=== PATIENT | female | born 1930 | race Caucasian/White ===

== ENCOUNTER 2017-08-07 13:33 | Inpatient (IN) | payer OTHER ==
[2017-08-07 14:47] VITALS: BMI 39.6
[2017-08-07] MEDS ORDERED: D50W 25 GM/50 ML SYRINGE IV PRN (15:56)
[2017-08-07] MEDS ORDERED: GLUCAGON 1 MG/VIAL IM PRN (15:56)
[2017-08-07] MEDS ORDERED: VANCOMYCIN/NS 1 gm 1 GM/250 ML BAG IVPB SCH (16:00)
[2017-08-07 16:22] LABS: Absolute Lymphocytes (CBC) 1.5 K/uL (0.7-4.9); Absolute Monocytes 0.8 K/uL (0.1-1.3); Absolute Neutrophil 4.4 K/uL (1.8-8.0); Basophils % 0.8 % (0-1.3); Eosinophils % 6.4 % (0-4.4); Hematocrit 32.8 % (36.0-45.0); Lymphocytes % 21.2 % (15.3-44.8); MCH 29.2 pg (27.0-35.0); MCV 90.5 fL (80-100); MPV 8.4 fL (7.6-11.3); Monocytes % 10.7 % (3.3-12.3); RBC Red Blood Cell Count 3.62 M/uL (3.86-4.86)
[2017-08-07 16:28] LABS: Protime INR 1.05
[2017-08-07] MEDS: INSULIN -REGULAR HUMAN 50 UNIT/0.5 ML ML SQ SCH ×2 (16:30→21:00)
[2017-08-07 16:41] LABS: Albumin 3.5 g/dL (3.4-5.0); Bilirubin Total 0.6 mg/dL (0.2-1.0); Magnesium 2.8 mg/dL (1.8-2.4); Potassium 4.6 mmol/L (3.5-5.1)
[2017-08-07] MEDS ORDERED: VANCOMYCIN 1.75 GM in NA CHLORIDE 0.9% 500 ML IVPB SCH (17:00)
[2017-08-07] MEDS: Levofloxacin 250mg IV 250 MG/50 ML BAG IV SCH (18:29)
[2017-08-07] MEDS: NA CHLORIDE 0.9% 1,000 ML IV SCH (18:30)
[2017-08-07] MEDS ORDERED: FAMOTIDINE 20 MG PO PRN (20:32)
[2017-08-07] MEDS ORDERED: ACETAMINOPHEN PO PRN (20:32)
[2017-08-07] MEDS ORDERED: HYDROCODONE BIT PO PRN (20:32)
[2017-08-07] MEDS ORDERED: RANITIDINE 150 MG PO PRN (20:32)
[2017-08-07] MEDS ORDERED: CLONIDINE 0.1 MG TOP SCH (20:45)
[2017-08-07] MEDS ORDERED: METHOCARBAMOL PO SCH (21:00)
--- NOTE | 2017-08-08 06:01 | HP ---
Date of Admission: 08/07/2017 Chief Complaint: Pain and swelling. History Of Present Illness: Ms. Marte is a very pleasant 86-year-old white female patient, living at [facility], came into office today with almost 2 weeks history of worsening problem with redness and swelling of the left upper chest just near the clavicular region. Denies a ny fall or injury. No fever or chills. This area is sore to touch, but not painful. No insect bite . It has gotten worse in last few days. After she was evaluated at the office, decision was made to admit her to the hospital directly with abscess of the upper chest wall area. Allergies: LISINOPRIL CAUSING DRY COUGH. Medications: List reviewed. Review of Systems: Dermatology: As mentioned above. All other systems reviewed and negative. Social History: Negative for smoking or alcohol use. Family History: Not pertinent. Past Medical History: Significant for osteoporosis, constipation, anemia and chronic kidney disease, chronic kidney disease stage IV, mixed hyperlipidemia, type 2 diabetes mellitus, osteoarthritis at m ultiple sites, osteoporosis, hypertension. Past Surgical History: Significant for surgery for right hip fracture in 2016, hysterectomy, cholecy stectomy in the past. Physical Examination: Vital Signs: Upon admission, temperature 97.6, pulse 63, respiratory rate 175/79, saturation 99%. H eight 5 feet 1 inch. Weight 210 pounds. HEENT: Head atraumatic, normocephalic. Conjunctivae nonerythematous. Sclerae white. Mouth, no thr ush or edema noted. Ears/Nose, no mass, lesion, discharge noted. Neck: Supple. No JVD, lymph nodes, bruit, thyromegaly noted. Lungs: Bilateral good equal air entry. Clear to auscultation. No rhonchi. No rales. Heart: Normal heart sounds, no murmur or gallop. Abdomen: Soft, bowel sounds normal. No guarding, rigidity, tenderness, mass, hepatosplenomegaly, dis tention, or bruit noted. Extremities: No leg edema. No calf tenderness. Skin: No rash, ulcer, cellulitis. Lymphatics: No lymph node enlargement in neck, supraclavicular, infraclavicular region. Neuro: No focal neurological deficit. Chest Wall Examination: The patient has large, about 4-5 cm area of pink, warm skin with fluctuation and upon gentle pressure, she has some pain, tenderness, and also there was some purulent discharge noted to come out of this fluctuance, swelling and this is located in the left sternoclavicular junct ion area. External Genitalia: Deferred. Rectal: Deferred. Laboratory Data: White count 7.3, hemoglobin 10.6, platelets 255. Sodium 140, potassium 4.6, chlori de 108, bicarb 27, BUN 27, creatinine 1.70, glucose 66. Liver function tests unremarkable. PT/PTT n ormal. Impression: 1.Abscess, chest wall. 2.Chronic kidney disease, stage 4, improving. 3.Type 2 diabetes mellitus with chronic kidney disease. 4.Hypertension. 5.Mixed hyperlipidemia. 6.Osteoporosis. 7.Osteoarthritis, multiple sites. Plan: Admit the patient to hospital for further evaluation and management of this problem. The sobeida ent is appropriate for inpatient and is expected to spend 2 midnights in hospital. We will go ahead and consult general surgeon, keep her n.p.o. after midnight. Home medications will be continued per order. IV antibiotic including Levaquin and vancomycin will be given and I will see her tomorrow for followup. For diabetes, we will go ahead and manage her with sliding scale insulin to start with. I will see her tomorrow morning for followup. PITA/MODL Voice ID: [id number]
[2017-08-08] MEDS: INSULIN -REGULAR HUMAN 50 UNIT/0.5 ML ML SQ SCH ×4 (07:30→19:57)
[2017-08-08] MEDS ORDERED: NA CHLORIDE 0.9% 1,000 ML ONE (10:37)
[2017-08-08] MEDS ORDERED: BUPIVACAINE 0.5% PF 10 ML VIAL ONE (11:14)
[2017-08-08] MEDS ORDERED: LIDOCAINE 2% MPF 5 ML VIAL ONE (11:20)
[2017-08-08] MEDS ORDERED: PROPOFOL 200 MG/20 ML VIAL IV ONE (11:20)
[2017-08-08] MEDS ORDERED: KETOROLAC 30 MG/ML INJ ONE (11:21)
[2017-08-08] MEDS ORDERED: CEFAZOLIN/SWI 1gm 1 GM/10 ML SYR ONE (11:37)
--- NOTE | 2017-08-08 11:49 | P.OP ---
Preoperative diagnosis: Abscess and cellulitis Left chest Postoperative diagnosis: same, inflamed sebecous cyst Primary procedure: Wide excision Left chest Inflamed Sebecous cyst Anesthesia: Gen Estimated blood loss: min Specimen: c & s, cyst Findings: as above Complications: None Transferred to: Recovery Room Condition: Good
[2017-08-08] MEDS: NA CHLORIDE 0.9% 1,000 ML IV SCH (12:00)
--- NOTE | 2017-08-08 13:01 | PN ---
Date of Progress Note: 08/08/2017 Subjective: The patient was seen this morning for followup. Lying in bed, not in distress. Objective: Vital Signs: Reviewed. HEENT: Examination unremarkable. Lungs: Clear to auscultation. Heart: Sounds normal. Abdomen: Soft, bowel sounds normal. No guarding, rigidity, tenderness, or distention. Extremities: No leg edema. CHEST WALL: Shows area of abscess remains unchanged, but surrounding redness. Intensity is better t anthony than yesterday. Impression: 1.Abscess, chest wall. 2.Hypertension. 3.Type 2 diabetes mellitus. 4.Chronic kidney disease, stage 4. Plan: We will continue current medication, antibiotic. The patient is n.p.o. for surgical procedure by Dr. Morales and for incision and drainage, and we will continue current antibiotics. PITA/MODL Voice ID: [id number] Report ID: [id number]
--- NOTE | 2017-08-08 13:34 | PREOPCON ---
Date of Consultation: 08/07/2017 Reason: Abscess, cellulitis, left anterior chest. History Of Present Illness: The patient is an 86-year-old female, who presented to Dr. Addison's office with a 2-week history of redness, swelling in the left upper chest, increasing in size. She was adm itted for IV antibiotics. I was consulted for incision and drainage. No history of trauma. She did state that she had possibly a cyst there before. No history of insect bite, and again it is getting worse. No fever or chills. Review of Systems: Otherwise unremarkable. Past Medical History: Significant for chronic kidney disease, hyperlipidemia, diabetes type 2, hyper tension. Past Surgical History: Right hip surgery, hysterectomy, cholecystectomy. Allergies: INCLUDE LISINOPRIL. Social History: She does not smoke or drink. Family History: Noncontributory. Physical Examination: Vital Signs: Stable. She is afebrile. General: She is awake, alert, orient x3. Head and Neck: Cranial nerves 2 through 12 grossly within normal limits. No neck masses. No JVD. Throat: Clear. Neck: Supple. Chest: Clear. Heart: S1, S2. Abdomen: Soft. Extremity: Neurovascularly intact. Neuro: Nonfocal. Left anterior chest, there is approximately a 5 x 3 cm area of erythema, warmth, and edema with centr al fluctuance and tenderness. Laboratory Data: Reviewed. White count is 7.3, INR is 1.05. Chemistry reviewed. Assessment: Left anterior chest abscess and cellulitis. Recommendation: Continue antibiotics as ordered. We will take the patient to the OR for incision, d rainage, and debridement. The patient understands the risks, benefits, and alternatives and agrees t o procedure. EMMETT/MODL Voice ID: [id number] Report ID: [id number]
[2017-08-08] MEDS: AMLODIPINE 5 MG PO SCH (15:47)
[2017-08-08] MEDS: Levofloxacin 250mg IV 250 MG/50 ML BAG IV SCH (16:51)
[2017-08-08] MEDS ORDERED: METHYLDOPA 250 MG PO SCH (17:00)
--- NOTE | 2017-08-08 20:54 | OP ---
Date of Procedure: 08/08/2017 Surgeon: Vlad Morales MD Preoperative Diagnosis: Abscess and cellulitis, left neck. Postoperative Diagnoses: Abscess and cellulitis, left neck with inflamed sebaceous cyst. Procedure Performed: Wide excision, inflamed sebaceous cyst to the left chest 6 x 3 cm. Estimated Blood Loss: Minimal. Specimen: Inflamed sebaceous cyst, and culture and sensitivity. Findings: As above. Anesthesia: General. Complications: None. Disposition: The patient tolerated the procedure in stable condition and taken to Recovery in good g eneral condition. Procedure In Detail: The patient was brought to the OR and placed in the supine position. General a nesthesia was begun. The patient was prepped and draped in usual sterile fashion. Marcaine 0.5% was infiltrated locally and then a 15-blade was used to make a 6 x 3 cm incision. There was pus oozing from the cyst. The cultures were done, and then the entire cyst wall and contents were excised, sent to Pathology. Wound irrigated. Bleeding controlled with cautery. Flap was created and 2-0 chromic used to approximate the subcutaneous tissue. The skin left open for drainage purposes as the cyst w as inflamed. Sterile dressing was applied. The patient was awakened and taken to Recovery in good gene ral condition. /MODL Voice ID: [id number] Report ID: [id number]
[2017-08-09] MEDS: INSULIN -REGULAR HUMAN 50 UNIT/0.5 ML ML SQ SCH (07:30)
--- NOTE | 2017-08-09 08:02 | PN ---
Date of Progress Note: 08/09/2017 Subjective: The patient is awake, alert. No complaint. Objective: Vital Signs: Stable, afebrile. Cultures are pending. Dressing is clean, dry, intact. Assessment: Excision of infected sebaceous cyst to the left anterior chest. Recommendation: The patient cleared for discharge by the Surgery Service. Antibiotics per Dr. Addison. Follow up in my office in 1 week. Dry gauze to wound. May shower. /MODL Voice ID: [id number] Report ID: [id number]
[2017-08-09] MEDS: NA CHLORIDE 0.9% 1,000 ML IV SCH (08:37)
[2017-08-09] MEDS: AMLODIPINE 5 MG PO SCH (08:37)
[2017-08-09 08:40] VITALS: BP 152/84; TEMP 99.1
[2017-08-09 09:31] VITALS: O2SAT 94
[2017-08-09] MEDS ORDERED: VANCOMYCIN 1.75 GM in NA CHLORIDE 0.9% 500 ML IVPB SCH (17:00)
--- NOTE | 2017-08-10 11:51 | DS ---
Date of Discharge: 08/09/2017 Disposition: Discharged to go home. Physical Examination: HEENT: Unremarkable. Lungs: Clear to auscultation. Heart: Sounds normal. Abdomen: Soft. Bowel sounds normal. No guarding, rigidity, tenderness, or distention. Extremities: No leg edema. Hospital Course: Ms. Marte is an 86-year-old female patient, who was admitted to the hospital after she was evaluated at the office with concern about abscess involving left upper chest wall. Please s ee dictated H and P for more information. The patient lives at [facility] d she came into office with these complaints. After she was evaluated, decision was made to admit he r to hospital. After she was admitted, she was started on empiric IV antibiotic, which was Levaquin and vancomycin. Dr. Morales from General Surgery was consulted and the patient was kept n.p.o. after m idnight and day after admission, she was taken to operating room and had incision and drainage done o f this area. Dr. Morales called and informed me that this was infected sebaceous cyst and he did excis e it. He has instructed her to put clean gauze for dressing changes on a daily purpose and the patie nt may start to take shower as of tomorrow. Dr. Morales would like to see her at his office in 1 week, and the patient will call and schedule her appointment. Her other medical problems remained stable. Discharge Medications And Instructions: 1.Continue all prior home medications. 2.Take Levaquin 250 mg p.o. daily for 1 week and doxycycline 100 mg 2 times a day for 1 week. 3.Follow up with Dr. Morales next week and follow up at my office a week after. Discharge Diagnoses: 1.Abscess, chest wall. 2.Infected sebaceous cyst. 3.Chronic kidney disease stage 4, improving. 4.Type 2 diabetes mellitus with chronic kidney disease. 5.Hypertension. 6.Mixed hyperlipidemia. 7.Osteoporosis. 8.Osteoarthritis, multiple sites. Labs Done During This Hospitalization: White count 7.3, hemoglobin 10.6, platelets 255. Sodium 140, potassium 4.6, chloride 108, bicarb 27, BUN 27, creatinine 1.70, glucose 66. Liver function tests u nremarkable. PT, PTT normal. PITA/MODL Voice ID: [id number] Report ID: [id number]
== END 2017-08-09 11:21 | DRG 603 ==
LOC: 4TH 14:08
PROVIDERS: ADMIT Internal Medicine; ATTEND Internal Medicine
PROC: 0HB5XZZ Excision of Chest Skin, External Approach (ICD-10-PCS; principal; 2017-08-08 11:15)
DX: L02.213 Cutaneous abscess of chest wall (principal); N18.4 Chronic kidney disease, stage 4 (severe); L72.3 Sebaceous cyst; I12.9 Hypertensive chronic kidney disease with stage 1 through stage 4 chronic kidney disease, or unspecified chronic kidney disease; E11.22 Type 2 diabetes mellitus with diabetic chronic kidney disease; E78.2 Mixed hyperlipidemia; M19.90 Unspecified osteoarthritis, unspecified site; M81.0 Age-related osteoporosis without current pathological fracture
CPT/HCPCS: 36415; 80053; 82962; 83735; 85025; 85610; 85730; 87070; 87075; 87205; 88304; J0690; J7030

== ENCOUNTER 2017-08-14 19:38 | Inpatient (IN) | payer OTHER ==
--- OUTSIDE RECORDS SUMMARY | 2017-08-14 19:41 | XMS REPORT | Continuity of Care Document ---
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 Arthritis Resolved Problem 12/07/2015 [facility] Diabetes Resolved Problem 12/07/2015 [facility] mellitus [facility] Fall - Resolved Problem 12/07/2015 [facility] accidental [facility] GERD (<span Resolved Problem 12/07/2015 [facility] ID="[id number]" Medical >Confirmed</spa Center n>) Hypertension Resolved Problem 12/07/2015 [facility] Osteoporosis Resolved Problem 12/07/2015 [facility] FX UNSP PART OF Active [facility] MANDIBLE, Center UNSPEC Medications Medication Details Route Status Patient Ordering Order Source Instructions Provider Date remove patch 1 patch, Route: No Longer [facility], Drug form: Active [address] [place] [address] ERFILM, Q7D, Center Start date: 12/06/15 16:00:00 CDT, Duration: 30 day, Stop date: 01/03/16 16:00:00 CSTNotes: Remove old patch before application of new patch. heparin 5,000 unit=1 Active 12/03[facility] mL, SUB-Q, Q8H, 2015 Medical 0 Refill(s) Center Folic Acid 1 MG 1 mg=1 tab, PO, Active 12/03[facility] Oral Tablet Daily, 0 2015 Medical Refill(s) Center ferrous sulfate 325 mg=1 tab, Active 12/03[facility] 325 mg oral PO, TID-Meals, 2015 Medical enteric coated 0 Refill(s) Center tablet atorvastatin 20 20 mg=1 tab, Active 12/03[facility] [place] mg oral tablet PO, Bedtime, 0 2015 Medical Refill(s) Center amLODIPine 10 10 mg=1 tab, Active 10/28[facility] mg oral tablet PO, Daily, 0 2015 Medical Refill(s) Center Acetaminophen 1 tab, PO, Q6H, Active [place] 325 MG / PRN Pain Score 2016 Medical Hydrocodone 6-10, 0 [place] Bitartrate 5 MG Refill(s) Oral Tablet [[place] 5/325] senna 8.6 mg 17.2 mg=2 tab, Active [place] oral tablet PO, Bedtime, 0 2015 Medical Refill(s) [place] Compazine 5 mg, 1 mL, Inactive [place] Route: IM, Drug 2015 Medical form: INJ, Q3H, Center Dosing Weight 88.182, kg, PRN Nausea & Vomiting, Start date: 12/04/15 10:56:00 CDT, Stop date: 01/03/16 10:55:00 CSTNotes: (Same as: Compazine) Simethicone 80 mg, 1 tab, Inactive [place] Route: CHEW, 2015 Medical Drug form: [place] CHEWTAB, QID, Dosing Weight 88.182, kg, PRN Gas, Start date: 12/04/15 10:56:00 CDT, Duration: 30 day, Stop date: 01/03/16 10:55:00 CSTNotes: (Same as: Mylicon) Amlodipine 10 mg, 1 tab, Inactive [place] Route: PO, Drug 2015 Medical form: TAB, Center Daily, Dosing Weight 88.182, kg, Start date: 12/04/15 9:00:00 CDT, Duration: 30 day, Stop date: 01/02/16 9:00:00 CSTNotes: (Same as: Norvasc) Tums 500 mg, 1 tab, Inactive [place] Route: CHEW, 2015 Medical Drug form: Center CHEWTAB, TID, Dosing Weight 88.182, kg, Start date: 12/04/15 9:00:00 CDT, Duration: 30 day, Stop date: 01/02/16 17:00:00 CSTNotes: (Same As: Tums) Calcium Carbonate 500 le=910 mg elemental calcium Dose= mg calcium carbonate ( mg elemental calcium) Hydralazine 50 mg, 2 tab, Inactive [place] Hydrochloride Route: PO, Drug 2016 Medical 50 MG Oral form: TAB, Q6H, Center Tablet Dosing Weight 88.182, kg, Start date: 12/04/15 4:53:00 CDT, Duration: 30 day, Stop date: 01/03/16 0:00:00 CSTNotes: (Same as: Apresoline) May interfere w/enteral feedings Take With Food. Tums 500 mg, 1 tab, Inactive [place] Route: CHEW, 2015 Medical Drug form: Center CHEWTAB, TID, Dosing Weight 88.182, kg, PRN Indigestion, Start date: 12/04/15 4:50:00 CDT, Duration: 30 day, Stop date: 01/03/16 4:49:00 CSTNotes: (Same As: Tums) Calcium Carbonate 500 tx=359 mg elemental calcium Dose= mg calcium carbonate ( mg elemental calcium) Metoprolol 5 mg, 5 mL, Inactive [place] Route: IVP, 2015 Medical Drug form: INJ, Center Q8H, Dosing Weight 88.182, kg, PRN Other -See Comment, SBP > 160 mmHg, Start date: 12/04/15 0:13:00 CDT, Duration: 30 day, Stop date: 01/03/16 0:12:00 DRILLER MACHINE, BPNotes: (Same as: Lopressor) Push over 2 minutes olmesartan 40 mg, 2 tab, No Longer [place] Route: PO, Drug Active 2015 Medical form: TAB, Center Daily, Dosing Weight 88.182, kg, Start date: 12/03/15 9:00:00 CDT, Duration: 30 day, Stop date: 01/01/16 9:00:00 DRILLER MACHINE ferrous sulfate 325 mg, 1 tab, No Longer [place] Route: PO, Drug Active 2015 Medical form: ECTAB, Center TID-Meals, Dosing Weight 88.182, kg, Start date: 12/03/15 8:00:00 CDT, Duration: 30 day, Stop date: 01/01/16 17:00:00 CSTNotes: Give with food. "Do Not Crush" Acetaminophen 1 tab, Route: No Longer [place] 325 MG / PO, Drug Form: Active 2016 Medical Hydrocodone TAB, Dosing Center Bitartrate 5 MG Weight 88.182, Oral Tablet kg, Q6H, PRN [[place] 5/325] Pain Score 6-10, Start date: 12/02/15 13:00:00 CDT, Duration: 30 day, Stop date: 01/01/16 12:59:00 CSTNotes: (Same as: [place] 325/5) Do not exceed 4gm/day of acetaminophen. Acetaminophen 1 tab, Route: Inactive [place] 325 MG / PO, Drug Form: 2015 Medical Hydrocodone TAB, Dosing Center Bitartrate 10 Weight 88.182, MG Oral Tablet kg, Q6H, PRN [[place] 10/325] Pain Score 6-10, Start date: 12/02/15 8:39:00 CDT, Duration: 30 day, Stop date: 01/01/16 8:38:00 CSTNotes: Do not exceed 4gm/day of acetaminophen. (Same as: [place] 325/10) Tramadol 50 mg, 1 tab, No Longer [place] Route: PO, Drug Active 2015 Medical form: TAB, Q6H, Center Dosing Weight 88.182, kg, PRN Pain Score 1-5, Start date: 12/02/15 8:39:00 CDT, Stop date: 01/01/16 8:38:00 CSTNotes: Not to exceed 400mg/day. (Same As: Ultram) Folic Acid 1 mg, 1 tab, No Longer [facility] Route: PO, Drug Active 2015 Medical form: TAB, Center Daily, Dosing Weight 88.182, kg, Start date: 12/01/15 9:00:00 CDT, Duration: 30 day, Stop date: 12/30/15 9:00:00 CSTNotes: (Same as: Folvite) multivitamin 1 tab, Route: No Longer [facility] PO, Drug Form: Active 2015 Medical TAB, Dosing Center Weight 88.182, kg, Daily, Start date: 12/01/15 9:00:00 CDT, Duration: 30 day, Stop date: 12/30/15 9:00:00 CSTNotes: (Same as:Thera) WASTE: F/P - Black; E - Municipal Trash Bin Take with food. ferrous sulfate 325 mg, 1 tab, No Longer [place] Route: PO, Drug Active 2015 Medical form: ECTAB, Center Daily, Dosing Weight 88.182, kg, Start date: 12/01/15 9:00:00 CDT, Duration: 30 day, Stop date: 12/30/15 9:00:00 CSTNotes: Give with food. "Do Not Crush" Insulin 35 unit, 0.35 No Longer [place] Glargine mL, Route: Active 2015 Medical SUB-Q, Drug Center form: SOLN, Daily, Dosing Weight 88.182, kg, Start date: 12/01/15 9:00:00 CDT, Duration: 30 day, Stop date: 12/30/15 9:00:00 CSTNotes: Same as: Lantus) Do not hold insulin without contacting prescriber WASTE: F/P - Black; E - Municipal Trash Bin Glimeperide 1 Glimeperide 1 No Longer [place] mg tablet mg tablet, 0.5 Active 2015 Medical mg=0.5 tab, Center Drug form: MISC, Route: PO, BID, 11/30/15 17:00:00 CDT, Duration: 30 day, Stop date: 12/30/15 9:00:00 DRILLER MACHINE glimepiride 0.5 mg, Route: Inactive [place] PO, Drug form: 2015 Medical TAB, BID, Center Dosing Weight 88.182, kg, Start date: 11/30/15 17:00:00 CDT, Duration: 30 day, Stop date: 12/30/15 9:00:00 DRILLER MACHINE Calmoseptine 1 appl, Route: No Longer [place] TOP, PRN, Drug Active 2015 Medical form: OINT, PRN Center Diaper Rash, Start date: 11/30/15 10:40:00 CDT, Duration: 30 day, Stop date: 12/30/15 9:39:00 DRILLER MACHINE, DosingNotes: (Same as: Calmoseptine) Furosemide 40 40 mg, 1 tab, Inactive [place] MG Oral Tablet Route: PO, Drug 2015 Medical [Lasix] form: TAB, Center Daily, Dosing Weight 88.182, kg, Start date: 11/30/15 9:00:00 CDT, Duration: 30 day, Stop date: 12/29/15 9:00:00 CSTNotes: (Same as: Lasix) May cause GI upset. Give with food or milk. sodium chloride 1,000 mL, Rate: No Longer [place] 0.9% 1000 ml 75 ml/hr, Active 2015 Medical INJ 1,000 mL Infuse over: Center 13.3 hr, Route: IV, Dosing Weight 88.182 kg, Total Volume: 1,000, Start date: 11/30/15 8:02:00 CDT, Duration: 30 day, Stop date: 12/30/15 8:01:00 DRILLER MACHINE Ativan 1 mg, 1 tab, No Longer [place] Route: PO, Drug Active 2015 Medical form: TAB, Center Bedtime, Dosing Weight 88.182, kg, Start date: 11/29/15 21:00:00 CDT, Duration: 30 day, Stop date: 12/28/15 21:00:00 CSTNotes: (Same as: Ativan) glimepiride 1 mg, 1 tab, No Longer [place] Route: PO, Drug Active 2015 Medical form: TAB, BID, Center Dosing Weight 88.182, kg, Start date: 11/29/15 17:00:00 CDT, Duration: 30 day, Stop date: 12/29/15 9:00:00 CSTNotes: (Same as: Amaryl) Miralax 17 gm, 1 pkt, No Longer [place] Route: PO, Drug Active 2015 Medical form: PWDR, Center BID, Dosing Weight 88.182, kg, Start date: 11/29/15 17:00:00 CDT, Duration: 30 day, Stop date: 12/29/15 9:00:00 CSTNotes: Dissolve in 8 oz of water or juice. (Same as: Miralax) Furosemide 40 40 mg, Route: Inactive [place] MG Oral Tablet PO, Drug form: 2015 Medical [Lasix] TAB, BID, Center Dosing Weight 88.182, kg, Start date: 11/29/15 17:00:00 CDT, Duration: 30 day, Stop date: 12/29/15 9:00:00 DRILLER MACHINE Methyldopa 250 250 mg, 1 tab, No Longer [place] MG Oral Tablet Route: PO, Drug Active 2015 Medical form: TAB, Center Daily, Dosing Weight 88.182, kg, Start date: 11/29/15 16:00:00 CDT, Duration: 30 day, Stop date: 12/28/15 16:00:00 CSTNotes: May interfere w/enteral feedings. (Same as:Aldomet) 168 HR 1 patch, Route: No Longer [place] Clonidine Transdermal, Active 2015 Medical 0.90931 MG/HR Drug Form: [place] Transdermal ERFILM, Dosing Patch Weight 88.182, kg, Q7D, Start date: 11/29/15 14:00:00 CDT, Stop date: 12/27/15 16:00:00 CSTNotes: Patch delivers 0.1 mg/24 hours; Patch is applied weekly. "Remove old patch before application of new patch" (Same As: Jnxpajrx-CER-7) multivitamin 1 tab, PO, Active [place] Daily 2015 [facility] cranberry oral 1 tab, PO, No Longer [place] tablet Daily Active 2015 [facility] Aspirin 81 MG 81 mg=1 tab, No Longer [place] Enteric Coated PO, Daily Active 2015 [facility] Tablet [place] amLODIPine 5 mg 5 mg=1 tab, PO, No Longer [place] oral tablet Daily Active 2015 [facility] Alendronic acid 70 mg=1 tab, Active [place] 70 MG Oral PO, Q7D, EVERY 2015 Medical Tablet MONDAY Center Acetaminophen 1 tab, PO, No Longer [place] 325 MG / Bedtime, PRN Active 2015 [facility] Hydrocodone Pain Center Bitartrate 10 MG Oral Tablet [[place] [address]] 3 ML Insulin 35 units, Active [place] Glargine 100 SUB-Q, QAM 2016 [facility] UNT/ML Center Prefilled Syringe [Lantus] Methocarbamol 500 mg, 1 tab, No Longer [place] Route: PO, Drug Active 2015 Medical form: TAB, Center Bedtime, Dosing Weight 88.182, kg, PRN Muscle Spasms, Start date: 11/29/15 10:17:00 CDT, Duration: 30 day, Stop date: 12/29/15 10:16:00 CSTNotes: (Same as:Robaxin) Dulcolax 10 mg, 1 supp, No Longer [place] Laxative Route: [place], Drug Active 2015 Medical form: SUPP, Center Daily, Dosing Weight 88.182, kg, PRN Constipation, Start date: 11/29/15 10:15:00 CDT, Duration: 30 day, Stop date: 12/29/15 10:14:00 CSTNotes: (Same As: Dulcolax, [place]-Lax) Insulin 30 unit, 0.3 No Longer [place] Glargine mL, Route: Active 2015 Medical SUB-Q, Drug Center form: SOLN, Daily, Dosing Weight 88.182, kg, Start date: 11/29/15 9:00:00 CDT, Duration: 30 day, Stop date: 12/28/15 9:00:00 CSTNotes: Same as: Lantus) Do not hold insulin without contacting prescriber WASTE: F/P - Black; E - Municipal Trash Bin atorvastatin 20 mg, 1 tab, No Longer [place] Route: PO, Drug Active 2015 Medical form: TAB, Center Bedtime, Dosing Weight 88.182, kg, Start date: 11/28/15 21:00:00 CDT, Duration: 30 day, Stop date: 12/27/15 21:00:00 CSTNotes: (Same As: Lipitor) sennosides, [facility] 17.2 mg, 2 tab, No Longer [place] Route: PO, Drug Active 2015 Medical Form: TAB, Center Dosing Weight 88.182, kg, Bedtime, Start date: 11/28/15 21:00:00 CDT, Duration: 30 day, Stop date: 12/27/15 21:00:00 CSTNotes: (Same as: Senokot) 168 HR 1 patch, TOP, Active [place] Clonidine qWeek, EVERY 2016 Medical 0.78297 MG/HR MONDAY, # 4 Center Transdermal patch, 0 Patch Refill(s) Acetaminophen 1 tab, PO, No Longer [place] 325 MG / Q4-6H, PRN Active 2015 Medical Hydrocodone Center Bitartrate 5 MG Oral Tablet [[place] 5/325] heparin 5,000 unit, 1 No Longer [place] mL, Route: Active 2015 Medical SUB-Q, Drug Center form: INJ, Q8H, Dosing Weight 88.182, kg, Start date: 11/28/15 18:00:00 CDT, Duration: 30 day, Stop date: 12/28/15 22:00:00 CSTNotes: porcine heparin Ancef + sodium 2 gm, Route: No Longer [place] chloride 0.9% IVPB, ABXQ8H, Active 2015 Medical INJ 100 mL Dosing Weight Center 88.182, kg, Start date: 11/28/15 18:00:00 CDT, Duration: 1 day, Stop date: 11/29/15 15:00:00 CDTNotes: (Same As: Ancef Kefzol) Cefazolin FOR IV SET ONLY MEDICATION WASTE Product Size: 1000 mg Product Wasted: 0 mg Cefazolin 2 gm, Route: Inactive [place] IVP, ONCE, 2015 Medical Dosing Weight Center 88.182, kg, Start date: 11/28/15 15:28:00 CDT, Stop date: 11/28/15 15:28:00 CDT Methyldopa 250 250 mg, 1 tab, No Longer [facility] MG Oral Tablet Route: PO, Drug Active 2015 Medical form: TAB, TID, Center Dosing Weight 88.182, kg, Start date: 11/28/15 9:00:00 CDT, Duration: 30 day, Stop date: 12/27/15 17:00:00 CSTNotes: May interfere w/enteral feedings. (Same as:Aldomet) lansoprazole 30 mg, 10 mL, Inactive [place] Route: PO, Drug 2015 Medical form: SUSP, Center Daily, Dosing Weight 88.182, kg, Start date: 11/28/15 9:00:00 CDT, Duration: 30 day, Stop date: 12/27/15 9:00:00 CSTNotes: Take 1 hour before or 2 hours after meal; Expires in 14 days. Shake well before use. (Same as:Prevacid) Compounded Product - formulation not commercially available carvedilol 12.5 mg, 1 tab, No Longer 10 [place] Route: PO, Drug Active 2015 Medical form: TAB, Center Q12H, Dosing Weight 88.182, kg, Start date: 11/28/15 9:00:00 CDT, Stop date: 12/27/15 21:00:00 CSTNotes: Give with food. (Same As: Coreg) Insulin 15 unit, 0.15 No Longer [place] Glargine mL, Route: Active 2015 Medical SUB-Q, Drug Center form: SOLN, Daily, Dosing Weight 88.182, kg, Start date: 11/28/15 9:00:00 CDT, Duration: 30 day, Stop date: 12/27/15 9:00:00 CSTNotes: Same as: Lantus) Do not hold insulin without contacting prescriber WASTE: F/P - Black; E - Municipal Trash Bin Docusate 100 mg, 1 cap, No Longer [place] Route: PO, Drug Active 2015 Medical form: CAP, BID, Center Dosing Weight 88.182, kg, Start date: 11/28/15 9:00:00 CDT, Duration: 30 day, Stop date: 12/27/15 17:00:00 CSTNotes: (Same as: Colace) (Do Not Crush) Protonix 40 mg, 1 tab, No Longer [place] Route: PO, Drug Active 2015 Medical form: ECTAB, Center Before Breakfast, Start date: 11/28/15 9:00:00 CDT, Duration: 30 day, Stop date: 12/28/15 7:30:00 CSTNotes: Tablet should not be chewed or crushed. (Same as: Protonix) Acetaminophen 500 mg, 1 tab, No Longer [place] Route: PO, Drug Active 2015 Medical form: TAB, Center Q6Hnow, Dosing Weight 88.182, kg, Start date: 11/28/15 7:00:00 CDT, Stop date: 12/28/15 3:00:00 CSTNotes: Max acetaminophen 4000 mg/day (4 gm/day). (Same as: Tylenol Extra Strength) Oxycodone 10 mg, 2 tab, No Longer [place] Hydrochloride 5 Route: PO, Drug Active 2015 Medical MG Oral Tablet form: TAB, Q4H, Center Dosing Weight 88.182, kg, PRN Pain Score 7-10, Start date: 11/28/15 6:06:00 CDT, Duration: 30 day, Stop date: 12/28/15 6:05:00 CSTNotes: (Same as: Roxicodone) Tramadol 50 mg, 1 tab, No Longer [place] Route: PO, Drug Active 2015 Medical form: TAB, Center Q6Hnow, Dosing Weight 88.182, kg, PRN Pain Score 1-3, Start date: 11/28/15 6:06:00 CDT, Duration: 30 day, Stop date: 12/28/15 6:05:00 CSTNotes: Not to exceed 400mg/day. (Same As: Ultram) Morphine 2 mg, 1 mL, No Longer [place] Route: IVP, Active 2015 Medical Drug form: INJ, Center Q4H, Dosing Weight 88.182, kg, PRN Pain Score 7-10, Start date: 11/28/15 6:06:00 CDT, Duration: 30 day, Stop date: 12/28/15 6:05:00 CSTNotes: (Same as:MORPhine Sulfate) Methocarbamol 1,000 mg, 2 No Longer [place] tab, Route: PO, Active 2015 Medical Drug form: TAB, Center Q8H, Dosing Weight 88.182, kg, PRN Muscle Spasms, Start date: 11/28/15 6:06:00 CDT, Duration: 30 day, Stop date: 12/28/15 6:05:00 CSTNotes: (Same as:Robaxin) Ondansetron 4 mg, 2 mL, No Longer [place] Route: IVP, Active 2015 Medical Drug form: INJ, Center Q8H, Dosing Weight 88.182, kg, PRN Nausea & Vomiting, Start date: 11/28/15 6:06:00 CDT, Duration: 30 day, Stop date: 12/28/15 6:05:00 CSTNotes: (Same as: Zofran) MEDICATION WASTE Product Size: 4 mg Product Wasted: ___ mg Melatonin 3 mg, 1 tab, No Longer [place] Route: PO, Drug Active 2015 Medical form: TAB, Center Bedtime, Dosing Weight 88.182, kg, PRN Insomnia, Start date: 11/28/15 6:06:00 CDT, Duration: 30 day, Stop date: 12/28/15 6:05:00 CSTNotes: (Same as: Melatonin) sodium chloride 1,000 mL, Rate: No Longer [place] 0.9% 1000 ml 100 ml/hr, Active 2015 Medical INJ 1,000 mL Infuse over: 10 Center hr, Route: IV, Dosing Weight 88.182 kg, Total Volume: 1,000, Start date: 11/28/15 6:04:00 CDT, Duration: 30 day, Stop date: 12/28/15 6:03:00 DRILLER MACHINE Insulin regular 1 unit, 0.01 No Longer [place] mL, Route: Active 2015 Medical SUB-Q, Drug Center form: SOLN, TID-Before Meals, Dosing Weight 88.182, kg, PRN Blood Glucose Results, Start date: 11/28/15 6:03:00 CDT, Duration: 30 day, Stop date: 12/28/15 6:02:00 CSTNotes: (Same as: Humulin R) Roll in palms of hands gently; Do not shake vigorously. "single patient use only" (Restricted to patients requiring a dose > 60 units) WASTE: F/P - Black; E - [employer] Trash Bin Stable for 28 days at room temperature Expires in days from D ate Dextrose 50% 12.5 gm, 25 mL, No Longer [place] Syringe Route: IVP, Active 2015 Medical Drug Form: INJ, Center Dosing Weight 88.182, kg, PRN, PRN Blood Glucose Results, Start date: 11/28/15 6:03:00 CDT, Duration: 30 day, Stop date: 12/28/15 5:02:00 DRILLER MACHINE Glucagon 1 mg, Route: No Longer [place] IM, Drug form: Active 2015 Medical PDR/INJ, PRN, Center Dosing Weight 88.182, kg, PRN Blood Glucose Results, Start date: 11/28/15 6:03:00 CDT, Duration: 30 day, Stop date: 12/28/15 5:02:00 DRILLER MACHINE Zofran 4 mg, 2 mL, Inactive [facility] Route: IV2015 Medical Drug form: INJ, Center ONCE, Dosing Weight 88.182, kg, Priority: STAT, Start date: 11/28/15 2:35:00 CDT, Stop date: 11/28/15 2:35:00 CDTNotes: (Same as: Zofran) MEDICATION WASTE Product Size: 4 mg Product Wasted: ___ mg Morphine 4 mg, 1 mL, Inactive [facility] Route: IV2015 Medical Drug form: INJ, Center ONCE, Dosing Weight 88.182, kg, Priority: STAT, Start date: 11/28/15 2:35:00 CDT, Stop date: 11/28/15 2:35:00 CDTNotes: (Same as:MORPhine Sulfate) Allergies, Adverse Reactions, Alerts Substance Category Reaction Severity Reaction Status Date Comments Source type Reported lisinopril Assertion Drug Active [facility] Immunizations Immunization Date Given Site Status Last Updated Comments Source Results Order Name Results Value Reference Date Interpretation Comments Source Range HEMATOLOGY Hgb 8.0 g/dL 12.0 - 12/02 [facility] HEMATOLOGY Hct 23.6 % 36.0 - 12/02 [facility] HEMATOLOGY Hgb 7.6 g/dL 12.0 - 12/01 [facility] HEMATOLOGY Hct 22.5 % 36.0 - 12/01 [facility] . [facility] CHEM PANEL eGFR 40 11/30 Result Comment: The eGFR is calculated using the CKD-EPI formula. In most young, healthy individuals the eGFR will be >90 mL/ min/1.73m2. The eGFR declines with age. An eGFR of 60-89 may be normal in [facility] mL/min/1.73 some populations, particularly the elderly, for whom the CKD-EPI formula has not been extensively validated. Use of the eGFR is not recommended in the following populations: [address] Individuals with unstable creatinine concentrations, including patients and those with serious co-morbid conditions. Patients with extremes in muscle mass or diet. The data above are obtained from the National Kidney Disease Education Program (NKDEP) which additionally recommends that when the eGFR is used in patients with extremes of body mass index for purposes of drug dosing, the eGFR should be multiplied by the estimated BMI. CHEM PANEL AGAP 13.8 meq/L 10.0 - 11/30 20.0 [facility] CHEM PANEL Calcium Lvl 8.0 mg/dL 8.5 - 10.5 11/30 [facility] CHEM PANEL CO2 24 meq/L 24 - 32 11/30 [facility] CHEM PANEL Chloride Lvl 106 meq/L 95 - 109 11/30 [facility] CHEM PANEL Potassium 3.8 meq/L 3.5 - 5.1 11/30 [facility] Lvl [facility] CHEM PANEL Sodium Lvl 140 meq/L 135 - 145 11/30 [facility] CHEM PANEL Creatinine 1.24 mg/dL 0.50 - 11/30 [facility] Lvl 1.40 [facility] CHEM PANEL BUN 30 mg/dL 7 - 22 11/30 [facility] CHEM PANEL Glucose Lvl 141 mg/dL 70 - 99 11/30 [facility] HEMATOLOGY Monocytes # 0.7 K/CMM 0.0 - 0.8 11/30 [facility] HEMATOLOGY Eosinophils 0.8 K/CMM 0.0 - 0.5 11/30 [place] [facility] HEMATOLOGY Monocytes 7.6 % 2.0 - 12.0 11/30 [facility] HEMATOLOGY Lymphocytes 24.4 % 20.0 - 11/30 [place] 40.0 [facility] HEMATOLOGY Segs 58.6 % 45.0 - 11/30 [place] 75.0 /2015 [facility] HEMATOLOGY Segs-Bands # 5.1 K/CMM 1.5 - 8.1 11/30 [facility] HEMATOLOGY Lymphocytes 2.1 K/CMM 1.0 - 5.5 11/30 [place] [facility] HEMATOLOGY Eosinophils 8.9 % 0.0 - 4.0 11/30 [facility] HEMATOLOGY Basophils 0.5 % 0.0 - 1.0 11/30 [facility] HEMATOLOGY MPV 9.2 fL 7.4 - 10.4 11/30 [facility] HEMATOLOGY RDW 15.3 % 11.5 - 11/30 [place] 14.5 [facility] HEMATOLOGY Platelet 146 K/CMM 133 - 450 11/30 [facility] HEMATOLOGY MCHC 33.2 g/dL 32.0 - 11/30 [facility] 36.0 [facility] HEMATOLOGY MCH 30.2 pg 27.0 - 11/30 [facility] 31.0 [facility] HEMATOLOGY Hgb 7.4 g/dL 12.0 - 11/30 [facility] 16.0 [facility] HEMATOLOGY Hct 22.2 % 36.0 - 11/30 [facility] 48.0 [facility] HEMATOLOGY WBC 8.6 K/CMM 3.7 - 10.4 11/30 [facility] HEMATOLOGY RBC 2.43 M/CMM 4.20 - 11/30 [facility] 5.40 [facility] HEMATOLOGY MCV 91.2 fL 80.0 - 11/30 [facility] 98.0 [facility] ELECTROLYTE Chloride Lvl 107 meq/L 95 - 109 11/29 [facility] ELECTROLYTE Potassium 3.9 meq/L 3.5 - 5.1 11/29 [facility] ELECTROLYTE Sodium Lvl 141 meq/L 135 - 145 11/29 [facility] ELECTROLYTE Creatinine 1.77 mg/dL 0.50 - 11/29 [facility] Lvl 1.40 [facility] ELECTROLYTE BUN 37 mg/dL 7 - 22 11/29 [facility] ELECTROLYTE Glucose Lvl 161 mg/dL 70 - 99 11/29 [facility] ELECTROLYTE eGFR 26 11/29 Result Comment: The eGFR is calculated using the CKD-EPI formula. In most young, healthy individuals the eGFR will be >90 mL/ min/1.73m2. The eGFR declines with age. An eGFR of 60-89 may be normal in [facility] mL/min/1.73 some populations, particularly the elderly, for whom the CKD-EPI formula has not been extensively validated. Use of the eGFR is not recommended in the following populations: [place] [id number] Center Individuals with unstable creatinine concentrations, including patients and those with serious co-morbid conditions. Patients with extremes in muscle mass or diet. The data above are obtained from the National Kidney Disease Education Program (NKDEP) which additionally recommends that when the eGFR is used in patients with extremes of body mass index for purposes of drug dosing, the eGFR should be multiplied by the estimated BMI. ELECTROLYTE Calcium Lvl 7.9 mg/dL 8.5 - 10.5 11/29 [place] S /2015 [facility] ELECTROLYTE CO2 26 meq/L 24 - 32 11/29 [facility] S /2015 [facility] ELECTROLYTE AGAP 11.9 meq/L 10.0 - 11/29 [place] S 20.0 [facility] HEMATOLOGY MPV 9.0 fL 7.4 - 10.4 11/29 [facility] HEMATOLOGY MCH 30.6 pg 27.0 - 11/29 [place] 31.0 [facility] HEMATOLOGY MCV 90.7 fL 80.0 - 11/29 [place] 98.0 [facility] HEMATOLOGY MCHC 33.7 g/dL 32.0 - 11/29 [place] 36.0 [facility] HEMATOLOGY RBC 2.78 M/CMM 4.20 - 11/29 [place] 5.40 /2015 [facility] HEMATOLOGY WBC 9.9 K/CMM 3.7 - 10.4 11/29 /2015 [facility] HEMATOLOGY Platelet 148 K/CMM 133 - 450 11/29 /2015 [facility] HEMATOLOGY RDW 15.2 % 11.5 - 11/29 [place] 14.5 2016 [facility] HEMATOLOGY Lymphocytes 1.9 K/CMM 1.0 - 5.5 11/29 [place] # /2015 [facility] HEMATOLOGY Segs-Bands # 6.6 K/CMM 1.5 - 8.1 11/29 [facility] HEMATOLOGY Eosinophils 0.6 K/CMM 0.0 - 0.5 11/29 [place] # /2016 [facility] HEMATOLOGY Monocytes # 0.8 K/CMM 0.0 - 0.8 11/29 /2015 [facility] HEMATOLOGY Lymphocytes 19.1 % 20.0 - 11/29 [place] 40.0 2016 [facility] HEMATOLOGY Segs 67.0 % 45.0 - 11/29 [place] 75.0 2016 [facility] HEMATOLOGY Basophils 0.3 % 0.0 - 1.0 11/29 [facility] HEMATOLOGY Eosinophils 5.9 % 0.0 - 4.0 11/29 /2015 [facility] HEMATOLOGY Monocytes 7.7 % 2.0 - 12.0 11/29 /2015 [facility] CHEM PANEL eGFR 37 11/28 Result Comment: The eGFR is calculated using the CKD-EPI formula. In most young, healthy individuals the eGFR will be >90 mL/ min/1.73m2. The eGFR declines with age. An eGFR of 60-89 may be normal in [facility] mL/min/1.73 /2015 some populations, particularly the elderly, for whom the CKD-EPI formula has not been extensively validated. Use of the eGFR is not recommended in the following populations: [place] [address] [facility] Individuals with unstable creatinine concentrations, including patients and those with serious co-morbid conditions. Patients with extremes in muscle mass or diet. The data above are obtained from the National Kidney Disease Education Program (NKDEP) which additionally recommends that when the eGFR is used in patients with extremes of body mass index for purposes of drug dosing, the eGFR should be multiplied by the estimated BMI. CHEM PANEL CO2 22 meq/L 24 - 32 11/28 [facility] CHEM PANEL Chloride Lvl 107 meq/L 95 - 109 11/28 [facility]2015 [facility] CHEM PANEL Calcium Lvl 8.9 mg/dL 8.5 - 10.5 11/28 2015 [facility] CHEM PANEL Sodium Lvl 139 meq/L 135 - 145 11/28 2015 [facility] CHEM PANEL BUN 22 mg/dL 7 - 22 11/28 [facility]2015 [facility] CHEM PANEL Potassium 4.3 meq/L 3.5 - 5.1 11/28 [facility] Lvl [facility] CHEM PANEL Glucose Lvl 260 mg/dL 70 - 99 11/28 [facility] CHEM PANEL Creatinine 1.31 mg/dL 0.50 - 11/28 [facility] Lvl 1.40 [facility] CHEM PANEL AGAP 14.3 meq/L 10.0 - 11/28 [facility] 20.0 [facility] HEMATOLOGY Lymphocytes 1.0 K/CMM 1.0 - 5.5 11/28 [facility] # [facility] HEMATOLOGY Monocytes # 0.6 K/CMM 0.0 - 0.8 11/28 [facility] HEMATOLOGY Segs-Bands # 11.1 K/CMM 1.5 - 8.1 11/28 2015 [facility] HEMATOLOGY Basophils 0.1 % 0.0 - 1.0 11/28 2015 [facility] HEMATOLOGY Eosinophils 0.1 % 0.0 - 4.0 11/28 [facility] HEMATOLOGY Monocytes 4.5 % 2.0 - 12.0 11/28 [facility] HEMATOLOGY Lymphocytes 7.8 % 20.0 - 11/28 [place] 40.0 /2015 [facility] HEMATOLOGY Segs 87.5 % 45.0 - 11/28 [place] 75.0 [facility] HEMATOLOGY Platelet 164 K/CMM 133 - 450 11/28 /2015 [facility] HEMATOLOGY MPV 9.1 fL 7.4 - 10.4 11/28 [facility] HEMATOLOGY RBC 3.32 M/CMM 4.20 - 11/28 [place] 5.40 /2015 [facility] HEMATOLOGY WBC 12.6 K/CMM 3.7 - 10.4 11/28 /2015 [facility] HEMATOLOGY RDW 15.0 % 11.5 - 11/28 [place] 14.5 [facility] HEMATOLOGY MCHC 34.0 g/dL 32.0 - 11/28 [place] 36.0 [facility] HEMATOLOGY MCH 30.8 pg 27.0 - 11/28 [facility] 31.0 [facility] HEMATOLOGY MCV 90.8 fL 80.0 - 11/28 [facility] 98.0 [facility] Hip 2/3 Hip 2/3 EXAM: XR HIP 1 VIEW AND AP PELVIS 11/27 [facility] views [facility] DATE: 11/28/2015 3:24 PM CDT Read by: Alex Peter MD Dictated Date/time: 11/28/15 22:26 Electronically Signed by: Alex Peter MD 11/28/15 22:27 FINAL REPORT INDICATION: Post Op/Hemiarthroplasty COMPARISON: Pelvis series 11/28/2015 at 416. TECHNIQUE: 1 view of the hip and a single AP radiograph of the pelvis Laterality: Right FINDINGS: Completion of right hip hemiarthroplasty, which projects in satisfactory alignment. No perihilar fracture. Right hip soft tissue gas and skin sofia is present. IMPRESSION: Satisfactory appearance of right hip hemiarthroplasty. Pelvis AP Pelvis AP DX EXAM: XR PELVIS 1 VIEW 11/27 - [facility] DX [facility] DATE: 11/28/2015 3:23 PM CDT Read by: Alex Peter MD Dictated Date/time: 11/28/15 22:27 Electronically Signed by: Alex Peter MD 11/28/15 22:28 FINAL REPORT INDICATION: Intra-Op Pelvis/Hemiarthroplasty COMPARISON: Right femur series 11/28/2015 at 8:37 AM TECHNIQUE: A single AP supine radiograph of the pelvis DISCUSSION: The examination is limited by portable technique and overlying artifact. There has been interval resection of the right femoral head and neck, and placement of a femoral rasp which proje ct in satisfactory alignment on this frontal radiograph. IMPRESSION: Satisfactory alignment of a right acetabular cup. Femur Femur series EXAM: XR RIGHT FEMUR 2 VIEWS 11/27 - [facility] series DX - [facility] This report was dictated by a Dishwasher Busser/Fellow. I have personally reviewed the images as Center well as the Resident's interpretation and agree with the findings. DATE: 11/28/2015 7:16 AM CDT Read by: India Hunter MD Resident: India Hunter MD Dictated Date/time: 11/28/15 08:47 Electronically Signed by: Sonny Florian MD 11/28/15 09:04 FINAL REPORT INDICATION: Fracture COMPARISON: Pelvis radiograph dated 11/28/2015 at 3:05 AM TECHNIQUE: AP and lateral radiographs of the right femur FINDINGS: There is a fracture of the right femoral neck with minimal superior displacement of the distal fracture fragment. 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 Overall the fractures in unchanged alignment from prior radiograph. 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 Atherosclerotic calcifications are n oted in the soft tissues. Soft tissue swelling is seen around the fracture site. No additional fractures identified. IMPRESSION: Unchanged alignment of right femoral neck fracture. BLOOD BANK Antibody Negative 11/27 [facility] RESULTS Scrn /2015 Medical (11/28/15 3:13 AM) [place] BLOOD BANK ABO/Rh O NEG 11/27 [facility] RESULTS /2015 [facility] HEMATOLOGY Eosinophils 0.1 K/CMM 0.0 - 0.5 11/27 [place] # /2016 [facility] HEMATOLOGY PT 12.3 s 12.0 - 11/27 [facility] 14.7 /2015 [facility] HEMATOLOGY INR 0.90 0.85 - 11/27 [facility] 1.17 [facility] Vital Signs Vital Sign Value Date Comments Source Systolic (mm Hg) 179 12/04/2015 [facility] Diastolic (mm Hg) 83 12/04/2015 [facility] Heart Rate 79 12/04/2015 [facility] Heart Rate 70 12/04/2015 [facility] Systolic (mm Hg) 180 12/04/2015 [facility] Diastolic (mm Hg) 78 12/04/2015 [facility] Systolic (mm Hg) 191 12/04/2015 [facility] Diastolic (mm Hg) 78 12/04/2015 [facility] Temperature Oral (F) 98.3 F 12/04/2015 [facility] Respitory Rate 18 12/04/2015 [facility] Heart Rate 84 12/04/2015 [facility] Temperature Oral (F) 98.5 F 12/04/2015 [facility] Respitory Rate 18 12/04/2015 [facility] Respitory Rate 18 12/04/2015 [facility] Temperature Oral (F) 98 F 12/04/2015 [facility] BMI Calculated 35.56 11/28/2015 [facility] Weight 88.182 11/28/2015 [facility] Height 157.48 cm 11/28/2015 [facility] Encounters Location Location Encounter Encounter Reason Attending ADM DC Status Source Details Type Number For Provider Date Date Visit [facility] [id number] [place] 11[facility]27 12/03 [facility] Rigoberto Boothel /2015 [facility] Procedures Procedure Code Date Perfomer Comments Source Ankle joint [id number] [facility] Appendectomy [id number] [facility] Cholecystectomy [id number] [facility] Hysterectomy [id number] [facility] Tonsillectomy [id number] [facility]
--- OUTSIDE RECORDS SUMMARY | 2017-08-14 19:42 | XMS REPORT | Summary of Care ---
:1930 Author Organization [facility] Address [address] [place] [id number] Encounter HQ Encntr_aliludmila(FIN) [id number] Date(s): 11/28/15 - 12/04/[address] Professional Services provided by [facility] [place] [place] [address]- Discharge Disposition: [facility] Facility Attending Physician: Magda Jimenez DO Admitting Physician: Marshall Larsen MD Referring Physician: Patrick Amin MD Vital Signs Most recent to oldest 1 2 3 [Reference Range]: Height 157.48 cm (11/28/15 1:28 AM) Temperature Oral 98.3 DegF 98.5 DegF 98 DegF [96.4-99.1 DegF] (12/04/15 4:27 AM) (12/03/15 11:30 PM) (12/03/15 7:22 PM) Blood Pressure 179/83 mmHg 180/78 mmHg 191/78 mmHg [90-140/60-90 mmHg] *HI* *HI* *HI* (12/04/15 11:30 AM) (12/04/15 7:04 AM) (12/04/15 6:25 AM) Respiratory Rate [14-20 18 BRMIN 18 BRMIN 18 BRMIN BRMIN] (12/04/15 4:27 AM) (12/03/15 11:30 PM) (12/03/15 7:22 PM) Peripheral Pulse Rate 79 bpm 70 bpm 84 bpm [60-100 bpm] (12/04/15 11:30 AM) (12/04/15 7:04 AM) (12/04/15 4:27 AM) Weight 88.182 kg (11/28/15 1:28 AM) Body Mass Index 35.56 m2 (11/28/15 1:28 AM) Problem List Condition Effective Dates Status Health Status Informant Arthritis(Confirmed) Resolved Diabetes mellitus(Confirmed) Resolved Fall - accidental(Confirmed) Resolved GERD (gastroesophageal reflux Resolved disease)(Confirmed) Hypertension(Confirmed) Resolved 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 Allergies, Adverse Reactions, Alerts Substance Reaction Severity Status lisinopril Active Medications acetaminophen 500 mg, 1 tab, Route: PO, Drug form: TAB, Q6Hnow, Dosing Weight 88.182, kg, Start date: 11/28/15 7:00:00 CDT, Stop date: 12/28/15 3:00:00 FREIGHT CALLER Notes: Max acetaminophen 4000 mg/day (4 gm/day). (Same as: Tylenol Extra Strength) Start Date: 11/28/15 Stop Date: 12/04/15 Status: Discontinuedalendronate 70 mg oral tablet 70 mg=1 tab, PO, Q7D, EVERY MONDAY Start Date: 11/29/15 Status: OrderedamLODIPine 10 mg, 1 tab, Route: PO, Drug form: TAB, Daily, Dosing Weight 88.182, kg, Start date: 12/04/15 9:00:00 CDT, Duration: 30 day, Stop date: 01/02/16 9:00:00 FREIGHT CALLER Notes: (Same as: Mo) Start Date: 12/04/15 Stop Date: 12/04/15 Status: DiscontinuedamLODIPine 10 mg oral tablet 10 mg=1 tab, PO, Daily, 0 Refill(s) Start Date: 12/04/15 Status: OrderedamLODIPine 5 mg oral tablet 5 mg=1 tab, PO, Daily Start Date: 11/29/15 Stop Date: 12/04/15 Status: DiscontinuedAncef + sodium chloride 0.9% INJ 100 mL 2 gm, Route: IVPB, ABXQ8H, Dosing Weight 88.182, kg, Start date: 11/28/15 18:00: 00 CDT, Duration: 1 day, Stop date: 11/29/15 15:00:00 CDT Notes: (Same As: Alber Aggarwal)Cefazolin FOR IV SET ONLY MEDICATION WASTE Product Size:1000 mgProduct Wasted: 0 mg Start Date: 11/28/15 Stop Date: 11/29/15 Status: Completedaspirin 81 mg tablet, enteric coated 81 mg=1 tab, PO, Daily Start Date: 11/29/15 Stop Date: 12/04/15 Status: DiscontinuedAtivan 1 mg, 1 tab, Route: PO, Drug form: TAB, Bedtime, Dosing Weight 88.182, kg, Start date: 11/29/15 21:00:00 CDT, Duration: 30 day, Stop date: 12/28/15 21:00: 00 FREIGHT CALLER Notes: (Same as: Ativan) Start Date: 11/29/15 Stop Date: 12/04/15 Status: Discontinuedatorvastatin 20 mg, 1 tab, Route: PO, Drug form: TAB, Bedtime, Dosing Weight 88.182, kg, Start date: 11/28/15 21:00:00 CDT, Duration: 30 day, Stop date: 12/27/15 21:00: 00 FREIGHT CALLER Notes: (Same As: Lipitor) Start Date: 11/28/15 Stop Date: 12/04/15 Status: Discontinuedatorvastatin 20 mg oral tablet 20 mg=1 tab, PO, Bedtime, 0 Refill(s) Start Date: 12/04/15 Status: OrderedCalmoseptine 1 appl, Route: TOP, PRN, Drug form: OINT, PRN Diaper Rash, Start date: 11/30/15 10:40:00 CDT, Duration: 30 day, Stop date: 12/30/15 9:39:00 FREIGHT CALLER, Dosing Notes: (Same as: Calmoseptine) Start Date: 11/30/15 Stop Date: 12/04/15 Status: Discontinuedcarvedilol 12.5 mg, 1 tab, Route: PO, Drug form: TAB, Q12H, Dosing Weight 88.182, kg, Start date: 11/28/15 9:00:00 CDT, Stop date: 12/27/15 21:00:00 FREIGHT CALLER Notes: Give with food. (Same As: Coreg) Start Date: 11/28/15 Stop Date: 11/30/15 Status: Voided With ResultsceFAZolin 2 gm, Route: IVP, ONCE, Dosing Weight 88.182, kg, Start date: 11/28/15 15:28:00 CDT, Stop date: 11/28/15 15:28:00 CDT Start Date: 11/28/15 Stop Date: 11/28/15 Status: CompletedcloNIDine 0.1 mg/24 hr transdermal film, extended release 1 patch, Route: Transdermal, Drug Form: ERFILM, Dosing Weight 88.182, kg, Q7D, Start date: 11/29/15 14:00:00 CDT, Stop date: 12/27/15 16:00:00 FREIGHT CALLER Notes: Patch delivers 0.1 mg/24 hours; Patch is applied weekly. "Remove old patch before application of new patch" (Same As: Goxzigeb-IKC-5) Start Date: 11/29/15 Stop Date: 12/04/15 Status: DiscontinuedcloNIDine 0.1 mg/24 hr transdermal film, extended release 1 patch, TOP, qWeek, EVERY MONDAY, # 4 patch, 0 Refill(s) Start Date: 11/28/15 Status: OrderedCompazine 5 mg, 1 mL, Route: IM, Drug form: INJ, Q3H, Dosing Weight 88.182, kg, PRN Nausea & Vomiting, Start date: 12/04/15 10:56:00 CDT, Stop date: 01/03/16 10 :55:00 FREIGHT CALLER Notes: (Same as: Compazine) Start Date: 12/04/15 Stop Date: 12/04/15 Status: Discontinuedcranberry oral tablet 1 tab, PO, Daily Start Date: 11/29/15 Stop Date: 12/04/15 Status: DiscontinuedDextrose 50% Syringe 12.5 gm, 25 mL, Route: IVP, Drug Form: INJ, Dosing Weight 88.182, kg, PRN, PRN Blood Glucose Results, Start date: 11/28/15 6:03:00 CDT, Duration: 30 day, Stop date: 12/28/15 5:02:00 FREIGHT CALLER Start Date: 11/28/15 Stop Date: 12/04/15 Status: DiscontinuedDextrose 50% Syringe 25 gm, 50 mL, Route: IVP, Drug Form: INJ, Dosing Weight 88.182, kg, PRN, PRN Blood Glucose Results, Start date: 11/28/15 6:03:00 CDT, Duration: 30 day, Stop date: 12/28/15 5:02:00 FREIGHT CALLER Start Date: 11/28/15 Stop Date: 12/04/15 Status: Discontinueddocusate 100 mg, 1 cap, Route: PO, Drug form: CAP, BID, Dosing Weight 88.182, kg, Start date: 11/28/15 9:00:00 CDT, Duration: 30 day, Stop date: 12/27/15 17:00:00 FREIGHT CALLER Notes: (Same as: Colace) (Do Not Crush) Start Date: 11/28/15 Stop Date: 12/04/15 Status: DiscontinuedDulcolax Laxative 10 mg, 1 supp, Route: WI, Drug form: SUPP, Daily, Dosing Weight 88.182, kg, PRN Constipation, Start date: 11/29/15 10:15:00 CDT, Duration: 30 day, Stop date: 10:14:00 FREIGHT CALLER Notes: (Same As: Dulcolax, Bisco-Lax) Start Date: 11/29/15 Stop Date: 12/04/15 Status: Discontinuedferrous sulfate 325 mg, 1 tab, Route: PO, Drug form: ECTAB, TID-Meals, Dosing Weight 88.182, kg , Start date: 12/03/15 8:00:00 CDT, Duration: 30 day, Stop date: 01/01/16 17:00: 00 FREIGHT CALLER Notes: Give with food. "Do Not Crush" Start Date: 12/03/15 Stop Date: 12/04/15 Status: Discontinuedferrous sulfate 325 mg, 1 tab, Route: PO, Drug form: ECTAB, Daily, Dosing Weight 88.182, kg, Start date: 12/01/15 9:00:00 CDT, Duration: 30 day, Stop date: 12/30/15 9:00:00 FREIGHT CALLER Notes: Give with food. "Do Not Crush" Start Date: 12/01/15 Stop Date: 12/02/15 Status: Discontinuedferrous sulfate 325 mg oral enteric coated tablet 325 mg=1 tab, PO, TID-Meals, 0 Refill(s) Start Date: 12/04/15 Status: Orderedfolic acid 1 mg, 1 tab, Route: PO, Drug form: TAB, Daily, Dosing Weight 88.182, kg, Start date: 12/01/15 9:00:00 CDT, Duration: 30 day, Stop date: 12/30/15 9:00:00 FREIGHT CALLER Notes: (Same as: Folvite) Start Date: 12/01/15 Stop Date: 12/04/15 Status: Discontinuedfolic acid 1 mg oral tablet 1 mg=1 tab, PO, Daily, 0 Refill(s) Start Date: 12/04/15 Status: OrderedGlimeperide 1 mg tablet Glimeperide 1 mg tablet, 0.5 mg=0.5 tab, Drug form: MISC, Route: PO, BID, 17:00:00 CDT, Duration: 30 day, Stop date: 12/30/15 9:00:00 FREIGHT CALLER Start Date: 11/30/15 Stop Date: 12/04/15 Status: Discontinuedglimepiride 1 mg, 1 tab, Route: PO, Drug form: TAB, BID, Dosing Weight 88.182, kg, Start date: 11/29/15 17:00:00CDT, Duration: 30 day, Stop date: 12/29/15 9:00:00 FREIGHT CALLER Notes: (Same as: Amaryl) Start Date: 11/29/15 Stop Date: 11/30/15 Status: Discontinuedglimepiride 0.5 mg, Route: PO, Drug form: TAB, BID, Dosing Weight 88.182, kg, Start date: 17:00:00 CDT,Duration: 30 day, Stop date: 12/30/15 9:00:00 FREIGHT CALLER Start Date: 11/30/15 Stop Date: 11/30/15 Status: Deletedglucagon 1 mg, Route: IM, Drug form: PDR/INJ, PRN, Dosing Weight 88.182, kg, PRN Blood Glucose Results, Startdate: 11/28/15 6:03:00 CDT, Duration: 30 day, Stop date: 12/28/15 5:02:00 FREIGHT CALLER Start Date: 11/28/15 Stop Date: 12/04/15 Status: Discontinuedheparin 5,000 unit, 1 mL, Route: SUB-Q, Drug form: INJ, Q8H, Dosing Weight 88.182, kg, Start date: 11/28/15 18:00:00 CDT, Duration: 30 day, Stop date: 12/28/15 22:00: 00 FREIGHT CALLER Notes: porcine heparin Start Date: 11/28/15 Stop Date: 12/04/15 Status: Discontinuedheparin 5,000 unit=1 mL, SUB-Q, Q8H, 0 Refill(s) Start Date: 12/04/15 Status: OrderedhydrALAZINE 50 mg oral tablet 50 mg, 2 tab, Route: PO, Drug form: TAB, Q6H, Dosing Weight 88.182, kg, Start date: 12/04/15 4:53:00CDT, Duration: 30 day, Stop date: 01/03/16 0:00:00 FREIGHT CALLER Notes: (Same as: Apresoline) May interfere w/enteral feedings Take With Food. Start Date: 12/04/15 Stop Date: 12/04/15 Status: Discontinuedinsulin glargine 30 unit, 0.3 mL, Route: SUB-Q, Drug form: SOLN, Daily, Dosing Weight 88.182, kg , Start date: 11/29/15 9:00:00 CDT, Duration: 30 day, Stop date: 12/28/15 9:00: 00 FREIGHT CALLER Notes: Same as: Lantus)Do not hold insulin without contacting prescriberWASTE: F /P - Black; E - Municipal Trash Bin Start Date: 11/29/15 Stop Date: 11/30/15 Status: Discontinuedinsulin glargine 15 unit, 0.15 mL, Route: SUB-Q, Drug form: SOLN, Daily, Dosing Weight 88.182, kg , Start date: 11/28/15 9:00:00 CDT, Duration: 30 day, Stop date: 12/27/15 9:00: 00 FREIGHT CALLER Notes: Same as: Lantus)Do not hold insulin without contacting prescriberWASTE: F /P - Black; E - Municipal Trash Bin Start Date: 11/28/15 Stop Date: 11/29/15 Status: Discontinuedinsulin glargine 35 unit, 0.35 mL, Route: SUB-Q, Drug form: SOLN, Daily, Dosing Weight 88.182, kg , Start date: 12/01/15 9:00:00 CDT, Duration: 30 day, Stop date: 12/30/15 9:00: 00 FREIGHT CALLER Notes: Same as: Lantus)Do not hold insulin without contacting prescriberWASTE: Shashank /Pee Cramer Black; E - Municipal Trash Bin Start Date: 12/01/15 Stop Date: 12/04/15 Status: DiscontinuedInsulin regular 1 unit, 0.01 mL, Route: SUB-Q, Drug form: SOLN, TID-Before Meals, Dosing Weight 88.182, kg, PRN Blood Glucose Results, Start date: 11/28/15 6:03:00 CDT, Duration: 30 day, Stop date: 12/28/15 6:02:00 FREIGHT CALLER Notes: (Same as: Humulin R) Roll in palms of hands gently; Do not shake vigorously. "single patientuse only"(Restricted to patients requiring a dose > 60 units)WASTE: F/P - Black; E - Municipal Trash Bin Stable for 28 days at room temperatureExpires in days from Date Start Date: 11/28/15 Stop Date: 12/04/15 Status: DiscontinuedInsulin regular 2 unit, 0.02 mL, Route: SUB-Q, Drug form: SOLN, TID-Before Meals, Dosing Weight 88.182, kg, PRN Blood Glucose Results, Start date: 11/28/15 6:03:00 CDT, Duration: 30 day, Stop date: 12/28/15 6:02:00 FREIGHT CALLER Notes: (Same as: Humulin R) Roll in palms of hands gently; Do not shake vigorously. "single patientuse only"(Restricted to patients requiring a dose > 60 units)WASTE: F/P - Black; E - Municipal Trash Bin Stable for 28 days at room temperatureExpires in days from Date Start Date: 11/28/15 Stop Date: 12/04/15 Status: DiscontinuedInsulin regular 3 unit, 0.03 mL, Route: SUB-Q, Drug form: SOLN, TID-Before Meals, Dosing Weight 88.182, kg, PRN Blood Glucose Results, Start date: 11/28/15 6:03:00 CDT, Duration: 30 day, Stop date: 12/28/15 6:02:00 FREIGHT CALLER Notes: (Same as: Humulin R) Roll in palms of hands gently; Do not shake vigorously. "single patientuse only"(Restricted to patients requiring a dose > 60 units)WASTE: F/P - Black; E - Municipal Trash Bin Stable for 28 days at room temperatureExpires in days from Date Start Date: 11/28/15 Stop Date: 12/04/15 Status: DiscontinuedInsulin regular 4 unit, 0.04 mL, Route: SUB-Q, Drug form: SOLN, TID-Before Meals, Dosing Weight 88.182, kg, PRN Blood Glucose Results, Start date: 11/28/15 6:03:00 CDT, Duration: 30 day, Stop date: 12/28/15 6:02:00 FREIGHT CALLER Notes: (Same as: Humulin R) Roll in palms of hands gently; Do not shake vigorously. "single patientuse only"(Restricted to patients requiring a dose > 60 units)WASTE: F/P - Black; E - Municipal Trash Bin Stable for 28 days at room temperatureExpires in days from Date Start Date: 11/28/15 Stop Date: 12/04/15 Status: DiscontinuedInsulin regular 5 unit, 0.05 mL, Route: SUB-Q, Drug form: SOLN, TID-Before Meals, Dosing Weight 88.182, kg, PRN Blood Glucose Results, Start date: 11/28/15 6:03:00 CDT, Duration: 30 day, Stop date: 12/28/15 6:02:00 FREIGHT CALLER Notes: (Same as: Humulin R) Roll in palms of hands gently; Do not shake vigorously. "single patientuse only"(Restricted to patients requiring a dose > 60 units)WASTE: F/P - Black; E - Municipal Trash Bin Stable for 28 days at room temperatureExpires in days from Date Start Date: 11/28/15 Stop Date: 12/04/15 Status: Discontinuedlansoprazole 30 mg, 10 mL, Route: PO, Drug form: SUSP, Daily, Dosing Weight 88.182, kg, Start date: 11/28/15 9:00:00 CDT, Duration: 30 day, Stop date: 12/27/15 9:00:00 FREIGHT CALLER Notes: Take 1 hour before or 2 hours after meal; Expires in 14 days. Shake well before use. (Same as:Prevacid) Compounded Product - formulation not commercially available Start Date: 11/28/15 Stop Date: 11/28/15 Status: CanceledLantus Solostar Pen 100 units/mL subcutaneous solution 35 units, SUB-Q, QAM Start Date: 11/29/15 Status: OrderedLasix 40 mg oral tablet 40 mg, 1 tab, Route: PO, Drug form: TAB, Daily, Dosing Weight 88.182, kg, Start date: 11/30/15 9:00:00 CDT, Duration: 30 day, Stop date: 12/29/15 9:00:00 FREIGHT CALLER Notes: (Same as: Lasix) May cause GI upset. Give with food or milk. Start Date: 11/30/15 Stop Date: 11/30/15 Status: CanceledLasix 40 mg oral tablet 40 mg, Route: PO, Drug form: TAB, BID, Dosing Weight 88.182, kg, Start date: 17:00:00 CDT, Duration: 30 day, Stop date: 12/29/15 9:00:00 FREIGHT CALLER Start Date: 11/29/15 Stop Date: 11/29/15 Status: Canceledmelatonin 3 mg, 1 tab, Route: PO, Drug form: TAB, Bedtime, Dosing Weight 88.182, kg, PRN Insomnia, Start date:11/28/15 6:06:00 CDT, Duration: 30 day, Stop date: 6:05:00 FREIGHT CALLER Notes: (Same as: Melatonin) Start Date: 11/28/15 Stop Date: 12/04/15 Status: Discontinuedmethocarbamol 500 mg, 1 tab, Route: PO, Drug form: TAB, Bedtime, Dosing Weight 88.182, kg, PRN Muscle Spasms, Start date: 11/29/15 10:17:00 CDT, Duration: 30 day, Stop date: 12/29/15 10:16:00 FREIGHT CALLER Notes: (Same as:Robaxin) Start Date: 11/29/15 Stop Date: 12/04/15 Status: Discontinuedmethocarbamol 1,000 mg, 2 tab, Route: PO, Drug form: TAB, Q8H, Dosing Weight 88.182, kg, PRN Muscle Spasms, Start date: 11/28/15 6:06:00 CDT, Duration: 30 day, Stop date: 6:05:00 FREIGHT CALLER Notes: (Same as:Robaxin) Start Date: 11/28/15 Stop Date: 11/29/15 Status: Discontinuedmethyldopa 250 mg oral tablet 250 mg, 1 tab, Route: PO, Drug form: TAB, TID, Dosing Weight 88.182, kg, Start date: 11/28/15 9:00:00 CDT, Duration: 30 day, Stop date: 12/27/15 17:00:00 FREIGHT CALLER Notes: May interfere w/enteral feedings. (Same as:Aldomet) Start Date: 11/28/15 Stop Date: 11/29/15 Status: Discontinuedmethyldopa 250 mg oral tablet 250 mg, 1 tab, Route: PO, Drug form: TAB, Daily, Dosing Weight 88.182, kg, Start date: 11/29/15 16:00:00 CDT, Duration: 30 day, Stop date: 12/28/15 16:00: 00 FREIGHT CALLER Notes: May interfere w/enteral feedings. (Same as:Aldomet) Start Date: 11/29/15 Stop Date: 12/02/15 Status: Discontinuedmetoprolol 5 mg/5 ml INJ 5 mg, 5 mL, Route: IVP, Drug form: INJ, Q8H, Dosing Weight 88.182, kg, PRN Other -See Comment, SBP > 160 mmHg, Start date: 12/04/15 0:13:00 CDT, Duration: 30 day, Stop date: 01/03/16 0:12:00 FREIGHT CALLER, BP Notes: (Same as: Lopressor)Push over 2 minutes Start Date: 12/04/15 Stop Date: 12/04/15 Status: DiscontinuedMiraLax 17 gm, 1 pkt, Route: PO, Drug form: PWDR, BID, Dosing Weight 88.182, kg, Start date: 11/29/15 17:00:00 CDT, Duration: 30 day, Stop date: 12/29/15 9:00:00 FREIGHT CALLER Notes: Dissolve in 8 oz of water or juice.(Same as: Miralax) Start Date: 11/29/15 Stop Date: 12/04/15 Status: Discontinuedmorphine Sulfate 2 mg, 1 mL, Route: IVP, Drug form: INJ, Q4H, Dosing Weight 88.182, kg, PRN Pain Score 7-10, Start date: 11/28/15 6:06:00 CDT, Duration: 30 day, Stop date: 12/27 6:05:00 FREIGHT CALLER Notes: (Same as:MORPhine Sulfate) Start Date: 11/28/15 Stop Date: 12/02/15 Status: Discontinuedmorphine Sulfate 4 mg, 1 mL, Route: IVP, Drug form: INJ, ONCE, Dosing Weight 88.182, kg, Priority : STAT, Start date: 11/28/15 2:35:00 CDT, Stop date: 11/28/15 2:35:00 CDT Notes: (Same as:MORPhine Sulfate) Start Date: 11/28/15 Stop Date: 11/28/15 Status: Completedmultivitamin 1 tab, PO, Daily Start Date: 11/29/15 Status: Orderedmultivitamin 1 tab, Route: PO, Drug Form: TAB, Dosing Weight 88.182, kg, Daily, Start date: 12/01/15 9:00:00 CDT,Duration: 30 day, Stop date: 12/30/15 9:00:00 FREIGHT CALLER Notes: (Same as:Thera)WASTE: F/P - Black; E - [employer] Trash Bin Take with food. Start Date: 12/01/15 Stop Date: 12/04/15 Status: DiscontinuedNorco 10/325 oral tablet 1 tab, Route: PO, Drug Form: TAB, Dosing Weight 88.182, kg, Q6H, PRN Pain Score 6-10, Start date: 12/02/15 8:39:00 CDT, Duration: 30 day, Stop date: 01/01/16 8: 38:00 FREIGHT CALLER Notes: Do not exceed 4gm/day of acetaminophen. (Same as: [place] 325/10) Start Date: 12/02/15 Stop Date: 12/02/15 Status: DiscontinuedNorco 10/325 oral tablet 1 tab, PO, Bedtime, PRN Pain Start Date: 11/29/15 Stop Date: 12/04/15 Status: DiscontinuedNorco 5/325 oral tablet 1 tab, Route: PO, Drug Form: TAB, Dosing Weight 88.182, kg, Q6H, PRN Pain Score 6-10, Start date: 12/02/15 13:00:00 CDT, Duration: 30 day, Stop date: 01/01/16 12:59:00 FREIGHT CALLER Notes: (Same as: [place] 325/5) Do not exceed 4gm/day of acetaminophen. Start Date: 12/02/15 Stop Date: 12/04/15 Status: DiscontinuedNorco 5/325 oral tablet 1 tab, PO, Q6H, PRN Pain Score 6-10, 0 Refill(s) Start Date: 12/04/15 Status: OrderedNorco 5/325 oral tablet 1 tab, PO, Q4-6H, PRN Start Date: 11/28/15 Stop Date: 11/29/15 Status: Discontinuedolmesartan 40 mg, 2 tab, Route: PO, Drug form: TAB, Daily, Dosing Weight 88.182, kg, Start date: 12/03/15 9:00:00 CDT, Duration: 30 day, Stop date: 01/01/16 9:00:00 FREIGHT CALLER Start Date: 12/03/15 Stop Date: 12/04/15 Status: Discontinuedondansetron 4 mg, 2 mL, Route: IVP, Drug form: INJ, Q8H, Dosing Weight 88.182, kg, PRN Nausea & Vomiting, Start date: 11/28/15 6:06:00 CDT, Duration: 30 day, Stop date: 12/28/15 6:05:00 FREIGHT CALLER Notes: (Same as: Nazanin) MEDICATION WASTE Product Size: 4 mgProduct Wasted: ___ mg Start Date: 11/28/15 Stop Date: 12/04/15 Status: DiscontinuedoxyCODONE 5 mg immediate release 10 mg, 2 tab, Route: PO, Drug form: TAB, Q4H, Dosing Weight 88.182, kg, PRN Pain Score 7-10, Start date: 11/28/15 6:06:00 CDT, Duration: 30 day, Stop date: 12/28/15 6:05:00 FREIGHT CALLER Notes: (Same as: Roxicodone) Start Date: 11/28/15 Stop Date: 12/02/15 Status: DiscontinuedoxyCODONE 5 mg immediate release 5 mg, 1 tab, Route: PO, Drug form: TAB, Q4H, Dosing Weight 88.182, kg, PRN Pain Score 4-6, Start date: 11/28/15 6:06:00 CDT, Duration: 30 day, Stop date: 6:05:00 FREIGHT CALLER Notes: (Same as: Roxicodone) Start Date: 11/28/15 Stop Date: 12/02/15 Status: DiscontinuedProtonix 40 mg, 1 tab, Route: PO, Drug form: ECTAB, Before Breakfast, Start date: 9:00:00 CDT, Duration: 30 day, Stop date: 12/28/15 7:30:00 FREIGHT CALLER Notes: Tablet should not be chewed or crushed.(Same as: Protonix) Start Date: 11/28/15 Stop Date: 11/30/15 Status: Discontinuedremove patch 1 patch, Route: TOP, Drug form: ERFILM, Q7D, Start date: 12/06/15 16:00:00 CDT, Duration: 30 day, Stop date: 01/03/16 16:00:00 FREIGHT CALLER Notes: Remove old patch before application of new patch. Start Date: 12/06/15 Stop Date: 12/04/15 Status: Canceledsenna 17.2 mg, 2 tab, Route: PO, Drug Form: TAB, Dosing Weight 88.182, kg, Bedtime, Start date: 11/28/15 21:00:00 CDT, Duration: 30 day, Stop date: 12/27/15 21:00: 00 FREIGHT CALLER Notes: (Same as: Senokot) Start Date: 11/28/15 Stop Date: 12/04/15 Status: Discontinuedsenna 8.6 mg oral tablet 17.2 mg=2 tab, PO, Bedtime, 0 Refill(s) Start Date: 12/04/15 Status: Orderedsimethicone 80 mg, 1 tab, Route: CHEW, Drug form: CHEWTAB, QID, Dosing Weight 88.182, kg, PRN Gas, Start date: 12/04/15 10:56:00 CDT, Duration: 30 day, Stop date: 10:55:00 FREIGHT CALLER Notes: (Same as: Mylicon) Start Date: 12/04/15 Stop Date: 12/04/15 Status: Discontinuedsodium chloride 0.9% 1000 ml INJ 1,000 mL 1,000 mL, Rate: 100 ml/hr, Infuse over: 10 hr, Route: IV, Dosing Weight 88.182 kg, Total Volume: 1,000, Start date: 11/28/15 6:04:00 CDT, Duration: 30 day, Stop date: 12/28/15 6:03:00 FREIGHT CALLER Start Date: 11/28/15 Stop Date: 11/29/15 Status: Discontinuedsodium chloride 0.9% 1000 ml INJ 1,000 mL 1,000 mL, Rate: 75 ml/hr, Infuse over: 13.3 hr, Route: IV, Dosing Weight 88.182 kg, Total Volume: 1,000, Start date: 11/30/15 8:02:00 CDT, Duration: 30 day, Stop date: 12/30/15 8:01:00 FREIGHT CALLER Start Date: 11/30/15 Stop Date: 12/02/15 Status: Discontinuedtramadol 50 mg, 1 tab, Route: PO, Drug form: TAB, Q6H, Dosing Weight 88.182, kg, PRN Pain Score 1-5, Start date: 12/02/15 8:39:00 CDT, Stop date: 01/01/16 8:38:00 FREIGHT CALLER Notes: Not to exceed 400mg/day. (Same As: Ultram) Start Date: 12/02/15 Stop Date: 12/04/15 Status: Discontinuedtramadol 50 mg, 1 tab, Route: PO, Drug form: TAB, Q6Hnow, Dosing Weight 88.182, kg, PRN Pain Score 1-3, Startdate: 11/28/15 6:06:00 CDT, Duration: 30 day, Stop date: 6:05:00 FREIGHT CALLER Notes: Not to exceed 400mg/day. (Same As: Ultram) Start Date: 11/28/15 Stop Date: 12/02/15 Status: DiscontinuedTums 500 mg, 1 tab, Route: CHEW, Drug form: CHEWTAB, TID, Dosing Weight 88.182, kg, PRN Indigestion, Start date: 12/04/15 4:50:00 CDT, Duration: 30 day, Stop date: 01/03/16 4:49:00 FREIGHT CALLER Notes: (Same As: Clotildes)Calcium Carbonate 500 hg=084 mg elemental calcium Dose=_ mg calcium carbonate ( mg elemental calcium) Start Date: 12/04/15 Stop Date: 12/04/15 Status: DiscontinuedTums 500 mg, 1 tab, Route: CHEW, Drug form: CHEWTAB, TID, Dosing Weight 88.182, kg, Start date: 12/04/15 9:00:00 CDT, Duration: 30 day, Stop date: 01/02/16 17:00: 00 FREIGHT CALLER Notes: (Same As: Clotildes)Calcium Carbonate 500 mm=845 mg elemental calcium Dose=_ mg calcium carbonate ( mg elemental calcium) Start Date: 12/04/15 Stop Date: 12/04/15 Status: DiscontinuedZofran 4 mg, 2 mL, Route: IVP, Drug form: INJ, ONCE, Dosing Weight 88.182, kg, Priority : STAT, Start date: 11/28/15 2:35:00 CDT, Stop date: 11/28/15 2:35:00 CDT Notes: (Same as: Zofran) MEDICATION WASTE Product Size: 4 mgProduct Wasted: ___ mg Start Date: 11/28/15 Stop Date: 11/28/15 Status: Completed Results BLOOD BANK RESULTS Most recent to oldest [Reference Range]: 1 2 3 ABO/Rh O NEG *Unknown* (11/28/15 3:13 AM) Antibody Scrn Negative (11/28/15 3:13 AM) ELECTROLYTES Most recent to oldest 1 2 3 [Reference Range]: Sodium Lvl [135-145 mEq/L] 140 mEq/L 141 mEq/L 139 mEq/L (12/01/15 3:06 AM) (11/30/15 4:13 AM) (11/29/15 3:58 AM) Potassium Lvl [3.5-5.1 3.8 mEq/L 3.9 mEq/L 4.3 mEq/L mEq/L] (12/01/15 3:06 AM) (11/30/15 4:13 AM) (11/29/15 3:58 AM) Chloride Lvl [95-109 mEq/L] 106 mEq/L 107 mEq/L 107 mEq/L (12/01/15 3:06 AM) (11/30/15 4:13 AM) (11/29/15 3:58 AM) CO2 [24-32 mEq/L] 24 mEq/L 26 mEq/L 22 mEq/L (12/01/15 3:06 AM) (11/30/15 4:13 AM) *LOW* (11/29/15 3:58 AM) AGAP [10.0-20.0 mEq/L] 13.8 mEq/L 11.9 mEq/L 14.3 mEq/L (12/01/15 3:06 AM) (11/30/15 4:13 AM) (11/29/15 3:58 AM) CHEM PANEL Most recent to oldest 1 2 3 [Reference Range]: Creatinine Lvl [0.50-1.40 1.24 mg/dL 1.77 mg/dL 1.31 mg/dL mg/dL] (12/01/15 3:06 AM) *HI* (11/29/15 3:58 AM) (11/30/15 4:13 AM) eGFR 40 mL/min/1.73m2 1 26 mL/min/1.73m2 2 37 mL/min/1.73m2 3 *NA* *NA* *NA* (12/01/15 3:06 AM) (11/30/15 4:13 AM) (11/29/15 3:58 AM) BUN [7-22 mg/dL] 30 mg/dL 37 mg/dL 22 mg/dL *HI* *HI* (11/29/15 3:58 AM) (12/01/15 3:06 AM) (11/30/15 4:13 AM) Glucose Lvl [70-99 mg/dL] 141 mg/dL 161 mg/dL 260 mg/dL *HI* *HI* *HI* (12/01/15 3:06 AM) (11/30/15 4:13 AM) (11/29/15 3:58 AM) Calcium Lvl [8.5-10.5 8.0 mg/dL 7.9 mg/dL 8.9 mg/dL mg/dL] *LOW* *LOW* (11/29/15 3:58 AM) (12/01/15 3:06 AM) (11/30/15 4:13 AM) 1Result Comment: The eGFR is calculated using the CKD-EPI formula. In most young , healthy individualsthe eGFR will be >90 mL/min/1.73m2. The eGFR declines with age. An eGFR of 60-89 may be normal in some populations, particularly the elderly, for whom the CKD-EPI formula has not been extensively validated. Use of the eGFR is not recommended in the following populations: Individuals with unstable creatinine concentrations, including patients and those with serious co-morbid conditions. Patients with extremes in muscle mass or diet. The data above are obtained from the National Kidney Disease Education Program ( NKDEP) which additionally recommends that when the eGFR is used in patients with extremes of body mass index for purposesof drug dosing, the eGFR should be multiplied by the estimated BMI.2Result Comment: The eGFR is calculated using the CKD-EPI formula. In most young, healthy individualsthe eGFR will be >90 mL/ min/1.73m2. The eGFR declines with age. An eGFR of 60-89 may be normal in some populations, particularly the elderly, for whom the CKD-EPI formula has not been extensively validated. Use of the eGFR is not recommended in the following populations: Individuals with unstable creatinine concentrations, including patients and those with serious co-morbid conditions. Patients with extremes in muscle mass or diet. The data above are obtained from the National Kidney Disease Education Program ( NKDEP) which additionally recommends that when the eGFR is used in patients with extremes of body mass index for purposesof drug dosing, the eGFR should be multiplied by the estimated BMI.3Result Comment: The eGFR is calculated using the CKD-EPI formula. In most young, healthy individualsthe eGFR will be >90 mL/ min/1.73m2. The eGFR declines with age. An eGFR of 60-89 may be normal in some populations, particularly the elderly, for whom the CKD-EPI formula has not been extensively validated. Use of the eGFR is not recommended in the following populations: Individuals with unstable creatinine concentrations, including patients and those with serious co-morbid conditions. Patients with extremes in muscle mass or diet. The data above are obtained from the National Kidney Disease Education Program ( NKDEP) which additionally recommends that when the eGFR is used in patients with extremes of body mass index for purposesof drug dosing, the eGFR should be multiplied by the estimated BMI.HEMATOLOGY Most recent to oldest 1 2 3 [Reference Range]: WBC [3.7-10.4 K/CMM] 8.6 K/CMM 9.9 K/CMM 12.6 K/CMM (12/01/15 3:06 AM) (11/30/15 4:13 AM) *HI* (11/29/15 3:58 AM) RBC [4.20-5.40 M/CMM] 2.43 M/CMM 2.78 M/CMM 3.32 M/CMM *LOW* *LOW* *LOW* (12/01/15 3:06 AM) (11/30/15 4:13 AM) (11/29/15 3:58 AM) Hgb [12.0-16.0 g/dL] 8.0 g/dL 7.6 g/dL 7.4 g/dL *LOW* *LOW* *LOW* (12/03/15 3:00 PM) (12/02/15 3:46 AM) (12/01/15 3:06 AM) Hct [36.0-48.0 %] 23.6 % 22.5 % 22.2 % *LOW* *LOW* *LOW* (12/03/15 3:00 PM) (12/02/15 3:46 AM) (12/01/15 3:06 AM) MCV [80.0-98.0 fL] 91.2 fL 90.7 fL 90.8 fL (12/01/15 3:06 AM) (11/30/15 4:13 AM) (11/29/15 3:58 AM) MCH [27.0-31.0 pg] 30.2 pg 30.6 pg 30.8 pg (12/01/15 3:06 AM) (11/30/15 4:13 AM) (11/29/15 3:58 AM) MCHC [32.0-36.0 g/dL] 33.2 g/dL 33.7 g/dL 34.0 g/dL (12/01/15 3:06 AM) (11/30/15 4:13 AM) (11/29/15 3:58 AM) RDW [11.5-14.5 %] 15.3 % 15.2 % 15.0 % *HI* *HI* *HI* (12/01/15 3:06 AM) (11/30/15 4:13 AM) (11/29/15 3:58 AM) Platelet [133-450 K/CMM] 146 K/CMM 148 K/CMM 164 K/CMM (12/01/15 3:06 AM) (11/30/15 4:13 AM) (11/29/15 3:58 AM) MPV [7.4-10.4 fL] 9.2 fL 9.0 fL 9.1 fL (12/01/15 3:06 AM) (11/30/15 4:13 AM) (11/29/15 3:58 AM) Segs [45.0-75.0 %] 58.6 % 67.0 % 87.5 % (12/01/15 3:06 AM) (11/30/15 4:13 AM) *HI* (11/29/15 3:58 AM) Lymphocytes [20.0-40.0 %] 24.4 % 19.1 % 7.8 % (12/01/15 3:06 AM) *LOW* *LOW* (11/30/15 4:13 AM) (11/29/15 3:58 AM) Monocytes [2.0-12.0 %] 7.6 % 7.7 % 4.5 % (12/01/15 3:06 AM) (11/30/15 4:13 AM) (11/29/15 3:58 AM) Eosinophils [0.0-4.0 %] 8.9 % 5.9 % 0.1 % *HI* *HI* (11/29/15 3:58 AM) (12/01/15 3:06 AM) (11/30/15 4:13 AM) Basophils [0.0-1.0 %] 0.5 % 0.3 % 0.1 % (12/01/15 3:06 AM) (11/30/15 4:13 AM) (11/29/15 3:58 AM) Segs-Bands # [1.5-8.1 5.1 K/CMM 6.6 K/CMM 11.1 K/CMM K/CMM] (12/01/15 3:06 AM) (11/30/15 4:13 AM) *HI* (11/29/15 3:58 AM) Lymphocytes # [1.0-5.5 2.1 K/CMM 1.9 K/CMM 1.0 K/CMM K/CMM] (12/01/15 3:06 AM) (11/30/15 4:13 AM) (11/29/15 3:58 AM) Monocytes # [0.0-0.8 K/CMM] 0.7 K/CMM 0.8 K/CMM 0.6 K/CMM (12/01/15 3:06 AM) (11/30/15 4:13 AM) (11/29/15 3:58 AM) Eosinophils # [0.0-0.5 0.8 K/CMM 0.6 K/CMM 0.1 K/CMM K/CMM] *HI* *HI* (11/28/15 3:13 AM) (12/01/15 3:06 AM) (11/30/15 4:13 AM) PT [12.0-14.7 seconds] 12.3 seconds (11/28/15 3:13 AM) INR [0.85-1.17] 0.90 (11/28/15 3:13 AM) Immunizations No data available for this section Procedures Procedure Date Related Diagnosis Body Site Ankle joint operations Appendectomy Cholecystectomy Hysterectomy Tonsillectomy Social History Social History Type Response Alcohol Never Smoking Status Never smoker; Exposure to Tobacco Smoke None; Cigarette Smoking Last 365 Days No; Reg Smoking Cessation Counseling No Assessment and Plan Extracted from: Title: Clinical Document Author: Magda Jimenez DO Date: 12/04/15 PATIENT NAME: Wendy Yanez ATTENDING PHYSICIAN: Magda Jimenez DO DATE OF ADMISSION: 11/28/2015 DATE OF DISCHARGE: 12/04/2015 DISCHARGE DIAGNOSIS: right femur fracture acute pain acute blood loss anemia VICKY - resolved HTN DM II with no known complications CKD III HLD constipation CONSULTANTS: Ortho PROCEDURES: right hip hemiarthroplasty DISCHARGE PHYSICAL EXAM: GENERAL: obese, watching TV CARDIOVASCULAR: S1 S2 PULMONARY: clear to ascultation bilaterally ABDOMEN: soft, nontender. positive bowel sounds. HOSPITAL COURSE: 85 y/o female with HTN and DM admitted with right femur fracture s/p mechanical fall. Evaluated by ortho; underwent right hemiarthroplasty on 11/27. No significant post-operative compli cations. Evaluated by PT/OT. Initially patient wanted to go home but then decided it was safer to go to a SNF for a little while. Patient stable for discharge to SNF. DISCHARGE MEDICATIONS: Please see HMR FOLLOW-UP APPOINTMENTS: PCP within 2 weeks Ortho - Dr Kenny - please call [phone] to schedule follow up appointment in 1 week DISCHARGE INSTRUCTIONS: Take medications as prescribed DIET: diabetic ACTIVITY: weightbearing as tolerated If you experience any pain, nausea, vomiting, bleeding, swelling, signs of infection, shortness of breath or increase in temperature, you are instructed to contact your physician or return to the emergency department. DISPOSITION: Discharged to [facility] CONDITION ON DISCHARGE: Stable Time spent on discharge: 41 minutes spent on patient/family education, medication review and discharge paperwork Extracted from: Title: ORS PN Author: Derrek Kwon MD Date: 12/04/15 Orthopaedic Surgery Trauma Progress Note S: Patient doing well, pain controlled. Reports some nausea, feels like she has to vomit, but can't. No appetite. O: Vitals Tmp(F) Tmp(C) Ttype BP MAP Pulse RR SpO2 FIO2 ETCO2 12/03 07:04 97.9 36.61 axil 180/78 --- 70 -- --- --- --- 12/03 06:25 ---- ---- ---- 191/78 --- --- -- --- --- --- 12/03 04:46 ---- ---- ---- 180/72 --- --- -- --- --- --- 12/03 04:27 98.3 36.83 oral 191/69 --- 84 18 98 --- --- 12/03 01:25 ---- ---- ---- 169/75 --- 68 -- --- --- --- 24 Hr Tmax: 99.2F (37.33c) at 12/02 17:21 24 Hr Tmin: 97.9F (36.61c) at 07:04 36 Hr Tmax: 99.2F (37.33c) at 12/02 17:21 36 Hr Tmin: 97.9F (36.61c) at 07:04 Exam: RLE: Inspection: Incision c/d/i, no erythema or purulence Sensation: SPLT DP, SP, Tib, Jorge, Saph Motor: 5/5 EHL/FHL, 5/5 TA, 5/5 GS, 4/5 Quad, 4/5 Ham Vascular: 2+ DP/PT, all toes BCR <2 sec Assessment and Plan: Patient is a 85 y/o F POD 6 s/p R hip hemiarthroplasty - WBAT RLE. Posterior hip precautions - Pain control: per primary, controlled - DVT PPx: TEDS/SCD, chem ppx per primary, lovenox - Pending ORS surgeries: none per ORS - PT/OT: following - Dispo: Will continue to follow while in the hospital, doing well, ok to d/c from ORS standpoint. - Follow up with Dr. Kenny in 1 week after discharge. Please call [phone] for an appointment. Pt will need a total of 3 weeks of DVT PPx from date of final surgery with lovenox. Derrek Kwon, PGY1 Orthopaedic Surgery MSO [id number] Extracted from: Title: Admission H & P Author: Jordan Hubbard MD Date: 11/28/15 Assessment/Plan 1.Fracture of right femur ortho to mng OR in am no hx of CAD echo ordered in ED ekg c 1 degree av block 2.DM2 (diabetes mellitus, type 2) takes lantus 35 u Qam will decrease dose since NPO to 15 U q am hold oral meds SSI #1 3.HTN (hypertension) cont coreg 4.HLD (hyperlipidemia) cont statin 5.Dehydration give IVFs 100 cc/hr 6.Hyperkalemia 2/2 dehydration/vicky repeat bmp 10am after some IVFs ppx heparin diso pt ot after or primary pager [phone] Extracted from: Title: ORS Consulation Author: Nick Martinez MD Date: 11/28/15 ORS Trauma Consult History and Physical Date of Service: 11/28/15 Reason for Consult: right femoral neck fracture Source of Consult: ED Consulting Physician: Pepe Smith [facility] Attending: Efraín CC: my right hip hurts HPI: The pt is a 85 y/o F s/p fall out of wheelchair sustaining right femoral neck fracture at approximately 5pm. Sustained no other injuries as well. Transferred from OSH. Reports severe Right hip pain in worse with ROM and palpation and improved with rest. Denies injury, pain or loss of ROM in other extremities. Denies radiation, N/T, or other paresthesias. PMH: chronic pain, chronic pain from back, minimally ambulatory, previous decub ulcers PSH: exlab for hysterectomy and gall bladder Social History --Tobacco: denies --EtOH: denies --Illicit drugs: denies -takes care of demented at home Family History: none Medications: see mar Allergies: see [facility] Current Hospital Medications Medication List Active Medications Ordered acetaminophen: 1,000 mg, 2 tab, PO, Q6Hnow. atorvastatin: 20 mg, 1 tab, PO, Bedtime. carvedilol: 12.5 mg, 1 tab, PO, BID. Dextrose 50% in Water IV: 12.5 gm, 25 mL, IVP, PRN, PRN: Blood Glucose Results. Dextrose 50% in Water IV: 25 gm, 50 mL, IVP, PRN, PRN: Blood Glucose Results. docusate: 100 mg, 1 cap, PO, BID. glucagon: 1 mg, IM, PRN, PRN: Blood Glucose Results. heparin: 5,000 unit, 1 mL, SUB-Q, Q8H. insulin glargine: 15 unit, 0.15 mL, 0 ml/hr, SUB-Q, Daily. Insulin regular: 1 unit, 0.01 mL, SUB-Q, TID-Before Meals, PRN: Blood Glucose Results. Insulin regular: 2 unit, 0.02 mL, SUB-Q, TID-Before Meals, PRN: Blood Glucose Results. Insulin regular: 3 unit, 0.03 mL, SUB-Q, TID-Before Meals, PRN: Blood Glucose Results. Insulin regular: 4 unit, 0.04 mL, SUB-Q, TID-Before Meals, PRN: Blood Glucose Results. Insulin regular: 5 unit, 0.05 mL, SUB-Q, TID-Before Meals, PRN: Blood Glucose Results. melatonin: 3 mg, 1 tab, PO, Bedtime, PRN: Insomnia. methocarbamol: 1,000 mg, 2 tab, PO, Q8H, PRN: Muscle Spasms. methyldopa: 250 mg, 1 tab, PO, TID. morphine Sulfate: 2 mg, 1 mL, IVP, Q4H, PRN: Pain Score 7-10. ondansetron: 4 mg, 2 mL, IVP, Q8H, PRN: Nausea & Vomiting. oxyCODONE: 5 mg, 1 tab, PO, Q4H, PRN: Pain Score 4-6. oxyCODONE: 10 mg, 2 tab, PO, Q4H, PRN: Pain Score 7-10. pantoprazole: 40 mg, 1 tab, PO, Before Breakfast. senna: 17.2 mg, 2 tab, PO, Bedtime. 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 tramadol: 50 mg, 1 tab, PO, Q6Hnow, PRN: Pain Score 1-3. Documented atorvastatin: 20 mg, 1 tab. carvedilol: 12.5 mg, 1 tab. cyclobenzaprine: 10 mg, 1 tab. furosemide: 40 mg, 1 tab. glimepiride: 4 mg, 1 tab. insulin glargine: 30 unit. lansoprazole: 30 mg, 1 tab. LORAzepam: 1 mg, 1 tab. methocarbamol: 500 mg, 1 tab. methyldopa: 250 mg, 1 tab. olmesartan: 40 mg, 1 tab. Medications Inactivated in the Last 72 Hours lansoprazole: 30 mg, 10 mL, PO, Daily. morphine Sulfate: 4 mg, 1 mL, IVP, ONCE. morphine Sulfate: 4 mg, 1 mL, PYXIS, ONCE. ondansetron: 4 mg, 2 mL, IVP, ONCE. ondansetron: 4 mg, 2 mL, PYXIS, ONCE. Review of Systems: Gen: Denies fever/chills/night sweats. HEENT: Denies vision change, sore throat, ulcers in mouth, epistaxis CV: Denies CP, Palpitations Resp: Denies SOB, wheezing, cough GI: Denies Abd pain, N/V/D/Constipation. Denies incontinence. : Denies urinary retention, urgency, burning, discharge. Back/Spine: chronic pain Neuro: Denies numbness, tingling, headaches, weakness in extremities. Integumentary: Denies open wounds, rashes, crain. Endocrine: Denies recent weight changes, heat/cold insensitivity. Psych: Denies depression, anxiety, labile mood, suicidal/homicidal ideation. Musculoskeletal: Denies all but HPI. All other systems negative except HPI. Vitals Tmp(F) Pulse BP RR SpO2 FIO2 11/27 10:26 98.4 --- ----- -- --- --- 11/27 07:12 98.2 79 153/79 -- 98 --- 11/27 06:21 98.1 80 174/99 18 100 2.0L/m 11/27 05:28 97.8 79 181/77 18 100 2.0L/m 11/27 04:43 ---- 79 192/79 20 100 2.0L/m 24 Hr Tmax: 98.4F (36.89c) at 11/27 10:26 Vital Signs are the last 5 in the past 48 hours. 24hr Labs 11/27 1035 Glucose POC 258 H 11/27 0631 Glucose POC 280 H 11/27 0313 ABO/Rh O NEG Antibody Scrn Negative Glucose Lvl 252 H BUN 24 H Creatinine Lvl 1.11 Sodium Lvl 139 Potassium Lvl 5.3 H Chloride Lvl 101 CO2 25 AGAP 18.3 Calcium Lvl 9.6 eGFR 45 WBC 15.3 H RBC 4.26 Hgb 12.9 Hct 38.5 MCV 90.2 MCH 30.2 MCHC 33.5 RDW 14.9 H Platelet 183 MPV 9.5 Segs 87.3 H Monocytes 4.6 Lymphocytes 7.3 L Eosinophils 0.6 Basophils 0.2 Segs-Bands # 13.4 H Lymphocytes # 1.1 Monocytes # 0.7 Eosinophils # 0.1 PT 12.3 INR 0.90 Exam: Gen: A/Ox3, NAD, obeses female HEENT: NCAT, PERRLA Resp: Breathing unlabored CV: Distal pulses palpated, RRR Abd: NT, ND, large, ulcerations in pannus fold Pelvis: NT to stress, no open wounds. Back/Spine: Non tender, no gaps or steps, no ecchymosis, prev surgical scar RUE: Inspection: No tenderness, no obvious abnormalities, no open wounds. Comparments soft and compressible. Sensation: sensation intact to light touch m/r/u n Motor: intact AIN/PIN/Ulnar in hand; 5/5 Wrist flex/ext; Elbow flex/ext; Shoulder ABd,Flex Vascular: 2+ radial pulse palpated, BCR all fingers <2 sec. LUE: Inspection: No tenderness, no obvious abnormalities, no open wounds. Comparments soft and compressible. Sensation: sensation intact to light touch m/r/u n Motor: intact AIN/PIN/Ulnar in hand; 5/5 Wrist flex/ext; Elbow flex/ext; Shoulder ABd,Flex Vascular: 2+ radial pulse palpated, BCR all fingers <2 sec. RLE: Inspection: tender to hip and with ROM at hip, shortened extemity, bunion deformity at foot Sensation: SILT DP, SP, Tib, Jorge, Saph Motor: Wiggles all toes, 5/5 EHL/FHL, TA, GS, Quad, Ham, IP Vascular: 2+ DP/PT, all toes BCR <2 sec LLE: Inspection: No tenderness, no obvious abnormalities, no open wounds. Comparments soft and compressible. Sensation: SILT DP, SP, Tib, Jorge, Saph Motor: Wiggles all toes, 5/5 EHL/FHL, TA, GS, Quad, Ham, IP Vascular: 2+ DP/PT, all toes BCR <2 sec Imaging: -right femoral neck fracture, displaced, unstable Procedure: -none A/P:85 yo female minimally ambulatory with right femoral neck fracture - Weight bearing status: NWB RLE - hospitalist is primary for medical management - Antibiotics: none at this time - Pain controlled - Dressings: none - DVT PPx: TEDS/SCD, per hospitalist - Bowel Regimen: per primary - PT: will consult - Pending ORS surgeries: to OR for right him hemiarthroplasty - Dispo: will continue to follow --consented and witnessed --site marked --will need surgical clearance by primary and anesthesia teams --call [phone] with any emergencies or page [phone] (Nick Martinez) with any questions Nick Martinez MD Orthopaedic Surgery Pager [phone]
[2017-08-14 20:33] LABS: Urine Blood 1+ (NEG); Urine Glucose TRACE (NEG); Urine Protein 3+ (NEG); Urine Specific Gravity >1.030 (1.005-1.030); Urine pH 5.5 (5.0-7.0)
[2017-08-14] MEDS ORDERED: CEFEPIME 2 GM VIAL ONE (20:41)
[2017-08-14] MEDS ORDERED: IPRATROPIUM BROM 0.5MG/2.5ML ONE (20:41)
[2017-08-14] MEDS ORDERED: NA CHLORIDE 0.9% 1,000 ML ONE (20:41)
[2017-08-14] MEDS ORDERED: LEVALBUTEROL 1.25 MG/3 ML NEB ONE (20:41)
[2017-08-14] MEDS ORDERED: NA CHLORIDE 0.9% 100 ML IV ONE (20:41)
--- NOTE | 2017-08-14 21:14 | RAD REPORT ---
EXAM DESCRIPTION: RAD - Chest Single View - 08/14/2017 9:08 pm CLINICAL HISTORY: Cough;Dyspnea Chest pain. COMPARISON: Chest Single View dated 03/14/2017; Abdomen 1 View (KUB) dated 12/12/2015; Chest Single Vie w dated 12/10/2015; Chest Single View dated 11/27/2015 FINDINGS: Portable technique limits examination quality. A moderate right pleural effusion and small left pleural effusion is suspected. Mild pulmonary edema is seen. The heart is moderately enlarged in size. No displaced fractures.Thoracic spine hardware is noted. IMPRESSION: Moderate CHF suspected.
[2017-08-14 21:33] LABS: Absolute Lymphocytes (CBC) 0.7 K/uL (0.7-4.9); Absolute Monocytes 0.4 K/uL (0.1-1.3); Basophils % 0.2 % (0-1.3); Lymphocytes % 6.8 % (15.3-44.8); MCH 30.9 pg (27.0-35.0); MCV 92.4 fL (80-100); MPV 8.3 fL (7.6-11.3); Monocytes % 4.3 % (3.3-12.3); RBC Red Blood Cell Count 3.58 M/uL (3.86-4.86)
[2017-08-14 21:47] LABS: Albumin 3.3 g/dL (3.4-5.0); Bilirubin Direct 0.1 mg/dL (0-0.2); Bilirubin Total 0.4 mg/dL (0.2-1.0); CKMB Creatine Kinase MB 2.5 ng/mL (0.3-3.6); Magnesium 2.3 mg/dL (1.8-2.4); Protein, Total 6.7 g/dL (6.4-8.2)
[2017-08-14 21:53] LABS: Arterial Blood Carboxyhemoglob 1.3 % (0-1.5); Blood Gas Oxyhemoglobin 91.8 % (94-97); Blood O2 Saturation 94.2 % (92-98.5)
[2017-08-14 22:02] LABS: Potassium 5.6 mmol/L (3.5-5.1)
[2017-08-14 22:06] LABS: Blood Morphology Comment NOT SEEN (NOT SEEN); Platelet Estimate ADEQ; Urine White Blood Cell Casts OK
[2017-08-14] MEDS ORDERED: FUROSEMIDE 20 MG/ 2ML VIAL ONE (22:28)
[2017-08-14] MEDS ORDERED: FUROSEMIDE 40 MG/4 ML VIAL ONE (22:28)
[2017-08-14] MEDS ORDERED: SOD POLYSTYREN SUL 15 GM/60 ML UCUP ONE (22:28)
--- NOTE | 2017-08-14 22:41 | EDPHYS ---
Physician Documentation [facility] Name: Wendy Marte Age: 86 yrs Sex: Female : 1930 Arrival Date: 08/14/2017 Time: 19:40 Bed 2 Private MD: ED Physician Patrick Amin HPI: 08/14 20:27 This 86 yrs old Female presents to ER via EMS with complaints of Altered jing Mental Status. 20:27 The patient presents with decreased mental status, decreased responsiveness, trouble jing concentrating. Onset: The symptoms/episode began/occurred 2 day(s) ago. Possible causes: unknown. Associated signs and symptoms: The patient has no apparent associated signs or symptoms. Current symptoms: In the emergency department the patient's symptoms are unchanged from the initial presentation, have worsened, moderately. Patient's baseline: Neuro: alert and fully oriented. The patient has experienced similar episodes in the past, a few times. Historical: - Allergies: 19:46 amlodipine; ao 19:46 Lisinopril; ao - PMHx: 19:46 Diabetes - NIDDM; GERD; High Cholesterol; Hypertension; ao - PSHx: 19:46 Unable to obtain; ao - Immunization history:: Adult Immunizations unknown. - Social history:: Smoking status: unknown. - Ebola Screening: : No symptoms or risks identified at this time. - Family history:: not pertinent. ROS: 20:27 Constitutional: Negative for fever, chills, and weight loss, Eyes: Negative for injury, jing pain, redness, and discharge, ENT: Negative for injury, pain, and discharge, Neck: Negative for injury, pain, and swelling, Abdomen/GI: Negative for abdominal pain, nausea, vomiting, diarrhea, and constipation, Back: Negative for injury and pain, : Negative for injury, bleeding, discharge, and swelling, Psych: Negative for depression, anxiety, suicide ideation, homicidal ideation, and hallucinations, Allergy/Immunology: Negative for hives, rash, and allergies, Endocrine: Negative for neck swelling, polydipsia, polyuria, polyphagia, and marked weight changes. 20:27 Eyes: 20:27 Cardiovascular: Positive for palpitations. 20:27 Respiratory: Positive for cough, shortness of breath, wheezing, expiratory. 20:27 Abdomen/GI: Positive for abdominal distension. 20:27 Skin: Positive for pallor. Exam: 20:27 Head/Face: Normocephalic, atraumatic. Eyes: Pupils equal round and reactive to light, jing extra-ocular motions intact. Lids and lashes normal. Conjunctiva and sclera are non-icteric and not injected. Cornea within normal limits. Periorbital areas with no swelling, redness, or edema. ENT: Nares patent. No nasal discharge, no septal abnormalities noted. Tympanic membranes are normal and external auditory canals are clear. Oropharynx with no redness, swelling, or masses, exudates, or evidence of obstruction, uvula midline. Mucous membranes moist. Neck: Trachea midline, no thyromegaly or masses palpated, and no cervical lymphadenopathy. Supple, full range of motion without nuchal rigidity, or vertebral point tenderness. No Meningismus. Chest/axilla: Normal chest wall appearance and motion. Nontender with no deformity. No lesions are appreciated. Back: No spinal tenderness. No costovertebral tenderness. Full range of motion. Female : Normal external genitalia. Psych: Awake, alert, with orientation to person, place and time. Behavior, mood, and affect are within normal limits. 20:27 Cardiovascular: Rate: normal, Rhythm: irregularly irregular, Pulses: Pulses are 3+ in bilateral radial, brachial, femoral, popliteal, posterior tibial and and dorsalis pedis arteries.. Heart sounds: Edema: 3+ edema to level of left midcalf, left ankle, right midcalf and right ankle, JVD: Vital Signs: 19:44 BP 154 / 60; Pulse 76; Resp 22; Temp 97.4(A); Pulse Ox 86% on R/A; Weight 86.18 kg; ao Height 4 ft. 53 in. (256.54 cm); 20:30 BP 139 / 62; Pulse 80; Resp 28; Pulse Ox 97% on 3 lpm NC; Pain 0/10; aa1 21:44 BP 123 / 83; Pulse 83; Resp 24; Pulse Ox 97% on 3 lpm NC; Pain 0/10; aa1 22:38 BP 161 / 75; Pulse 78; Resp 20; Temp 97.0(C); Pulse Ox 97% on BiPAP; Pain 0/10; aa1 22:50 BP 146 / 67; Pulse 92; Resp 16; Pulse Ox 98% on BiPAP; mt 23:45 BP 168 / 68; Pulse 82; Resp 24; Temp 98.4(C); Pulse Ox 97% on BiPAP; Pain 0/10; aa1 08/15 00:35 BP 114 / 74; Pulse 79; Resp 18; Pulse Ox 98% on BiPAP; mt 01:31 BP 118 / 69; Pulse 87; Resp 22; Temp 98.9; Pulse Ox 97% on BiPAP; Pain 0/10; aa1 08/14 19:44 Body Mass Index 13.10 (86.18 kg, 256.54 cm) ao MDM: 08/14 20:12 Patient medically screened. [facility] 20:32 Data reviewed: vital signs, nurses notes, lab test result(s), EKG, radiologic studies, jing plain films. 08/14 20:14 Order name: Urine Dipstick--Ancillary (enter results); Complete Time: 22:06 2 08/14 20:26 Order name: Basic Metabolic Panel; Complete Time: 22:06 [facility] 08/14 20:26 Order name: CBC with Diff; Complete Time: 22:08 [facility] 08/14 20:26 Order name: Ckmb; Complete Time: 22:06 [facility] 08/14 20:26 Order name: CPK; Complete Time: 22:06 [facility] 08/14 20:26 Order name: LFT's; Complete Time: 22:06 [facility] 08/14 20:26 Order name: Magnesium; Complete Time: 22:06 [facility] 08/14 20:26 Order name: NT PRO-BNP; Complete Time: 22:06 [facility] 08/14 20:26 Order name: PT-INR [facility] 08/14 20:26 Order name: Ptt, Activated [facility] 08/14 20:26 Order name: Troponin (emerg Dept Use Only); Complete Time: 22:06 [facility] 08/14 20:26 Order name: Blood Culture Adult (2) [facility] 08/14 20:26 Order name: Lactate; Complete Time: 22:06 [facility] 08/14 20:26 Order name: Procalcitonin; Complete Time: 22:34 [facility] 08/14 20:26 Order name: XRAY Chest (1 view); Complete Time: 22:06 [facility] 08/14 20:26 Order name: Type And Screen; Complete Time: 01:00 [facility] 08/14 20:26 Order name: ABG; Complete Time: 22:34 [facility] 08/14 22:06 Order name: BIPAP [facility] 08/14 22:06 Order name: CBC Smear Scan; Complete Time: 22:08 [facility] 08/14 22:43 Order name: CT Head Brain wo Cont [facility] 08/14 22:52 Order name: Basic Metabolic Panel [facility] 08/14 22:52 Order name: Basic Metabolic Panel [facility] 08/14 22:52 Order name: CBC with Automated Diff [facility] 08/14 22:52 Order name: CBC with Automated Diff [facility] 08/14 22:52 Order name: NT PRO-BNP [facility] 08/14 22:52 Order name: NT PRO-BNP [facility] 08/14 22:52 Order name: Troponin I [facility] 08/14 22:52 Order name: Troponin I; Complete Time: 01:00 [facility] 08/14 22:52 Order name: Troponin I [facility] 08/14 22:52 Order name: Chest Single View [facility] 08/14 20:00 Order name: Cath; Complete Time: 20:00 tn 08/14 20:26 Order name: EKG; Complete Time: 20:27 [facility] 08/14 20:26 Order name: Cardiac monitoring; Complete Time: 21:02 [facility] 08/14 20:26 Order name: EKG - Nurse/Tech; Complete Time: 21:02 [facility] 08/14 20:26 Order name: IV Saline Lock; Complete Time: 21:02 [facility] 08/14 20:26 Order name: Labs collected and sent; Complete Time: 21:02 [facility] 08/14 20:26 Order name: O2 Per Protocol; Complete Time: 21:02 [facility] 08/14 20:26 Order name: O2 Sat Monitoring; Complete Time: 21:02 [facility] 08/14 20:26 Order name: Urine Dipstick-Ancillary (obtain specimen); Complete Time: 21:05 [facility] 08/14 22:09 Order name: Levi; Complete Time: 22:32 [facility] 08/14 22:52 Order name: CONS Physician Consult [facility] 08/14 22:52 Order name: CONS Physician Consult [facility] 08/14 22:52 Order name: Consistent Carb (ADA) 1800 Hermilo [facility] 08/14 22:52 Order name: EKG Electrocardiogram [facility] 08/14 22:52 Order name: EKG Electrocardiogram [facility] 08/14 22:52 Order name: Chest Single View EDMS Administered Medications: 20:50 Drug: NS 0.9% 1000 ml Route: IV; Rate: 75 ml/hr; Site: right upper arm; aa08/15 01:25 Follow up: IV Status: Infusion continued upon admission aa08/14 20:55 Drug: Xopenex 3.75 mg Route: Inhalation; 20:55 Drug: AtroVENT Aerosol 0.5 mg Route: Inhalation; aa 22:00 Drug: Cefepime 2 grams Route: IVPB; Rate: 200 ml/hr; Infused Over: 30 mins; Site: right aa1 upper arm; 22:37 Follow up: IV Status: Completed infusion aa 22:30 Drug: Lasix 60 mg Route: IVP; Site: right upper arm; aa 23:30 Follow up: Response: No adverse reaction aa 22:57 Drug: Albuterol 5 mg Route: Inhalation; 22:57 Drug: vancoMYCIN 1 grams Route: IVPB; Infused Over: 2 hrs; Site: right upper arm; aa08/15 01:00 Follow up: IV Status: Completed infusion aa 00:00 Drug: Kayexalate 30 grams Route: PO; aa 01:25 Follow up: Response: No adverse reaction :18 Drug: Lovenox 80 mg Route: Sub-Q; Site: right lower abdomen; aa 01:40 Follow up: Response: No adverse reaction aa1 Disposition: 08/14/17 22:40 Hospitalization ordered by Bernabe Addison for Inpatient Admission. Preliminary diagnosis are Respiratory failure, unspecified with hypercapnia, Respiratory failure, unspecified with hypoxia, Obesity, unspecified, Pleural effusion in conditions classified elsewhere, Unspecified combined systolic (congestive) and diastolic (congestive) heart failure, Anemia, unspecified, Unspecified kidney failure, Hyperkalemia, Atrial fibrillation and flutter, Type 2 diabetes mellitus. - Bed requested for Intensive Care Unit. - Status is Inpatient Admission. aa1 - Condition is Serious. - Problem is new. - Symptoms have improved. UTI on Admission? No Signatures: Dispatcher [employer] EDEstrella Pearson RN RN aa1 Patrick Amin MD MD cha Chretien, Felicia, RN RN Jeromy Wright RN RN ao Thompson, Moriah mt Corrections: (The following items were deleted from the chart) 08/14 22:40 22:40 Hospitalization Ordered by Bernabe Addison MD for Inpatient Admission. Preliminary jing diagnosis is Respiratory failure, unspecified with hypercapnia; Respiratory failure, unspecified with hypoxia; Obesity, unspecified; Pleural effusion in conditions classified elsewhere; Unspecified combined systolic (congestive) and diastolic (congestive) heart failure; Anemia, unspecified; Unspecified kidney failure; Hyperkalemia; Atrial fibrillation and flutter. Bed requested for Intensive Care Unit. Status is Inpatient Admission. Condition is Serious. Problem is new. Symptoms have improved. UTI on Admission? No. jing 22:54 22:40 08/14/2017 22:40 Hospitalization Ordered by Bernabe Addison MD for Inpatient fc Admission. Preliminary diagnosis is Respiratory failure, unspecified with hypercapnia; Respiratory failure, unspecified with hypoxia; Obesity, unspecified; Pleural effusion in conditions classified elsewhere; Unspecified combined systolic (congestive) and diastolic (congestive) heart failure; Anemia, unspecified; Unspecified kidney failure; Hyperkalemia; Atrial fibrillation and flutter; Type 2 diabetes mellitus. Bed requested for Intensive Care Unit. Status is Inpatient Admission. Condition is Serious. Problem is new. Symptoms have improved. UTI on Admission? No. jing 08/15 02:02 08/14 22:54 08/14/2017 22:40 Hospitalization Ordered by Bernabe Addison MD for Inpatient aa1 Admission. Preliminary diagnosis is Respiratory failure, unspecified with hypercapnia; Respiratory failure, unspecified with hypoxia; Obesity, unspecified; Pleural effusion in conditions classified elsewhere; Unspecified combined systolic (congestive) and diastolic (congestive) heart failure; Anemia, unspecified; Unspecified kidney failure; Hyperkalemia; Atrial fibrillation and flutter; Type 2 diabetes mellitus. Bed requested for Intensive Care Unit. Status is Inpatient Admission. Condition is Serious. Problem is new. Symptoms have improved. UTI on Admission? No. fc
--- NOTE | 2017-08-14 22:41 | ER ---
Nurse's Notes [facility] Name: Wendy Marte Age: 86 yrs Sex: Female : 1930 Arrival Date: 08/14/2017 Time: 19:40 Bed 2 Private MD: Diagnosis: Respiratory failure, unspecified with hypercapnia;Respiratory failure, unspecified with hypoxia;Obesity, unspecified;Pleural effusion in conditions classified elsewhere;Unspecified combined systolic (congestive) and diastolic (congestive) heart failure;Anemia, unspecified;Unspecified kidney failure;Hyperkalemia;Atrial fibrillation and flutter;Type 2 diabetes mellitus Presentation: 08/14 19:41 Presenting complaint: EMS states: Patient lives at [facility] and today ao she was found alter mental status. As reported by [employer] patient has been alter for the past two day. Transition of care: patient was not received from another setting of care. Onset of symptoms is unknown. Risk Assessment: Do you want to hurt yourself or someone else? Patient reports no desire to harm self or others. Initial Sepsis Screen: Does the patient meet any 2 criteria? No. Patient's initial sepsis screen is negative. Does the patient have a suspected source of infection? No. Patient's initial sepsis screen is negative. Care prior to arrival: None. 19:41 Method Of Arrival: EMS: [facility] ao 19:41 Acuity: MARY 2 ao Historical: - Allergies: 19:46 amlodipine; ao 19:46 Lisinopril; ao - PMHx: 19:46 Diabetes - NIDDM; GERD; High Cholesterol; Hypertension; ao - PSHx: 19:46 Unable to obtain; ao - Immunization history:: Adult Immunizations unknown. - Social history:: Smoking status: unknown. - Ebola Screening: : No symptoms or risks identified at this time. - Family history:: not pertinent. Screenin:45 Abuse screen: Denies threats or abuse. Denies injuries from another. Nutritional aa1 screening: No deficits noted. Tuberculosis screening: No symptoms or risk factors identified. Fall Risk IV access (20 points). Gait- Weak (10 pts.). Assessment: 19:45 General: Appears in no apparent distress. comfortable, Behavior is calm, cooperative, aa1 quiet. Pain: Denies pain. Neuro: Level of Consciousness is awake, confused, Oriented to person, Speech is normal, Facial symmetry appears normal, Pupils are PERRLA. Cardiovascular: Denies chest pain, palpitations, shortness of breath, Heart tones S1 S2 present Capillary refill is sluggish in bilateral fingers Clubbing of nail beds is absent. Respiratory: Airway is patent Respiratory effort is asymmetrical, shallow, Respiratory pattern is symmetrical, tachypnea Breath sounds are clear bilaterally. GI: Abdomen is round Bowel sounds present X 4 quads. Abd is soft and non tender X 4 quads. Patient currently denies abdominal pain. : No signs and/or symptoms were reported regarding the genitourinary system. EENT: No signs and/or symptoms were reported regarding the EENT system. Derm: Skin is intact, is healthy with good turgor, Skin is dry, Skin is pale, Skin temperature is warm. Musculoskeletal: Circulation, motion, and sensation intact. Capillary refill is sluggish, in bilateral fingers. 21:06 Reassessment: Patient appears in no apparent distress at this time. No changes from aa1 previously documented assessment. Lab at bedside attempting to draw remaining labs. 22:00 Reassessment: Patient appears in no apparent distress at this time. No changes from aa1 previously documented assessment. Patient and/or family updated on plan of care and expected duration. Pain level reassessed. Multiple attempts by lab and nursing staff unsuccessful in collecting second set of cultures and coags. Per , audrey to cancel outstanding labs and initiate abx administration. 22:05 Reassessment: Due to ABG results pt placed on BiPAP at this time. aa1 22:37 Reassessment: Patient appears in no apparent distress at this time. No changes from aa1 previously documented assessment. Patient and/or family updated on plan of care and expected duration. Pain level reassessed. Awaiting admission order from ERP. 23:05 Reassessment: Patient appears in no apparent distress at this time. No changes from aa1 previously documented assessment. Patient and/or family updated on plan of care and expected duration. Pain level reassessed. ICU bed received by per admitting physician pt cannot go up to ICU until CT head has been resulted. If negative for bleed give lovenox x1 in ED and admit to ICU. ICU notified of MD orders. 23:50 Reassessment: Patient appears in no apparent distress at this time. No changes from aa1 previously documented assessment. Patient and/or family updated on plan of care and expected duration. Pain level reassessed. Pt taken to CT at this time. 08/15 01:05 Reassessment: Patient appears in no apparent distress at this time. Patient and/or aa1 family updated on plan of care and expected duration. Pain level reassessed. Pt more alert and skin color improved. CT resulted, will medicate for orders and admit to ICU Patient denies pain at this time. Patient states symptoms have improved. 01:30 Reassessment: Report given to FAWAD Alejo. aa1 Vital Signs: 08/14 19:44 BP 154 / 60; Pulse 76; Resp 22; Temp 97.4(A); Pulse Ox 86% on R/A; Weight 86.18 kg; ao Height 4 ft. 53 in. (256.54 cm); 20:30 BP 139 / 62; Pulse 80; Resp 28; Pulse Ox 97% on 3 lpm NC; Pain 0/10; aa1 21:44 BP 123 / 83; Pulse 83; Resp 24; Pulse Ox 97% on 3 lpm NC; Pain 0/10; aa1 22:38 BP 161 / 75; Pulse 78; Resp 20; Temp 97.0(C); Pulse Ox 97% on BiPAP; Pain 0/10; aa1 22:50 BP 146 / 67; Pulse 92; Resp 16; Pulse Ox 98% on BiPAP; mt 23:45 BP 168 / 68; Pulse 82; Resp 24; Temp 98.4(C); Pulse Ox 97% on BiPAP; Pain 0/10; aa1 08/15 00:35 BP 114 / 74; Pulse 79; Resp 18; Pulse Ox 98% on BiPAP; mt 01:31 BP 118 / 69; Pulse 87; Resp 22; Temp 98.9; Pulse Ox 97% on BiPAP; Pain 0/10; aa1 08/14 19:44 Body Mass Index 13.10 (86.18 kg, 256.54 cm) ao ED Course: 08/14 19:40 Patient arrived in ED. ao 19:44 Triage completed. ao 19:45 Patient has correct armband on for positive identification. Bed in low position. Call aa1 light in reach. Side rails up X2. quality assurance monitor final on. Pulse ox on. NIBP on. Warm blanket given. Pillow given. 19:45 Oxygen administration via nasal cannula \T\ 3L/min. aa1 19:46 Arm band placed on right wrist. Patient placed in an exam room, on a stretcher, on ao oxygen, on site monitor, on pulse oximetry, Patient notified of wait time. 19:50 Missed attempt(s): 20 gauge in left antecubital area. Bleeding controlled, band aid aa1 applied, catheter tip intact. 20:00 EKG done, by ED staff, reviewed by Patrick Amin MD. oh 20:05 Straight cath inserted, using sterile technique, 16 Fr. Specimen obtained. Returned aa1 al urine. Patient tolerated well. 20:12 Patrick Amin MD is Attending Physician. [facility] 20:20 Inserted saline lock: 24 gauge in right wrist, using aseptic technique. aa1 20:35 Estrella Cyr, FAWAD is Primary Nurse. aa1 20:50 Inserted 18 gauge 10 cm midline to right upper basilic vein on first attempt. Line with fc good blood return and flushes well. Labs collected. 21:05 X-ray completed. Portable x-ray completed in exam room. Patient tolerated procedure ml well. 21:06 XRAY Chest (1 view) In Process Unspecified. EDMS 22:02 Notified ED physician of a critical lab result(s). potassium of 5.6. fc 22:32 Levi cath inserted, using sterile technique, 16 Fr., by wa, balloon inflated, to oh gravity drainage. 22:36 Bernabe Addison MD is Hospitalizing Provider. [facility] 23:51 No provider procedures requiring assistance completed. Patient admitted, IV remains in aa1 place. 08/15 01:52 CT completed. Patient tolerated procedure well. Patient moved to CT via stretcher. Patient moved back from NM. Administered Medications: 08/14 20:50 Drug: NS 0.9% 1000 ml Route: IV; Rate: 75 ml/hr; Site: right upper arm; aa1 08/15 01:25 Follow up: IV Status: Infusion continued upon admission aa1 08/14 20:55 Drug: Xopenex 3.75 mg Route: Inhalation; aa1 20:55 Drug: AtroVENT Aerosol 0.5 mg Route: Inhalation; aa1 22:00 Drug: Cefepime 2 grams Route: IVPB; Rate: 200 ml/hr; Infused Over: 30 mins; Site: right aa1 upper arm; 22:37 Follow up: IV Status: Completed infusion aa1 22:30 Drug: Lasix 60 mg Route: IVP; Site: right upper arm; aa1 23:30 Follow up: Response: No adverse reaction aa1 22:57 Drug: Albuterol 5 mg Route: Inhalation; aa1 22:57 Drug: vancoMYCIN 1 grams Route: IVPB; Infused Over: 2 hrs; Site: right upper arm; aa1 08/15 01:00 Follow up: IV Status: Completed infusion aa1 00:00 Drug: Kayexalate 30 grams Route: PO; aa1 01:25 Follow up: Response: No adverse reaction aa1 01:18 Drug: Lovenox 80 mg Route: Sub-Q; Site: right lower abdomen; aa1 01:40 Follow up: Response: No adverse reaction aa1 Outcome: 08/14 22:40 Decision to Hospitalize by Provider. [facility] 08/15 01:40 Admitted to ICU accompanied by nurse, accompanied by tech, via stretcher, room 7, with aa1 oxygen, on monitor, with chart, Report called to Sapna Garvey RN Condition: stable Instructed on the need for admit, Demonstrated understanding of instructions. 01:45 Patient left the ED. aa1 Signatures: Dispatcher [employer] EDMS Estrella Cyr RN RN aa1 Patrick Amin MD MD cha Hagler, Ervin eh Chretien, Felicia, RN Magda Macias Alex, RN RN ao Thompson, Moriah oh Corrections: (The following items were deleted from the chart) 02:04 02:02 Patient left the ED. aa1 aa1
[2017-08-14] MEDS ORDERED: ONDANSETRON 4 MG/2 ML VIAL IV PRN (22:47)
[2017-08-14] MEDS ORDERED: ACETAMINOPHEN 500 MG TAB PO PRN (22:47)
[2017-08-14] MEDS ORDERED: IPRATROPIUM BROM 0.5MG/2.5ML NEB PRN (22:47)
[2017-08-14] MEDS ORDERED: ALBUTEROL 2.5 MG/3 ML NEB SOL NEB PRN (22:47)
[2017-08-14] MEDS ORDERED: GLUCAGON 1 MG/VIAL IM PRN (22:48)
[2017-08-14] MEDS ORDERED: D50W 25 GM/50 ML SYRINGE IV PRN (22:48)
[2017-08-14] MEDS ORDERED: VANCOMYCIN 1 GM/250 ML BAG ONE (22:50)
[2017-08-14] MEDS ORDERED: ALBUTEROL 2.5 MG/3 ML NEB SOL ONE (22:50)
[2017-08-15 05:42] LABS: Potassium 4.2 mmol/L (3.5-5.1)
[2017-08-15 05:45] LABS: Absolute Lymphocytes (CBC) 1.4 K/uL (0.7-4.9); Absolute Monocytes 1.5 K/uL (0.1-1.3); Absolute Neutrophil 8.8 K/uL (1.8-8.0); Basophils % 0.2 % (0-1.3); Eosinophils % 0.2 % (0-4.4); Hematocrit 31.1 % (36.0-45.0); MCH 30.6 pg (27.0-35.0); MCV 89.9 fL (80-100); MPV 8.4 fL (7.6-11.3); Monocytes % 13.1 % (3.3-12.3); RBC Red Blood Cell Count 3.46 M/uL (3.86-4.86)
[2017-08-15] MEDS ORDERED: HYDROCODONE/APAP 5/325 MG TAB PO PRN (05:46)
[2017-08-15 05:51] LABS: Protime INR 1.17
[2017-08-15] MEDS: CARVEDILOL 25 MG TAB PO SCH ×3 (05:55→21:43)
[2017-08-15] MEDS: AMLODIPINE 5 MG TAB PO SCH ×2 (05:56→09:00)
[2017-08-15] MEDS ORDERED: CARVEDILOL 25 MG TAB ONE (05:58)
[2017-08-15] MEDS ORDERED: AMLODIPINE 5 MG TAB ONE (05:58)
[2017-08-15] MEDS: INSULIN -REGULAR HUMAN 50 UNIT/0.5 ML ML SQ SCH ×4 (07:29→21:45)
--- NOTE | 2017-08-15 08:33 | RAD REPORT ---
EXAM DESCRIPTION: CT - Head Brain Wo Cont - 08/15/2017 6:41 am CLINICAL HISTORY: DECLINING STATE Drowsiness COMPARISON: HEAD BRAIN W O CONTRAST dated 01/09/2012 TECHNIQUE: All CT scans are performed using dose optimization technique as appropriate and may inclu de automated exposure control or mA/KV adjustment according to patient size. FINDINGS: No intracranial hemorrhage, hydrocephalus or extra-axial fluid collection.Moderate general ized brain atrophy is present with moderate periventricular and deep white matter chronic microvascul ar ischemic changes.No areas of brain edema or evidence of midline shift. The paranasal sinuses and mastoids are clear. The calvarium is intact. IMPRESSION: No acute intracranial abnormality.
--- NOTE | 2017-08-15 08:36 | EKG ---
Test Date: 2017-08-14 Test Time: 19:41:18 Wire Weaver Helper: MALINI MEASUREMENT RESULTS: Intervals: Rate: 83 RI: QRSD: 88 QT: 400 QTc: 470 [place]: P: RI: QRS: 78 T: 17 INTERPRETIVE STATEMENTS: Atrial fibrillation Anteroseptal infarct, age undetermined Abnormal ECG Compared to ECG 12/09/2015 21:56:06 Accelerated junctional rhythm no longer present Myocardial infarct finding still present Electronically Signed On 08-15-17 08:35:29 CDT by Randall Nunez
[2017-08-15] MEDS: FUROSEMIDE 20 MG/ 2ML VIAL IV SCH ×2 (08:45→17:21)
[2017-08-15] MEDS: MULTIVITAMIN TAB PO SCH (08:46)
[2017-08-15] MEDS: RANITIDINE 150 MG TABLET PO SCH ×2 (08:46→21:45)
[2017-08-15] MEDS: CLONIDINE 0.1 MG/PATCH TD SCH (08:46)
[2017-08-15] MEDS: VALSARTAN 160 MG TAB PO SCH (08:46)
[2017-08-15] MEDS ORDERED: CEFEPIME 1 GM/VIAL IV SCH (09:00)
[2017-08-15] MEDS ORDERED: CEFEPIME IV SCH (09:00)
[2017-08-15] MEDS ORDERED: METHYLDOPA 250 MG TABLET PO SCH (09:00)
[2017-08-15] MEDS ORDERED: CEFEPIME 0.5 GM in NA CHLORIDE 0.9% 50 ML IV SCH (09:00)
[2017-08-15] MEDS ORDERED: ENOXAPARIN 80 MG/0.8 ML SQ SCH (09:00)
[2017-08-15] MEDS ORDERED: WATER FOR INJ STERILE IV SCH (09:00)
--- NOTE | 2017-08-15 09:02 | RAD REPORT ---
EXAM DESCRIPTION: RAD - Chest Single View - 08/15/2017 6:24 am CLINICAL HISTORY: Chest Pain Chest pain. COMPARISON: Chest Single View dated 08/14/2017; Chest Single View dated 03/14/2017; Abdomen 1 View (KUB) dated 12/12/2015; Chest Single View dated 12/10/2015 FINDINGS: Portable technique limits examination quality. Moderate right pleural effusion and small left pleural effusion are again noted appearing mildly impr santana. Interstitial pulmonary edema pattern is also mildly improved. The heart is moderately enlarged. No displaced fractures.Thoracolumbar hardware is noted. IMPRESSION: Mild improvement in lung aeration since comparative study.
--- NOTE | 2017-08-15 12:44 | ECHO ---
HEIGHT: 4 ft 5 in WEIGHT: 219 lb 14.4 oz DATE OF STUDY: 08/15/[address]: Bernabe Addison MD 2-DIMENSIONAL: YES M.MODE: YES DOPPLER: YES COLOR FLOW: YES TDS: YES PORTABLE: YES DEFINITY: NO BUBBLE STUDY: NO DIAGNOSIS: CONGESTIVE HEART FAILURE CARDIAC HISTORY: CATHERIZATION: NO SURGERY: NO PROSTHETIC VALVE: NO PACEMAKER: NO MEASUREMENTS (cm) DIASTOLIC (NORMALS) SYSTOLIC (NORMALS) IVSd 1.2 (0.6-1.2) LA Diam 3.8 (1.9-4.0) LVEF 51% LVIDd 5.0 (3.5-5.7) LVIDs 3.7 (2.0-3.5) %FS 26% LVPWd 1.2 (0.6-1.2) Ao Diam 2.9 (2.0-3.7) 2 DIMENSIONAL ASSESSMENT: RIGHT ATRIUM: NORMAL LEFT ATRIUM: NORMAL RIGHT VENTRICLE: NORMAL LEFT VENTRICLE: NORMAL TRICUSPID VALVE: NORMAL MITRAL VALVE: MITRAL ANNULAR CALCIFICATION PULMONIC VALVE: NORMAL AORTIC VALVE: SCLEROSIS PERICARDIAL EFFUSION: NONE AORTIC ROOT: NORMAL LEFT VENTRICULAR WALL MOTION: NORMAL DOPPLER/COLOR FLOW: MILD TRICUSPID, AORTIC AND MITRAL REGURGITATION. COMMENTS: MILD TRICUSPID, AORTIC AND MITRAL REGURGITATION. MITRAL ANNULAR CALCIFICATION. AORTIC SCLEROSIS. NORMAL LEFT VENTRICULAR SIZE AND FUNCTION. TECHNOLOGIST: Russell GARVEY
[2017-08-15] MEDS ORDERED: AMLODIPINE 5 MG TAB PO ONE (12:51)
[2017-08-15] MEDS ORDERED: cloNIDine HCl 0.1 MG TAB PO PRN (12:52)
--- NOTE | 2017-08-15 21:38 | EKG ---
Test Date: 2017-08-15 Test Time: 09:54:55 Steel Wool Machine Operator: ALEXANDER MEASUREMENT RESULTS: Intervals: Rate: 88 OH: 222 QRSD: 92 QT: 366 QTc: 442 [facility]: P: 40 OH: 222 QRS: 70 T: 78 INTERPRETIVE STATEMENTS: Sinus rhythm with 1st degree AV block with premature supraventricular complexes Anteroseptal infarct, age undetermined Abnormal ECG Compared to ECG 08/14/2017 19:41:18 Atrial premature complex(es) now present First degree AV block now present Atrial fibrillation no longer present Myocardial infarct finding still present Electronically Signed On 08-15-17 21:37:11 CDT by Jude Jaramillo
[2017-08-15] MEDS: ENOXAPARIN 80 MG/0.8 ML SQ SCH (21:43)
--- NOTE | 2017-08-15 21:50 | RAD REPORT ---
EXAM DESCRIPTION: RAD - Thoracic Spine Ap/Lat - 08/15/2017 9:26 pm CLINICAL HISTORY: Back pain FINDINGS: Hernández rods traverse the thoracic and lumbar spine. The hardware is unchanged in posit ion from the prior February 2017 exam. A marked old compression fracture involving a lower thoracic vertebral body is unchanged. The bones are osteoporotic. Scoliosis of the thoracolumbar spine and kyphosis are unchanged. No acute fracture is seen.
--- NOTE | 2017-08-16 00:20 | CON ---
Reason: Confusion. History: An 86-year-old lady comes into the hospital with confusion and respiratory failure, hyperca pnic. Blood gas; pH 7.2, pCO2 55. Admitted to the ICU, placed on BiPAP, diuresed, off BiPAP now. R emains confused. She is not agitated. The patient has atrial fibrillation on initial EKG. Diabetes , hypertension, the confusion seems to be predominantly a language problem. Initial CT scan in the [facility] department last night, no hemorrhage. Moderate atrophy. No evidence of acute infarct. Dalton al function is slightly compromised with a GFR of 33 and a creatinine 1.5. BNP is elevated at 14 and 17,000 respectively. Procalcitonin 0.11 given the persistent confusion, despite the improvement of respiratory failure. Consultation was requested. Past Medical History: 1.Diabetes. 2.Hypertension. 3.Reflux. 4.Hyperlipidemia. Allergies: LISINOPRIL. Medications: Routine home medications: 1.Tizanidine. 2.Ranitidine. 3.Aldomet. 4.Melatonin. 5.Minden. 6.Benicar. 7.Robaxin. 8.Lorazepam. 9.Insulin. 10.Amaryl. 11.Calcium. 12.Vitamin D. 13.Aspirin. 14.Norvasc. 15.Fosamax. Social History: The patient is normally independent of basic activities of daily living. Family History: Noncontributory. Review of Systems: General: The patient was well up until this event. Eyes: Negative. Ears, Nose, Throat: Negative. Cardiovascular: As alluded to. Pulmonary: As alluded to. GI: Negative. : Negative. Musculoskeletal: Negative. Neurologic: As noted. Psychiatric: Negative. Endocrine: Diabetes. Hematologic: Negative. Pertinent Laboratory Data: Chest x-ray on admission, shows mild pulmonary edema with enlarged heart size. Physical Examination: Vital Signs: 97.3, 99, 28, 158/98, 97% 2 L nasal cannula. 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 Repeats herself frequently. Tells me, the place is November, the year is November, . Can identify blue, as a color. HEENT: Pupils reactive. Ocular motion full. Difficult to check zambrano. Blinks to threat. Face sym metric. Tongue midline. Soft palate elevates bilaterally. Extremity: Strength 4/5. Right lower extremity otherwise full strength. Sensation intact to pain. Reflexes are trace throughout. Toes are neutral. Pertinent Laboratory Data: As alluded to in history. Impression: 1.Altered mental status. 2.Possible cerebral infarction. 3.Language difficulties are prominent on exam. Plan: 1.Check a brain MRI when patient's pulmonary status allows. 2.Check a B12 and a sedimentation rate, TSH as well. Thank you for the consult. We will continue to follow with you. LU Voice ID: [id number] Report ID: [id number]
--- NOTE | 2017-08-16 04:56 | HP ---
Date of Admission: 08/15/2017 Chief Complaint: Confusion. History Of Present Illness: An 86-year-old female patient, who lives at [facility], who was brought into emergency room yesterday evening with confusion problem. After the patient was evaluated in the ER, she was diagnosed as having congestive heart failure, acute respiratory failure, was started on BiPAP. The patient also had new-onset atrial fibrillation and CAT scan of the head was negative. She was started on Lovenox , IV Lasix was given, and oxygen and BiPAP were started for her shortness of breath and then she was admitted to intensive care unit. Overnight, her condition in the ICU has remained stable. Blood pressure was elevated during nighttime, manager credit collections hours, and antihypertensive medications were ordered. The patient has never had this kind of episode of confusion before. When I saw her this morning in ICU, there were no family members, she was on BiPAP. She did not know where she was. She did not recognize me and she does not remember name of her physician. Allergies: TO LISINOPRIL. Medications: List reviewed. Review of Systems: CUSTOM MILLER: As mentioned above. Cardiovascular: As mentioned above. Respiratory: As mentioned above. All other systems reviewed and negative. Family History: Not pertinent. Social History: Negative for smoking or alcohol use. Past Medical History: Significant for hypertension, osteoporosis, constipation , anemia due to chronic kidney disease, chronic kidney disease stage 3 to stage 4, mixed hyperlipidemia, type 2 diabetes mellitus, osteoarthritis at multiple sites. Past Surgical History: Significant for surgery for right hip fracture in 2016, hysterectomy, cholecystectomy, and also recently about a week ago she had removal of infected sebaceous cyst from the left upper anterior chest wall. Physical Examination: Vital Signs: Last pulse rate 87, respiratory rate 22, blood pressure 190/71, oxygen saturation 97%, last temperature 97 degree Fahrenheit, maximum temperature of 98.9 degree Fahrenheit since admission. General: The patient is awake but not oriented, not answering questions appropriately. HEENT: Head atraumatic, normocephalic. Conjunctivae nonerythematous. Sclerae white. Mouth, no thrush or edema noted. Ears/Nose, no mass, lesion, discharge noted. Neck: Supple. No JVD, lymph nodes, bruit, thyromegaly noted. Lungs: Presence of some rales noted in lower lung zambrano. Not using accessory muscles of respiration. Heart: Normal heart sounds, no murmur or gallop. Abdomen: Soft, bowel sounds normal. No guarding, rigidity, tenderness, mass, hepatosplenomegaly, distention, or bruit noted. Extremities: No leg edema. No calf tenderness. Skin: Area from left upper anterior chest area near clavicle region where she had removal of infected sebaceous cyst has surgical scar well-healed; no gapping ; no sign of any discharge, bleeding, or infection though. Lymphatics: No lymph node enlargement in neck, supraclavicular, infraclavicular region. Neuro: No focal neurological deficit. Chest: Unremarkable. External Genitalia: Deferred. Rectal: Deferred. Laboratory Data: Yesterday white count 10.1, hemoglobin 11, platelets 377. This morning white count 11.8, hemoglobin 10.6, platelets 323. Blood gas; pH 7.25, pCO2 54.8, pO2 73, oxygen saturation 94%, and this was on 32% FiO2. Her proBNP 80466. Sodium this morning 139, potassium 4.2, chloride 105, bicarb 27, BUN 31, creatinine 1.50, glucose 130. Yesterday sodium 133, potassium 5.6, chloride 102, bicarb 26, BUN 28, creatinine 1.60, glucose 279. Liver function test unremarkable. Her troponin 0.06 on the first set, 0.05 on second set, and 0.06 on third set. Urinalysis; 1+ blood, 3+ protein, otherwise negative. Chest x-ray shows changes of congestive heart failure. CAT scan of the brain; negative for any acute intracranial changes. EKG; atrial fibrillation. Impression: 1. Acute respiratory failure. 2. Congestive heart failure. 3. Atrial fibrillation, new onset. 4. Hypertension. 5. Hyperkalemia. 6. Anemia. 7. Chronic kidney disease, stage 3 to stage 4. 8. Type 2 diabetes mellitus. 9. Mixed hyperlipidemia. 10. Osteoarthritis, multiple sites. 11. Osteoporosis. Plan: Admit the patient to hospital for further evaluation of this problem. The patient is appropriate for inpatient and is expected to spend 2 midnights in the hospital. The patient was admitted to ICU. We will continue oxygen BiPAP. Continue home medications per order. Her blood pressure was elevated this morning. Antihypertensive medications were given. We will get an echo with Doppler. Consult Cardiology and Pulmonary Service. Lovenox was started 1 mg/kg subcutaneous injection every 24 hours. We will continue IV Lasix per order. Levi catheter is in place. Intake and output records reviewed and we will continue to monitor that. Home medications will be continued per order. We will monitor sliding scale with insulin for diabetes management. We will see her tomorrow for followup. PITA/MODL Voice ID: [id number]
[2017-08-16 05:59] LABS: Thyroid Stimulating Hormone 0.63 uIU/mL (0.36-3.74)
[2017-08-16] MEDS: INSULIN -REGULAR HUMAN 50 UNIT/0.5 ML ML SQ SCH ×4 (07:30→21:00)
[2017-08-16 08:43] LABS: Absolute Lymphocytes (CBC) 1.1 K/uL (0.7-4.9); Absolute Monocytes 1.3 K/uL (0.1-1.3); Absolute Neutrophil 9.2 K/uL (1.8-8.0); Basophils % 0.4 % (0-1.3); Eosinophils % 2.8 % (0-4.4); Hematocrit 30.8 % (36.0-45.0); Lymphocytes % 9.4 % (15.3-44.8); MCH 30.2 pg (27.0-35.0); MCV 89.4 fL (80-100); MPV 8.2 fL (7.6-11.3); RBC Red Blood Cell Count 3.44 M/uL (3.86-4.86)
--- NOTE | 2017-08-16 09:07 | RAD REPORT ---
EXAM DESCRIPTION: RAD - Chest Single View - 08/16/2017 7:56 am CLINICAL HISTORY: CHF Chest pain. COMPARISON: Chest Single View dated 08/15/2017; Chest Single View dated 08/14/2017; Chest Single View d ated 03/14/2017; Abdomen 1 View (KUB) dated 12/12/2015 FINDINGS: Portable technique limits examination quality. Moderate right pleural effusion is noted with compressive atelectasis right lung base. The lungs are otherwise grossly clear. The heart is mildly prominent in size. Thoracolumbar hardware is noted. IMPRESSION: Moderate right pleural effusion.
[2017-08-16] MEDS: FUROSEMIDE 20 MG/ 2ML VIAL IV SCH ×2 (09:08→18:01)
[2017-08-16] MEDS: SOTALOL HCL 80 MG TAB PO SCH ×2 (09:08→18:01)
[2017-08-16] MEDS: MULTIVITAMIN TAB PO SCH (09:08)
[2017-08-16] MEDS: AMLODIPINE 5 MG TAB PO SCH (09:08)
[2017-08-16] MEDS: RANITIDINE 150 MG TABLET PO SCH ×2 (09:08→20:42)
[2017-08-16 09:09] LABS: Magnesium 1.8 mg/dL (1.8-2.4); Potassium 3.3 mmol/L (3.5-5.1)
[2017-08-16] MEDS: VALSARTAN 160 MG TAB PO SCH (09:09)
[2017-08-16] MEDS: CEFEPIME/SWI 1gm 1 GM/10 ML SYR IV SCH (09:11)
--- NOTE | 2017-08-16 11:57 | CON ---
Identification: An 86-year-old woman. Reason For Consult: AFib. History Of Present Illness: The history really is unreliable from the patient. She said several thi ngs that I later learned are completely untrue. She seems to confabulate. She seems to want to say yes and pleasing to people talking to her, and she answers questions very incorrectly. She seems to be confused, that was a large reason why she came here and the working diagnosis is that she probably has had a stroke. There is a head CT scan having been done, shows no acute abnormality. On Dr. Angie fall's consultation, he has recommended an MRI of the brain and he believes that probably has been a st roke. When the patient came to the hospital, she was in atrial fibrillation. She is now in sinus [facility]. There is no previous history of AFib according to Dr. Addison. The patient says she has AFib and takes Xarelto. Those are things that do not seem to be true looking at medical records and talking to Dr. Addison, who sees her as an outpatient. She has underlying hypertension and diabetes and dementi a. Medications: She takes melatonin, hydrocodone, ranitidine, olmesartan, methyldopa, Robaxin, lorazepa m, insulin, glimepiride, clonidine, carvedilol, calcium carbonate, aspirin, amlodipine, alendronate, and tizanidine. Allergies: SHE REPORTS A DRUG ALLERGY TO LISINOPRIL. Physical Examination: General: She is awake, alert, but disoriented and confused. Lungs: Do not reveal crackles. Heart: Regular rate and rhythm. No significant murmur. Abdomen: Soft. Extremities: 1 to 2+ edema. Distal pulses palpable. Impression: The patient's atrial fibrillation has resolved. At this point, she is in sinus rhythm. I think we should stop all the meds, stop carvedilol and use Betapace in its place. I will recommen d we start at 40 b.i.d., can go up to a higher dose if it is needed. She is on full anticoagulation now with Lovenox. With a recent stroke, it may be ideal to reduce that to a DVT prophylaxis dose for about a week before starting full anticoagulation. I do not have enough knowledge of the patient's home situation to see whether she would be a candidate for taking long-term anticoagulation with a di rect oral anticoagulant and always her hemoglobin is low and it is probably a chronic thing, so the c hronic anticoagulation is uncertain at this point, I think with a question of recent stroke, particul alva if the MRI shows that we should probably reduce the dose of Lovenox for a week. DONTA/ZENAIDA Voice ID: [id number] Report ID: [id number]
--- NOTE | 2017-08-16 14:06 | CON ---
Date of Consultation: 08/15/[address] Addison's service on 08/14/2017. The patient was seen on 08/15/2017. Reason For Consultation: Congestive heart failure and altered mental status. History Of Present Illness: Ms. Marte is an 86-year-old woman. She is known to have a history of hy pertension, diabetes, dyslipidemia, gastroesophageal reflux disease, came in with altered mental stat us, was found to have congestive heart failure. She was hypertensive when she came in and was ____. She had a pO2 of 73, pCO2 of 55, and pH of 7.25. Her white count was 11.8. She was mildly an emic. Troponin was 0.06. Her BNP was 17,000, creatinine 20. EKG showed atrial fibrillation. The h ead CT was negative. No chest pain reported. No nausea, vomiting, diaphoresis, PND, orthopnea, peda l edema, palpitation, or syncope reported. Past Medical History: As stated above. Allergies: SHE IS ALLERGIC TO LISINOPRIL. Review of Systems: Negative. Social History: Negative. Family History: Noncontributory. Medications: 1.Aspirin. 2.Coreg. 3.Norvasc. 4.Insulin. 5.Glimepiride. 6.Benicar. 7.Aldactone. Physical Examination: Vital Signs: Stable, afebrile. She was in sinus rhythm . Blood pressure has improved ___ . O2 saturation on room air . HEENT: Negative. Neck: Supple. No bruit, lymphadenopathy, JVD, or thyromegaly. Chest: Reveals some crackles at the bases with expiratory wheezing. Cardiac Exam: Reveals regular rhythm and rate with gallops and aortic sclerosis murmur. No rubs. Abdomen: Benign. Extremities: 1+ edema. Diagnostic Data: As stated earlier. Impression And Plan: 1.Possible acute diastolic congestive heart failure. Echocardiogram is pending. 2.Paroxysmal atrial fibrillation. 3.Elevated white count of . 4.Elevated troponin and BNP secondary to congestive heart failure. 5.Hypertension, poorly controlled. 6.Diabetes. 7.Dyslipidemia. 8.Gastroesophageal reflux disease. 9.Allergies to lisinopril. 10.Recent left neck abscess surgery by Dr. Morales on 08/08/2017 management of the patient. We will see what the echocardiogram shows prior to making any final decision. GATO/ZENAIDA Voice ID: [id number] Report ID: [id number]
[2017-08-16] MEDS ORDERED: MAGNESIUM SULFATE 1 gm IVPB 1 GM/100 ML BAG IV ONE (19:00)
[2017-08-16] MEDS ORDERED: POTASSIUM 25 MEQ EFFERV TAB PO ONE (19:00)
[2017-08-16] MEDS: ENOXAPARIN 80 MG/0.8 ML SQ SCH (20:42)
--- NOTE | 2017-08-17 01:49 | PN ---
Reason: Aphasia. Interval History: The patient is improving. Still has prominent language problem, but it is actuall y better than it was. Plain film demonstrates Hernández brian. The patient has prominent thoracic ky phosis. We attempted MRI as the kyphosis was too prominent, it enabled that study to be done. We wi ll repeat a CT scan of the brain in the morning to assess for large hemispheric infarct that may nece ssitate a decrease in systemic anticoagulation. Physical Examination: Neurological: On exam, she is awake, alert. Has a fluent aphasia that is less prominent than it was yesterday. She knows me. Had difficulty naming items and colors. Ocular motion full. Lobo full . Strength full. Sensation intact. Reflexes symmetric. Impression: Aphasia, probable stroke. Plan: CT scan brain in the morning. The patient had too prominent kyphosis per MRI. Speech therapy evaluation. We will continue to follow with you. LU Voice ID: [id number] Report ID: [id number]
--- NOTE | 2017-08-17 02:10 | PN ---
Date of Progress Note: 08/16/2017 Subjective: The patient was seen this morning for followup. She was lying in bed, not in any distre ss. Still has significant amount of confusion as she is not able to recognize me, not able to answer simple questions. Not in any respiratory distress. She is no longer using BiPAP. This morning, bhavana dangelo was on nasal cannula oxygen, not in any respiratory distress. She is eating okay. Objective: Vital Signs: Reviewed. Intake and output records reviewed. HEENT: Examination unremarkable. Lungs: Clear to auscultation. Heart: Heart sounds normal. Abdomen: Soft, bowel sounds normal. No guarding, rigidity, tenderness, or distention. Extremities: No leg edema. Laboratory Data: White count 12.1, hemoglobin 10.4, platelets 312. Sodium 137, potassium 3.3, chlor brayan of 98, bicarb 32, BUN 44, creatinine 1.90, glucose 160, magnesium 1.8. ProBNP 42627. Fingerstic k blood sugar readings reviewed. Blood culture remains negative. Thoracic spine x-ray reviewed and chest x-ray from this morning shows moderate right pleural effusion with some compressive atelectasis . Echocardiogram from yesterday shows normal ejection fraction 51%, mild tricuspid aortic and mitral regurgitation. Impression: 1.Acute respiratory failure. 2.Congestive heart failure. 3.Pleural effusion. 4.Atrial fibrillation. 5.Hypertension. 6.Anemia. 7.Chronic kidney disease, stage 3 to stage 4. 8.Type 2 diabetes mellitus. 9.Rule out stroke. 10.Osteoarthritis, multiple sites. Plan: We will go ahead and continue to follow with neurologist, Dr. Sherwood and Neurology and Cardiolo gy consultation is appreciated. We are definitely concerned about possibility of stroke in view of h er underlying atrial fibrillation problem that we have seen during this hospitalization. CAT scan mae s not shown any problem but MRI of the brain was ordered today after we got okay from her Spine surge on, who had placed Hernández brian few years ago and the patient did go down for MRI but unfortunately aviation safety technician was not able to position her. Because of her back problem and her spine curvature, he wa s not able to position her appropriately on the MRI machine, so we were not able to do MRI. So we st ill have unanswered question about underlying stroke causing her confusion problem in the presence of atrial fibrillation problem. She is on anticoagulation therapy with Lovenox. We will continue that . Continue antihypertensive medication. Remove Levi catheter today. We will see her tomorrow for followup. Consult Physical Therapy. Replace electrolytes per protocol, and after today's dose of La six, we will discontinue that, and re-evaluate on a day-to-day basis to see if she needs any further diuretic therapy or not. PITA/MODL Voice ID: [id number] Report ID: [id number]
[2017-08-17 05:29] VITALS: BMI 51.4
[2017-08-17] MEDS: SOTALOL HCL 80 MG TAB PO SCH ×2 (06:17→17:39)
[2017-08-17 06:32] LABS: Magnesium 2.2 mg/dL (1.8-2.4); Potassium 3.4 mmol/L (3.5-5.1)
[2017-08-17] MEDS: INSULIN -REGULAR HUMAN 50 UNIT/0.5 ML ML SQ SCH ×4 (07:30→21:00)
[2017-08-17] MEDS: RANITIDINE 150 MG TABLET PO SCH ×2 (08:10→20:15)
[2017-08-17] MEDS: AMLODIPINE 5 MG TAB PO SCH ×2 (08:11→20:15)
[2017-08-17] MEDS: MULTIVITAMIN TAB PO SCH (08:11)
[2017-08-17] MEDS: CEFEPIME/SWI 1gm 1 GM/10 ML SYR IV SCH (08:12)
[2017-08-17] MEDS: VALSARTAN 160 MG TAB PO SCH (08:12)
[2017-08-17] MEDS ORDERED: POTASSIUM 25 MEQ EFFERV TAB PO ONE (09:00)
--- NOTE | 2017-08-17 10:44 | RAD REPORT ---
EXAM DESCRIPTION: CT - Head Brain Wo Cont - 08/17/2017 10:03 am CLINICAL HISTORY: aphasia CVA COMPARISON: Head Brain Wo Cont dated 08/14/2017; HEAD BRAIN W O CONTRAST dated 01/09/2012 TECHNIQUE: All CT scans are performed using dose optimization technique as appropriate and may inclu de automated exposure control or mA/KV adjustment according to patient size. FINDINGS: No intracranial hemorrhage, hydrocephalus or extra-axial fluid collection.Advanced general ized brain atrophy is present with advanced periventricular and deep white matter chronic microvascul ar ischemic changes.No areas of brain edema or evidence of midline shift. The paranasal sinuses and mastoids are clear. The calvarium is intact. IMPRESSION: No acute intracranial abnormality. If there is continued clinical concern for CVA, MR i maging of the brain would be recommended.
[2017-08-17] MEDS: cloNIDine HCl 0.1 MG TAB PO PRN (12:17)
[2017-08-17] MEDS ORDERED: AMLODIPINE 5 MG TAB PO ONE (13:26)
[2017-08-17] MEDS ORDERED: POTASSIUM CL SA 10 MEQ TAB PO ONE (18:00)
[2017-08-17] MEDS: ENOXAPARIN 80 MG/0.8 ML SQ SCH (20:16)
--- NOTE | 2017-08-18 00:25 | PN ---
Date of Progress Note: 08/17/2017 Time: 1945 hours. Reason: Aphasia. Interval History: The patient is stable, improving. Still has a fluent aphasia. Repeat CT scan did not demonstrate any evidence of a large hemispheric infarct. Study personally reviewed. The patien t has multiple areas of ischemia, new onset AFib. We think the patient has a small infarct in recovery collector ior MCA distribution. She has a fluent aphasia. Physical Examination: She is awake, alert, pleasant. Speech is fluent. Comprehension is impaired. Repetition is intact. She has transcortical sensory aphasia, resolving Wernicke-type aphasia. Pupils reactive. Ocular mo tion full. Lobo full. Face symmetric. Tongue midline. Soft palate elevates bilaterally. Extrem ity strength full. No cortical extinction. Toes downgoing. Impression: Cerebral infarction. Plan: There is no neurologic contraindication to full systemic anticoagulation. We will continue to follow with you. LU Voice ID: [id number] Report ID: [id number]
--- NOTE | 2017-08-18 01:44 | PN ---
Date of Progress Note: 08/17/2017 Subjective: The patient was seen this morning for followup. She was lying in bed in the ICU, not in any distress. Still continues to have confusion problem, but it is somewhat better. She is still n ot able to recognize me, not able to come up with my name, cannot tell where she is, but she is tryin g to communicate, but not able to answer appropriate questions. Not in any respiratory distress. No trouble swallowing. Objective: Vital Signs: Reviewed. HEENT: Examination unremarkable. Lungs: Clear to auscultation. No rhonchi or rales. Heart: Heart sounds normal. Abdomen: Soft. Bowel sounds normal. No guarding, rigidity, tenderness, or distention. Extremities: No leg edema. Laboratory Data: Sodium 141, potassium 3.4, chloride 101, bicarb 32, BUN 48, creatinine 2.0, glucose 124. Impression: 1.Atrial fibrillation, paroxysmal. 2.Probable stroke. 3.Hypertension. 4.Diabetes mellitus. 5.Anemia. Plan: We will go ahead and transfer the patient out of ICU to regular room. Physical Therapy to wor k with the patient. Speech therapy consultation also has been requested. We will consider rehab con sultation. Continue current antihypertensive medication except increase dose of amlodipine from 5 mg once a day to twice a day. Continue other current medications for diabetes management, Lovenox per order. Continue sotalol. I will see her tomorrow for followup. We will continue to follow with brian rologist and technical staff assistant. Lasix was discontinued yesterday and clinically there are no signs of any congestive heart failure at this point. We will continue to monitor her for that. PITA/MODL Voice ID: [id number] Report ID: [id number]
[2017-08-18 04:40] LABS: Absolute Lymphocytes (CBC) 1.6 K/uL (0.7-4.9); Absolute Neutrophil 4.7 K/uL (1.8-8.0); Basophils % 0.8 % (0-1.3); Eosinophils % 6.3 % (0-4.4); Hematocrit 25.5 % (36.0-45.0); Lymphocytes % 20.2 % (15.3-44.8); MCV 89.6 fL (80-100); MPV 8.3 fL (7.6-11.3); Monocytes % 12.7 % (3.3-12.3); RBC Red Blood Cell Count 2.85 M/uL (3.86-4.86)
[2017-08-18 04:54] LABS: Magnesium 2.2 mg/dL (1.8-2.4); Potassium 3.7 mmol/L (3.5-5.1)
[2017-08-18] MEDS ORDERED: POTASSIUM CL SA 10 MEQ TAB PO ONE (06:00)
[2017-08-18] MEDS: SOTALOL HCL 80 MG TAB PO SCH ×2 (06:07→17:48)
[2017-08-18] MEDS: INSULIN -REGULAR HUMAN 50 UNIT/0.5 ML ML SQ SCH ×4 (07:30→22:29)
[2017-08-18] MEDS: CEFEPIME/SWI 1gm 1 GM/10 ML SYR IV SCH (10:34)
[2017-08-18] MEDS: VALSARTAN 160 MG TAB PO SCH (10:35)
[2017-08-18] MEDS: MULTIVITAMIN TAB PO SCH (10:35)
[2017-08-18] MEDS: RANITIDINE 150 MG TABLET PO SCH ×2 (10:36→22:27)
[2017-08-18] MEDS: AMLODIPINE 5 MG TAB PO SCH ×2 (10:36→22:28)
[2017-08-18] MEDS: cloNIDine HCl 0.1 MG TAB PO PRN ×2 (11:59→17:48)
--- NOTE | 2017-08-18 12:35 | PN ---
Date of Progress Note: 08/18/2017 Subjective: She was seen this morning for followup, she still has confusion, she could not answer when I asked her question if she knows where she is, when I started giving her option, if she is at clinic, home, hospital, prison, then she was able to say hospital. She says she recognizes me, but she is not able to tell me my name. Objective: Vital Signs: Reviewed. HEENT: Unremarkable. Lungs: Clear to auscultation. Heart: Heart sounds normal. Abdomen: Soft, bowel sounds normal. No guarding, rigidity, tenderness, or distention. Extremities: No leg edema. Laboratory Data: White count 7.9, hemoglobin 8.8. Sodium 143, potassium 3.7, chloride 103, bicarb 34, BUN 45, creatinine 1.80, glucose 141. Impression: 1. Paroxysmal atrial fibrillation. 2. Hypertension. 3. Congestive heart failure, resolved. 4. Chronic kidney disease, stage 3 to stage 4. 5. Diabetes mellitus. 6. Probable stroke. 7. Generalized weakness. Plan: We will go ahead and continue to follow up with neurologist, continue current Lovenox, antihypertensive medication, and kidney numbers are actually better today than last 2-3 days. Physical Therapy to continue to work with the patient and we will consult inpatient rehab to see if the patient qualifies for inpatient rehab stay or not. Details and plan of treatment discussed with her. We will think about possibly changing her from Lovenox to medication like Eliquis. Her blood pressure is higher than normal and will add new medication, Doxazosin per order. PITA/MODL Voice ID: [id number] Report ID: [id number] ARIAN
[2017-08-18] MEDS ORDERED: DOXAZOSIN 2 MG TAB PO ONE (16:00)
[2017-08-18] MEDS ORDERED: LORAZEPAM 1 MG TABLET PO ONE (21:38)
[2017-08-18] MEDS: DOXAZOSIN 2 MG TAB PO SCH (22:28)
[2017-08-18] MEDS: ENOXAPARIN 80 MG/0.8 ML SQ SCH (22:29)
[2017-08-19 05:03] LABS: Potassium 3.8 mmol/L (3.5-5.1)
[2017-08-19] MEDS ORDERED: POTASSIUM 25 MEQ EFFERV TAB PO ONE (05:31)
[2017-08-19] MEDS: SOTALOL HCL 80 MG TAB PO SCH ×2 (06:17→16:56)
[2017-08-19] MEDS: INSULIN -REGULAR HUMAN 50 UNIT/0.5 ML ML SQ SCH ×4 (07:30→21:47)
[2017-08-19] MEDS: CEFEPIME/SWI 1gm 1 GM/10 ML SYR IV SCH (08:03)
[2017-08-19] MEDS: VALSARTAN 160 MG TAB PO SCH (08:03)
[2017-08-19] MEDS: RANITIDINE 150 MG TABLET PO SCH ×2 (08:03→21:47)
[2017-08-19] MEDS: DOXAZOSIN 2 MG TAB PO SCH ×2 (08:04→21:48)
[2017-08-19] MEDS: MULTIVITAMIN TAB PO SCH (08:04)
[2017-08-19] MEDS: AMLODIPINE 5 MG TAB PO SCH ×2 (08:04→21:48)
--- NOTE | 2017-08-19 09:12 | RAD REPORT ---
EXAM DESCRIPTION: RAD - Chest Single View - 08/19/2017 8:49 am CLINICAL HISTORY: Pleural effusion, shortness of breath COMPARISON: August 16 TECHNIQUE: AP portable chest image was obtained 0839 hours . FINDINGS: Moderate right-sided pleural effusion is present unchanged from the prior study. No new or enlarging left-sided pleural effusion. No peripheral mass or consolidation. Right base atelectasis i s likely present. Heart size is upper normal. No vascular engorgement. Trachea is midline. No gross b kiera abnormality seen. No acute aortic findings suspected. IMPRESSION: Moderate right pleural effusions similar to August 16. No new or progressive cardiopulmonary finding.
[2017-08-19 12:02] LABS: Absolute Lymphocytes (CBC) 1.3 K/uL (0.7-4.9); Absolute Monocytes 0.6 K/uL (0.1-1.3); Absolute Neutrophil 4.8 K/uL (1.8-8.0); Basophils % 0.5 % (0-1.3); Eosinophils % 3.9 % (0-4.4); Hematocrit 26.5 % (36.0-45.0); Lymphocytes % 19.1 % (15.3-44.8); MCH 30.3 pg (27.0-35.0); MCV 91.5 fL (80-100); MPV 8.6 fL (7.6-11.3); Monocytes % 8.8 % (3.3-12.3); RBC Red Blood Cell Count 2.89 M/uL (3.86-4.86)
--- NOTE | 2017-08-19 13:03 | PN ---
Date of Progress Note: 08/19/2017 Subjective: The patient was seen this morning for followup. She is actually looking a lot better. She is communicating more like her normal self. She still has trouble with her speech. Not able to tell me exactly where she lives, but once I told her that she lives at [facility], she felt like im mediately she realized that is where she lives, and she was asking me when she can go back over there . She lives in an independent facility at [facility], and obviously with the recent stroke, she wi ll not be able to return back immediately upon discharge from the hospital over there, and she may mae ve to spend some time in the long term facility. Other option is that if she can go to [facility] rehab and then if possible return back to [facility], or go to long term facility and then return to [facility]. All those different possibilities discussed with her today. Denies any lauren st pain, shortness of breath, abdominal pain, nausea, vomiting. Objective: Vital signs: Reviewed. Blood pressure is under much better control now since we added d oxazosin yesterday. HEENT: Unremarkable. Lungs: Clear to auscultation. Heart: Heart sounds normal. Abdomen: Soft. Bowel sounds normal. No guarding, rigidity, tenderness, or distention. Extremities: No leg edema. Laboratory Data: Sodium 144, potassium 3.8, chloride 105, bicarb 34, BUN 43, creatinine 1.70, glucos e 137. Fingerstick blood sugar readings reviewed. Impression: 1.Paroxysmal atrial fibrillation, normal sinus rhythm. 2.Stroke. 3.Hypertension. 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 5.Diabetes mellitus. Plan: We will continue current medications. The patient has anemia problem, which is chronic. We w ill go ahead and get a CBC done today to monitor her hemoglobin and she is on Lovenox so far last dos e was yesterday at bedtime. As of today evening time, we will start her on Eliquis 2.5 mg twice a da y and discontinue Lovenox provided her hemoglobin is stable today. I will see her tomorrow for nichelle gold. Continue current antihypertensive medication and diabetes management. PITA/MODL Voice ID: [id number] Report ID: [id number]
--- NOTE | 2017-08-19 17:30 | PN ---
Reason: Stroke. Interval History: The patient is stable. Language is improving. 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 Going to be converted over to Eliquis. I agree with her attending. She may need transiently more intensive care than her prior social situat ion allowed. We will request inpatient rehab, it has been consulted. Physical Examination: On exam, she is awake, alert. She has a posterior fluent-type aphasia with some difficulty in naming specific objects. Ocular motion full. Lobo full. Strength full. No cortical extinction. Toes are downgoing. Impression: Cerebral infarction. Plan: Continue supportive care. We will continue to follow with you. LU Voice ID: [id number] Report ID: [id number]
[2017-08-19] MEDS: APIXABAN 2.5 MG TABLET PO SCH (21:47)
[2017-08-20 04:56] LABS: Absolute Lymphocytes (CBC) 1.5 K/uL (0.7-4.9); Absolute Monocytes 0.9 K/uL (0.1-1.3); Absolute Neutrophil 5.1 K/uL (1.8-8.0); Basophils % 0.8 % (0-1.3); Eosinophils % 4.8 % (0-4.4); Hematocrit 24.8 % (36.0-45.0); Lymphocytes % 18.4 % (15.3-44.8); MCH 31.3 pg (27.0-35.0); MPV 8.9 fL (7.6-11.3); Monocytes % 10.9 % (3.3-12.3); RBC Red Blood Cell Count 2.73 M/uL (3.86-4.86)
[2017-08-20 05:09] LABS: Magnesium 2.4 mg/dL (1.8-2.4); Potassium 4.2 mmol/L (3.5-5.1)
[2017-08-20] MEDS: SOTALOL HCL 80 MG TAB PO SCH ×2 (05:40→17:01)
[2017-08-20] MEDS: INSULIN -REGULAR HUMAN 50 UNIT/0.5 ML ML SQ SCH ×4 (07:30→20:38)
[2017-08-20] MEDS: RANITIDINE 150 MG TABLET PO SCH ×2 (08:12→20:37)
[2017-08-20] MEDS: APIXABAN 2.5 MG TABLET PO SCH ×2 (08:12→20:37)
[2017-08-20] MEDS: AMLODIPINE 5 MG TAB PO SCH ×2 (08:12→20:37)
[2017-08-20] MEDS: VALSARTAN 160 MG TAB PO SCH (08:13)
[2017-08-20] MEDS: MULTIVITAMIN TAB PO SCH (08:13)
[2017-08-20] MEDS: DOXAZOSIN 2 MG TAB PO SCH ×2 (08:14→20:37)
[2017-08-20] MEDS: CEFEPIME/SWI 1gm 1 GM/10 ML SYR IV SCH (08:14)
--- NOTE | 2017-08-20 15:22 | PN ---
Date of Progress Note: 08/20/2017 Subjective: The patient was seen this morning for followup. No new complaints or problems reported by the patient. She was feeling much better this morning. Denies any chest pain, shortness of breat h, nausea, or vomiting. Objective: Vital Signs: Reviewed. HEENT: Unremarkable. Lungs: Clear to auscultation. Heart: Heart sounds normal. Abdomen: Soft. Bowel sounds normal. No guarding, rigidity, tenderness, distention. Extremities: No leg edema. Laboratory Data: White count 7.9, hemoglobin 8.5, platelets 161, sodium 143, potassium 4.2, chloride 103, bicarb 34, BUN 42, creatinine 1.60, glucose 150. Impression: 1.Stroke. 2.Paroxysmal atrial fibrillation. 3.Hypertension. 4.Diabetes mellitus. 5.Chronic kidney disease stage 3 to stage 4. 6.Anemia. Plan: We will continue current medications. Continue Eliquis. She is tolerating that well. Anemia count is stable. We will continue sotalol and other current antihypertensive medications. Continue current diabetes management. I will see her tomorrow for followup. Physical therapy to work with e patient. Rehab consult is pending. PITA/MODL Voice ID: [id number] Report ID: [id number]
[2017-08-20] MEDS: cloNIDine HCl 0.1 MG TAB PO PRN (17:01)
[2017-08-21] MEDS: SOTALOL HCL 80 MG TAB PO SCH ×2 (05:39→17:08)
[2017-08-21] MEDS: INSULIN -REGULAR HUMAN 50 UNIT/0.5 ML ML SQ SCH ×4 (07:30→20:17)
--- NOTE | 2017-08-21 08:18 | RAD REPORT ---
EXAM DESCRIPTION: Danielle Single View08/21/2017 7:46 am CLINICAL HISTORY: Chest pain COMPARISON: August 19, 2017 FINDINGS: A moderate right pleural effusion is without obvious change. Right basilar atelectasis is present. The left lung appears clear. The heart is mildly enlarged IMPRESSION: No change in a moderate right pleural effusion
[2017-08-21] MEDS: RANITIDINE 150 MG TABLET PO SCH ×2 (09:00→20:16)
[2017-08-21] MEDS: DOXAZOSIN 2 MG TAB PO SCH ×2 (09:00→20:15)
[2017-08-21] MEDS: MULTIVITAMIN TAB PO SCH (09:01)
[2017-08-21] MEDS: AMLODIPINE 5 MG TAB PO SCH ×2 (09:01→20:15)
[2017-08-21] MEDS: VALSARTAN 160 MG TAB PO SCH (09:01)
[2017-08-21] MEDS: APIXABAN 2.5 MG TABLET PO SCH ×2 (09:01→20:16)
[2017-08-21] MEDS: cloNIDine HCl 0.1 MG TAB PO PRN (11:33)
--- NOTE | 2017-08-21 23:59 | PN ---
Date of Progress Note: 08/21/2017 Reason: Stroke. Interval History: The patient is stable. Does have a little cough today, hemoglobin 8.5, creatinine 1.6, on Eliquis. Still has slight naming difficulties. Rehab denied her of an inpatient rehab admi ssion. I think we will have to get Social Work involved more closely, and try and decide if back to [facility] with home health will be a high enough level of care. Physical Examination: Neurologic: On exam, she is awake, alert, pleasant. She still has slight naming difficulties, diffi culty naming a pen, color of pen, but can name the hand and digits i.e. finger. Pupils reactive. Oc ular motion full. Lobo full. Face is symmetric. Extremity strength full. Toes are downgoing. Impression: Stroke with aphasia, improving. Plan: Continue Eliquis. Will have speech Therapy re-evaluate tomorrow. Hopefully, if she is not as pirating any, she may be able to go back to [facility] with just some additional assistance with ad ministering of her medications, at least for the short term. We will continue to follow with you. LILA/ZENAIDA Voice ID: [id number] Report ID: [id number]
--- NOTE | 2017-08-22 01:38 | PN ---
Date of Progress Note: 08/21/2017 Subjective: The patient was seen this morning for followup. She was lying in bed, not in any distre ss. No new complaints or problems reported by her. She was feeling fine. Denies any chest pain or shortness of breath. No nausea or vomiting. Objective: Vital Signs: Reviewed. HEENT Examination: Unremarkable. Lungs: Clear to auscultation. No rhonchi, no rales. Heart: Heart sounds normal. Abdomen: Soft. Bowel sounds normal. No guarding, rigidity, tenderness, or distention. Extremities: No leg edema. Laboratory Data: Chest x-ray was ordered to be done this morning. We will follow up on results. Impression: 1.Right pleural effusion. 2.Hypertension. 3.Diabetes mellitus. 4.Anemia. 5.Paroxysmal atrial fibrillation. 6.Stroke. Plan: We will continue current medication. Continue Eliquis. Discontinue antibiotics as there is n o definite evidence of any infection anywhere. Chest x-ray will be followed and we will continue to follow with social service to help with the discharge planning. My first recommendation would be for her to go to inpatient rehab if she qualifies and if her insurance approves. If she does not, go to inpatient rehab then. Next best option would [facility] to [facility] to [facility], and edwin villalba's son came to office today and all these details were discussed with him. The patient's ultimate g oal is to return back to [facility] care [facility], and son informed me that she lives in assisted care site and not independent site. PITA/MODL Voice ID: [id number] Report ID: [id number]
[2017-08-22] MEDS: cloNIDine HCl 0.1 MG TAB PO PRN (04:04)
[2017-08-22] MEDS: SOTALOL HCL 80 MG TAB PO SCH ×2 (05:28→17:36)
[2017-08-22 05:49] LABS: Absolute Lymphocytes (CBC) 1.5 K/uL (0.7-4.9); Absolute Monocytes 0.7 K/uL (0.1-1.3); Absolute Neutrophil 5.4 K/uL (1.8-8.0); Basophils % 0.7 % (0-1.3); Eosinophils % 4.1 % (0-4.4); Hematocrit 26.3 % (36.0-45.0); Lymphocytes % 18.7 % (15.3-44.8); MCH 31.5 pg (27.0-35.0); MCV 90.8 fL (80-100); MPV 9.4 fL (7.6-11.3); Monocytes % 9.2 % (3.3-12.3)
[2017-08-22 06:05] LABS: Magnesium 2.5 mg/dL (1.8-2.4); Potassium 4.3 mmol/L (3.5-5.1)
[2017-08-22] MEDS: INSULIN -REGULAR HUMAN 50 UNIT/0.5 ML ML SQ SCH ×4 (07:30→20:17)
[2017-08-22] MEDS: CLONIDINE 0.1 MG/PATCH TD SCH (09:00)
[2017-08-22] MEDS: RANITIDINE 150 MG TABLET PO SCH ×2 (09:13→21:23)
[2017-08-22] MEDS: APIXABAN 2.5 MG TABLET PO SCH ×2 (09:14→21:20)
[2017-08-22] MEDS: VALSARTAN 160 MG TAB PO SCH (09:14)
[2017-08-22] MEDS: DOXAZOSIN 2 MG TAB PO SCH ×2 (09:14→21:19)
[2017-08-22] MEDS: MULTIVITAMIN TAB PO SCH (09:14)
[2017-08-22] MEDS: AMLODIPINE 5 MG TAB PO SCH ×2 (09:14→21:19)
--- NOTE | 2017-08-22 22:42 | PN ---
Date of Progress Note: 08/22/2017 Subjective: Patient was seen this morning for followup. No new complaints or problems reported by vanessa arciniega. Lying in bed, not in any distress. Objective: Vital Signs: Reviewed. HEENT Examination: Unremarkable. Lungs: Clear to auscultation. Heart: Heart sounds normal. Abdomen: Soft. Bowel sounds normal. No guarding, rigidity, tenderness, or distention. Extremities: No leg edema. Laboratory Data: White count 8, hemoglobin 9.1, platelets 136. Sodium 140, potassium 4.3, chloride 104, bicarb 32. BUN 30, creatinine 1.40. Glucose 175. Magnesium 2.5. Impression: 1.Paroxysmal atrial fibrillation. 2.Stroke. 3.Hypertension. 4.Diabetes mellitus. 5.Anemia. Plan: We will continue current anticoagulant medication and antihypertensive and diabetes management . Social Service to assist patient with [facility] placement as inpatient rehab has denied her. I did talk to patient and explained her that once she gets done with her rehab part at the [facility], then she should be able to return back to [facility], but I adryan pickardo informed her that to start with at [facility] she will have to allow nursing staff at the [facility] to administer her medication and manage her medication. She understands and agrees with that plan. PITA/MODL Voice ID: [id number] Report ID: [id number]
[2017-08-23] MEDS: SOTALOL HCL 80 MG TAB PO SCH (05:18)
[2017-08-23] MEDS: INSULIN -REGULAR HUMAN 50 UNIT/0.5 ML ML SQ SCH ×2 (07:30→11:30)
[2017-08-23] MEDS: AMLODIPINE 5 MG TAB PO SCH (08:51)
[2017-08-23] MEDS: RANITIDINE 150 MG TABLET PO SCH (08:51)
[2017-08-23] MEDS: VALSARTAN 160 MG TAB PO SCH (08:51)
[2017-08-23] MEDS: DOXAZOSIN 2 MG TAB PO SCH (08:51)
[2017-08-23] MEDS: APIXABAN 2.5 MG TABLET PO SCH (08:52)
[2017-08-23] MEDS: cloNIDine HCl 0.1 MG TAB PO PRN (08:52)
[2017-08-23] MEDS: MULTIVITAMIN TAB PO SCH (08:52)
[2017-08-23 09:36] VITALS: O2SAT 94
[2017-08-23 12:01] VITALS: BP 165/80; TEMP 97.9
--- NOTE | 2017-08-24 13:21 | DS ---
Date of Discharge: 08/23/2017 Disposition: Discharged to go to detention. Physical Examination: HEENT: Unremarkable. Lungs: Clear to auscultation. Heart: Sounds normal. Abdomen: Soft, bowel sounds normal. No guarding, rigidity, tenderness, or distention. Extremities: No leg edema. Discharge Medications And Instructions: 1. Consult Physical Therapy and Occupational Therapy at detention. 2. Consult speech therapy at detention. 3. Fall precautions. 4. CBC, chem 7 and magnesium level in 1 week and then as per detention physician. 5. Fingerstick blood sugar a.c. and at bedtime with mild sliding scale using regular insulin, subcutaneous injection. Hospital Course: An 86-year-old female patient, admitted to the hospital. After she was sent to emergency room from [facility] with confusion problem. Please see dictated H and P for more information. The patient was evaluated in the ER, was in acute respiratory failure along with acute congestive heart failure problem. She was admitted to ICU. She was on BiPAP therapy in the beginning and we were able to wean off her BiPAP therapy and was on nasal cannula oxygen subsequently. Once her condition was stable in ICU, she was transferred to medical floor. The patient never required any intubation or ventilator support. Her echocardiogram had shown normal ejection fraction. She was on empiric antibiotic, initially which was discontinued. Blood culture remained negative. There was no definite evidence of any pneumonia. Chest x-ray had shown moderate right-sided pleural effusion which has remained stable over period of this hospitalization. The patient does not have any symptom for this pleural effusion and does not require any thoracentesis at this point but if pleural effusion does get worse and become symptomatic, she may need thoracentesis in the future if that happens. CAT scan of the brain was negative for any acute changes. EKG initially had shown atrial fibrillation. This is something new for her. Cardiology consultation was obtained. She was started on sotalol and she did convert back to sinus rhythm. She was initially given Lovenox and subsequently we changed from Lovenox to Eliquis 2.5 mg twice a day and she does qualify for lower dose Eliquis. Neurology consultation was obtained because of her confusion problem. Her congestive heart failure problem and respiratory failure problem improved , but confusion did not improve and with her rather new onset paroxysmal atrial fibrillation we are concerned about possibility of stroke even though CAT scan of the head did not show any stroke. There was however concern on clinical basis. Dr. Sherwood ordered MRI of her brain after getting clearance from her spine surgeon who placed a Hernández brian few years ago and we did get clearance to do MRI but we were not able to do MRI because of technical reasons. 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 So, her diagnosis of stroke is on the basis of clinical grounds and she has shown improvement. Her speech has improved. She still has some trouble with her speech in terms of, she understands what she wants to say but she will not be able to verbalize those specific words. She recognizes me and my name as I have seen her, taken care of her for many years, but she is not able to say my name. She does not have any slurred speech. Her overall mental status has improved quite a bit. It was recommended that the patient spend some time in the rehab facility before she returns back to her assisted care facility. Details were discussed with her son. Inpatient rehab was consulted and she was denied for inpatient rehab, so Social Service was consulted to assist the patient with detention placement and once all the arrangements completed today she was discharged in stable condition with above-mentioned medication and instructions. Final Diagnoses: 1. Stroke. 2. Acute respiratory failure. 3. Congestive heart failure, acute, diastolic. 4. Atrial fibrillation, paroxysmal. 5. Pleural effusion, right side, moderate. 6. Hypertension. 7. Anemia. 8. Chronic kidney disease, stage 3. 9. Type 2 diabetes mellitus. 10. Mixed hyperlipidemia. 11. Osteoarthritis, multiple sites. 12. Osteoporosis. Discharge Medications: 1. Continue prior home medications except stop Methyldopa. 2. Stop carvedilol. 3. Stop aspirin. 4. Stop amlodipine 5 mg daily dose. New Medications: Include; 1. Eliquis 2.5 mg twice a day. 2. Amlodipine 5 mg twice a day. 3. Doxazosin 1 mg twice a day. 4. Sotalol 40 mg twice a day. Laboratory Data: Last blood work from yesterday sodium 140, potassium 4.3, chloride 104, bicarb 32, BUN 30, creatinine 1.40, glucose 175, magnesium 2.5. Yesterday, white count 8, hemoglobin 9.1, platelets 136. Echocardiogram from 08/15/2017 shows ejection fraction 51%. PITA/MODL Voice ID: [id number] Report ID: [id number]
== END 2017-08-23 15:04 | DRG 64 ==
LOC: ER 19:38 → ERHOLD 22:45 → 3RD-ICU 23:46 → 2ND 08-17 10:48
PROVIDERS: ADMIT Internal Medicine; ATTEND Internal Medicine
PROC: 5A09357 Assistance with Respiratory Ventilation, Less than 24 Consecutive Hours, Continuous Positive Airway Pressure (ICD-10-PCS; principal; 2017-08-14)
DX: I63.9 Cerebral infarction, unspecified (principal); J96.02 Acute respiratory failure with hypercapnia; I50.31 Acute diastolic (congestive) heart failure; I13.0 Hypertensive heart and chronic kidney disease with heart failure and stage 1 through stage 4 chronic kidney disease, or unspecified chronic kidney disease; N18.3 Chronic kidney disease, stage 3 (moderate); R47.01 Aphasia; E11.22 Type 2 diabetes mellitus with diabetic chronic kidney disease; I48.0 Paroxysmal atrial fibrillation; E78.2 Mixed hyperlipidemia; M15.9 Polyosteoarthritis, unspecified; M81.0 Age-related osteoporosis without current pathological fracture; K21.9 Gastro-esophageal reflux disease without esophagitis; Z79.82 Long term (current) use of aspirin; Z79.4 Long term (current) use of insulin; R53.1 Weakness; M40.294 Other kyphosis, thoracic region; K59.00 Constipation, unspecified; D63.1 Anemia in chronic kidney disease
CPT/HCPCS: 36415; 51702; 70450; 71045; 72070; 80048; 80076; 81003; 82550; 82553; 82607; 82805; 82962; 83605; 83735; 83880; 84132; 84145; 84443; 84484; 85025; 85610; 85652; 85730; 86850; 86900; 86901; 87040; 93005; 93306; 94660; 96361; 96365; 96366; 96367; 96372; 96375; 97163; 99285; J0692; J1650; J1940; J3370; J3475; J7030

== ENCOUNTER 2018-03-23 09:30 | Inpatient (IN) | payer OTHER ==
--- OUTSIDE RECORDS SUMMARY | 2018-03-23 09:45 | XMS REPORT | Continuity of Care Document ---
:1930 Author Organization Interface Problems Problem Status Onset Classification Date Comments Source Date Reported FALL Active 11/27/[address] HIP FX Active 11/27/[address] Kyphosis Active 02/09/19 Problem 08/20/2017 Data migrated [facility] [place] 13 from [facility] spine<sup>1</romo Centricity on [place] p> 09/30/14. [facility] Arthritis Resolved Problem 08/20/2017 [facility] [place] Diabetes Resolved Problem 08/20/2017 [facility] mellitus [facility] Fall - Resolved Problem 08/20/2017 [facility] accidental [facility] GERD (<span Resolved Problem 08/20/2017 [facility] ID[facility][id number]" [facility]</spa [place] n) [facility] Hypertension Resolved Problem 08/20/2017 [facility] [place] Osteoporosis Resolved Problem 08/20/2017 [facility] [place] FX UNSP PART OF Active [facility] UNSPEC Medications Medication Details Route Status Patient Ordering Order Source Instructions Provider Date remove patch 1 patch, Route: No Longer 12/05[facility], Drug form: Active [address] [place] [address] ERFILM, Q7D, [place] Start date: 12/06/15 16:00:00 CDT, Duration: 30 day, Stop date: 01/03/16 16:00:00 CSTNotes: Remove old patch before application of new patch. heparin 5,000 unit=1 Active 12/03[facility] mL, SUB-Q, Q8H, 2015 Medical 0 Refill(s) Center Folic Acid 1 MG 1 mg=1 tab, PO, Active 12/03[facility] Oral Tablet Daily, 0 2015 Medical Refill(s) Center ferrous sulfate 325 mg=1 tab, Active 12/03[facility] 325 mg oral PO, TID-Meals, 2015 Medical enteric coated 0 Refill(s) [place] tablet atorvastatin 20 20 mg=1 tab, Active 12/03[facility] mg oral tablet PO, Bedtime, 0 2015 Medical Refill(s) Center amLODIPine 10 10 mg=1 tab, Active [facility] mg oral tablet PO, Daily, 0 2015 Medical Refill(s) Center Acetaminophen 1 tab, PO, Q6H, Active [facility] 325 MG / PRN Pain Score 2016 Medical Hydrocodone 6-10, 0 [place] Bitartrate 5 MG Refill(s) Oral Tablet [[place] 5/325] senna 8.6 mg 17.2 mg=2 tab, Active [facility] oral tablet PO, Bedtime, 0 2015 Medical Refill(s) [place] Compazine 5 mg, 1 mL, Inactive [facility] Route: IM, Drug 2015 Medical form: INJ, Q3H, Center Dosing Weight 88.182, kg, PRN Nausea & Vomiting, Start date: 12/04/15 10:56:00 CDT, Stop date: 01/03/16 10:55:00 CSTNotes: (Same as: Compazine) Simethicone 80 mg, 1 tab, Inactive [facility] Route: CHEW, 2015 Medical Drug form: [place] CHEWTAB, QID, Dosing Weight 88.182, kg, PRN Gas, Start date: 12/04/15 10:56:00 CDT, Duration: 30 day, Stop date: 01/03/16 10:55:00 CSTNotes: (Same as: Mylicon) Amlodipine 10 mg, 1 tab, Inactive [facility] Route: PO, Drug 2015 Medical form: TAB, Center Daily, Dosing Weight 88.182, kg, Start date: 12/04/15 9:00:00 CDT, Duration: 30 day, Stop date: 01/02/16 9:00:00 CSTNotes: (Same as: Norvasc) Tums 500 mg, 1 tab, Inactive [facility] Route: CHEW, 2015 Medical Drug form: Center CHEWTAB, TID, Dosing Weight 88.182, kg, Start date: 12/04/15 9:00:00 CDT, Duration: 30 day, Stop date: 01/02/16 17:00:00 CSTNotes: (Same As: Tums) Calcium Carbonate 500 ex=886 mg elemental calcium Dose= mg calcium carbonate ( mg elemental calcium) Hydralazine 50 mg, 2 tab, Inactive [place] Hydrochloride Route: PO, Drug 2016 Medical 50 [...] CSTNotes: (Same As: Tums) Calcium Carbonate 500 sh=842 mg elemental calcium Dose= mg calcium carbonate ( mg elemental calcium) Metoprolol 5 mg, 5 mL, Inactive [place] Route: IVP, 2015 Medical Drug form: INJ, Center Q8H, Dosing Weight 88.182, kg, PRN Other -See Comment, SBP > 160 mmHg, Start date: 12/04/15 0:13:00 CDT, Duration: 30 day, Stop date: 01/03/16 0:12:00 OFFAL BALER, BPNotes: (Same as: Lopressor) Push over 2 minutes olmesartan 40 mg, 2 tab, No Longer [place] Route: PO, Drug Active 2015 Medical form: TAB, Center Daily, Dosing Weight 88.182, kg, Start date: 12/03/15 9:00:00 CDT, Duration: 30 day, Stop date: 01/01/16 9:00:00 OFFAL BALER ferrous sulfate 325 mg, 1 tab, No Longer [facility] Route: PO, Drug Active 2015 Medical form: ECTAB, Center TID-Meals, Dosing Weight 88.182, kg, Start date: 12/03/15 8:00:00 CDT, Duration: 30 day, Stop date: 01/01/16 17:00:00 CSTNotes: Give with food. "Do Not Crush" Acetaminophen 1 tab, Route: No Longer [place] 325 MG / PO, Drug Form: Active 2015 Medical Hydrocodone TAB, Dosing Center Bitartrate 5 MG Weight 88.182, Oral Tablet kg, Q6H, PRN [[place] 5/325] Pain Score 6-10, Start date: 12/02/15 13:00:00 CDT, Duration: 30 day, Stop date: 01/01/16 12:59:00 CSTNotes: (Same as: [place] 325/5) Do not exceed 4gm/day of acetaminophen. Acetaminophen 1 tab, Route: Inactive [place] 325 MG / PO, Drug Form: 2015 Medical Hydrocodone TAB, Dosing Center Bitartrate 10 Weight 88.182, MG Oral Tablet kg, Q6H, PRN [[place] 10/325] Pain Score 6-10, Start date: 12/02/15 8:39:00 CDT, Duration: 30 day, Stop date: 01/01/16 8:38:00 CSTNotes: Do not exceed 4gm/day of acetaminophen. (Same as: [place] 325/10) Tramadol 50 mg, 1 tab, No Longer [place] Route: PO, Drug Active 2015 Medical form: TAB, Q6H, Center Dosing Weight 88.182, kg, PRN Pain Score 1-5, Start date: 12/02/15 8:39:00 CDT, Stop date: 01/01/16 8:38:00 CSTNotes: Not to exceed 400mg/day. (Same As: Ultram) Folic Acid 1 mg, 1 tab, No Longer [place] Route: PO, Drug Active 2015 Medical form: TAB, Center Daily, Dosing Weight 88.182, kg, Start date: 12/01/15 9:00:00 CDT, Duration: 30 day, Stop date: 12/30/15 9:00:00 CSTNotes: (Same as: Folvite) multivitamin 1 tab, Route: No Longer [place] PO, Drug Form: Active 2016 Medical TAB, Dosing Center Weight 88.182, kg, Daily, Start date: 12/01/15 9:00:00 CDT, Duration: 30 day, Stop date: 12/30/15 9:00:00 CSTNotes: (Same as:Thera) WASTE: F/P - Black; E - Municipal Trash Bin Take with food. ferrous sulfate 325 mg, 1 tab, No Longer [place] Route: PO, Drug Active 2015 Medical form: ECTAB, Center Daily, Dosing Weight 88.182, kg, Start date: 12/01/15 9:00:00 CDT, Duration: 30 day, Stop date: 12/30/15 9:00:00 CSTNotes: Give with food. "Do Not Crush" Insulin 35 unit, 0.35 No Longer [place] Glargine mL, Route: Active 2015 Medical SUB-Q, Drug Center form: SOLN, Daily, Dosing Weight 88.182, kg, Start date: 12/01/15 9:00:00 CDT, Duration: 30 day, Stop date: 12/30/15 9:00:00 CSTNotes: Same as: Lantus) Do not hold insulin without contacting prescriber WASTE: F/P - Black; E - Municipal Trash Bin Glimeperide 1 Glimeperide 1 No Longer [place] mg tablet mg tablet, 0.5 Active 2015 Medical mg=0.5 tab, Center Drug form: MISC, Route: PO, BID, 11/30/15 17:00:00 CDT, Duration: 30 day, Stop date: 12/30/15 9:00:00 OFFAL BALER glimepiride 0.5 mg, Route: Inactive [place] PO, Drug form: 2015 Medical TAB, BID, Center Dosing Weight 88.182, kg, Start date: 11/30/15 17:00:00 CDT, Duration: 30 day, Stop date: 12/30/15 9:00:00 OFFAL BALER Calmoseptine 1 appl, Route: No Longer [place] TOP, PRN, Drug Active 2015 Medical form: OINT, PRN Center Diaper Rash, Start date: 11/30/15 10:40:00 CDT, Duration: 30 day, Stop date: 12/30/15 9:39:00 OFFAL BALER, DosingNotes: (Same as: Calmoseptine) Furosemide 40 40 mg, 1 tab, Inactive [place] MG Oral Tablet Route: PO, Drug 2016 Medical [Lasix] form: TAB, Center Daily, Dosing Weight 88.182, kg, Start date: 11/30/15 9:00:00 CDT, Duration: 30 day, Stop date: 12/29/15 9:00:00 CSTNotes: (Same as: Lasix) May cause GI upset. Give with food or milk. sodium chloride 1,000 mL, Rate: No Longer [place] 0.9% 1000 ml 75 ml/hr, Active 2015 Medical INJ 1,000 mL Infuse over: Center 13.3 hr, Route: IV, Dosing Weight 88.182 kg, Total Volume: 1,000, Start date: 11/30/15 8:02:00 CDT, Duration: 30 day, Stop date: 12/30/15 8:01:00 OFFAL BALER Ativan 1 mg, 1 tab, No Longer [place] Route: PO, Drug Active 2015 Medical form: TAB, Center Bedtime, Dosing Weight 88.182, kg, Start date: 11/29/15 21:00:00 CDT, Duration: 30 day, Stop date: 12/28/15 21:00:00 CSTNotes: (Same as: Ativan) glimepiride 1 mg, 1 tab, No Longer [place] Route: PO, Drug Active 2015 Medical form: TAB, BID, Center Dosing Weight 88.182, kg, Start date: 11/29/15 17:00:00 CDT, Duration: 30 day, Stop date: 12/29/15 9:00:00 CSTNotes: (Same as: Amaryl) Miralax 17 gm, 1 pkt, No Longer [place] Route: PO, Drug Active 2015 Medical form: PWDR, Center BID, Dosing Weight 88.182, kg, Start date: 11/29/15 17:00:00 CDT, Duration: 30 day, Stop date: 12/29/15 9:00:00 CSTNotes: Dissolve in 8 oz of water or juice. (Same as: Miralax) Furosemide 40 40 mg, Route: Inactive [place] MG Oral Tablet PO, Drug form: 2015 Medical [Lasix] TAB, BID, Center Dosing Weight 88.182, kg, Start date: 11/29/15 17:00:00 CDT, Duration: 30 day, Stop date: 12/29/15 9:00:00 OFFAL BALER Methyldopa 250 250 mg, 1 tab, No Longer [place] MG Oral Tablet Route: PO, Drug Active 2015 Medical form: TAB, Center Daily, Dosing Weight 88.182, kg, Start date: 11/29/15 16:00:00 CDT, Duration: 30 day, Stop date: 12/28/15 16:00:00 CSTNotes: May interfere w/enteral feedings. (Same as:Aldomet) 168 HR 1 patch, Route: No Longer [place] Clonidine Transdermal, Active 2015 Medical 0.42790 MG/HR Drug Form: [place] Transdermal ERFILM, Dosing Patch Weight 88.182, kg, Q7D, Start date: 11/29/15 14:00:00 CDT, Stop date: 12/27/15 16:00:00 CSTNotes: Patch delivers 0.1 mg/24 hours; Patch is applied weekly. "Remove old patch before application of new patch" (Same As: [id number]) multivitamin 1 tab, PO, Active [place] Daily 2015 [facility] cranberry oral 1 tab, PO, No Longer [place] tablet Daily Active 2015 [facility] Aspirin 81 MG 81 mg=1 tab, No Longer [place] Enteric Coated PO, Daily Active 2015 [facility] Tablet [place] amLODIPine 5 mg 5 mg=1 tab, PO, No Longer [place] oral tablet Daily Active 2015 [facility] Alendronic acid 70 mg=1 tab, Active [place] 70 MG Oral PO, Q7D, EVERY 2016 Medical Tablet MONDAY [place] Acetaminophen 1 tab, PO, No Longer [place] 325 MG / Bedtime, PRN Active 2015 [facility] Hydrocodone Pain [place] Bitartrate 10 MG Oral Tablet [[place] ] 3 ML Insulin 35 units, Active [place] Glargine 100 SUB-Q, QAM 2016 Medical UNT/ML Center Prefilled Syringe [Lantus] Methocarbamol 500 mg, 1 tab, No Longer [place] Route: PO, Drug Active 2015 Medical form: TAB, Center Bedtime, Dosing Weight 88.182, kg, PRN Muscle Spasms, Start date: 11/29/15 10:17:00 CDT, Duration: 30 day, Stop date: 12/29/15 10:16:00 CSTNotes: (Same as:Robaxin) Dulcolax 10 mg, 1 supp, No Longer [place] Laxative Route: NV, Drug Active 2015 Medical form: SUPP, Center [...] 12/27/15 21:00:00 CSTNotes: (Same As: Lipitor) sennosides, NURSING HOME 17.2 mg, 2 tab, No Longer [place] Route: PO, Drug Active 2015 Medical Form: TAB, Center Dosing Weight 88.182, kg, Bedtime, Start date: 11/28/15 21:00:00 CDT, Duration: 30 day, Stop date: 12/27/15 21:00:00 CSTNotes: (Same as: Senokot) 168 HR 1 patch, TOP, Active [place] Clonidine qWeek, EVERY 2016 Medical 0.95019 MG/HR MONDAY, # 4 Center Transdermal patch, 0 Patch Refill(s) Acetaminophen 1 tab, PO, No Longer [place] 325 MG / Q4-6H, PRN Active 2015 Medical Hydrocodone Center Bitartrate 5 MG Oral Tablet [[place] 5/325] heparin 5,000 unit, 1 No Longer [place] mL, Route: Active 2015 [facility] SUB-Q, Drug Center form: INJ, Q8H, Dosing Weight 88.182, kg, Start date: 11/28/15 18:00:00 CDT, Duration: 30 day, Stop date: 12/28/15 22:00:00 CSTNotes: porcine heparin Ancef + sodium 2 gm, Route: No Longer [place] chloride 0.9% IVPB, ABXQ8H, Active 2015 [facility] INJ 100 mL Dosing Weight Center 88.182, kg, Start date: 11/28/15 18:00:00 CDT, Duration: 1 day, Stop date: 11/29/15 15:00:00 CDTNotes: (Same As: Ancef, Kefzol) Cefazolin FOR IV SET ONLY MEDICATION WASTE Product Size: 1000 mg Product Wasted: 0 mg Cefazolin 2 gm, Route: Inactive [place] IVP, ONCE, 2015 Medical Dosing Weight Center 88.182, kg, Start date: 11/28/15 15:28:00 CDT, Stop date: 11/28/15 15:28:00 CDT Methyldopa 250 250 mg, 1 tab, No Longer [place] MG Oral Tablet Route: PO, Drug Active [...] carvedilol 12.5 mg, 1 tab, No Longer [place] Route: [...] Oxycodone 10 mg, 2 tab, No Longer [place] Hydrochloride 5 Route: PO, Drug Active 2015 Medical MG Oral Tablet form: TAB, Q4H, Center Dosing Weight 88.182, kg, PRN Pain Score 7-10, Start date: 11/28/15 6:06:00 CDT, Duration: 30 day, Stop date: 12/28/15 6:05:00 CSTNotes: (Same as: Roxicodone) Tramadol 50 mg, 1 tab, No Longer [place] Route: PO, Drug Active 2015 Medical form: TAB, Center Q6Hnow, Dosing Weight 88.182, kg, PRN Pain Score 1-3, Start date: 11/28/15 6:06:00 CDT, Duration: 30 day, Stop date: 12/28/15 6:05:00 CSTNotes: Not to exceed 400mg/day. (Same As: Ultram) Morphine 2 mg, 1 mL, No Longer [place] Route: IVP, Active 2015 Medical Drug form: INJ, Center Q4H, Dosing Weight 88.182, kg, PRN Pain Score 7-10, Start date: 11/28/15 6:06:00 CDT, Duration: 30 day, Stop date: 12/28/15 6:05:00 CSTNotes: (Same as:MORPhine Sulfate) Methocarbamol 1,000 mg, 2 No Longer [place] tab, Route: PO, Active 2015 Medical Drug form: TAB, Center Q8H, Dosing Weight 88.182, kg, PRN Muscle Spasms, Start date: 11/28/15 6:06:00 CDT, Duration: 30 day, Stop date: 12/28/15 6:05:00 CSTNotes: (Same as:Robaxin) Ondansetron 4 mg, 2 mL, No Longer [facility] Route: IVP, Active 2015 Medical Drug form: INJ, Center Q8H, Dosing Weight 88.182, kg, PRN Nausea & Vomiting, Start date: 11/28/15 6:06:00 CDT, Duration: 30 day, Stop date: 12/28/15 6:05:00 CSTNotes: (Same as: Zofran) MEDICATION WASTE Product Size: 4 mg Product Wasted: ___ mg Melatonin 3 mg, 1 tab, No Longer [place] Route: PO, Drug Active 2015 Medical form: TAB, Center Bedtime, Dosing Weight 88.182, kg, PRN Insomnia, Start date: 11/28/15 6:06:00 CDT, Duration: 30 day, Stop date: 12/28/15 6:05:00 CSTNotes: (Same as: Melatonin) sodium chloride 1,000 mL, Rate: No Longer [place] 0.9% 1000 ml 100 ml/hr, Active 2015 Medical INJ 1,000 mL Infuse over: 10 Center hr, Route: IV, Dosing Weight 88.182 kg, Total Volume: 1,000, Start date: 11/28/15 6:04:00 CDT, Duration: 30 day, Stop date: 12/28/15 6:03:00 OFFAL BALER Insulin regular 1 unit, 0.01 No Longer [place] mL, Route: Active 2015 Medical SUB-Q, Drug [...] units) WASTE: F/P - Black; E - Municipal Trash Bin Stable for 28 days at room temperature Expires in days from D ate Dextrose 50% 12.5 gm, 25 mL, No Longer [place] Syringe Route: IVP, Active 2015 Medical Drug Form: INJ, Center Dosing Weight 88.182, kg, PRN, PRN Blood Glucose Results, Start date: 11/28/15 6:03:00 CDT, Duration: 30 day, Stop date: 12/28/15 5:02:00 OFFAL BALER Glucagon 1 mg, Route: No Longer [place] IM, Drug form: Active 2015 Medical PDR/INJ, PRN, Center Dosing Weight 88.182, kg, PRN Blood Glucose Results, Start date: 11/28/15 6:03:00 CDT, Duration: 30 day, Stop date: 12/28/15 5:02:00 OFFAL BALER Zofran 4 mg, 2 mL, Inactive [facility] Route: IV2015 Medical Drug form: INJ, Center ONCE, Dosing Weight 88.182, kg, Priority: STAT, Start date: 11/28/15 2:35:00 CDT, Stop date: 11/28/15 2:35:00 CDTNotes: (Same as: Zofran) MEDICATION WASTE Product Size: 4 mg Product Wasted: ___ mg Morphine 4 mg, 1 mL, Inactive [facility] Route: IV2015 Medical Drug form: INJ, Center ONCE, Dosing Weight 88.182, kg, Priority: STAT, Start date: 11/28/15 2:35:00 CDT, Stop date: 11/28/15 2:35:00 CDTNotes: (Same as:MORPhine Sulfate) Allergies, Adverse Reactions, Alerts Substance Category Reaction Severity Reaction Status Date Comments Source type Reported lisinopril Assertion Drug Active [facility] allergy Neuro Immunizations Immunization Date Given Site Status Last Updated Comments Source Results Order Name Results Value Reference Date Interpretation Comments Source Range HEMATOLOGY Hgb 8.0 g/dL 12.0 - 12/02 [facility] . [facility] HEMATOLOGY Hct 23.6 % 36.0 - 12/02 [facility] 48. [facility] HEMATOLOGY Hgb 7.6 g/dL 12.0 - 12/01 [facility] HEMATOLOGY Hct 22.5 % 36.0 - 12/01 [facility] . [facility] CHEM PANEL eGFR 40 11/30 Result Comment: The eGFR is calculated using the CKD-EPI formula. In most young, healthy individuals the eGFR will be >90 mL/ min/1.73m2. The eGFR declines with age. An eGFR of 60-89 may be normal in [facility] mL/min/1.73 some populations, particularly the elderly, for whom the CKD-EPI formula has not been extensively validated. Use of the eGFR is not recommended in the following populations: [place] [address] Center Individuals with unstable creatinine concentrations, including [...] AGAP 13.8 meq/L 10.0 - 11/30 20.0 [facility] CHEM PANEL Calcium Lvl 8.0 mg/dL 8.5 - 10.5 11/30 [facility] CHEM PANEL CO2 24 meq/L 24 - 32 11/30 [facility] CHEM PANEL Chloride Lvl 106 meq/L 95 - 109 11/30 [facility] CHEM PANEL Potassium 3.8 meq/L 3.5 - 5.1 11/30 [facility] CHEM PANEL Sodium Lvl 140 meq/L 135 - 145 11/30 [facility] CHEM PANEL Creatinine 1.24 mg/dL 0.50 - 11/30 [facility] Lvl 1.40 [facility] CHEM PANEL BUN 30 mg/dL 7 - 22 11/30 [facility] CHEM PANEL Glucose Lvl 141 mg/dL 70 - 99 11/30 [facility] HEMATOLOGY Monocytes # 0.7 K/CMM 0.0 - 0.8 11/30 [facility] HEMATOLOGY Eosinophils 0.8 K/CMM 0.0 - 0.5 11/30 [facility] HEMATOLOGY Monocytes 7.6 % 2.0 - 12.0 11/30 [facility] HEMATOLOGY Lymphocytes 24.4 % 20.0 - 11/30 40.0 [facility] HEMATOLOGY Segs 58.6 % 45.0 - 11/30 [place] 75.0 [facility] HEMATOLOGY Segs-Bands # 5.1 K/CMM 1.5 - 8.1 11/30 [facility] HEMATOLOGY Lymphocytes 2.1 K/CMM 1.0 - 5.5 11/30 [facility] HEMATOLOGY Eosinophils 8.9 % 0.0 - 4.0 11/30 [facility] HEMATOLOGY Basophils 0.5 % 0.0 - 1.0 11/30 [facility] HEMATOLOGY MPV 9.2 fL 7.4 - 10.4 11/30 [facility] HEMATOLOGY RDW 15.3 % 11.5 - 11/30 [facility] 14.5 [facility] HEMATOLOGY Platelet 146 K/CMM 133 - 450 11/30 [facility] HEMATOLOGY MCHC 33.2 g/dL 32.0 - 11/30 [place] 36.0 [facility] HEMATOLOGY MCH 30.2 pg 27.0 - 11/30 [facility] 31.0 [facility] HEMATOLOGY Hgb 7.4 g/dL 12.0 - 11/30 [facility] 16.0 [facility] HEMATOLOGY Hct 22.2 % 36.0 - 11/30 [place] 48.0 [facility] HEMATOLOGY WBC 8.6 K/CMM 3.7 - 10.4 11/30 [facility] HEMATOLOGY RBC 2.43 M/CMM 4.20 - 11/30 [facility] 5.40 [facility] HEMATOLOGY MCV 91.2 fL 80.0 - 11/30 [facility] 98.0 [facility] ELECTROLYTE Chloride Lvl 107 meq/L 95 - 109 11/29 [facility] ELECTROLYTE Potassium 3.9 meq/L 3.5 - 5.1 11/29 [facility] Lvl [facility] ELECTROLYTE Sodium Lvl 141 meq/L 135 - 145 11/29 [facility] S [facility] ELECTROLYTE Creatinine 1.77 mg/dL 0.50 - 11/29 [facility] Lvl 1. [facility] ELECTROLYTE BUN 37 mg/dL 7 - 11/29 [facility] S /2015 [facility] ELECTROLYTE Glucose Lvl 161 mg/dL 70 - 99 11/29 [facility] S [facility] ELECTROLYTE eGFR 26 11/29 Result Comment: The eGFR is calculated using the CKD-EPI formula. In most young, healthy individuals the eGFR will be >90 mL/ min/1.73m2. The eGFR declines with age. An eGFR of 60-89 may be normal in [facility] mL/min/1.73 some populations, particularly the elderly, for whom the CKD-EPI formula has not been extensively validated. Use of the eGFR is not recommended in the following populations: [place] [address] Center Individuals with unstable creatinine concentrations, including [...] Lvl 7.9 mg/dL 8.5 - 10.5 11/29 S /2015 [facility] ELECTROLYTE CO2 26 meq/L 24 - 32 11/29 [facility] S /2015 [facility] ELECTROLYTE AGAP 11.9 meq/L 10.0 - 11/29 [place] S 20.0 [facility] HEMATOLOGY MPV 9.0 fL 7.4 - 10.4 11/29 [facility] HEMATOLOGY MCH 30.6 pg 27.0 - 11/29 [place] 31.0 [facility] HEMATOLOGY MCV 90.7 fL 80.0 - 11/29 [place] 98.0 [facility] HEMATOLOGY MCHC 33.7 g/dL 32.0 - 11/29 [place] 36.0 [facility] HEMATOLOGY RBC 2.78 M/CMM 4.20 - 11/29 [place] 5.40 [facility] HEMATOLOGY WBC 9.9 K/CMM 3.7 - 10.4 11/29 /2015 [facility] HEMATOLOGY Platelet 148 K/CMM 133 - 450 11/29 /2015 [facility] HEMATOLOGY RDW 15.2 % 11.5 - 11/29 [place] 14.5 /2016 [facility] HEMATOLOGY Lymphocytes 1.9 K/CMM 1.0 - 5.5 11/29 [place] /2015 [facility] HEMATOLOGY Segs-Bands # 6.6 K/CMM 1.5 - 8.1 11/29 [facility] HEMATOLOGY Eosinophils 0.6 K/CMM 0.0 - 0.5 11/29 [facility] /2015 [facility] HEMATOLOGY Monocytes # 0.8 K/CMM 0.0 - 0.8 11/29 [facility] HEMATOLOGY Lymphocytes 19.1 % 20.0 - 11/29 [place] 40.0 2016 [facility] HEMATOLOGY Segs 67.0 % 45.0 - 11/29 [place] 75.0 2016 [facility] HEMATOLOGY Basophils 0.3 % 0.0 - 1.0 11/29 [facility] HEMATOLOGY Eosinophils 5.9 % 0.0 - 4.0 11/29 [facility] HEMATOLOGY Monocytes 7.7 % 2.0 - 12.0 11/29 /2015 [facility] CHEM PANEL eGFR 37 10/23 Result Comment: The eGFR is calculated using the CKD-EPI formula. In most young, healthy individuals the eGFR will be >90 mL/ min/1.73m2. The eGFR declines with age. An eGFR of 60-89 may be normal in [facility] mL/min/1.73 /2015 some populations, particularly the elderly, for whom the CKD-EPI formula has not been extensively validated. Use of the eGFR is not recommended in the following populations: [place] [address] Center Individuals with unstable creatinine concentrations, including [...] CO2 22 meq/L 24 - 32 11/28 [facility] CHEM PANEL Chloride Lvl 107 meq/L 95 - 109 11/28 [facility] CHEM PANEL Calcium Lvl 8.9 mg/dL 8.5 - 10.5 11/28 2015 [facility] CHEM PANEL Sodium Lvl 139 meq/L 135 - 145 11/28 [facility] CHEM PANEL BUN 22 mg/dL 7 - 22 11/28 2015 [facility] CHEM PANEL Potassium 4.3 meq/L 3.5 - 5.1 11/28 [facility] Lvl [facility] CHEM PANEL Glucose Lvl 260 mg/dL 70 - 99 11/28 [facility] CHEM PANEL Creatinine 1.31 mg/dL 0.50 - 11/28 [facility] Lvl 1.40 [facility] CHEM PANEL AGAP 14.3 meq/L 10.0 - 11/28 [place] 20.0 [facility] HEMATOLOGY Lymphocytes 1.0 K/CMM 1.0 - 5.5 11/28 [facility] # [facility] HEMATOLOGY Monocytes # 0.6 K/CMM 0.0 - 0.8 11/28 [facility] HEMATOLOGY Segs-Bands # 11.1 K/CMM 1.5 - 8.1 11/28 2015 [facility] HEMATOLOGY Basophils 0.1 % 0.0 - 1.0 11/28 [facility] HEMATOLOGY Eosinophils 0.1 % 0.0 - 4.0 11/28 [facility] HEMATOLOGY Monocytes 4.5 % 2.0 - 12.0 11/28 [facility] HEMATOLOGY Lymphocytes 7.8 % 20.0 - 11/28 [place] 40.0 [facility] HEMATOLOGY Segs 87.5 % 45.0 - 11/28 [place] 75.0 [facility] HEMATOLOGY Platelet 164 K/CMM 133 - 450 11/28 [facility] HEMATOLOGY MPV 9.1 fL 7.4 - 10.4 11/28 [facility] HEMATOLOGY RBC 3.32 M/CMM 4.20 - 11/28 [place] 5.40 /2015 [facility] HEMATOLOGY WBC 12.6 K/CMM 3.7 - 10.4 11/28 [facility] HEMATOLOGY RDW 15.0 % 11.5 - 11/28 [place] 14.5 [facility] HEMATOLOGY MCHC 34.0 g/dL 32.0 - 11/28 [place] 36.0 [facility] HEMATOLOGY MCH 30.8 pg 27.0 - 11/28 [place] 31.0 [facility] HEMATOLOGY MCV 90.8 fL 80.0 - 11/28 [place] 98.0 [facility] Hip 2/3 Hip 2/3 EXAM: XR HIP 1 VIEW AND AP PELVIS 11/27 [facility] uni views [facility] DX [facility] DATE: 11/28/2015 3:24 PM CDT Read [...] EXAM: XR PELVIS 1 VIEW 11/27 - [facility] DX /2015 [facility] DATE: 11/28/2015 3:23 PM CDT Read [...] XR RIGHT FEMUR 2 VIEWS 11/27 - [facility] series DX /2015 - [facility] This report was dictated by a Quality Control Technician/Fellow. I have personally reviewed the images as [...] including the femoral shaft appears to be automatic edger ally rotated. Overall the fractures in unchanged alignment from prior radiograph. 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 Atherosclerotic calcifications are n oted in the soft tissues. Soft tissue swelling is seen around the fracture site. No additional fractures identified. IMPRESSION: Unchanged alignment of right femoral neck fracture. BLOOD BANK Antibody Negative 11/27 [facility] RESULTS [facility] (11/28/15 3:13 AM) Center BLOOD BANK ABO/Rh O NEG 11/27 [facility] RESULTS /2015 [facility] Center HEMATOLOGY Eosinophils 0.1 K/CMM 0.0 - 0.5 11/27 [place] # /2015 [facility] HEMATOLOGY PT 12.3 s 12.0 - 11/27 [facility] 14.7 /2015 [facility] HEMATOLOGY INR 0.90 0.85 - 11/27 [facility] 1.17 /2015 [facility] Vital Signs Vital Sign Value Date Comments Source Systolic (mm Hg) 179 12/04/2015 [facility] Diastolic (mm Hg) 83 12/04/2015 [facility] Heart Rate 79 12/04/2015 [facility] Heart Rate 70 12/04/2015 [facility] Systolic (mm Hg) 180 12/04/2015 [facility] Diastolic (mm Hg) 78 12/04/2015 [facility] Systolic (mm Hg) 191 12/04/2015 [facility] Diastolic (mm Hg) 78 12/04/2015 [facility] Temperature Oral (F) 98.3 F 12/04/2015 [facility] Respitory Rate 18 12/04/2015 [facility] Heart Rate 84 12/04/2015 [facility] Temperature Oral (F) 98.5 F 12/04/2015 [facility] Respitory Rate 18 12/04/2015 [facility] Respitory Rate 18 12/04/2015 [facility] Temperature Oral (F) 98 F 12/04/2015 [facility] BMI Calculated 35.56 11/28/2015 [facility] Weight 88.182 11/28/2015 [facility] Height 157.48 cm 11/28/2015 [facility] Encounters Location Location Encounter Encounter Reason Attending ADM DC Status Source Details Type Number For Provider Date Date Visit [facility] [id number] [place] 11/27 12/03 [facility] Rigoberto Larsen /2015 [facility] Spine Phone [id number] 08/16 08/18 [facility] Message /2017 Neuro Procedures Procedure Code Date Perfomer Comments Source Ankle joint [id number] [facility] Appendectomy [id number] [facility] Cholecystectomy [id number] [facility]ste[facility] [id number] [id number] [facility] [id number] [facility] Appendectomy [id number] [facility] Cholecystectomy [id number] [facility] Hysterectomy [id number] [facility] Tonsillectomy [id number] [facility]
--- OUTSIDE RECORDS SUMMARY | 2018-03-23 09:46 | XMS REPORT | Summary of Care ---
:1930 Author Organization [facility] Spine [facility] Address [address] [place] [id number] Encounter HQ Encntr_alias(FIN) [id number] Date(s): 08/16/17 - 08/17/17 [facility] Spine [address] [place] [phone] Vital Signs No data available for this section Problem List Condition Effective Dates Status Health Status Informant Arthritis(Confirmed) Resolved Diabetes mellitus(Confirmed) Resolved Fall - accidental(Confirmed) Resolved GERD (gastroesophageal reflux Resolved disease)(Confirmed) Hypertension(Confirmed) Resolved 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 Allergies, Adverse Reactions, Alerts Substance Reaction Severity Status lisinopril Active Medications No data available for this section Results No data available for this section Immunizations No data available for this section Procedures Procedure Date Related Diagnosis Body Site Status Ankle joint operations Completed Appendectomy Completed Cholecystectomy Completed Hysterectomy Completed Tonsillectomy Completed Social History Social History Type Response Alcohol Never Smoking Status Never smoker; Exposure to Tobacco Smoke None; Cigarette Smoking Last 365 Days No; Reg Smoking Cessation Counseling No entered on: 11/28/15 Assessment and Plan No data available for this section
[2018-03-23 09:56] LABS: Absolute Lymphocytes (CBC) 2.2 K/uL (0.7-4.9); Absolute Monocytes 0.7 K/uL (0.1-1.3); Absolute Neutrophil 6.8 K/uL (1.8-8.0); Basophils % 0.9 % (0-1.3); Eosinophils % 4.1 % (0-4.4); Hematocrit 39.2 % (36.0-45.0); Lymphocytes % 21.3 % (15.3-44.8); MPV 10.2 fL (7.6-11.3); Monocytes % 7.2 % (3.3-12.3); RBC Red Blood Cell Count 4.19 M/uL (3.86-4.86)
[2018-03-23 09:58] LABS: Protime INR 1.13
[2018-03-23] MEDS ORDERED: NA CHLORIDE 0.9% 1,000 ML ONE (10:04)
[2018-03-23] MEDS ORDERED: NA CHLORIDE 0.9% 500 ML ONE (10:04)
[2018-03-23 10:24] LABS: Albumin 3.5 g/dL (3.4-5.0); Bilirubin Direct 0.2 mg/dL (0-0.2); Bilirubin Total 0.6 mg/dL (0.2-1.0); Magnesium 2.4 mg/dL (1.8-2.4); Potassium 4.4 mmol/L (3.5-5.1); Troponin (Emerg Dept Use Only) 0.02 ng/mL (0.0-0.045)
--- NOTE | 2018-03-23 10:51 | ER ---
Nurse's Notes [facility] Name: Wendy Marte Age: 87 yrs Sex: Female : 1930 Arrival Date: 03/23/2018 Time: 09:34 Bed 3 Private MD: Diagnosis: Type 2 diabetes mellitus-uncontrolled;Urinary tract infection, site not specified Presentation: 03/23 09:35 Presenting complaint: EMS states: Her blood glucose was 583, no complaints, no other jl7 symptoms. Baseline A\T\Ox2 to person and place, currently A\T\Ox2, and uses a wheelchair. Transition of care: [facility]. Onset of symptoms was March 23, 2018. Risk Assessment: Do you want to hurt yourself or someone else? Patient reports no desire to harm self or others. Initial Sepsis Screen: Does the patient meet any 2 criteria? RR > 20 per min. HR > 90 bpm. Yes No. Patient's initial sepsis screen is negative. Does the patient have a suspected source of infection? No. Patient's initial sepsis screen is negative. Care prior to arrival: None. 09:35 Method Of Arrival: EMS: [facility] 09:35 Acuity: MARY 3 jl7 Triage Assessment: 09:46 General: Appears in no apparent distress. comfortable, Behavior is calm, cooperative, jl7 appropriate for age. Pain: Denies pain. EENT: No signs and/or symptoms were reported regarding the EENT system. Neuro: Level of Consciousness is awake, alert, obeys commands, Oriented to person, place, time, situation. Cardiovascular: Patient's skin is warm and dry. Respiratory: Airway is patent Respiratory effort is even, unlabored, Respiratory pattern is regular, symmetrical. GI: No signs and/or symptoms were reported involving the gastrointestinal system. : No signs and/or symptoms were reported regarding the genitourinary system. Derm: Skin is pink, warm \T\ dry. Historical: - Allergies: 09:46 Lisinopril; jl 09:46 amlodipine; jl7 - Home Meds: 09:46 Benicar 40 mg Oral tab 1 tab once daily [Active]; lorazepam 1 mg Oral tab 1 tab nightly jl7 [Active]; clonidine HCl 0.1 mg Oral tab 1 tab once daily [Active]; amlodipine 5 mg tab 1 tab once daily [Active]; olmesartan oral oral [Active]; alendronate 70 mg oral tab [Active]; methocarbamol 500 mg Oral tab 2 tabs 4 times per day [Active]; glimepiride 2 mg oral tab [Active]; Ranitidine Oral [Active]; atorvastatin 20 mg oral tab [Active]; clonidine patch [Active]; Eliquis 2.5 mg oral tab [Active]; furosemide 40 mg Oral tab [Active]; Lantus 100 unit/mL Sub-Q soln 35 unit daily [Active]; - PMHx: 09:46 Diabetes - NIDDM; GERD; High Cholesterol; Hypertension; Osteoporosis; Anemia; Anxiety; jl7 - Immunization history:: Adult Immunizations unknown. - Social history:: Smoking status: Patient/guardian denies using tobacco. - Ebola Screening: : No symptoms or risks identified at this time. - Family history:: not pertinent. Screenin:00 Abuse screen: Denies threats or abuse. Denies injuries from another. Nutritional jl7 screening: No deficits noted. Tuberculosis screening: No symptoms or risk factors identified. Fall Risk No fall in past 12 months (0 pts). Secondary diagnosis (15 points) impaired mobility, IV access (20 points). Ambulatory Aid- Crutches/Cane/Walker (15 pts). Gait- Impaired (20 pts.). Mental Status- Oriented to own ability (0 pts). Total Mcghee Fall Scale indicates High Risk Score (45 or more points). Fall prevention measures have been instituted. Side Rails Up X 2 Placed Close to Nursing Station Frequent Obs/Assessments Occuring Family Present and informed to notify staff if the need to leave the bedside As available patient and family educated on Fall Prevention Program and Strategies. Assessment: 10:00 General: See triage assessment. jl7 11:00 Reassessment: Patient appears in no apparent distress at this time. No changes from jl7 previously documented assessment. Patient and/or family updated on plan of care and expected duration. Pain level reassessed. Patient is alert, oriented x 3, equal unlabored respirations, skin warm/dry/pink. 11:40 Reassessment: Pt c/o lower back pain, ERD notified, see [facility] for orders. jl7 12:45 Reassessment: Patient appears in no apparent distress at this time. Patient and/or jl7 family updated on plan of care and expected duration. Pain level reassessed. Patient is alert, oriented x 3, equal unlabored respirations, skin warm/dry/pink. Pt reports decreased pain at this time. 13:20 Reassessment: Pt reporting increased power back pain and requesting Tylenol, ERD jl7 notified, see MAR for orders. 14:30 Reassessment: Patient and/or family updated on plan of care and expected duration. Pain jl7 level reassessed. Patient is alert, oriented x 3, equal unlabored respirations, skin warm/dry/pink. Patient denies pain at this time. Patient states feeling better. Vital Signs: 09:46 BP 165 / 95; Pulse 104; Resp 21 S; Temp 98.1(O); Pulse Ox 98% on R/A; Pain 0/10; jl7 10:45 BP 139 / 70; Pulse 94; Resp 16 S; Pulse Ox 100% on R/A; jl7 11:45 BP 178 / 71; Pulse 70; Resp 18 S; Pulse Ox 100% on R/A; jl7 12:45 BP 150 / 60; Pulse 79; Resp 16 S; Pulse Ox 96% on R/A; jl7 13:45 BP 152 / 67; Pulse 96; Resp 16 S; Pulse Ox 98% on R/A; jl7 14:30 BP 159 / 83; Pulse 89; Resp 16 S; Pulse Ox 98% on R/A; jl7 ED Course: 09:34 Patient arrived in ED. jl7 09:38 Triage completed. jl7 09:45 Patrick Amin MD is Attending Physician. [facility] 09:46 Arm band placed on right wrist. jl7 09:51 Norberto Diaz, FAWAD is Primary Nurse. jl7 09:57 EKG done, by elevator service technician. reviewed by Patrick Amin MD. at1 10:00 Patient has correct armband on for positive identification. Placed in gown. Bed in low jl7 position. Call light in reach. Side rails up X2. pvc monitor on. Pulse ox on. NIBP on. Warm blanket given. 10:00 Initial lab(s) drawn, by ED staff, sent to lab. Inserted saline lock: 20 gauge in right jl7 antecubital area, using aseptic technique. Blood collected. Inserted by CAROLINA Craig Tech. 10:12 Glucose Sent. jl7 10:12 Basic Metabolic Panel Sent. jl7 10:12 CBC with Diff Sent. jl7 10:14 XRAY Chest (1 view) In Process Unspecified. EDMS 10:15 Urine collected: straight cath specimen, cloudy. jl7 10:49 Bernabe Addison MD is Hospitalizing Provider. jing 11:13 CT completed. Patient tolerated procedure well. Patient moved to CT via stretcher. vr Patient moved back from CT. 14:50 No provider procedures requiring assistance completed. Patient admitted, IV remains in jl7 place. intact, No redness/swelling at site. Administered Medications: 10:11 Drug: NS 0.9% 1000 ml Route: IV; Rate: 125 ml/hr; Site: right antecubital; jl7 14:50 Follow up: IV Status: Infusion continued upon admission jl7 10:11 Drug: NS 0.9% 500 ml Route: IV; Rate: bolus; Site: right antecubital; jl7 10:45 Follow up: Response: No adverse reaction; IV Status: Completed infusion; IV Intake: jl7 500ml 10:52 CANCELLED (Duplicate Order): Insulin Regular Human 10 units Sub-Q once jing 11:15 Drug: Insulin Regular Human 10 units {Co-Signature: jl7 (Norberto Diaz RN).} Route: aa5 Sub-Q; Site: right upper arm; 13:59 Follow up: Response: No adverse reaction; Blood sugar is lowered jl7 11:45 Drug: LanTUS 30 units Route: Sub-Q; Site: right upper arm; jl7 13:57 Follow up: Response: No adverse reaction; Blood sugar is lowered jl7 11:48 Drug: Rocephin 1 grams Route: IV; Rate: calculated rate; Site: right antecubital; jl7 11:50 Follow up: Response: No adverse reaction; IV Status: Completed infusion jl7 11:50 Drug: Zofran 4 mg Route: IVP; Site: right antecubital; jl7 12:15 Follow up: Response: No adverse reaction jl7 11:52 Drug: morphine 2 mg Route: IVP; Site: right antecubital; jl7 12:10 Follow up: Response: No adverse reaction; Pain is unchanged, physician notified jl7 11:53 CANCELLED (Physician Discretion): Insulin Regular Human 10 units IVP once aa5 11:54 Drug: Insulin Regular Human 8 units {Co-Signature: jl7 (Norberto Diaz RN).} Route: IVP; aa5 Site: right antecubital; 13:59 Follow up: Response: No adverse reaction; Blood sugar is lowered jl7 12:10 Drug: morphine 2 mg Route: IVP; Site: right antecubital; jl7 12:30 Follow up: Response: No adverse reaction; Pain is decreased jl7 12:17 CANCELLED (Duplicate Order): Rocephin - (cefTRIAXone) 1 grams IVPB once over 30 mins; jl7 (mix in 50 mL NS) 13:25 Drug: Tylenol 650 mg Route: PO; jl7 14:00 Follow up: Response: No adverse reaction; Pain is decreased jl7 Point of Care Testing: Blood Glucose: 09:46 Blood Glucose: High (>450 mg/dL); jl7 13:56 Blood Glucose: 483 mg/dL; jl7 Ranges: Intake: 10:45 IV: 500ml; Total: 500ml. jl7 Outcome: 10:50 Decision to Hospitalize by Provider. jing 14:50 Discharged to home ambulatory. jl7 14:50 Condition: stable 14:50 Discharge instructions given to patient, family, Instructed on the need for admit, Demonstrated understanding of instructions. 14:52 Patient left the ED. aa5 Signatures: Dispatcher [employer] Patrick Jane MD MD cha Calderon, Audri, RN RN aa5 Kendal Gurrola Amanda, sonography technician EKG Tat1 Norberto Diaz RN RN jl7 Norberto Diaz RN jl7
--- NOTE | 2018-03-23 10:52 | EDPHYS ---
Physician Documentation [facility] Name: Wendy Marte Age: 87 yrs Sex: Female : 1930 Arrival Date: 03/23/2018 Time: 09:34 Bed 3 Private MD: ED Physician Patrick Amin HPI: 03/23 10:45 This 87 yrs old Female presents to ER via EMS with complaints of High Blood jing Sugar. 10:45 The patient or guardian reports hyperglycemia. Onset: The symptoms/episode jing began/occurred 2 day(s) ago. Associated signs and symptoms: Pertinent positives: None. Pertinent negatives: None. Current symptoms: In the emergency department the patient's symptoms are unchanged from the initial presentation. The patient has not experienced similar symptoms in the past. Historical: - Allergies: 09:46 Lisinopril; jl7 09:46 amlodipine; jl7 - Home Meds: 09:46 Benicar 40 mg Oral tab 1 tab once daily [Active]; lorazepam 1 mg Oral tab 1 tab nightly jl7 [Active]; clonidine HCl 0.1 mg Oral tab 1 tab once daily [Active]; amlodipine 5 mg tab 1 tab once daily [Active]; olmesartan oral oral [Active]; alendronate 70 mg oral tab [Active]; methocarbamol 500 mg Oral tab 2 tabs 4 times per day [Active]; glimepiride 2 mg oral tab [Active]; Ranitidine Oral [Active]; atorvastatin 20 mg oral tab [Active]; clonidine patch [Active]; Eliquis 2.5 mg oral tab [Active]; furosemide 40 mg Oral tab [Active]; Lantus 100 unit/mL Sub-Q soln 35 unit daily [Active]; - PMHx: 09:46 Diabetes - NIDDM; GERD; High Cholesterol; Hypertension; Osteoporosis; Anemia; Anxiety; jl7 - Immunization history:: Adult Immunizations unknown. - Social history:: Smoking status: Patient/guardian denies using tobacco. - Ebola Screening: : No symptoms or risks identified at this time. - Family history:: not pertinent. ROS: 10:45 Constitutional: Negative for fever, chills, and weight loss, Eyes: Negative for injury, jing pain, redness, and discharge, ENT: Negative for injury, pain, and discharge, Neck: Negative for injury, pain, and swelling, Cardiovascular: Negative for chest pain, palpitations, and edema, Respiratory: Negative for shortness of breath, cough, wheezing, and pleuritic chest pain, Abdomen/GI: Negative for abdominal pain, nausea, vomiting, diarrhea, and constipation, Back: Negative for injury and pain, : Negative for injury, bleeding, discharge, and swelling, MS/Extremity: Negative for injury and deformity, Skin: Negative for injury, rash, and discoloration, Neuro: Negative for headache, weakness, numbness, tingling, and seizure, Psych: Negative for depression, anxiety, suicide ideation, homicidal ideation, and hallucinations, Allergy/Immunology: Negative for hives, rash, and allergies, Endocrine: Negative for neck swelling, polydipsia, polyuria, polyphagia, and marked weight changes, Hematologic/Lymphatic: Negative for swollen nodes, abnormal bleeding, and unusual bruising. Exam: 10:45 Constitutional: This is a well developed, well nourished patient who is awake, alert, jing and in no acute distress. Head/Face: Normocephalic, atraumatic. Eyes: Pupils equal round and reactive to light, extra-ocular motions intact. Lids and lashes normal. Conjunctiva and sclera are non-icteric and not injected. Cornea within normal limits. Periorbital areas with no swelling, redness, or edema. ENT: Nares patent. No nasal discharge, no septal abnormalities noted. Tympanic membranes are normal and external auditory canals are clear. Oropharynx with no redness, swelling, or masses, exudates, or evidence of obstruction, uvula midline. Mucous membranes moist. Neck: Trachea midline, no thyromegaly or masses palpated, and no cervical lymphadenopathy. Supple, full range of motion without nuchal rigidity, or vertebral point tenderness. No Meningismus. Chest/axilla: Normal chest wall appearance and motion. Nontender with no deformity. No lesions are appreciated. Cardiovascular: Regular rate and rhythm with a normal S1 and S2. No gallops, murmurs, or rubs. Normal PMI, no JVD. No pulse deficits. Respiratory: Lungs have equal breath sounds bilaterally, clear to auscultation and percussion. No rales, rhonchi or wheezes noted. No increased work of breathing, no retractions or nasal flaring. Abdomen/GI: Soft, non-tender, with normal bowel sounds. No distension or tympany. No guarding or rebound. No evidence of tenderness throughout. Back: No spinal tenderness. No costovertebral tenderness. Full range of motion. Skin: Warm, dry with normal turgor. Normal color with no rashes, no lesions, and no evidence of cellulitis. MS/ Extremity: Pulses equal, no cyanosis. Neurovascular intact. Full, normal range of motion. Neuro: Awake and alert, GCS 15, oriented to person, place, time, and situation. Cranial nerves II-XII grossly intact. Motor strength 5/5 in all extremities. Sensory grossly intact. Cerebellar exam normal. Normal gait. Psych: Awake, alert, with orientation to person, place and time. Behavior, mood, and affect are within normal limits. Vital Signs: 09:46 BP 165 / 95; Pulse 104; Resp 21 S; Temp 98.1(O); Pulse Ox 98% on R/A; Pain 0/10; jl7 10:45 BP 139 / 70; Pulse 94; Resp 16 S; Pulse Ox 100% on R/A; jl7 11:45 BP 178 / 71; Pulse 70; Resp 18 S; Pulse Ox 100% on R/A; jl7 12:45 BP 150 / 60; Pulse 79; Resp 16 S; Pulse Ox 96% on R/A; jl7 13:45 BP 152 / 67; Pulse 96; Resp 16 S; Pulse Ox 98% on R/A; jl7 14:30 BP 159 / 83; Pulse 89; Resp 16 S; Pulse Ox 98% on R/A; jl7 MDM: 09:45 Patient medically screened. [facility] 10:47 Data reviewed: vital signs, nurses notes, lab test result(s), EKG, radiologic studies, jing plain films. 03/23 09:44 Order name: Basic Metabolic Panel 03/23 09:44 Order name: CBC with Diff 03/23 09:44 Order name: LFT's; Complete Time: 10:46 03/23 09:44 Order name: Magnesium; Complete Time: 10:46 03/23 09:44 Order name: NT PRO-BNP; Complete Time: 10:46 03/23 09:44 Order name: PT-INR; Complete Time: 10:46 03/23 09:44 Order name: Troponin (emerg Dept Use Only); Complete Time: 10:46 03/23 09:44 Order name: XRAY Chest (1 view); Complete Time: 11:38 03/23 09:44 Order name: Glucose 03/23 09:45 Order name: Basic Metabolic Panel; Complete Time: 10:46 EDMS 03/23 09:45 Order name: CBC with Automated Diff; Complete Time: 10:46 EDMS 03/23 09:46 Order name: Urine Culture [facility] 03/23 09:46 Order name: Lipase; Complete Time: 10:46 jing 03/23 10:50 Order name: Urine Dipstick--Ancillary (enter results); Complete Time: 11:38 eb 03/23 09:44 Order name: EKG; Complete Time: 09:45 03/23 10:52 Order name: CT Stone Protocol jing 03/23 11:27 Order name: CT; Complete Time: 11:38 EDMS 03/23 09:44 Order name: Cardiac monitoring; Complete Time: 09:45 03/23 09:44 Order name: EKG - Nurse/Tech; Complete Time: 09:45 03/23 09:44 Order name: IV Saline Lock; Complete Time: 09:45 03/23 09:44 Order name: Labs collected and sent; Complete Time: 09:45 03/23 09:44 Order name: O2 Per Protocol; Complete Time: 09:45 03/23 09:44 Order name: O2 Sat Monitoring; Complete Time: 09:45 03/23 09:45 Order name: Straight Cath - Urine; Complete Time: 10:05 aa5 Administered Medications: 10:11 Drug: NS 0.9% 1000 ml Route: IV; Rate: 125 ml/hr; Site: right antecubital; jl7 14:50 Follow up: IV Status: Infusion continued upon admission jl7 10:11 Drug: NS 0.9% 500 ml Route: IV; Rate: bolus; Site: right antecubital; jl7 10:45 Follow up: Response: No adverse reaction; IV Status: Completed infusion; IV Intake: jl7 500ml 10:52 CANCELLED (Duplicate Order): Insulin Regular Human 10 units Sub-Q once [facility] 11:15 Drug: Insulin Regular Human 10 units {Co-Signature: jl7 (Norberto Diaz RN).} Route: aa5 Sub-Q; Site: right upper arm; 13:59 Follow up: Response: No adverse reaction; Blood sugar is lowered jl7 11:45 Drug: LanTUS 30 units Route: Sub-Q; Site: right upper arm; jl7 13:57 Follow up: Response: No adverse reaction; Blood sugar is lowered jl7 11:48 Drug: Rocephin 1 grams Route: IV; Rate: calculated rate; Site: right antecubital; jl7 11:50 Follow up: Response: No adverse reaction; IV Status: Completed infusion jl7 11:50 Drug: Zofran 4 mg Route: IVP; Site: right antecubital; jl7 12:15 Follow up: Response: No adverse reaction jl7 11:52 Drug: morphine 2 mg Route: IVP; Site: right antecubital; jl7 12:10 Follow up: Response: No adverse reaction; Pain is unchanged, physician notified jl7 11:53 CANCELLED (Physician Discretion): Insulin Regular Human 10 units IVP once aa5 11:54 Drug: Insulin Regular Human 8 units {Co-Signature: jl7 (Norberto Diaz RN).} Route: IVP; aa5 Site: right antecubital; 13:59 Follow up: Response: No adverse reaction; Blood sugar is lowered jl7 12:10 Drug: morphine 2 mg Route: IVP; Site: right antecubital; jl7 12:30 Follow up: Response: No adverse reaction; Pain is decreased jl7 12:17 CANCELLED (Duplicate Order): Rocephin - (cefTRIAXone) 1 grams IVPB once over 30 mins; jl7 (mix in 50 mL NS) 13:25 Drug: Tylenol 650 mg Route: PO; jl7 14:00 Follow up: Response: No adverse reaction; Pain is decreased jl7 Point of Care Testing: Blood Glucose: 09:46 Blood Glucose: High (>450 mg/dL); jl7 13:56 Blood Glucose: 483 mg/dL; jl7 Ranges: Critical Glucose Levels:Adult <50 mg/dl or >400 mg/dl <40 mg/dl or >180 mg/dl Disposition: 03/23/18 10:50 Hospitalization ordered by Bernabe Addison for Inpatient Admission. Preliminary diagnosis are Type 2 diabetes mellitus - uncontrolled, Urinary tract infection, site not specified. - Bed requested for Telemetry/MedSurg (Inpatient). - Status is Inpatient Admission. aa5 - Condition is Fair. - Problem is new. - Symptoms have improved. UTI on Admission? Yes Signatures: Dispatcher [employer] EDJessika Amaya, RN RN Patrick Yao MD MD cha Calderon, Audri, RN RN aa5 Norberto Diaz RN RN jl7 Norberto Diaz RN jl7 Corrections: (The following items were deleted from the chart) 10:52 10:49 Insulin Regular Human 10 units Sub-Q once ordered. jing [facility] 11:53 10:49 Insulin Regular Human 10 units IVP once ordered. jing aa5 11:53 11:53 Insulin Regular Human 10 units IVP once ordered. aa5 aa5 12:17 10:49 Rocephin - (cefTRIAXone) 1 grams IVPB once over 30 mins; (mix in 50 mL NS) jl7 ordered. [facility] 12:17 12:17 Rocephin - (cefTRIAXone) 1 grams IVPB once over 30 mins; (mix in 50 mL NS) jl7 ordered. jl7 14:11 10:50 Hospitalization Ordered by Bernabe Addison MD for Inpatient Admission. Preliminary dw diagnosis is Type 2 diabetes mellitus - uncontrolled; Urinary tract infection, site not specified. Bed requested for Telemetry/MedSurg (Inpatient). Status is Inpatient Admission. Condition is Fair. Problem is new. Symptoms have improved. UTI on Admission? Yes. [facility] 14:52 14:11 03/23/2018 10:50 Hospitalization Ordered by Bernabe Addison MD for Inpatient aa5 Admission. Preliminary diagnosis is Type 2 diabetes mellitus - uncontrolled; Urinary tract infection, site not specified. Bed requested for Telemetry/MedSurg (Inpatient). Status is Inpatient Admission. Condition is Fair. Problem is new. Symptoms have improved. UTI on Admission? Yes. dw
--- NOTE | 2018-03-23 10:54 | RAD REPORT ---
EXAM DESCRIPTION: Danielle Single View03/23/2018 10:13 am CLINICAL HISTORY: Chest pain COMPARISON: August 2017 FINDINGS: The lungs appear clear of acute infiltrate. The heart is mildly enlarged IMPRESSION: No acute abnormalities displayed
[2018-03-23 11:05] LABS: Urine Blood TRACE (NEG); Urine Glucose 2+ (NEG); Urine Protein TRACE (NEG); Urine pH 6.5 (5.0-7.0)
[2018-03-23] MEDS ORDERED: INSULIN -REGULAR HUMAN 50 UNIT/0.5 ML ML ONE ×2 (11:23→12:03)
[2018-03-23] MEDS ORDERED: CEFTRIAXONE/SWI 1gm 1 GM/10 ML SYR ONE (11:24)
--- NOTE | 2018-03-23 11:26 | RAD REPORT ---
EXAM DESCRIPTION: CT - Stone Protocol - 03/23/2018 11:13 am CLINICAL HISTORY: Abdominal pain, abdominal distention, hypertension, elevated blood glucose COMPARISON: December 2015 CT imaging TECHNIQUE: Axial 5 mm thick images were obtained without oral or IV contrast. The [id number] span s the entirety of the system including uppermost abdomen and lung bases. All CT scans are performed using dose optimization technique as appropriate and may include automated exposure control or mA/KV adjustment according to patient size. FINDINGS: Small right pleural effusion is present. Patchy lung parenchymal opacification abutting th e fluid is likely atelectasis. A small pneumonia is not excluded. Lung zambrano are only partially imag ed. No pericardial thickening or effusion. Fullness of the right renal pelvis is present increased over the 2016 study. Ureter is not dilated. T here is tortuosity of the ureter as well is motion artifact present. There is a 2 millimeter calcific ation within or in close proximity to the mid right ureter (image [id number]). A right ureteral calculus is not excluded if the patient has renal colic symptoms. This may be baseline for the patient. A rece ntly passed stone cannot be excluded. No nonobstructing calculi. No hydronephrosis on the left. There is no bladder calculus seen. No suspicious renal masses. Isodense masses and pyelonephritis are not excluded on a stone protocol CT scan. No significant adrenal finding. Pelvic floor laxity is present. There is spray artifact from the right hip prosthesis limiting pelvic floor detail. Imaged portions of the liver, spleen and pancreas show no suspicious findings on non-contrast imaging . Cholecystectomy clips are present. No biliary tree dilatation. No acute bowel findings are seen. Patient has prominent retained stool throughout the colon. There is left-sided diverticulosis without diverticulitis. Patient has a prominent amount of intraperitoneal fat similar to comparison imaging. There is no ascites present. No free air or pneumatosis. No active abdominal or pelvic process seen. No omental thickening, mass or bulky lymphadenopathy. Patient has advanced bony degenerative change. There is postsurgical change as well. An acute or path ologic bone process not identified. Dense arterial tree calcifications are present. IMPRESSION: Fullness of the right renal pelvis and calices new from 2016. There is a 2 millimeter ca lcification within or adjacent to the right mid ureter. Correlation is needed with clinical findings of right renal colic. No other acute finding seen. Isodense masses and pyelonephritis are not excluded on stone protocol technique. No ascites, lymphadenopathy or other acute finding.
[2018-03-23] MEDS ORDERED: INSULIN GLARGINE 100 UNITS/ML SQ ONE ×2 (11:30→19:18)
[2018-03-23] MEDS ORDERED: MORPHINE 2 MG/ML SYR ONE ×2 (11:52→12:17)
[2018-03-23] MEDS ORDERED: ONDANSETRON 4 MG/2 ML VIAL ONE (12:17)
[2018-03-23] MEDS ORDERED: ACETAMINOPHEN 325 MG TABLET ONE (12:37)
[2018-03-23 15:38] VITALS: BMI 37.7
[2018-03-23] MEDS ORDERED: GLUCAGON 1 MG/VIAL IM PRN ×3 (15:40→16:56)
[2018-03-23] MEDS ORDERED: ACETAMINOPHEN 500 MG TAB PO PRN (15:40)
[2018-03-23] MEDS ORDERED: ONDANSETRON 4 MG/2 ML VIAL IV PRN (15:40)
[2018-03-23] MEDS ORDERED: D50W 25 GM/50 ML SYRINGE IV PRN ×3 (15:40→16:56)
[2018-03-23] MEDS: INSULIN -REGULAR HUMAN 50 UNIT/0.5 ML ML SQ SCH ×3 (15:40→21:55)
--- NOTE | 2018-03-23 16:21 | EKG ---
Test Date: 2018-03-23 Test Time: 09:35:32 Gas Maker Helper: ALEXANDER MEASUREMENT RESULTS: Intervals: Rate: 107 VA: 280 QRSD: 90 QT: 318 QTc: 424 Metaline: P: VA: 280 QRS: 44 T: 113 INTERPRETIVE STATEMENTS: Sinus tachycardia with 1st degree AV block Anteroseptal infarct, age undetermined Abnormal ECG Compared to ECG 08/15/2017 09:54:55 Sinus rhythm no longer present Myocardial infarct finding still present Electronically Signed On 03-23-18 16:20:24 LIFEGUARD by Randall Nunez
[2018-03-23 16:34] LABS: Troponin I 0.03 ng/mL (0.0-0.045)
[2018-03-23] MEDS ORDERED: INSULIN -REGULAR HUMAN 50 UNIT/0.5 ML ML IV ONE ×2 (16:57→18:47)
[2018-03-23] MEDS: NA CHLORIDE 0.9% 1,000 ML IV SCH ×2 (17:05→21:55)
[2018-03-23] MEDS ORDERED: INSULIN GLARGINE 100 UNITS/ML SQ SCH (21:00)
[2018-03-24 06:20] LABS: Absolute Lymphocytes (CBC) 1.2 K/uL (0.7-4.9); Absolute Monocytes 0.5 K/uL (0.1-1.3); Absolute Neutrophil 5.3 K/uL (1.8-8.0); Basophils % 0.4 % (0-1.3); Eosinophils % 4.7 % (0-4.4); Hematocrit 33.6 % (36.0-45.0); Lymphocytes % 16.7 % (15.3-44.8); MPV 9.7 fL (7.6-11.3); Monocytes % 7.2 % (3.3-12.3)
[2018-03-24 06:36] LABS: Potassium 4.1 mmol/L (3.5-5.1)
[2018-03-24] MEDS: NA CHLORIDE 0.9% 1,000 ML IV SCH ×3 (07:40→16:57)
[2018-03-24] MEDS: INSULIN -REGULAR HUMAN 50 UNIT/0.5 ML ML SQ SCH ×4 (08:11→20:38)
[2018-03-24] MEDS: CEFTRIAXONE/SWI 1gm 1 GM/10 ML SYR IV SCH (08:12)
[2018-03-24] MEDS: ASPIRIN EC 81 MG TAB PO SCH (08:12)
[2018-03-24] MEDS ORDERED: D50W 25 GM/50 ML SYRINGE IV PRN (09:56)
[2018-03-24] MEDS ORDERED: GLUCAGON 1 MG/VIAL IM PRN (09:56)
[2018-03-24] MEDS ORDERED: POLYETHYL GLY 3350 17 GM/DOSE PO PRN (09:57)
[2018-03-24] MEDS ORDERED: INSULIN GLARGINE 100 UNITS/ML SQ ONE (10:00)
[2018-03-24] MEDS ORDERED: MELATONIN 5 MG TABLET PO PRN (10:15)
[2018-03-24] MEDS: AMLODIPINE 5 MG TAB PO SCH ×2 (10:28→17:37)
[2018-03-24] MEDS: VALSARTAN 80 MG TAB PO SCH (10:36)
--- NOTE | 2018-03-24 11:57 | RAD REPORT ---
EXAM DESCRIPTION: RAD - Chest Single View - 03/24/2018 5:45 am CLINICAL HISTORY: Chest Pain Chest pain. COMPARISON: Chest Single View dated 03/23/2018; Chest Single View dated 08/21/2017; Chest Single View dated 08/19/2017; Chest Single View dated 08/16/2017 FINDINGS: Portable technique and patient positioning limits examination quality. The lungs are grossly clear. Right apex is obscured by patient's head. Heart is normal in size. Hardw are is present in the spine. IMPRESSION: No acute intrathoracic process suspected.
--- NOTE | 2018-03-24 16:49 | HP ---
Date of Admission: 03/24/2018 Chief Complaint: High blood sugar. History Of Present Illness: This is an 87-year-old female patient living at [facility], has hypertension, diabetes, and multiple other chronic medical problems. Yesterday, home he alth nurse contacted and informed me that the patient has not taken her Lantus insulin lately because her insurance will not approve that. This is first time that I found out about this problem, so don n as I found out I send a prescription for a different insulin, Levemir 40 units subcutaneous injecti on daily to be use and nurse informed me that the patient's blood sugar was higher than 600, but she had no symptom of high blood sugar, but considering this very high blood sugar, the patient was advis ed to go to emergency room. After she came into emergency room, we did confirm her very high blood s ugar and she received 10 units of regular insulin IV in the emergency room as per my discussion with the ER physician and 30 units of Lantus insulin subcutaneous injection and was admitted to the hospit al. Her renal, she has chronic kidney disease, but her creatinine was higher than baseline. So this was thought to be due to dehydration from uncontrolled diabetes and she was started on IV fluid. Sh e denies any vomiting or diarrhea. The patient did require some more IV insulin during the course of day yesterday along with subcutaneous insulin because of her high blood sugar. This morning when I saw her she was feeling fine, who had some back pain which is her chronic back pain, nothing unusual about it. Her daughter was present with her at bedside. I have advised the patient's daughter to hector with [facility] today to make sure that they have this new insulin available for her as there i s a good possibility that the patient may get discharged tomorrow from the hospital. Allergies: TO LISINOPRIL. Medications: List reviewed. Review of Systems: Endocrine: As mentioned above. Musculoskeletal: Chronic back pain. All other systems reviewed and negative. Family History: Not pertinent. Social History: Negative for smoking, alcohol use. Past Medical History: Significant for hypertension, osteoporosis, type 2 diabetes mellitus, constipa tion, anemia due to chronic kidney disease, mixed hyperlipidemia, chronic kidney disease stage 3, ost eoarthritis at multiple sites, history of paroxysmal atrial fibrillation and prior history of stroke. Past Surgical History: Significant for right hip fracture in 2016, hysterectomy, cholecystectomy, re moval of infected sebaceous cyst from left upper anterior chest. Physical Examination: Vital Signs: Last temperature 98.8, pulse 101, respiratory rate 18, blood pressure 176/86, height 5 feet, weight 193 pounds. General: Awake, alert, oriented, not in distress. HEENT: Head atraumatic, normocephalic. Conjunctivae nonerythematous. Sclerae white. Mouth, no thr ush or edema noted. Ears/Nose, no mass, lesion, discharge noted. Neck: Supple. No JVD, lymph nodes, bruit, thyromegaly noted. Lungs: Bilateral good equal air entry. Clear to auscultation. No rhonchi. No rales. Heart: Normal heart sounds, no murmur or gallop. Abdomen: Soft, bowel sounds normal. No guarding, rigidity, tenderness, mass, hepatosplenomegaly, dis tention, or bruit noted. Extremities: No leg edema. No calf tenderness. Skin: No rash, ulcer, cellulitis. Lymphatics: No lymph node enlargement in neck, supraclavicular, infraclavicular region. Neuro: No focal neurological deficit. Chest: Unremarkable. External Genitalia: Deferred. Rectal: Deferred. Laboratory Data: White count 10.3 yesterday, hemoglobin 12.9, platelets 228. Today, white count 7.5 , hemoglobin 11.4, platelets 188. Yesterday sodium 133, potassium 4.4, chloride 96, bicarb 28, BUN 4 9, creatinine 2.93, glucose 644. Liver function tests unremarkable. Troponin first set 0.02, second set 0.03. Lipase 117. This morning sodium 141, potassium 4.1, chloride 109, bicarb 26, BUN 41, cre atinine 2.08, glucose 219. Urinalysis; 1+ esterase, 2+ glucose. Urine culture growing gram-negative rods, definite identification and sensitivity result pending. Chest x-ray, no acute abnormality. C AT scan of the abdomen and pelvis done in emergency room shows fullness of the right renal pelvis and calices, new from 2016, 2 mm stone, possibly present in the right mid ureter. No other acute findin gs noted. Impression: 1.Type 2 diabetes mellitus, uncontrolled. 2.Volume depletion. 3.Chronic kidney disease stage 3. 4.Urinary tract infection. 5.Right ureter stone. 6.Hypertension. 7.Mixed hyperlipidemia. 8.Osteoarthritis on multiple sites. 9.Osteoporosis. 10.Anemia due to chronic kidney disease. Plan: Admit the patient to hospital for further evaluation and management of this problem. The sobeida ent is appropriate for inpatient and is expected to spend 2 midnights in hospital. We will go ahead and continue her home medications per order. DVT prophylaxis will be given per order. Her EKG had s hown sinus tachycardia. We will continue empiric antibiotics, IV fluid, aggressive management for di abetes including sliding scale as well as subcutaneous insulin injection per order. We will follow u p on urine culture results hopefully by tomorrow once we have final report back on the urine culture. Depending on patient's condition we will decide about discharge tomorrow. We will get an x-ray KUB either today or tomorrow to followup. I did talk to patient in presence of her daughter regarding a dvance directives and she informed me very clearly in the event of cardiopulmonary arrest she does no t want any CPR defibrillation or ventilator support and DNR order will be written in the chart. Also , I have instructed her how to fill out of hospital DNR form. PITA/MODL Voice ID: [id number]
[2018-03-24] MEDS: GLIMEPIRIDE 2 MG TABLET PO SCH (16:58)
[2018-03-24] MEDS ORDERED: CLONIDINE 0.1 MG/PATCH TD SCH (17:30)
[2018-03-24] MEDS: APIXABAN 2.5 MG TABLET PO SCH (20:38)
[2018-03-24] MEDS: RANITIDINE 150 MG TABLET PO SCH (20:39)
[2018-03-24] MEDS ORDERED: LORAZEPAM 1 MG TABLET PO SCH (21:00)
[2018-03-24] MEDS ORDERED: METHOCARBAMOL 500 MG TAB PO SCH (21:00)
[2018-03-24] MEDS ORDERED: ATORVASTATIN 40 MG TAB PO SCH (21:00)
[2018-03-25] MEDS: NA CHLORIDE 0.9% 1,000 ML IV SCH ×3 (03:08→14:52)
[2018-03-25] MEDS: CEFTRIAXONE/SWI 1gm 1 GM/10 ML SYR IV SCH (08:15)
[2018-03-25] MEDS: VALSARTAN 80 MG TAB PO SCH (08:15)
[2018-03-25] MEDS: ASPIRIN EC 81 MG TAB PO SCH (08:16)
[2018-03-25] MEDS: AMLODIPINE 5 MG TAB PO SCH (08:16)
[2018-03-25] MEDS: GLIMEPIRIDE 2 MG TABLET PO SCH ×2 (08:17→16:53)
[2018-03-25] MEDS: APIXABAN 2.5 MG TABLET PO SCH (08:17)
[2018-03-25] MEDS: RANITIDINE 150 MG TABLET PO SCH (08:17)
[2018-03-25] MEDS: INSULIN -REGULAR HUMAN 50 UNIT/0.5 ML ML SQ SCH ×3 (08:18→16:52)
[2018-03-25] MEDS ORDERED: DOCUSATE NA 100 MG CAP PO SCH (09:00)
[2018-03-25] MEDS ORDERED: MULTIVIT W/ MINERAL TAB PO SCH (09:00)
[2018-03-25] MEDS ORDERED: AMOX/K CLAV 500 MG TAB PO ONE (09:16)
[2018-03-25] MEDS ORDERED: GLUCAGON 1 MG/VIAL IM PRN (09:18)
[2018-03-25] MEDS ORDERED: D50W 25 GM/50 ML SYRINGE IV PRN (09:18)
[2018-03-25] MEDS ORDERED: INSULIN GLARGINE 100 UNITS/ML SQ ONE (10:00)
[2018-03-25 10:13] VITALS: O2SAT 95
--- NOTE | 2018-03-25 11:32 | RAD REPORT ---
EXAM DESCRIPTION: RAD - Abdomen 1 View (KUB) - 03/25/2018 11:07 am CLINICAL HISTORY: Abdomen pain. FINDINGS: The bowel gas pattern is unremarkable. Previously described possible right ureteral calculus is not seen on this exam but could be missed se condary to a combination of its small size and stool within overlying bowel
[2018-03-25 16:08] VITALS: BP 186/78; TEMP 98.2
[2018-03-25] MEDS ORDERED: AMOX/K CLAV 500 MG TAB PO SCH (21:00)
--- NOTE | 2018-03-26 03:09 | DS ---
Date of Discharge: 03/25/2018 Disposition: Discharged to go home. Physical Examination: HEENT: Unremarkable. Lungs: Clear to auscultation. Heart: Sounds normal. Abdomen: Soft. Bowel sounds normal. No guarding, rigidity, tenderness, or distention. Extremities: No leg edema. Discharge Medications And Instructions: 1.Continue all prior home medication. 2.Give Levemir insulin 40 units subcutaneous injection daily in the morning in place of Lantus insul in. 3.Augmentin 500 mg 2 times a day for 1 week for urinary tract infection, take it with food. 4.Follow up at my office per scheduled appointment. Hospital Course: An 87-year-old female patient living at [facility] was sen t to emergency room with high blood sugar problem. Please see dictated H and P for more information. The patient's blood sugar was more than 600. Her bicarb was normal. There was no evidence of diab etic ketoacidosis. She was evaluated in the ER, admitted to the hospital for further management of t his uncontrolled diabetes mellitus along with volume depletion and urinary tract infection. She was started on IV antibiotic ceftriaxone. Urine culture was done. Final report came back on urine cultu re today and it is Klebsiella. According to sensitivity result, we will go ahead and provide her ant ibiotic treatment with Augmentin for 1 week. White count was normal. She did respond well to IV flu id hydration. Her renal function improved. Creatinine when she came in, it was 2.93, and repeat cre atinine yesterday was 2.08. The patient required along with Lantus insulin subcutaneous injection. She required IV insulin on the day of admission and the day after admission also, and we managed her fingerstick blood sugar very closely. Her fasting blood glucose this morning was 153. Overall, she is feeling much better and will be discharged to go to assisted care [facility] in stable condition. T he patient's insurance had refused to pay for Lantus insulin, so she was without Lantus insulin prior to this admission causing this particular type of significant elevation of her blood sugar, and Leve oscar insulin prescription was sent as soon as this was brought to my attention by home health nurse on the day of admission. That was the first time I was made aware of this insulin problem, so a prescr iption for alternate medication which is Levemir was sent, and I did request nurse from the hospital today to call Uvaldo to confirm that her Levemir insulin was approved and available at the [facility] for patient's use, and we were told that particular insulin is available and approved by kajal barrett, so the patient will receive that insulin injection per order. CAT scan of the abdomen had indica abdelrahman questionable 2 mm stone in the right ureter and we did obtain KUB x-ray today and that did not re veal any evidence of kidney stone. The patient does not have any symptoms pertaining to kidney stone . Final Diagnoses: 1.Diabetes mellitus, type 2, uncontrolled. 2.Volume depletion. 3.Urinary tract infection. 4.Chronic kidney disease, stage 3. 5.Hypertension. 6.Mixed hyperlipidemia. 7.Osteoarthritis, multiple sites. 8.Anemia due to chronic kidney disease. 9.Osteoporosis. PITA/MODL Voice ID: [id number] Report ID: [id number]
[2018-03-26] MEDS ORDERED: CLONIDINE 0.1 MG/PATCH TD SCH ×2 (09:00)
== END 2018-03-25 17:57 | disposition home health service (06) | DRG 638 ==
LOC: ER 09:30 → ERHOLD 11:08 → 4TH 14:37
PROVIDERS: ADMIT Internal Medicine; ATTEND Internal Medicine
DX: E11.65 Type 2 diabetes mellitus with hyperglycemia (principal); N39.0 Urinary tract infection, site not specified; N20.1 Calculus of ureter; Z79.4 Long term (current) use of insulin; E86.9 Volume depletion, unspecified; B96.1 Klebsiella pneumoniae [K. pneumoniae] as the cause of diseases classified elsewhere; I12.9 Hypertensive chronic kidney disease with stage 1 through stage 4 chronic kidney disease, or unspecified chronic kidney disease; E11.22 Type 2 diabetes mellitus with diabetic chronic kidney disease; N18.3 Chronic kidney disease, stage 3 (moderate); E78.2 Mixed hyperlipidemia; M19.90 Unspecified osteoarthritis, unspecified site; D63.1 Anemia in chronic kidney disease; M81.0 Age-related osteoporosis without current pathological fracture; Z66 Do not resuscitate
CPT/HCPCS: 36415; 71045; 74018; 74176; 76377; 80048; 80076; 81003; 82947; 82962; 83690; 83735; 83880; 84484; 85025; 85610; 87077; 87086; 87088; 87186; 93005; 96361; 96372; 96374; 96375; 99285; J0696; J2270; J2405; J7030

== ENCOUNTER 2018-07-12 13:58 | Inpatient (IN) | payer OTHER ==
--- OUTSIDE RECORDS SUMMARY | 2018-07-12 14:43 | XMS REPORT | Continuity of Care Document ---
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 [facility] Arthritis Resolved Problem 08/20/2017 [facility] Diabetes Resolved Problem 08/20/2017 [facility] mellitus [facility] Fall - Resolved Problem 08/20/2017 [facility] accidental [facility] [place] [facility] GERD (<span Resolved Problem 08/20/2017 [facility] ID[facility][id number]" [facility] >[facility]irmed</spa [place] n) [facility] Hypertension Resolved Problem 08/20/2017 [facility] Osteoporosis Resolved Problem 08/20/2017 [facility] FX UNSP PART OF Active [facility] UNSPEC Medications Medication Details Route Status Patient Ordering Order Source Instructions Provider Date remove patch 1 patch, Route: No Longer 12/05[facility], Drug form: Active [address] [place] [address] ERFILM, Q7D, [place] Start date: 12/06/15 16:00:00 CDT, Duration: 30 day, Stop date: 01/03/16 16:00:00 CSTNotes: Remove old patch before application of new patch. heparin 5,000 unit=1 Active 12/03[facility] mL, SUB-Q, Q8H, 2015 Medical 0 Refill(s) Center Folic Acid 1 MG 1 mg=1 tab, PO, Active 12/03[facility] Oral Tablet Daily, 0 2015 Medical Refill(s) Center ferrous sulfate 325 mg=1 tab, Active 12/03[facility] 325 mg oral PO, TID-Meals, 2015 Medical enteric coated 0 Refill(s) [place] tablet atorvastatin 20 20 mg=1 tab, Active 12/03[facility] mg oral tablet PO, Bedtime, 0 2015 Medical Refill(s) Center amLODIPine 10 10 mg=1 tab, Active [facility] mg oral tablet PO, Daily, 0 2015 Medical Refill(s) Center Acetaminophen 1 tab, PO, Q6H, Active [facility] 325 MG / PRN Pain Score 2016 Medical Hydrocodone 6-10, 0 [place] Bitartrate 5 MG Refill(s) Oral Tablet [[place] 5/325] senna 8.6 mg 17.2 mg=2 tab, Active [facility] oral tablet PO, Bedtime, 0 2015 Medical Refill(s) [place] Compazine 5 mg, 1 mL, Inactive [facility] Route: IM, Drug 2015 Medical form: INJ, Q3H, Center Dosing Weight 88.182, kg, PRN Nausea & Vomiting, Start date: 12/04/15 10:56:00 CDT, Stop date: 01/03/16 10:55:00 CSTNotes: (Same as: Compazine) Simethicone 80 mg, 1 tab, Inactive [facility] Route: CHEW, 2015 Medical Drug form: [place] CHEWTAB, QID, Dosing Weight 88.182, kg, PRN Gas, Start date: 12/04/15 10:56:00 CDT, Duration: 30 day, Stop date: 01/03/16 10:55:00 CSTNotes: (Same as: Mylicon) Amlodipine 10 mg, 1 tab, Inactive [facility] Route: PO, Drug 2015 Medical form: TAB, Center Daily, Dosing Weight 88.182, kg, Start date: 12/04/15 9:00:00 CDT, Duration: 30 day, Stop date: 01/02/16 9:00:00 CSTNotes: (Same as: Norvasc) Tums 500 mg, 1 tab, Inactive [facility] Route: CHEW, 2015 Medical Drug form: Center CHEWTAB, TID, Dosing Weight 88.182, kg, Start date: 12/04/15 9:00:00 CDT, Duration: 30 day, Stop date: 01/02/16 17:00:00 CSTNotes: (Same As: Tums) Calcium Carbonate 500 ok=137 mg elemental calcium Dose= mg calcium carbonate ( mg elemental calcium) Hydralazine 50 mg, 2 tab, Inactive [place] Hydrochloride Route: PO, Drug 2016 Medical 50 [...] CSTNotes: (Same As: Tums) Calcium Carbonate 500 mu=288 mg elemental calcium Dose= mg calcium carbonate ( mg elemental calcium) Metoprolol 5 mg, 5 mL, Inactive [place] Route: IVP, 2015 Medical Drug form: INJ, Center Q8H, Dosing Weight 88.182, kg, PRN Other -See Comment, SBP > 160 mmHg, Start date: 12/04/15 0:13:00 CDT, Duration: 30 day, Stop date: 01/03/16 0:12:00 FREIGHT TALLIER, BPNotes: (Same as: Lopressor) Push over 2 minutes olmesartan 40 mg, 2 tab, No Longer [place] Route: PO, Drug Active 2015 Medical form: TAB, Center Daily, Dosing Weight 88.182, kg, Start date: 12/03/15 9:00:00 CDT, Duration: 30 day, Stop date: 01/01/16 9:00:00 FREIGHT TALLIER ferrous sulfate 325 mg, 1 tab, No Longer [facility] Route: PO, Drug Active 2015 Medical [...] Weight 88.182, Oral Tablet kg, Q6H, PRN [[place] 5/325] Pain Score 6-10, Start date: 12/02/15 13:00:00 CDT, Duration: 30 day, Stop date: 01/01/16 12:59:00 CSTNotes: (Same as: [place] 325/5) Do not exceed 4gm/day of acetaminophen. Acetaminophen 1 tab, Route: Inactive [place] 325 MG / PO, Drug Form: 2015 Medical Hydrocodone TAB, Dosing Center Bitartrate 10 Weight 88.182, MG Oral Tablet kg, Q6H, PRN [[place] 10/325] Pain Score 6-10, Start date: 12/02/15 8:39:00 CDT, Duration: 30 day, Stop date: 01/01/16 8:38:00 CSTNotes: Do not exceed 4gm/day of acetaminophen. (Same as: [place] 325/10) Tramadol 50 mg, 1 tab, No Longer [place] Route: PO, Drug Active 2015 Medical form: TAB, Q6H, Center Dosing Weight 88.182, kg, PRN Pain Score 1-5, Start date: 12/02/15 8:39:00 CDT, Stop date: 01/01/16 8:38:00 CSTNotes: Not to exceed 400mg/day. (Same As: Ultram) Folic Acid 1 mg, 1 tab, No Longer [place] Route: PO, Drug Active 2015 Medical form: TAB, Center Daily, Dosing Weight 88.182, kg, Start date: 12/01/15 9:00:00 CDT, Duration: 30 day, Stop date: 12/30/15 9:00:00 CSTNotes: (Same as: Folvite) multivitamin 1 tab, Route: No Longer [place] PO, Drug Form: Active 2016 Medical TAB, Dosing Center Weight 88.182, kg, Daily, Start date: 12/01/15 9:00:00 CDT, Duration: 30 day, Stop date: 12/30/15 9:00:00 CSTNotes: (Same as:Thera) WASTE: F/P - Black; E - Municipal Trash Bin Take with food. ferrous sulfate 325 mg, 1 tab, No Longer [place] Route: PO, Drug Active 2015 Medical form: ECTAB, Center Daily, Dosing Weight 88.182, kg, Start date: 12/01/15 9:00:00 CDT, Duration: 30 day, Stop date: 12/30/15 9:00:00 CSTNotes: Give with food. "Do Not Crush" Insulin 35 unit, 0.35 No Longer [place] Glargine mL, Route: Active 2015 Medical SUB-Q, Drug Center form: SOLN, Daily, Dosing Weight 88.182, kg, Start date: 12/01/15 9:00:00 CDT, Duration: 30 day, Stop date: 12/30/15 9:00:00 CSTNotes: Same as: Lantus) Do not hold insulin without contacting prescriber WASTE: F/P - Black; E - Municipal Trash Bin Glimeperide 1 Glimeperide 1 No Longer [place] mg tablet mg tablet, 0.5 Active 2015 Medical mg=0.5 tab, Center Drug form: MISC, Route: PO, BID, 11/30/15 17:00:00 CDT, Duration: 30 day, Stop date: 12/30/15 9:00:00 FREIGHT TALLIER glimepiride 0.5 mg, Route: Inactive [place] PO, Drug form: 2015 Medical TAB, BID, Center Dosing Weight 88.182, kg, Start date: 11/30/15 17:00:00 CDT, Duration: 30 day, Stop date: 12/30/15 9:00:00 FREIGHT TALLIER Calmoseptine 1 appl, Route: No Longer [place] TOP, PRN, Drug Active 2015 Medical form: OINT, PRN Center Diaper Rash, Start date: 11/30/15 10:40:00 CDT, Duration: 30 day, Stop date: 12/30/15 9:39:00 FREIGHT TALLIER, DosingNotes: (Same as: Calmoseptine) Furosemide 40 40 [...] 30 day, Stop date: 12/30/15 8:01:00 FREIGHT TALLIER Ativan 1 mg, 1 tab, No Longer [...] Miralax 17 gm, 1 pkt, No Longer [place] Route: PO, Drug Active 2015 Medical form: [...] 30 day, Stop date: 12/29/15 9:00:00 FREIGHT TALLIER Methyldopa 250 250 mg, 1 tab, No Longer [place] MG Oral Tablet Route: PO, Drug Active 2015 Medical form: TAB, Center Daily, Dosing Weight 88.182, kg, Start date: 11/29/15 16:00:00 CDT, Duration: 30 day, Stop date: 12/28/15 16:00:00 CSTNotes: May interfere w/enteral feedings. (Same as:Aldomet) 168 HR 1 patch, Route: No Longer [place] Clonidine Transdermal, Active 2015 Medical 0.78710 MG/HR Drug Form: [place] Transdermal ERFILM, Dosing Patch Weight 88.182, kg, Q7D, Start date: 11/29/15 14:00:00 CDT, Stop date: 12/27/15 16:00:00 CSTNotes: Patch delivers 0.1 mg/24 hours; Patch is applied weekly. "Remove old patch before application of new patch" (Same As: [id number]) multivitamin 1 tab, PO, Active [place] Daily 2015 [facility] cranberry oral 1 tab, PO, No Longer [place] tablet Daily Active 2015 [facility] Aspirin 81 MG 81 mg=1 tab, No Longer [place] Enteric Coated PO, Daily Active 2015 [facility] Tablet [place] amLODIPine 5 mg 5 mg=1 tab, PO, No Longer [place] oral tablet Daily Active 2015 [facility] Alendronic acid 70 mg=1 tab, Active [place] 70 MG Oral PO, Q7D, EVERY 2016 Medical Tablet MONDAY [place] Acetaminophen 1 tab, PO, No Longer [place] 325 MG / Bedtime, PRN Active 2015 [facility] Hydrocodone Pain [place] Bitartrate 10 MG Oral Tablet [[place] ] 3 ML Insulin 35 units, Active [place] Glargine 100 SUB-Q, QAM 2016 Medical UNT/ML Center Prefilled Syringe [Lantus] Methocarbamol 500 mg, 1 tab, No Longer [place] Route: PO, Drug Active 2015 Medical form: TAB, Center Bedtime, Dosing Weight 88.182, kg, PRN Muscle Spasms, Start date: 11/29/15 10:17:00 CDT, Duration: 30 day, Stop date: 12/29/15 10:16:00 CSTNotes: (Same as:Robaxin) Dulcolax 10 mg, 1 supp, No Longer [place] Laxative Route: [place], Drug Active 2015 Medical form: SUPP, Center [...] 12/27/15 21:00:00 CSTNotes: (Same As: Lipitor) sennosides, CORRECTION 17.2 mg, 2 tab, No Longer [place] Route: PO, Drug Active 2015 Medical Form: TAB, Center Dosing Weight 88.182, kg, Bedtime, Start date: 11/28/15 21:00:00 CDT, Duration: 30 day, Stop date: 12/27/15 21:00:00 CSTNotes: (Same as: Senokot) 168 HR 1 patch, TOP, Active [place] Clonidine qWeek, EVERY 2016 Medical 0.51536 MG/HR MONDAY, # 4 Center Transdermal patch, 0 Patch Refill(s) Acetaminophen 1 tab, PO, No Longer [place] 325 MG / Q4-6H, PRN Active 2015 Medical Hydrocodone Center Bitartrate 5 MG Oral Tablet [[place] 5/325] heparin 5,000 unit, 1 No Longer [place] mL, Route: Active 2015 [facility] SUB-Q, Drug Center form: INJ, Q8H, Dosing Weight 88.182, kg, Start date: 11/28/15 18:00:00 CDT, Duration: 30 day, Stop date: 12/28/15 22:00:00 CSTNotes: porcine heparin Ancef + sodium 2 gm, Route: No Longer [place] chloride 0.9% IVPB, ABXQ8H, Active 2015 [facility] INJ 100 mL Dosing Weight Center 88.182, [...] 250 250 mg, 1 tab, No Longer [place] MG Oral Tablet Route: PO, Drug Active [...] Oxycodone 10 mg, 2 tab, No Longer [place] Hydrochloride 5 Route: PO, Drug Active 2015 Medical MG Oral Tablet form: TAB, Q4H, Center Dosing Weight 88.182, kg, PRN Pain Score 7-10, Start date: 11/28/15 6:06:00 CDT, Duration: 30 day, Stop date: 12/28/15 6:05:00 CSTNotes: (Same as: Roxicodone) Tramadol 50 mg, 1 tab, No Longer [place] Route: PO, Drug Active 2015 Medical form: TAB, Center Q6Hnow, Dosing Weight 88.182, kg, PRN Pain Score 1-3, Start date: 11/28/15 6:06:00 CDT, Duration: 30 day, Stop date: 12/28/15 6:05:00 CSTNotes: Not to exceed 400mg/day. (Same As: Ultram) Morphine 2 mg, 1 mL, No Longer [place] Route: IVP, Active 2015 Medical Drug form: INJ, Center Q4H, Dosing Weight 88.182, kg, PRN Pain Score 7-10, Start date: 11/28/15 6:06:00 CDT, Duration: 30 day, Stop date: 12/28/15 6:05:00 CSTNotes: (Same as:MORPhine Sulfate) Methocarbamol 1,000 mg, 2 No Longer [place] tab, Route: PO, Active 2015 Medical Drug form: TAB, Center Q8H, Dosing Weight 88.182, kg, PRN Muscle Spasms, Start date: 11/28/15 6:06:00 CDT, Duration: 30 day, Stop date: 12/28/15 6:05:00 CSTNotes: (Same as:Robaxin) Ondansetron 4 mg, 2 mL, No Longer [facility] Route: IVP, Active 2015 Medical Drug form: INJ, Center Q8H, Dosing Weight 88.182, kg, PRN Nausea & Vomiting, Start date: 11/28/15 6:06:00 CDT, Duration: 30 day, Stop date: 12/28/15 6:05:00 CSTNotes: (Same as: Zofran) MEDICATION WASTE Product Size: 4 mg Product Wasted: ___ mg Melatonin 3 mg, 1 tab, No Longer [place] Route: PO, Drug Active 2015 Medical form: TAB, Center Bedtime, Dosing Weight 88.182, kg, PRN Insomnia, Start date: 11/28/15 6:06:00 CDT, Duration: 30 day, Stop date: 12/28/15 6:05:00 CSTNotes: (Same as: Melatonin) sodium chloride 1,000 mL, Rate: No Longer [place] 0.9% 1000 ml 100 ml/hr, Active 2015 Medical INJ 1,000 mL Infuse over: 10 Center hr, Route: IV, Dosing Weight 88.182 kg, Total Volume: 1,000, Start date: 11/28/15 6:04:00 CDT, Duration: 30 day, Stop date: 12/28/15 6:03:00 FREIGHT TALLIER Insulin regular 1 unit, 0.01 No Longer [place] mL, Route: Active 2015 Medical SUB-Q, Drug [...] 50% 12.5 gm, 25 mL, No Longer [place] Syringe Route: IVP, Active 2015 Medical Drug Form: INJ, Center Dosing Weight 88.182, kg, PRN, PRN Blood Glucose Results, Start date: 11/28/15 6:03:00 CDT, Duration: 30 day, Stop date: 12/28/15 5:02:00 FREIGHT TALLIER Glucagon 1 mg, Route: No Longer [place] IM, Drug form: Active 2015 Medical PDR/INJ, PRN, Center Dosing Weight 88.182, kg, PRN Blood Glucose Results, Start date: 11/28/15 6:03:00 CDT, Duration: 30 day, Stop date: 12/28/15 5:02:00 FREIGHT TALLIER Zofran 4 mg, 2 mL, Inactive [facility] Route: IV2015 Medical Drug form: INJ, Center ONCE, Dosing Weight 88.182, kg, Priority: STAT, Start date: 11/28/15 2:35:00 CDT, Stop date: 11/28/15 2:35:00 CDTNotes: (Same as: Zofran) MEDICATION WASTE Product Size: 4 mg Product Wasted: ___ mg Morphine 4 mg, 1 mL, Inactive [facility] Route: IV2015 Medical Drug form: INJ, [...] HEMATOLOGY Hgb 8.0 g/dL 12.0 - 12/02 [facility] . [facility] HEMATOLOGY Hct 23.6 % 36.0 - 12/02 [facility] 48. [facility] HEMATOLOGY Hgb 7.6 g/dL 12.0 - 12/01 [facility] HEMATOLOGY Hct 22.5 % 36.0 - 12/01 [facility] . [facility] CHEM PANEL eGFR 40 11/30 Result Comment: The eGFR is calculated using the CKD-EPI formula. In most young, healthy individuals the eGFR will be >90 mL/ min/1.73m2. The eGFR declines with age. An eGFR of 60-89 may be normal in [facility] mL/min/1.73 some populations, particularly the elderly, for whom the CKD-EPI formula has not been extensively validated. Use of the eGFR is not recommended in the following populations: [place] [address] Center Individuals with unstable creatinine concentrations, including [...] AGAP 13.8 meq/L 10.0 - 11/30 20.0 [facility] CHEM PANEL Calcium Lvl 8.0 mg/dL 8.5 - 10.5 11/30 [facility] CHEM PANEL CO2 24 meq/L 24 - 32 11/30 [facility] CHEM PANEL Chloride Lvl 106 meq/L 95 - 109 11/30 [facility] CHEM PANEL Potassium 3.8 meq/L 3.5 - 5.1 11/30 [facility] CHEM PANEL Sodium Lvl 140 meq/L 135 - 145 11/30 [facility] CHEM PANEL Creatinine 1.24 mg/dL 0.50 - 11/30 [facility] Lvl 1.40 [facility] CHEM PANEL BUN 30 mg/dL 7 - 22 11/30 [facility] CHEM PANEL Glucose Lvl 141 mg/dL 70 - 99 11/30 [facility] HEMATOLOGY Monocytes # 0.7 K/CMM 0.0 - 0.8 11/30 [facility] HEMATOLOGY Eosinophils 0.8 K/CMM 0.0 - 0.5 11/30 [facility] HEMATOLOGY Monocytes 7.6 % 2.0 - 12.0 11/30 [facility] HEMATOLOGY Lymphocytes 24.4 % 20.0 - 11/30 40.0 [facility] HEMATOLOGY Segs 58.6 % 45.0 - 11/30 [place] 75.0 [facility] HEMATOLOGY Segs-Bands # 5.1 K/CMM 1.5 - 8.1 11/30 [facility] HEMATOLOGY Lymphocytes 2.1 K/CMM 1.0 - 5.5 11/30 [facility] HEMATOLOGY Eosinophils 8.9 % 0.0 - 4.0 11/30 [facility] HEMATOLOGY Basophils 0.5 % 0.0 - 1.0 11/30 [facility] HEMATOLOGY MPV 9.2 fL 7.4 - 10.4 11/30 [facility] HEMATOLOGY RDW 15.3 % 11.5 - 11/30 [facility] 14.5 [facility] HEMATOLOGY Platelet 146 K/CMM 133 - 450 11/30 [facility] HEMATOLOGY MCHC 33.2 g/dL 32.0 - 11/30 [place] 36.0 [facility] HEMATOLOGY MCH 30.2 pg 27.0 - 11/30 [facility] 31.0 [facility] HEMATOLOGY Hgb 7.4 g/dL 12.0 - 11/30 [facility] 16.0 [facility] HEMATOLOGY Hct 22.2 % 36.0 - 11/30 [place] 48.0 [facility] HEMATOLOGY WBC 8.6 K/CMM 3.7 - 10.4 11/30 [facility] HEMATOLOGY RBC 2.43 M/CMM 4.20 - 11/30 [facility] 5.40 [facility] HEMATOLOGY MCV 91.2 fL 80.0 - 11/30 [facility] 98.0 [facility] ELECTROLYTE Chloride Lvl 107 meq/L 95 - 109 11/29 [facility] ELECTROLYTE Potassium 3.9 meq/L 3.5 - 5.1 11/29 [facility] Lvl [facility] ELECTROLYTE Sodium Lvl 141 meq/L 135 - 145 11/29 [facility] S [facility] ELECTROLYTE Creatinine 1.77 mg/dL 0.50 - 11/29 [facility] Lvl 1. [facility] ELECTROLYTE BUN 37 mg/dL 7 - 11/29 [facility] S /2015 [facility] ELECTROLYTE Glucose Lvl 161 mg/dL 70 - 99 11/29 [facility] S [facility] ELECTROLYTE eGFR 26 11/29 Result Comment: The eGFR is calculated using the CKD-EPI formula. In most young, healthy individuals the eGFR will be >90 mL/ min/1.73m2. The eGFR declines with age. An eGFR of 60-89 may be normal in [facility] mL/min/1.73 some populations, particularly the elderly, for whom the CKD-EPI formula has not been extensively validated. Use of the eGFR is not recommended in the following populations: [place] [address] Center Individuals with unstable creatinine concentrations, including [...] mg/dL 8.5 - 10.5 11/29 S /2015 [facility] ELECTROLYTE CO2 26 meq/L 24 - 32 11/29 [facility] S /2015 [facility] ELECTROLYTE AGAP 11.9 meq/L 10.0 - 11/29 [place] S 20.0 [facility] HEMATOLOGY MPV 9.0 fL 7.4 - 10.4 11/29 [facility] HEMATOLOGY MCH 30.6 pg 27.0 - 11/29 [place] 31.0 [facility] HEMATOLOGY MCV 90.7 fL 80.0 - 11/29 [place] 98.0 [facility] HEMATOLOGY MCHC 33.7 g/dL 32.0 - 11/29 [place] 36.0 [facility] HEMATOLOGY RBC 2.78 M/CMM 4.20 - 11/29 [place] 5.40 [facility] HEMATOLOGY WBC 9.9 K/CMM 3.7 - 10.4 11/29 /2015 [facility] HEMATOLOGY Platelet 148 K/CMM 133 - 450 11/29 /2015 [facility] HEMATOLOGY RDW 15.2 % 11.5 - 11/29 [place] 14.5 /2016 [facility] HEMATOLOGY Lymphocytes 1.9 K/CMM 1.0 - 5.5 11/29 [place] /2015 [facility] HEMATOLOGY Segs-Bands # 6.6 K/CMM 1.5 - 8.1 11/29 [facility] HEMATOLOGY Eosinophils 0.6 K/CMM 0.0 - 0.5 11/29 [facility] /2015 [facility] HEMATOLOGY Monocytes # 0.8 K/CMM 0.0 - 0.8 11/29 [facility] HEMATOLOGY Lymphocytes 19.1 % 20.0 - 11/29 [place] 40.0 2016 [facility] HEMATOLOGY Segs 67.0 % 45.0 - 11/29 [place] 75.0 2016 [facility] HEMATOLOGY Basophils 0.3 % 0.0 - 1.0 11/29 [facility] HEMATOLOGY Eosinophils 5.9 % 0.0 - 4.0 11/29 [facility] HEMATOLOGY Monocytes 7.7 % 2.0 - 12.0 11/29 /2015 [facility] CHEM PANEL eGFR 37 10/23 Result Comment: The eGFR is calculated using the CKD-EPI formula. In most young, healthy individuals the eGFR will be >90 mL/ min/1.73m2. The eGFR declines with age. An eGFR of 60-89 may be normal in [facility] mL/min/1.73 /2015 some populations, particularly the elderly, for whom the CKD-EPI formula has not been extensively validated. Use of the eGFR is not recommended in the following populations: [place] [address] Center Individuals with unstable creatinine concentrations, including [...] CO2 22 meq/L 24 - 32 11/28 [facility] CHEM PANEL Chloride Lvl 107 meq/L 95 - 109 11/28 [facility] CHEM PANEL Calcium Lvl 8.9 mg/dL 8.5 - 10.5 11/28 2015 [facility] CHEM PANEL Sodium Lvl 139 meq/L 135 - 145 11/28 [facility] CHEM PANEL BUN 22 mg/dL 7 - 22 11/28 2015 [facility] CHEM PANEL Potassium 4.3 meq/L 3.5 - 5.1 11/28 [facility] Lvl [facility] CHEM PANEL Glucose Lvl 260 mg/dL 70 - 99 11/28 [facility] CHEM PANEL Creatinine 1.31 mg/dL 0.50 - 11/28 [facility] Lvl 1.40 [facility] CHEM PANEL AGAP 14.3 meq/L 10.0 - 11/28 [place] 20.0 [facility] HEMATOLOGY Lymphocytes 1.0 K/CMM 1.0 - 5.5 11/28 [facility] # [facility] HEMATOLOGY Monocytes # 0.6 K/CMM 0.0 - 0.8 11/28 [facility] HEMATOLOGY Segs-Bands # 11.1 K/CMM 1.5 - 8.1 11/28 2015 [facility] HEMATOLOGY Basophils 0.1 % 0.0 - 1.0 11/28 [facility] HEMATOLOGY Eosinophils 0.1 % 0.0 - 4.0 11/28 [facility] HEMATOLOGY Monocytes 4.5 % 2.0 - 12.0 11/28 [facility] HEMATOLOGY Lymphocytes 7.8 % 20.0 - 11/28 [place] 40.0 [facility] HEMATOLOGY Segs 87.5 % 45.0 - 11/28 [place] 75.0 [facility] HEMATOLOGY Platelet 164 K/CMM 133 - 450 11/28 [facility] HEMATOLOGY MPV 9.1 fL 7.4 - 10.4 11/28 [facility] HEMATOLOGY RBC 3.32 M/CMM 4.20 - 11/28 [place] 5.40 /2015 [facility] HEMATOLOGY WBC 12.6 K/CMM 3.7 - 10.4 11/28 [facility] HEMATOLOGY RDW 15.0 % 11.5 - 11/28 [place] 14.5 [facility] HEMATOLOGY MCHC 34.0 g/dL 32.0 - 11/28 [place] 36.0 [facility] HEMATOLOGY MCH 30.8 pg 27.0 - 11/28 [place] 31.0 [facility] HEMATOLOGY MCV 90.8 fL 80.0 - 11/28 [place] 98.0 [facility] Hip 2/3 Hip 2/3 EXAM: XR HIP 1 VIEW AND AP PELVIS 11/27 [facility] uni views [facility] DX [facility] DATE: 11/28/2015 3:24 PM CDT Read [...] EXAM: XR PELVIS 1 VIEW 11/27 - [facility] DX /2015 [facility] DATE: 11/28/2015 3:23 PM CDT Read [...] XR RIGHT FEMUR 2 VIEWS 11/27 - [facility] series DX /2015 - [facility] This report was dictated by a Residential Plumber/Fellow. I have personally reviewed the images as [...] including the femoral shaft appears to be security ambassador ally rotated. Overall the fractures in unchanged alignment from prior radiograph. 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 Atherosclerotic calcifications are n oted in the soft tissues. Soft tissue swelling is seen around the fracture site. No additional fractures identified. IMPRESSION: Unchanged alignment of right femoral neck fracture. BLOOD BANK Antibody Negative 11/27 [facility] RESULTS [facility] (11/28/15 3:13 AM) Center BLOOD BANK ABO/Rh O NEG 11/27 [facility] RESULTS /2015 [facility] HEMATOLOGY Eosinophils 0.1 K/CMM 0.0 - 0.5 11/27 [place] # /2015 [facility] HEMATOLOGY PT 12.3 s 12.0 - 11/27 [facility] 14.7 /2015 [facility] HEMATOLOGY INR 0.90 0.85 - 11/27 [facility] 1.17 /2015 [facility] Vital Signs Vital Sign Value Date Comments Source Systolic (mm Hg) 179 12/04/2015 [facility] Diastolic (mm Hg) 83 12/04/2015 [facility] Heart Rate 79 12/04/2015 [facility] Heart Rate 70 12/04/2015 [facility] Systolic (mm Hg) 180 12/04/2015 [facility] Diastolic (mm Hg) 78 12/04/2015 [facility] Systolic (mm Hg) 191 12/04/2015 [facility] Diastolic (mm Hg) 78 12/04/2015 [facility] Temperature Oral (F) 98.3 F 12/04/2015 [facility] Respitory Rate 18 12/04/2015 [facility] Heart Rate 84 12/04/2015 [facility] Temperature Oral (F) 98.5 F 12/04/2015 [facility] Respitory Rate 18 12/04/2015 [facility] Respitory Rate 18 12/04/2015 [facility] Temperature Oral (F) 98 F 12/04/2015 [facility] BMI Calculated 35.56 11/28/2015 [facility] Weight 88.182 11/28/2015 [facility] Height 157.48 cm 11/28/2015 [facility] Encounters Location Location Encounter Encounter Reason Attending ADM DC Status Source Details Type Number For Provider Date Date Visit [facility] [id number] [place] 11/27 12/03 [facility] Rigoberto Larsen /2015 [facility] Spine Phone [phone] 08/16 08/18 [facility] Message /2017 Neuro Procedures Procedure Code Date Perfomer Comments Source Ankle joint [id number] [facility] Appendectomy [id number] [facility] Cholecystectomy [id number] [facility] Hysterectomy [id number] [facility] Tonsillectomy [id number] [facility] Ankle joint [id number] [facility] Appendectomy [id number] [facility] Cholecystectomy [id number] [facility] Hysterectomy [id number] [facility] Tonsillectomy [id number] [facility]
[2018-07-12] MEDS ORDERED: ONDANSETRON 4 MG/2 ML VIAL ONE ×2 (14:46→18:45)
[2018-07-12] MEDS ORDERED: FAMOTIDINE 20 MG/2 ML VIAL IV ONE (14:47)
[2018-07-12] MEDS ORDERED: NA CHLORIDE 0.9% 1,000 ML ONE (14:52)
[2018-07-12 14:56] LABS: Absolute Lymphocytes (CBC) 0.5 K/uL (0.7-4.9); Absolute Monocytes 0.2 K/uL (0.1-1.3); Absolute Neutrophil 13.4 K/uL (1.8-8.0); Basophils % 0.2 % (0-1.3); Eosinophils % 0.1 % (0-4.4); Hematocrit 42.6 % (36.0-45.0); Lymphocytes % 3.5 % (15.3-44.8); MPV 10.1 fL (7.6-11.3); Monocytes % 1.5 % (3.3-12.3); Protime INR 1.27; RBC Red Blood Cell Count 4.67 M/uL (3.86-4.86)
[2018-07-12 15:13] LABS: ALT/SGPT 28 U/L (12-78); AST/SGOT 26 U/L (15-37); Albumin 3.7 g/dL (3.4-5.0); Alkaline Phosphatase 86 U/L (45-117); BUN Blood Urea Nitrogen 47 mg/dL (7-18); Bicarbonate 24 mmol/L (21-32); Bilirubin Direct 0.2 mg/dL (0-0.2); Bilirubin Total 0.7 mg/dL (0.2-1.0); Glucose Level 399 mg/dL (74-106); Lipase 75 U/L (73-393); Magnesium 2.4 mg/dL (1.8-2.4); NT PRO-BNP 1163 pg/mL (<450); Potassium 3.9 mmol/L (3.5-5.1); Protein, Total 7.5 g/dL (6.4-8.2); Sodium Level 140 mmol/L (136-145); Troponin (Emerg Dept Use Only) < 0.02 ng/mL (0.0-0.045)
[2018-07-12 15:35] LABS: Blood Morphology Comment NOT SEEN (NOT SEEN); Platelet Estimate ADEQ; Urine White Blood Cell Casts OK
--- NOTE | 2018-07-12 15:49 | RAD REPORT ---
EXAM DESCRIPTION: RAD - Chest Single View - 07/12/2018 3:42 pm CLINICAL HISTORY: vomiting Chest pain. COMPARISON: Abdomen 1 View (KUB) dated 03/25/2018; Chest Single View dated 03/24/2018; Chest Single Vi ew dated 03/23/2018; Chest Single View dated 08/21/2017 FINDINGS: Portable technique limits examination quality. Small right pleural effusion is noted. The lungs are grossly clear. The heart is mildly enlarged in s ize.Spinal hardware is present. IMPRESSION: Small right pleural effusion.
[2018-07-12 16:00] LABS: Urine Blood TRACE (NEG); Urine Glucose 2+ (NEG); Urine Protein 2+ (NEG); Urine Specific Gravity 1.015 (1.005-1.030); Urine pH 5.5 (5.0-7.0)
[2018-07-12 16:50] LABS: Urine Bacteria >50 /HPF (<20); Urine Culture Reflex Order REFLEXED; Urine RBC NONE SEEN /HPF (NONE SEEN)
--- NOTE | 2018-07-12 17:18 | RAD REPORT ---
EXAM DESCRIPTION: CT - Abdomen Pelvis Wo Contrast - 07/12/2018 5:00 pm CLINICAL HISTORY: Abdominal pain. Abd pain;Nausea / vomiting COMPARISON: Stone Protocol dated 03/23/2018 TECHNIQUE: CT imaging of the abdomen and pelvis was performed without contrast. Solid organ and vasc ular assessment is limited due to lack of IV contrast. All CT scans are performed using dose optimization technique as appropriate and may include automated exposure control or mA/KV adjustment according to patient size. FINDINGS: Small right pleural effusion is noted. The liver, spleen, and adrenal gland are within normal limits for a limited non-contrast examination. Pancreatic atrophy is present. Atrophy of the left kidney is seen. Tiny punctate calcifications in t he inferior pole right kidney seen probably tiny stones. Cholecystectomy clips. A few small bowel loops are thickened within a large panniculus. Enteritis is favored. Significant si gmoid diverticulosis is present without diverticulitis. The appendix is not identified as a discrete structure, however, no secondary findings of appendicitis are identified. The osseous structures are within normal limits. IMPRESSION: Prominent enteritis is suspected in the mid to lower abdomen. Sigmoid diverticulosis is noted without diverticulitis. A limited non-contrast examination was performed as detailed.
--- NOTE | 2018-07-12 17:57 | ER ---
Nurse's Notes [facility] Name: Wendy Marte Age: 87 yrs Sex: Female : 1930 Arrival Date: 07/12/2018 Time: 13:59 Bed 6 Private MD: Diagnosis: Nausea and vomiting;Diarrhea, unspecified;Urinary tract infection, site not specified Presentation: 07/12 14:01 Presenting complaint: EMS states: Diarrhea for 3 days, has had some vomiting that sg started this morning but has resolved, states lower abd pain bilateral lower quadrants that began today, pt does have hx of being confused and is currently aa\T\ox1 to self. Transition of care: patient was received from another setting of care (long-term care facility), [facility] assisted living. Onset of symptoms was July 12, 2018. Risk Assessment: Do you want to hurt yourself or someone else? Patient reports no desire to harm self or others. Initial Sepsis Screen: Does the patient meet any 2 criteria? HR > 90 bpm. Does the patient have a suspected source of infection? Yes: Acute abdominal pain. Care prior to arrival: Glucose check: 325. 14:01 Method Of Arrival: EMS: [facility] sg 14:01 Acuity: MARY 3 sg Historical: - Allergies: 14:09 amlodipine; sg 14:09 Lisinopril; sg - Home Meds: 14:21 alendronate 70 mg Oral tab once wkly [Active]; amlodipine 5 mg tab 1 tab once daily sv [Active]; atorvastatin 20 mg Oral tab daily [Active]; Calcium-Vit D3 1 tab BID [Active]; clonidine patch 0.1 mg/24 hr weekly [Active]; docusate sodium 100 mg Oral cap 1 cap once daily [Active]; Eliquis 2.5 mg Oral tab 2 times per day [Active]; furosemide 40 mg Oral tab once daily [Active]; glimepiride 2 mg Oral tab twice a day [Active]; Levemir FlexTouch 100 unit/mL (3 mL) subcutaneous inpn 40 unit daily [Active]; lorazepam 1 mg Oral tab 1 tab nightly [Active]; melatonin 5 mg Oral cap nightly [Active]; methocarbamol 500 mg Oral tab 1 tabs nightly [Active]; multivitamin oral tab daily [Active]; olmesartan medoxomil 40 mg daily [Active]; polyethylene glycol 3350 17 gram oral pwpk 1 packet once daily [Active]; ranitidine HCl 150 mg oral cap 2 times per day [Active]; - PMHx: 14:09 Anemia; Anxiety; Diabetes - NIDDM; GERD; High Cholesterol; Hypertension; Osteoporosis; sg - Immunization history:: Adult Immunizations unknown. - Social history:: Smoking status: Patient/guardian denies using tobacco. - Ebola Screening: : No symptoms or risks identified at this time. Screenin:30 Abuse screen: Denies threats or abuse. Denies injuries from another. Nutritional sg screening: No deficits noted. Tuberculosis screening: No symptoms or risk factors identified. Fall Risk None identified. Assessment: 14:25 General: Appears in no apparent distress. well groomed, well developed, well nourished, sg Behavior is calm, cooperative, appropriate for age. Pain: Complains of pain in right lower quadrant and left lower quadrant Quality of pain is described as tender. Neuro: Level of Consciousness is awake, alert, obeys commands, Oriented to person, place, time, [employer] Log[employer] Analyst are equal bilaterally Speech is normal, Facial symmetry appears normal. Cardiovascular: Patient's skin is warm and dry. Respiratory: Airway is patent Respiratory effort is even, unlabored, Respiratory pattern is regular, symmetrical. GI: Abdomen is round non-distended, obese, Bowel sounds present X 4 quads. Reports lower abdominal pain, nausea, vomiting. GI: Reports. : No signs and/or symptoms were reported regarding the genitourinary system. EENT: No signs and/or symptoms were reported regarding the EENT system. Derm: Skin is fragile, is thin, Skin is dry, Skin is pale, Skin temperature is warm. Musculoskeletal: No signs and/or symptoms reported regarding the musculoskeletal system. 19:42 General: Appears in no apparent distress. comfortable, Behavior is calm, cooperative, ak1 appropriate for age. Pain: Complains of pain in abdomen. Neuro: Level of Consciousness is awake, alert, obeys commands, Oriented to person, place, time, situation, [employer] Logistics Analyst are equal bilaterally Moves all extremities. Speech is normal, Facial symmetry appears normal. Cardiovascular: Patient's skin is warm and dry. Respiratory: Airway is patent Respiratory effort is even, unlabored, Respiratory pattern is regular, symmetrical. GI: Abdomen is round non-distended, obese, Bowel sounds present X 4 quads. Reports lower abdominal pain, diarrhea, nausea. : No signs and/or symptoms were reported regarding the genitourinary system. EENT: No signs and/or symptoms were reported regarding the EENT system. Derm: Skin is fragile, is thin, Skin is dry, Skin is pale, Skin temperature is warm. Musculoskeletal: No signs and/or symptoms reported regarding the musculoskeletal system. Vital Signs: 14:04 BP 163 / 92; Pulse 101; Resp 16; Temp 97.6; Pulse Ox 98% on R/A; Pain 4/10; sg 19:49 BP 147 / 92; Pulse 106; Resp 16; Temp 97.5; Pulse Ox 99% on R/A; ak1 20:03 Weight 99.79 kg (R); Height 5 ft. 5 in. (165.10 cm) (R); ak1 20:03 Body Mass Index 36.61 (99.79 kg, 165.10 cm) ak1 ED Course: 13:59 Patient arrived in ED. ds1 14:00 Sky Andrade, FAWAD is Primary Nurse. sg 14:04 Triage completed. sg 14:05 Arm band placed on. sg 14:20 Patrick Flowers PA is PHCP. cp 14:20 Patrick Amin MD is Attending Physician. cp 14:20 Initial lab(s) drawn, by me, sent to lab. Inserted saline lock: 22 gauge in right sv forearm, using aseptic technique. ,using aseptic technique. diffusic Blood collected. Flushed right forearm with 5 ml normal saline. 14:30 Influenza Screen (a \T\ B) Sent. sv 14:40 Note: RN'S IN ED ROOM WITH PATIENT WHEN CXR WAS ATTEMPTED. sw 15:38 X-ray completed. Portable x-ray completed in exam room. Patient tolerated procedure mh1 well. 15:43 XRAY Chest (1 view) In Process Unspecified. EDMS 15:49 Urine collected: straight cath specimen, cloudy, Amount Returned: 30mL. ms 15:49 Straight cath inserted, using sterile technique, 16 Fr. Specimen obtained. Returned ms cloudy urine. Patient tolerated well. 17:01 Abdomen In Process Unspecified. EDMS 17:55 Bernabe Addison MD is Hospitalizing Provider. cp 19:26 Patient has correct armband on for positive identification. Bed in low position. Call ak1 light in reach. Side rails up X2. Adult w/ patient. Pulse ox on. NIBP on. 19:38 No provider procedures requiring assistance completed. Patient admitted, IV remains in ak1 place. 19:44 Repositioned patient. Cleaned of incontinence. ak1 Administered Medications: 14:45 Drug: Zofran 4 mg Route: IVP; Site: right forearm; sv 19:38 Follow up: Response: No adverse reaction ak1 14:45 Drug: Pepcid 20 mg Route: IVP; Site: right forearm; sv 19:38 Follow up: Response: No adverse reaction ak1 14:45 Drug: NS 0.9% 250 ml Route: IV; Rate: bolus; Site: right forearm; sv 19:27 Follow up: IV Status: Completed infusion ak1 16:05 Drug: NS 0.9% 1000 ml Route: IV; Rate: 75 ml/hr; Site: right antecubital; mg2 19:37 Follow up: IV Status: Infusion continued upon admission ak1 20:03 Follow up: IV Status: Completed infusion; IV Intake: 750ml ak1 18:10 Drug: Insulin Regular Human 10 units {Co-Signature: hb (Richa Cohn RN).} Route: sg IVP; Site: right antecubital; 19:26 Follow up: Response: No adverse reaction ak1 18:25 Drug: metroNIDAZOLE 500 mg Volume: 100 ml; Route: IVPB; Infused Over: 30 mins; Site: mg2 right forearm; 19:27 Follow up: IV Status: Completed infusion ak1 18:30 Drug: Cipro 200 mg Volume: 100 ml; Route: IVPB; Infused Over: 60 mins; Site: right sg antecubital; 19:48 Follow up: IV Status: Completed infusion ak1 18:30 Drug: Zofran 4 mg Route: IVP; Site: right antecubital; sg 19:27 Follow up: Response: No adverse reaction ak1 19:49 Drug: NS 0.9% 250 ml Route: IV; Rate: bolus; Site: right wrist; ak1 20:02 Follow up: IV Status: Completed infusion; IV Intake: 250ml ak1 Point of Care Testing: Blood Glucose: 18:26 Blood Glucose: 411 mg/dL; mg2 19:53 Blood Glucose: 390 mg/dL; oe Ranges: Intake: 20:02 IV: 250ml; Total: 250ml. ak1 20:03 IV: 750ml; Total: 1000ml. ak1 Outcome: 17:55 Decision to Hospitalize by Provider. cp 19:38 Condition: stable ak1 19:38 Instructed on the need for admit. 20:14 Admitted to Tele accompanied by tech, family with patient, via stretcher, room 430, ak1 with chart, Report called to Norma alston for room 430 20:19 Patient left the ED. ak1 Signatures: Dispatcher [employer] EDMichelle Cage, RN RN Sky Andrade RN RN Yola [facility] Marie [facility] Kiara Lam ms, Amber, RN RN ak1 Angela Liao Corey, PA PA cp Shorty Lira Michele, FAWAD RN [facility] Richa Cohn RN hb
--- NOTE | 2018-07-12 17:57 | EDPHYS ---
Physician Documentation [facility] Name: Wendy Marte Age: 87 yrs Sex: Female : 1930 Arrival Date: 07/12/2018 Time: 13:59 Bed 6 Private MD: ED Physician Patrick Amin HPI: 07/12 14:30 This 87 yrs old Female presents to ER via EMS with complaints of Vomiting. cp 14:30 The patient presents to the emergency department with vomiting, that is intermittent, cp started this morning, diarrhea, that is intermittent, times 3 days, abdominal pain, of the right lower quadrant and left lower quadrant. 14:30 Possible causes: unknown. Associated signs and symptoms: Pertinent positives: abdominal cp pain, diarrhea, nausea, vomiting, Pertinent negatives: constipation, dysuria, fever, GI bleeding. Severity of symptoms: in the emergency department the symptoms are unchanged. 14:30 Patient is a resident of [facility] and reports symptoms started 3 days ago. cp Historical: - Allergies: 14:09 amlodipine; sg 14:09 Lisinopril; sg - Home Meds: 14:21 alendronate 70 mg Oral tab once wkly [Active]; amlodipine 5 mg tab 1 tab once daily sv [Active]; atorvastatin 20 mg Oral tab daily [Active]; Calcium-Vit D3 1 tab BID [Active]; clonidine patch 0.1 mg/24 hr weekly [Active]; docusate sodium 100 mg Oral cap 1 cap once daily [Active]; Eliquis 2.5 mg Oral tab 2 times per day [Active]; furosemide 40 mg Oral tab once daily [Active]; glimepiride 2 mg Oral tab twice a day [Active]; Levemir FlexTouch 100 unit/mL (3 mL) subcutaneous inpn 40 unit daily [Active]; lorazepam 1 mg Oral tab 1 tab nightly [Active]; melatonin 5 mg Oral cap nightly [Active]; methocarbamol 500 mg Oral tab 1 tabs nightly [Active]; multivitamin oral tab daily [Active]; olmesartan medoxomil 40 mg daily [Active]; polyethylene glycol 3350 17 gram oral pwpk 1 packet once daily [Active]; ranitidine HCl 150 mg oral cap 2 times per day [Active]; - PMHx: 14:09 Anemia; Anxiety; Diabetes - NIDDM; GERD; High Cholesterol; Hypertension; Osteoporosis; sg - Immunization history:: Adult Immunizations unknown. - Social history:: Smoking status: Patient/guardian denies using tobacco. - Ebola Screening: : No symptoms or risks identified at this time. ROS: 14:35 Constitutional: Negative for body aches, chills, fever. cp 14:35 Eyes: Negative for injury, pain, redness, and discharge. cp 14:35 ENT: Negative for drainage from ear(s), ear pain, sore throat, difficulty swallowing, difficulty handling secretions. 14:35 Cardiovascular: Negative for chest pain, edema, palpitations. 14:35 Respiratory: Negative for cough, shortness of breath, wheezing. 14:35 Abdomen/GI: Positive for abdominal pain, nausea and vomiting, diarrhea, Negative for constipation, black/tarry stool, rectal bleeding. 14:35 : Negative for urinary symptoms. 14:35 Skin: Negative for rash. 14:35 Neuro: Negative for altered mental status, headache, weakness. 14:35 All other systems are negative. Exam: 14:40 Constitutional: The patient appears in no acute distress, alert, awake, cp non-diaphoretic, non-toxic, well developed, well nourished, uncomfortable. 14:40 Head/Face: Normocephalic, atraumatic. cp 14:40 Eyes: Periorbital structures: appear normal, Pupils: equal, round, and reactive to light and accomodation, Conjunctiva: normal, no exudate, no injection, Sclera: no appreciated abnormality, Lids and lashes: appear normal, bilaterally. 14:40 ENT: External ear(s): are unremarkable, Ear canal(s): are normal, clear, TM's: bulging, is not appreciated, bilaterally, erythema, is not appreciated, bilaterally, Nose: is normal, Mouth: Lips: moist, Oral mucosa: moist, Posterior pharynx: is normal, airway is patent, no erythema, no exudate. 14:40 Neck: ROM/movement: is normal, is supple, without pain, no range of motions limitations, no meningismus, no nuchal rigidity. 14:40 Chest/axilla: Inspection: normal, Palpation: is normal, no crepitus, no tenderness. 14:40 Cardiovascular: Rate: tachycardic, Rhythm: regular, Edema: JVD: is not appreciated. 14:40 Respiratory: the patient does not display signs of respiratory distress, Respirations: normal, no use of accessory muscles, no retractions, no splinting, no tachypnea, labored breathing, is not present, Breath sounds: are clear throughout, no decreased breath sounds, no stridor. 14:40 Abdomen/GI: Inspection: distension, that is mild, Bowel sounds: active, all quadrants, Palpation: soft, in all quadrants, mild abdominal tenderness, in the abdomen diffusely, rebound tenderness, is not appreciated, voluntary guarding, is elicited in all quadrants. 14:40 Back: CVA tenderness, is absent. 14:40 Skin: cellulitis, is not appreciated, no rash present. 14:40 Neuro: Orientation: to person, place \T\ time. Mentation: is normal, Motor: moves all fours, strength is normal. 14:50 ECG was reviewed by the Attending Physician. Vital Signs: 14:04 BP 163 / 92; Pulse 101; Resp 16; Temp 97.6; Pulse Ox 98% on R/A; Pain 4/10; sg 19:49 BP 147 / 92; Pulse 106; Resp 16; Temp 97.5; Pulse Ox 99% on R/A; ak1 20:03 Weight 99.79 kg (R); Height 5 ft. 5 in. (165.10 cm) (R); ak1 20:03 Body Mass Index 36.61 (99.79 kg, 165.10 cm) ak1 MDM: 14:20 Patient medically screened. 17:33 Data reviewed: vital signs, nurses notes, lab test result(s), EKG, radiologic studies. 17:33 Counseling: I had a detailed discussion with the patient and/or guardian regarding: the cp historical points, exam findings, and any diagnostic results supporting the discharge/admit diagnosis, lab results, radiology results, the need for further work-up and treatment in the hospital. Response to treatment: the patient's symptoms have mildly improved after treatment. 17:50 Physician consultation: Bernabe Addison MD was called at 17:45, was contacted at 17:45, regarding admission, to the telemetry unit. patient's condition, would like medications started, Cipro and Metronidazole antibiotics. 07/12 14:27 Order name: Basic Metabolic Panel; Complete Time: 16:13 cp 07/12 16:13 Interpretation: Normal except: GLUC 399; BUN 47; CRE 2.24; GFR 21. cp 07/12 14:27 Order name: CBC with Diff; Complete Time: 16:13 cp 07/12 16:15 Interpretation: Normal except: WBC 14.1; ELDON% 94.7; LYM% 3.5; MN% 1.5; NEUT A 13.4; cp LYMA 0.5. 07/12 14:27 Order name: LFT's; Complete Time: 16:13 cp 07/12 14:27 Order name: Magnesium; Complete Time: 16:13 cp 07/12 14:27 Order name: NT PRO-BNP; Complete Time: 16:13 cp 07/12 17:33 Interpretation: Abnormal: NT PRO-BNP 1163. cp 07/12 14:27 Order name: PT-INR; Complete Time: 16:13 cp 07/12 14:27 Order name: Troponin (emerg Dept Use Only); Complete Time: 16:13 cp 07/12 14:27 Order name: Lipase; Complete Time: 16:13 cp 07/12 14:27 Order name: Influenza Screen (a \T\ B); Complete Time: 16:13 cp 07/12 14:30 Order name: Urine Microscopic Only; Complete Time: 16:58 cp 07/12 16:58 Interpretation: Normal except: UWBC 5-10; UBACT >50. cp 07/12 14:50 Order name: Glucose, Ancillary Testing; Complete Time: 16:13 EDMS 07/12 15:12 Order name: CBC Smear Scan; Complete Time: 16:13 EDMS 07/12 15:53 Order name: Urine Dipstick--Ancillary (enter results); Complete Time: 16:13 ag 07/12 16:58 Interpretation: Normal except: UGLUC 2+; UBLD TRACE; UPROT 2+; U NIT POSITIVE; UESTR cp TRACE. 07/12 16:37 Order name: Stool Culture cp 07/12 14:27 Order name: XRAY Chest (1 view); Complete Time: 16:13 cp 07/12 15:33 Order name: Abdomen ; Complete Time: 17:30 EDMS 07/12 16:37 Order name: CDIFF cp 07/12 16:53 Order name: Urine Culture EDMS 07/12 20:01 Order name: Glucose, Ancillary Testing EDMS 07/12 20:01 Order name: Glucose, Ancillary Testing EDMS 07/12 14:27 Order name: EKG; Complete Time: 14:30 cp 07/12 14:27 Order name: Cardiac monitoring; Complete Time: 15:02 cp 07/12 14:27 Order name: EKG - Nurse/Tech; Complete Time: 14:46 cp 07/12 14:27 Order name: IV Saline Lock; Complete Time: 14:46 cp 07/12 14:27 Order name: Labs collected and sent; Complete Time: 14:46 cp 07/12 14:27 Order name: O2 Per Protocol; Complete Time: 14:46 cp 07/12 14:27 Order name: O2 Sat Monitoring; Complete Time: 14:46 cp 07/12 14:28 Order name: Accucheck Blood Glucose; Complete Time: 14:46 cp 07/12 14:30 Order name: Cath; Complete Time: 15:50 cp 07/12 14:30 Order name: Urine Dipstick-Ancillary (obtain specimen); Complete Time: 15:50 cp 07/12 17:34 Order name: Accucheck Blood Glucose; Complete Time: 18:18 cp 07/12 18:28 Order name: Diet - Advance as Tolerated EDMS EC:50 Rate is 107 beats/min. Rhythm is regular. FL interval is prolonged at 216 msec. QRS cp interval is prolonged at 106 msec. QT interval is normal. Interpreted by me. Reviewed by me. Administered Medications: 14:45 Drug: Zofran 4 mg Route: IVP; Site: right forearm; sv 19:38 Follow up: Response: No adverse reaction ak1 14:45 Drug: Pepcid 20 mg Route: IVP; Site: right forearm; sv 19:38 Follow up: Response: No adverse reaction ak1 14:45 Drug: NS 0.9% 250 ml Route: IV; Rate: bolus; Site: right forearm; sv 19:27 Follow up: IV Status: Completed infusion ak1 16:05 Drug: NS 0.9% 1000 ml Route: IV; Rate: 75 ml/hr; Site: right antecubital; mg2 19:37 Follow up: IV Status: Infusion continued upon admission ak1 20:03 Follow up: IV Status: Completed infusion; IV Intake: 750ml ak1 18:10 Drug: Insulin Regular Human 10 units {Co-Signature: hb (Richa Cohn RN).} Route: sg IVP; Site: right antecubital; 19:26 Follow up: Response: No adverse reaction ak1 18:25 Drug: metroNIDAZOLE 500 mg Volume: 100 ml; Route: IVPB; Infused Over: 30 mins; Site: mg2 right forearm; 19:27 Follow up: IV Status: Completed infusion ak1 18:30 Drug: Cipro 200 mg Volume: 100 ml; Route: IVPB; Infused Over: 60 mins; Site: right sg antecubital; 19:48 Follow up: IV Status: Completed infusion ak1 18:30 Drug: Zofran 4 mg Route: IVP; Site: right antecubital; sg 19:27 Follow up: Response: No adverse reaction ak1 19:49 Drug: NS 0.9% 250 ml Route: IV; Rate: bolus; Site: right wrist; ak1 20:02 Follow up: IV Status: Completed infusion; IV Intake: 250ml ak1 Point of Care Testing: Blood Glucose: 18:26 Blood Glucose: 411 mg/dL; mg2 19:53 Blood Glucose: 390 mg/dL; oe Ranges: Critical Glucose Levels:Adult <50 mg/dl or >400 mg/dl <40 mg/dl or >180 mg/dl Disposition: 07/13 07:15 Co-signature as Attending Physician, Patrick Amin MD I agree with the assessment and jing plan of care. Disposition: 07/12/18 17:55 Hospitalization ordered by Bernabe Addison for Inpatient Admission. Preliminary diagnosis are Nausea and vomiting, Diarrhea, unspecified, Urinary tract infection, site not specified. - Bed requested for Telemetry/MedSurg (Inpatient). - Status is Inpatient Admission. ak1 - Condition is Stable. - Problem is new. - Symptoms have improved. UTI on Admission? Yes Signatures: Dispatcher [employer] Michelle Ruiz RN Jessika Arvizu RN Sky Rmey RN RN sg Anderson, Corey, MD MD cha Krenek, Amber RN RN ak1 Patrick Flowers PA PA cp Gardose, Michele, RN RN mg2 Richa goodwin Corrections: (The following items were deleted from the chart) 07/12 15:33 14:33 Abdomen Pelvis W Con+CT.RAD.BRZ ordered. EDMS EDMS 16:15 16:13 Normal except: WBC 14.1; ELDON% 94.7; LYM% 3.5; MN% 1.5; NEUT A 13.4. cp cp 18:30 17:55 Hospitalization Ordered by Bernabe Addison MD for Inpatient Admission. Preliminary dw diagnosis is Nausea and vomiting; Diarrhea, unspecified; Urinary tract infection, site not specified. Bed requested for Telemetry/MedSurg (Inpatient). Status is Inpatient Admission. Condition is Stable. Problem is new. Symptoms have improved. UTI on Admission? Yes. 18:30 18:30 07/12/2018 17:55 Hospitalization Ordered by Bernabe Addison MD for Inpatient dw Admission. Preliminary diagnosis is Nausea and vomiting; Diarrhea, unspecified; Urinary tract infection, site not specified. Bed requested for Telemetry/MedSurg (Inpatient). Status is Inpatient Admission. Condition is Stable. Problem is new. Symptoms have improved. UTI on Admission? Yes. 19:53 18:30 07/12/2018 17:55 Hospitalization Ordered by Bernabe Addison MD for Inpatient dw Admission. Preliminary diagnosis is Nausea and vomiting; Diarrhea, unspecified; Urinary tract infection, site not specified. Bed requested for Telemetry/MedSurg (Inpatient). Status is Inpatient Admission. Condition is Stable. Problem is new. Symptoms have improved. UTI on Admission? Yes. 19:57 19:53 07/12/2018 17:55 Hospitalization Ordered by Bernabe Addison MD for Inpatient dw Admission. Preliminary diagnosis is Nausea and vomiting; Diarrhea, unspecified; Urinary tract infection, site not specified. Bed requested for Telemetry/MedSurg (Inpatient). Status is Inpatient Admission. Condition is Stable. Problem is new. Symptoms have improved. UTI on Admission? Yes. 20:19 19:57 07/12/2018 17:55 Hospitalization Ordered by Bernabe Addison MD for Inpatient ak1 Admission. Preliminary diagnosis is Nausea and vomiting; Diarrhea, unspecified; Urinary tract infection, site not specified. Bed requested for Telemetry/MedSurg (Inpatient). Status is Inpatient Admission. Condition is Stable. Problem is new. Symptoms have improved. UTI on Admission? Yes.
[2018-07-12] MEDS ORDERED: ONDANSETRON 4 MG/2 ML VIAL IV PRN (18:03)
[2018-07-12] MEDS ORDERED: ACETAMINOPHEN 500 MG TAB PO PRN (18:03)
[2018-07-12] MEDS ORDERED: METRONIDAZOLE 500mg IVPB 500 MG/100 ML BAG IV ONE (18:18)
[2018-07-12] MEDS ORDERED: CIPROFLOXACIN 400mg IV 400 MG/200 ML BAG IV ONE (18:18)
[2018-07-12] MEDS ORDERED: GLUCAGON 1 MG/VIAL IM PRN (18:19)
[2018-07-12] MEDS ORDERED: D50W 25 GM/50 ML SYRINGE IV PRN (18:19)
[2018-07-12] MEDS ORDERED: INSULIN -REGULAR HUMAN 50 UNIT/0.5 ML ML ONE (18:44)
[2018-07-12 20:40] VITALS: BMI 36.3
[2018-07-13] MEDS: APIXABAN 2.5 MG TABLET PO SCH ×3 (01:29→20:02)
[2018-07-13] MEDS: NA CHLORIDE 0.9% 1,000 ML IV SCH ×2 (01:29→15:00)
[2018-07-13] MEDS: METRONIDAZOLE 500mg IVPB 500 MG/100 ML BAG IV SCH ×3 (01:29→16:31)
[2018-07-13] MEDS: INSULIN -REGULAR HUMAN 50 UNIT/0.5 ML ML SQ SCH ×5 (02:12→19:59)
--- NOTE | 2018-07-13 03:41 | HP ---
Date of Admission: 07/12/2018 Chief Complaint: Abdominal pain, nausea, vomiting, diarrhea. History Of Present Illness: Ms. Marte is a very pleasant 87-year-old female patient who lives at [facility], came into emergency room today with 3 days history of nausea, vomit ing, diarrhea. Denies any bleeding. No fever or chills. Denies any fall or injury. She came into emergency room and after she was evaluated she was admitted to the hospital and I saw her in the [facility] room, her son was present with her at bedside. The patient reported that there were few other patients at that particular assisted care facility who were ill with similar type of medical problems . Allergies: TO LISINOPRIL. Medications: List reviewed. Review of Systems: GI: As mentioned above. All other systems are reviewed and negative. Social History: Negative for smoking and alcohol use. Family History: Not pertinent. Past Medical History: Significant for hypertension, type 2 diabetes mellitus, constipation, osteopor osis, mixed hyperlipidemia, anemia due to chronic kidney disease, osteoarthritis at multiple sites, h istory of paroxysmal atrial fibrillation and prior history of stroke as a result of that, and chronic kidney disease stage 3. Past Surgical History: Significant for right hip fracture in 2016, hysterectomy, cholecystectomy, re moval of infected sebaceous cyst from left chest wall. Physical Examination: Vital Signs: When she first came into emergency room, blood pressure 163/92, pulse 101, respiratory rate 16, temperature 97.6, oxygen saturation 98%. General: Awake, alert, oriented, not in distress. HEENT: Head atraumatic, normocephalic. Conjunctivae nonerythematous. Sclerae white. Mouth, no thr ush or edema noted. Ears/Nose, no mass, lesion, discharge noted. Neck: Supple. No JVD, lymph nodes, bruit, thyromegaly noted. Lungs: Bilateral good equal air entry. Clear to auscultation. No rhonchi. No rales. Heart: Normal heart sounds, no murmur or gallop. Abdomen: Soft. Bowel sounds normal. No guarding or rigidity. Distention minimum. Vague tendernes s in mid abdomen. No rebound tenderness. Bowel sounds normoactive. Extremities: No leg edema. No calf tenderness. Skin: No rash, ulcer, cellulitis. Lymphatics: No lymph node enlargement in neck, supraclavicular, infraclavicular region. Neuro: No focal neurological deficit. Chest: Unremarkable. External Genitalia: Deferred. Rectal: Deferred. Laboratory Data: White count 14.1, hemoglobin 13.7, platelets 236. Sodium 140, potassium 3.9, chlor brayan 105, bicarb 24, BUN 47, creatinine 2.24, glucose 399. Liver function tests unremarkable. Tropon in less than 0.02. Lipase 75. Urinalysis; positive for nitrite, esterase trace, wbc 5-10, bacteria more than 50. CAT scan of abdomen and pelvis shows prominent enteritis and diverticulosis. Chest x- ray, small right pleural effusion. Impression: 1.Acute gastroenteritis. 2.Chronic kidney disease, stage 4. 3.Pleural effusion, right side. 4.Diverticulosis. 5.Type 2 diabetes mellitus, uncontrolled. 6.Hypertension. 7.Mixed hyperlipidemia. 8.Urinary tract infection. 9.Osteoarthritis, multiple sites. 10.Osteoporosis. 11.Anemia due to chronic kidney disease. 12.Volume depletion. Plan: Admit patient to hospital for further evaluation and management of this problem. The patient is appropriate for inpatient and is expected to spend 2 midnights in hospital. We will continue curr ent IV fluid and IV antibiotics. Home medications will be continued. Diabetes will be managed with insulin per order. We will go ahead and repeat blood work tomorrow. Details of plan of treatment di scussed with the patient and her son who was at bedside. PITA/MODL Voice ID: [id number]
[2018-07-13 06:14] LABS: Absolute Lymphocytes (CBC) 0.7 K/uL (0.7-4.9); Absolute Monocytes 0.7 K/uL (0.1-1.3); Basophils % 0.2 % (0-1.3); Hematocrit 38.3 % (36.0-45.0); MPV 10.4 fL (7.6-11.3); RBC Red Blood Cell Count 4.24 M/uL (3.86-4.86)
[2018-07-13 06:58] LABS: Bilirubin Direct 0.2 mg/dL (0-0.2); Bilirubin Total 0.6 mg/dL (0.2-1.0); Potassium 3.6 mmol/L (3.5-5.1); Protein, Total 6.5 g/dL (6.4-8.2)
--- NOTE | 2018-07-13 07:19 | EKG ---
Test Date: 2018-07-12 Test Time: 14:42:25 Expedition Supervisor: JENNIFER MEASUREMENT RESULTS: Intervals: Rate: 107 UT: 216 QRSD: 106 QT: 378 QTc: 504 [place]: P: 63 UT: 216 QRS: 62 T: 217 INTERPRETIVE STATEMENTS: Sinus tachycardia with 1st degree AV block Anteroseptal infarct, age undetermined ST & T wave abnormality, consider inferolateral ischemia Abnormal ECG Compared to ECG 03/23/2018 09:35:32 ST (T wave) deviation now present Possible ischemia now present Myocardial infarct finding still present Electronically Signed On 07-13-18 07:15:56 CDT by Randall Nunez
[2018-07-13] MEDS: Ciprofloxacin 200mg IV 200 MG/100 ML IV.SOLN. IV SCH ×2 (07:59→20:00)
[2018-07-13] MEDS ORDERED: MELATONIN 5 MG TABLET PO PRN (08:00)
[2018-07-13] MEDS: CALCIUM CARBONATE PO SCH ×2 (08:00→16:43)
[2018-07-13] MEDS: VITAMIN D3 PO SCH ×2 (08:00→16:43)
[2018-07-13] MEDS: VALSARTAN 80 MG TAB PO SCH (08:12)
[2018-07-13] MEDS: INSULIN GLARGINE 100 UNITS/ML SQ SCH (08:13)
[2018-07-13] MEDS: MULTIVITAMIN PO SCH (08:13)
[2018-07-13] MEDS: FOLIC ACID PO SCH (08:13)
[2018-07-13] MEDS: IRON PO SCH (08:13)
[2018-07-13] MEDS: GLIMEPIRIDE 2 MG TABLET PO SCH ×2 (08:13→16:31)
[2018-07-13] MEDS: AMLODIPINE 5 MG TAB PO SCH (08:13)
[2018-07-13] MEDS: RANITIDINE 150 MG TABLET PO SCH ×2 (08:14→19:59)
[2018-07-13] MEDS ORDERED: VALSARTAN 160 MG TAB PO SCH (09:00)
[2018-07-13] MEDS ORDERED: CLONIDINE 0.1 MG/PATCH TD SCH (12:00)
--- NOTE | 2018-07-13 16:39 | PN ---
Date of Progress Note: 07/13/2018 Subjective: The patient was seen this morning for followup. No new complaints or problems reported by the patient. Denies any vomiting or diarrhea overnight. Objective: Vital Signs: Reviewed. HEENT: Examination unremarkable. Lungs: Clear to auscultation. Heart: Sounds normal. Abdomen: Soft. Bowel sounds normal. No guarding, rigidity, tenderness, or distention. Extremities: No leg edema. Laboratory Data: White count 12.5, hemoglobin 13.2, platelets 213. Sodium 141, potassium 3.6, chlor brayan 109, bicarb 22, BUN 46, creatinine 2.20, glucose 404. Liver function tests unremarkable. Lipase 53. Impression: 1.Acute gastroenteritis. 2.Hypertension. 3.Type 2 diabetes mellitus. 4.Volume depletion. 5.Anemia due to chronic kidney disease. 6.Urinary tract infection. Plan: We will go ahead and continue current medication, antibiotic, IV fluid. Urine culture result is pending and home medications will be continued. We will continue patient's Eliquis and I will see her tomorrow for followup. Possible discharge this weekend depending on the patient's condition and final culture results. PITA/MODL Voice ID: [id number] Report ID: [id number]
[2018-07-13] MEDS ORDERED: LORAZEPAM 1 MG TABLET PO SCH (21:00)
[2018-07-13] MEDS ORDERED: ATORVASTATIN 20 MG TAB PO SCH (21:00)
[2018-07-13] MEDS ORDERED: METHOCARBAMOL 500 MG TAB PO SCH (21:00)
[2018-07-14] MEDS: NA CHLORIDE 0.9% 1,000 ML IV SCH ×2 (00:30→11:00)
[2018-07-14] MEDS: METRONIDAZOLE 500mg IVPB 500 MG/100 ML BAG IV SCH ×2 (00:30→08:30)
[2018-07-14] MEDS: CALCIUM CARBONATE PO SCH (08:00)
[2018-07-14] MEDS: VITAMIN D3 PO SCH (08:00)
[2018-07-14] MEDS: INSULIN -REGULAR HUMAN 50 UNIT/0.5 ML ML SQ SCH ×2 (08:30→12:09)
[2018-07-14 08:51] VITALS: TEMP 98.7
[2018-07-14] MEDS: VALSARTAN 80 MG TAB PO SCH (08:55)
[2018-07-14] MEDS: APIXABAN 2.5 MG TABLET PO SCH (08:56)
[2018-07-14] MEDS: RANITIDINE 150 MG TABLET PO SCH (08:56)
[2018-07-14] MEDS: GLIMEPIRIDE 2 MG TABLET PO SCH (08:56)
[2018-07-14] MEDS: AMLODIPINE 5 MG TAB PO SCH (08:56)
[2018-07-14] MEDS: INSULIN GLARGINE 100 UNITS/ML SQ SCH (08:57)
[2018-07-14] MEDS: Ciprofloxacin 200mg IV 200 MG/100 ML IV.SOLN. IV SCH (08:57)
[2018-07-14] MEDS: IRON PO SCH (09:00)
[2018-07-14] MEDS: FOLIC ACID PO SCH (09:00)
[2018-07-14] MEDS: MULTIVITAMIN PO SCH (09:00)
[2018-07-14 09:09] VITALS: O2SAT 95
[2018-07-14 13:30] VITALS: BP 148/68
--- NOTE | 2018-07-14 20:28 | DS ---
Date of Discharge: 07/14/2018 Disposition: Discharged to go back to [facility]. Discharge Medications/instructions: 1. Continue all prior home medications. 2. Take Cipro 250 mg twice a day for 1 week, metronidazole 500 mg 3 times a day for 1 week. 3. Follow up at my office per scheduled appointment. Physical Examination: HEENT: Unremarkable. Lungs: Clear to auscultation. Heart: Sounds normal. Abdomen: Soft, bowel sounds normal. No guarding, rigidity, tenderness, distention. Extremities: No leg edema. Laboratory Data: Upon admission white count 14.1, hemoglobin 13.7, platelets 236. Yesterday, white count 12.5, hemoglobin 13.2, platelets 212. Chemistry from yesterday sodium 141, potassium 3.6 chloride 109, bicarb 22, BUN 46, creatinine 2.20, glucose 404. Liver function tests unremarkable. Urine culture growing E. coli and it is sensitive to Cipro. Hospital Course: This is an 87-year-old female patient admitted to the hospital with abdominal pain, nausea, vomiting, diarrhea type of problem. Please see dictated H and P for more information. After the patient was evaluated in the emergency room, she was admitted to the hospital with acute gastroenteritis and urinary tract infection. She also had volume depletion because of this gastroenteritis type of problem. She was started on IV fluid. Home medications were continued. Empiric IV antibiotics Cipro and metronidazole was started. The patient did not have any more diarrhea after admission to the hospital. In fact, she had her first bowel movement this morning and it was soft, but no liquidy or watery stool. She has not had any vomiting since she has been in the hospital. She is tolerating diet very well, has no problem with that, denies any abdominal pain, and overall her condition has improved, and she feels like as if she is back to normal self. Medically, she is stable for discharge. Final Diagnoses: 1. Acute gastroenteritis, infectious. 2. Urinary tract infection, organism Escherichia coli. 3. Volume depletion. 4. Chronic kidney disease, stage 4. 5. Pleural effusion, right side. 6. Type 2 diabetes mellitus, uncontrolled. 7. Hypertension. 8. Mixed hyperlipidemia. 9. Osteoarthritis, multiple sites. 10. Osteoporosis. 11. Anemia due to chronic kidney disease. 12. Diverticulosis. PITA/MODL Voice ID: [id number] Report ID: [id number] MTDD
== END 2018-07-14 12:41 | DRG 392 ==
LOC: ER 13:58 → ERHOLD 18:01 → 4TH 20:04
PROVIDERS: ADMIT Internal Medicine; ATTEND Internal Medicine
DX: A09 Infectious gastroenteritis and colitis, unspecified (principal); N39.0 Urinary tract infection, site not specified; N18.4 Chronic kidney disease, stage 4 (severe); B96.20 Unspecified Escherichia coli [E. coli] as the cause of diseases classified elsewhere; E86.9 Volume depletion, unspecified; I12.9 Hypertensive chronic kidney disease with stage 1 through stage 4 chronic kidney disease, or unspecified chronic kidney disease; E11.22 Type 2 diabetes mellitus with diabetic chronic kidney disease; E11.65 Type 2 diabetes mellitus with hyperglycemia; E78.2 Mixed hyperlipidemia; M19.90 Unspecified osteoarthritis, unspecified site; M81.0 Age-related osteoporosis without current pathological fracture; D63.1 Anemia in chronic kidney disease; K57.90 Diverticulosis of intestine, part unspecified, without perforation or abscess without bleeding; Z86.73 Personal history of transient ischemic attack (TIA), and cerebral infarction without residual deficits
CPT/HCPCS: 36415; 51702; 71045; 74176; 80048; 80076; 81003; 81015; 82962; 83690; 83735; 83880; 84484; 85025; 85610; 87077; 87086; 87088; 87186; 87804; 93005; 99285; J0744; J2405; J7030

== ENCOUNTER 2019-02-12 14:55 | Emergency (ER) | payer OTHER ==
[2019-02-12 15:39] LABS: Absolute Lymphocytes (CBC) 1.1 K/uL (0.7-4.9); Basophils % 0.4 % (0-1.3); Hematocrit 34.6 % (36.0-45.0); Lymphocytes % 7.8 % (15.3-44.8); MPV 10.4 fL (7.6-11.3); RBC Red Blood Cell Count 3.75 M/uL (3.86-4.86)
[2019-02-12 16:02] LABS: Blood Morphology Comment NOT SEEN (NOT SEEN); Platelet Estimate ADEQ; Urine White Blood Cell Casts OK
[2019-02-12 16:09] LABS: Bilirubin Direct 0.1 mg/dL (0-0.2); Bilirubin Total 0.4 mg/dL (0.2-1.0); Potassium 4.7 mmol/L (3.5-5.1); Protein, Total 6.6 g/dL (6.4-8.2)
[2019-02-12] MEDS ORDERED: INSULIN -REGULAR HUMAN 50 UNIT/0.5 ML ML ONE (16:28)
[2019-02-12] MEDS ORDERED: ONDANSETRON 4 MG/2 ML VIAL ONE (16:36)
--- NOTE | 2019-02-12 16:56 | RAD REPORT ---
EXAM DESCRIPTION: CT - Abdomen Pelvis Wo Contrast - 02/12/2019 4:44 pm CLINICAL HISTORY: Abdominal pain. no contrast;Abd pain COMPARISON: Abdomen Pelvis Wo Contrast dated 07/12/2018 TECHNIQUE: CT imaging of the abdomen and pelvis was performed without contrast. Solid organ, bowel a nd vascular assessment is limited due to lack of IV and oral contrast. All CT scans are performed using dose optimization technique as appropriate and may include automated exposure control or mA/KV adjustment according to patient size. FINDINGS: Atelectasis is present in the right lung base with a small right pleural effusion.Gaseous distention of the stomach is noted. The liver, spleen, pancreas, adrenal glands and kidneys are within normal limits for a limited non-co ntrast examination.Cholecystectomy. No bowel obstruction, free air, free fluid or abscess. Prominent diverticulosis of the sigmoid colon is present without diverticulitis seen. The appendix is not identified as a discrete structure, howev er, no secondary findings of appendicitis are identified. Prominent degenerative changes are noted in the lumbar spine. Hardware is in place thoracolumbar spin e. IMPRESSION: Prominent sigmoid diverticulosis coli is present without diverticulitis. Gaseous distention of the stomach. A limited non-contrast examination was performed as detailed.
[2019-02-12 18:05] LABS: Urine Blood NEGATIVE (NEG); Urine Glucose 2+ (NEG); Urine Protein TRACE (NEG)
[2019-02-12 18:31] LABS: Urine Amorphous Sediment 1+ /HPF (NONE SEEN); Urine Bacteria >50 /HPF (<20); Urine Culture Reflex Order REFLEXED; Urine RBC <5 /HPF (NONE SEEN)
--- NOTE | 2019-02-12 19:11 | ER ---
Nurse's Notes [facility] Name: Wendy Marte Age: 88 yrs Sex: Female : 1930 Arrival Date: 02/12/2019 Time: 15:03 Bed 5 Private MD: Diagnosis: Urinary tract infection, site not specified;Nausea and vomiting Presentation: 02/12 15:03 Presenting complaint: Presenting complaint: EMS states: she has been having N/V X5 mg2 today with black stool. she also complained of RUQ and RLQ pain. 15:06 Transition of care: patient was received from another setting of care (long-term care [facility]), [facility]. Onset of symptoms was February 12, 2019. Risk Assessment: Do you want to hurt yourself or someone else? Patient reports no desire to harm self or others. Initial Sepsis Screen: Does the patient meet any 2 criteria? No. Patient's initial sepsis screen is negative. Does the patient have a suspected source of infection? No. Patient's initial sepsis screen is negative. 15:06 Method Of Arrival: EMS: [facility] mg2 15:06 Acuity: MARY 3 mg2 15:06 Care prior to arrival: Medication(s) given: Normal saline infusion. mg2 Historical: - Allergies: 15:10 amlodipine; mg2 15:10 Lisinopril; mg2 - Home Meds: 15:40 alendronate 70 mg Oral tab once wkly [Active]; amlodipine 5 mg tab 1 tab once daily mg2 [Active]; Benicar 40 mg Oral tab 1 tab once daily [Active]; atorvastatin 20 mg Oral tab daily [Active]; Calcium-Vit D3 1 tab BID [Active]; clonidine HCl 0.1 mg Oral tab 1 tab once daily [Active]; clonidine patch 0.1 mg/24 hr WEEKLY [Active]; docusate sodium 100 mg Oral cap 1 cap once daily [Active]; Eliquis 2.5 mg Oral tab 2 times per day [Active]; ferrous sulfate 325 mg (65 mg iron) Oral TbEC [Active]; furosemide 40 mg Oral tab once daily [Active]; glimepiride 2 mg Oral tab twice a day [Active]; heparin (porcine) 5,000 unit/mL injection soln 1 mL every 8 hours [Active]; Lantus 100 unit/mL Sub-Q soln 35 unit daily [Active]; Levaquin 500 mg Oral tab 1 tab once daily [Active]; Levemir FlexTouch 100 unit/mL (3 mL) subcutaneous inpn 40 unit daily [Active]; lorazepam 1 mg Oral tab 1 tab nightly [Active]; melatonin 5 mg Oral cap nightly [Active]; methocarbamol 500 mg Oral tab 1 tabs nightly [Active]; multivitamin Oral tab daily [Active]; Novalog sliding scale [Active]; olmesartan medoxomil 40 mg daily [Active]; olmesartan Oral [Active]; polyethylene glycol 3350 17 gram Oral pwpk 1 packet once daily [Active]; ranitidine HCl 150 mg Oral cap 2 times per day [Active]; - PMHx: 15:10 Anemia; Anxiety; Diabetes - NIDDM; GERD; High Cholesterol; Hypertension; Osteoporosis; mg2 ADD/ADHD; 15:40 Atrial Fib; mg2 - Immunization history:: Flu vaccine is not up to date. - Social history:: Smoking status: Patient/guardian denies using tobacco, Patient/guardian denies using alcohol, street drugs, IV drugs. - Ebola Screening: : No symptoms or risks identified at this time. Screenin:30 Abuse screen: Denies threats or abuse. Denies injuries from another. Nutritional mg2 screening: No deficits noted. Tuberculosis screening: No symptoms or risk factors identified. Fall Risk IV access (20 points). Assessment: 15:36 General: Appears in no apparent distress. comfortable, Behavior is calm, cooperative. mg2 Pain: Denies pain. Neuro: Level of Consciousness is awake, alert, obeys commands, Oriented to person, place, situation. Cardiovascular: Capillary refill < 3 seconds. Respiratory: Airway is patent Respiratory effort is even, unlabored, Respiratory pattern is regular, symmetrical. GI: Abdomen is round distended, Reports nausea, vomiting, black stool. : No signs and/or symptoms were reported regarding the genitourinary system. EENT: No signs and/or symptoms were reported regarding the EENT system. Derm: Skin is intact, is healthy with good turgor, Skin is pink, warm \T\ dry. normal. Musculoskeletal: Circulation, motion, and sensation intact. Capillary refill < 3 seconds. 16:15 Reassessment: Patient appears in no apparent distress at this time. Patient and/or hb family updated on plan of care and expected duration. Pain level reassessed. Patient is alert, oriented x 3, equal unlabored respirations, skin warm/dry/pink. 16:37 Reassessment: Pt dry heaving, HOME SERVICE CONSULTANT Ina notified, zofran administered as ordered. Pt hb to CT via stretcher. 17:38 Reassessment: BGL 363, HOME SERVICE CONSULTANT Ina notified, no new orders at this time. NAD, denies hb pain/sob. Family at bedside. 18:39 Reassessment: Patient appears in no apparent distress at this time. Patient and/or mg2 family updated on plan of care and expected duration. Pain level reassessed. Patient is alert, oriented x 3, equal unlabored respirations, skin warm/dry/pink. 19:14 Reassessment: Patient states she feels good and is ready to go home. No complaints of vc pain at this time. Vital Signs: 15:09 BP 153 / 62; Pulse 84; Resp 18; Pulse Ox 100% on R/A; Weight 89 kg; Height 5 ft. mg2 (152.40 cm); 15:29 Temp 97.8(TE); mg2 16:30 BP 126 / 64; Pulse 80; Resp 17; Pulse Ox 100% on R/A; hb 17:36 Pulse 87; Resp 18; Pulse Ox 99% on R/A; mg2 17:39 BP 153 / 69; Pulse 93; Resp 16; Pulse Ox 100% on R/A; Pain 0/10; hb 18:39 BP 176 / 67; Pulse 93; Resp 15; Pulse Ox 98% on R/A; Pain 0/10; mg2 19:45 BP 163 / 79; Pulse 98; Resp 22; Temp 98.1(TE); Pulse Ox 99% on R/A; Pain 0/10; vc 15:09 Body Mass Index 38.32 (89.00 kg, 152.40 cm) mg2 ED Course: 15:03 Patient arrived in ED. mg2 15:09 Triage completed. mg2 15:10 Ina Byers FNP-C is PHCP. kb 15:10 Kelton Pelaez MD is Attending Physician. kb 15:10 Arm band placed on. mg2 15:24 Alberto Stuart RN is Primary Nurse. mg2 15:30 No provider procedures requiring assistance completed. Maintain EMS IV. Dressing mg2 intact. Good blood return noted. Site clean \T\ dry. Gauge \T\ site: 22 \T\ RAC. 15:37 Patient has correct armband on for positive identification. mg2 16:19 Notified Nurse Practitioner and/or Physician Dials Supervisor of a critical lab result(s), hb GLUC 438. 16:32 IV discontinued, intact, bleeding controlled, No redness/swelling at site. Pressure hb dressing applied. 16:36 Inserted saline lock: 20 gauge in left antecubital area, using aseptic technique. hb 16:55 CT Abd/Pelvis - Without Contrast In Process Unspecified. EDMS 17:56 Straight cath inserted, using sterile technique, 16 Fr. Specimen obtained. Returned hb cloudy urine. Patient tolerated well. 18:03 Urine Microscopic Only Sent. hb 19:21 Urine Dipstick--Ancillary (enter results) Sent. vc Administered Medications: 16:35 Drug: Zofran 4 mg Route: IVP; Site: left antecubital; hb 17:10 Follow up: Response: No adverse reaction; Nausea is decreased hb 16:36 Drug: Insulin Regular Human 10 units {Co-Signature: mg2 (Alberto Stuart RN).} Route: hb IVP; Site: left antecubital; 18:00 Follow up: Response: No adverse reaction; Blood sugar is lowered mg2 Point of Care Testing: Blood Glucose: 17:36 Blood Glucose: 363 mg/dL; mg2 Ranges: Outcome: 19:10 Discharge ordered by . kb 19:38 Discharged to detention. Discharged to [facility] with patients family. vc 19:38 Condition: good 19:38 Instructed on discharge instructions, follow up and referral plans. medication usage, Demonstrated understanding of instructions, follow-up care, medications, Prescriptions given X 2. 19:39 Patient left the ED. vc Addendum: 02/15/2019 07:16 Addendum: Culture Results: Positive urine culture. No further action required. Bacteria e b sensitive to prescribed antibiotic. Signatures: Dispatcher [employer] EDMT Ina Byers FNP-C FNP-Richa Adams RN RN India Blum Michele, RN RN mg2 Alissa Paulson RN RN Alberto Stuart RN mg2 Corrections: (The following items were deleted from the chart) 01/07 15:09 15:03 Presenting complaint: mg2 mg2 15:36 15:06 Care prior to arrival: None. mg2 mg2 17:39 17:32 Reassessment: Patient appears in no apparent distress at this time. Patient hb and/or family updated on plan of care and expected duration. Pain level reassessed. Patient is alert, oriented x 3, equal unlabored respirations, skin warm/dry/pink. hb 02/13 06:20 02/12 19:45 BP 163 / 129; Pulse 98bpm; Resp 22bpm; Pulse Ox 99% RA; Temp 98.1F vc Temporal; Pain 0/10; vc
--- NOTE | 2019-02-12 19:12 | EDPHYS ---
Physician Documentation [facility] Name: Wendy Marte Age: 88 yrs Sex: Female : 1930 Arrival Date: 02/12/2019 Time: 15:03 Bed 5 Private MD: ED Physician Kelton Pelaez HPI: 02/12 15:22 This 88 yrs old Female presents to ER via EMS with complaints of vomiting, kb high blood sugar, high bp. 15:23 The patient presents to the emergency department with nausea, vomiting. Onset: The kb symptoms/episode began/occurred 3 day(s) ago. Possible causes: unknown. The symptoms are aggravated by nothing. The symptoms are alleviated by nothing. Associated signs and symptoms: Pertinent positives: nausea, vomiting. Severity of symptoms: At their worst the symptoms were moderate in the emergency department the symptoms are unchanged. The patient has not experienced similar symptoms in the past. The patient has not recently seen a physician. Pt reports nausea and vomiting for 3 days. Denies any pain. Family states he was told pt had been vomiting and there was blood in it. States he was told her bp has been high and she has had trouble keeping her blood sugar under control for a long time. . Historical: - Allergies: 15:10 amlodipine; mg2 15:10 Lisinopril; mg2 - Home Meds: 15:40 alendronate 70 mg Oral tab once wkly [Active]; amlodipine 5 mg tab 1 tab once daily mg2 [Active]; Benicar 40 mg Oral tab 1 tab once daily [Active]; atorvastatin 20 mg Oral tab daily [Active]; Calcium-Vit D3 1 tab BID [Active]; clonidine HCl 0.1 mg Oral tab 1 tab once daily [Active]; clonidine patch 0.1 mg/24 hr WEEKLY [Active]; docusate sodium 100 mg Oral cap 1 cap once daily [Active]; Eliquis 2.5 mg Oral tab 2 times per day [Active]; ferrous sulfate 325 mg (65 mg iron) Oral TbEC [Active]; furosemide 40 mg Oral tab once daily [Active]; glimepiride 2 mg Oral tab twice a day [Active]; heparin (porcine) 5,000 unit/mL injection soln 1 mL every 8 hours [Active]; Lantus 100 unit/mL Sub-Q soln 35 unit daily [Active]; Levaquin 500 mg Oral tab 1 tab once daily [Active]; Levemir FlexTouch 100 unit/mL (3 mL) subcutaneous inpn 40 unit daily [Active]; lorazepam 1 mg Oral tab 1 tab nightly [Active]; melatonin 5 mg Oral cap nightly [Active]; methocarbamol 500 mg Oral tab 1 tabs nightly [Active]; multivitamin Oral tab daily [Active]; Novalog sliding scale [Active]; olmesartan medoxomil 40 mg daily [Active]; olmesartan Oral [Active]; polyethylene glycol 3350 17 gram Oral pwpk 1 packet once daily [Active]; ranitidine HCl 150 mg Oral cap 2 times per day [Active]; - PMHx: 15:10 Anemia; Anxiety; Diabetes - NIDDM; GERD; High Cholesterol; Hypertension; Osteoporosis; mg2 ADD/ADHD; 15:40 Atrial Fib; mg2 - Immunization history:: Flu vaccine is not up to date. - Social history:: Smoking status: Patient/guardian denies using tobacco, Patient/guardian denies using alcohol, street drugs, IV drugs. - Ebola Screening: : No symptoms or risks identified at this time. ROS: 15:23 Constitutional: Negative for fever, chills, and weight loss, ENT: Negative for injury, kb pain, and discharge, Neck: Negative for injury, pain, and swelling, Cardiovascular: Negative for chest pain, palpitations, and edema, Respiratory: Negative for shortness of breath, cough, wheezing, and pleuritic chest pain, Back: Negative for injury and pain, : Negative for injury, bleeding, discharge, and swelling, MS/Extremity: Negative for injury and deformity, Skin: Negative for injury, rash, and discoloration, Neuro: Negative for headache, weakness, numbness, tingling, and seizure. 15:23 Abdomen/GI: Positive for nausea and vomiting, hematemesis, Negative for abdominal pain, diarrhea, constipation. Exam: 15:23 Constitutional: This is a well developed, well nourished patient who is awake, alert, kb and in no acute distress. Head/Face: Normocephalic, atraumatic. ENT: Nares patent. No nasal discharge, no septal abnormalities noted. Tympanic membranes are normal and external auditory canals are clear. Oropharynx with no redness, swelling, or masses, exudates, or evidence of obstruction, uvula midline. Mucous membranes moist. Neck: Trachea midline, no thyromegaly or masses palpated, and no cervical lymphadenopathy. Supple, full range of motion without nuchal rigidity, or vertebral point tenderness. No Meningismus. Chest/axilla: Normal chest wall appearance and motion. Nontender with no deformity. No lesions are appreciated. Cardiovascular: Regular rate and rhythm with a normal S1 and S2. No gallops, murmurs, or rubs. Normal PMI, no JVD. No pulse deficits. Respiratory: Lungs have equal breath sounds bilaterally, clear to auscultation and percussion. No rales, rhonchi or wheezes noted. No increased work of breathing, no retractions or nasal flaring. Back: No spinal tenderness. No costovertebral tenderness. Full range of motion. Skin: Warm, dry with normal turgor. Normal color with no rashes, no lesions, and no evidence of cellulitis. MS/ Extremity: Pulses equal, no cyanosis. Neurovascular intact. Full, normal range of motion. Neuro: Awake and alert, GCS 15, oriented to person, place, time, and situation. Cranial nerves II-XII grossly intact. Motor strength 5/5 in all extremities. Sensory grossly intact. Cerebellar exam normal. Normal gait. 15:23 Abdomen/GI: Inspection: abdomen appears normal, Bowel sounds: normal, in all quadrants, Palpation: soft, in all quadrants, moderate abdominal tenderness, in the right upper quadrant and right lower quadrant. 16:06 Abdomen/GI: Rectal exam: rectal tone normal, Stool: normal, brown, guaiac negative, kb tenderness, is not appreciated, fecal impaction, is not appreciated, the exam is chaperoned by the nurse. Vital Signs: 15:09 BP 153 / 62; Pulse 84; Resp 18; Pulse Ox 100% on R/A; Weight 89 kg; Height 5 ft. mg2 (152.40 cm); 15:29 Temp 97.8(TE); mg2 16:30 BP 126 / 64; Pulse 80; Resp 17; Pulse Ox 100% on R/A; hb 17:36 Pulse 87; Resp 18; Pulse Ox 99% on R/A; mg2 17:39 BP 153 / 69; Pulse 93; Resp 16; Pulse Ox 100% on R/A; Pain 0/10; hb 18:39 BP 176 / 67; Pulse 93; Resp 15; Pulse Ox 98% on R/A; Pain 0/10; mg2 19:45 BP 163 / 79; Pulse 98; Resp 22; Temp 98.1(TE); Pulse Ox 99% on R/A; Pain 0/10; vc 15:09 Body Mass Index 38.32 (89.00 kg, 152.40 cm) mg2 MDM: 15:10 Patient medically screened. kb 15:23 Data reviewed: vital signs, nurses notes. Data interpreted: Pulse oximetry: on room air kb is 100 %. Interpretation: normal. 18:56 Physician consultation: A Azael CAMACHO was contacted at 18:40, regarding patient's kb condition, will call back. 19:08 Counseling: I had a detailed discussion with the patient and/or guardian regarding: the kb historical points, exam findings, and any diagnostic results supporting the discharge/admit diagnosis, lab results, radiology results, the need for outpatient follow up, a family practitioner, to return to the emergency department if symptoms worsen or persist or if there are any questions or concerns that arise at home. Physician consultation: A Azael CAMACHO regarding patient's condition, and will see patient in office. 02/12 15:13 Order name: Glucose, Ancillary Testing; Complete Time: 15:13 EDMS 02/12 15:14 Order name: Basic Metabolic Panel; Complete Time: 16:21 kb 02/12 15:14 Order name: CBC with Diff; Complete Time: 16:06 kb 02/12 15:14 Order name: Hepatic Function; Complete Time: 16:21 kb 02/12 15:14 Order name: Lipase; Complete Time: 16:21 kb 02/12 16:03 Order name: CBC Smear Scan; Complete Time: 16:06 EDMS 02/12 16:06 Order name: Guiac kb 02/12 16:22 Order name: CT Abd/Pelvis - Without Contrast; Complete Time: 17:15 kb 02/12 17:49 Order name: Glucose, Ancillary Testing; Complete Time: 17:51 EDMS 02/12 18:00 Order name: Urine Microscopic Only; Complete Time: 18:33 iw 02/12 18:02 Order name: Urine Dipstick--Ancillary (enter results) bd 02/12 18:06 Order name: Urine Dipstick-Ancillary; Complete Time: 18:06 EDMS 02/12 18:33 Order name: Urine Culture [facility] 02/12 15:14 Order name: IV Saline Lock; Complete Time: 15:29 kb 02/12 15:14 Order name: Labs collected and sent; Complete Time: 15:29 kb 02/12 17:42 Order name: PO challenge; Complete Time: 18:02 kb 02/12 17:43 Order name: Urine Dipstick-Ancillary (obtain specimen); Complete Time: 18:00 kb Administered Medications: 16:35 Drug: Zofran 4 mg Route: IVP; Site: left antecubital; hb 17:10 Follow up: Response: No adverse reaction; Nausea is decreased hb 16:36 Drug: Insulin Regular Human 10 units {Co-Signature: mg2 (Alberto Stuart RN).} Route: hb IVP; Site: left antecubital; 18:00 Follow up: Response: No adverse reaction; Blood sugar is lowered mg2 Point of Care Testing: Blood Glucose: 17:36 Blood Glucose: 363 mg/dL; mg2 Ranges: Critical Glucose Levels:Adult <50 mg/dl or >400 mg/dl <40 mg/dl or >180 mg/dl Disposition: 02/13 06:39 Co-signature as Attending Physician, Kelton Pelaez MD I agree with the assessment and kdr plan of care. Disposition: 02/12/19 19:10 Discharged to Home. Impression: Urinary tract infection, site not specified, Nausea and vomiting. - Condition is Stable. - Discharge Instructions: Nausea and Vomiting, Adult, [id number], Urinary Tract Infection, Adult, [id number]. - Prescriptions for Augmentin 875- 125 mg Oral Tablet - take 1 tablet by ORAL route every 12 hours for 10 days; 20 tablet. Zofran 4 mg Oral Tablet - take 1 tablet by ORAL route every 12 hours As needed; 10 tablet. - Medication Reconciliation Form, Thank You Letter, Antibiotic Education, Prescription Opioid Use form. - Follow up: Emergency Department; When: As needed; Reason: Worsening of condition. Follow up: Private Physician; When: 2 - 3 days; Reason: Recheck today's complaints, Continuance of care, Re-evaluation by your physician. Signatures: Dispatcher [employer] [facility] Ina Byers, PASCUAL-C PASCUAL-Kelton Rowland MD MD kdr Baxter, Heather, RN RN Alberto Stuart RN RN mg2 Alissa Paulson RN RN vc Alberto Stuart RN mg2 Corrections: (The following items were deleted from the chart) 02/12 15:26 15:23 Abdomen/GI: Positive for nausea and vomiting, Negative for abdominal pain, kb diarrhea, constipation, kb 19:39 19:10 02/12/2019 19:10 Discharged to Home. Impression: Urinary tract infection, site vc not specified; Nausea and vomiting. Condition is Stable. Forms are Medication Reconciliation Form, Thank You Letter, Antibiotic Education, Prescription Opioid Use. Follow up: Emergency Department; When: As needed; Reason: Worsening of condition. Follow up: Private Physician; When: 2 - 3 days; Reason: Recheck today's complaints, Continuance of care, Re-evaluation by your physician. kb
[2019-02-12 19:50] VITALS: TEMP 97.8
[2019-02-12 19:54] VITALS: BP 176/67; O2SAT 98
== END 2019-02-12 19:39 | disposition home or self-care (01) ==
LOC: ER 14:55
DX: N39.0 Urinary tract infection, site not specified (principal); I10 Essential (primary) hypertension; E78.00 Pure hypercholesterolemia, unspecified; E11.9 Type 2 diabetes mellitus without complications; I48.91 Unspecified atrial fibrillation; F41.9 Anxiety disorder, unspecified; Z79.4 Long term (current) use of insulin; Z79.01 Long term (current) use of anticoagulants; Z88.8 Allergy status to other drugs, medicaments and biological substances
CPT/HCPCS: 87088; 85025; 87086; 80048; 36415; 82947 ×2; 80076; 82272; 87077; 87186; 83690; 74176; 51702; 96375; 96374; 99284; J2405; 81003; 81015

== ENCOUNTER 2019-08-30 15:09 | Emergency (ER) | payer OTHER ==
--- OUTSIDE RECORDS SUMMARY | 2019-08-30 15:12 | XMS REPORT | Continuity of Care Document ---
:1930 Author Organization [email or web address] Care Team Providers Name Role Phone [facility] [place] [facility] [place] [email or web address] Unavailable Un available Problems Problem Status Onset Classification Date Comments Sourc e Date Reported FALL Active 11/27/[address] HIP FX Active 11/27/[address] Kyphosis deformity Active 02/09/19 Problem 08/20/2017 Data Mischer of spine (disorder) 13 migrated Neuro, from [facility] on 09/30/14. 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) [facility] Diabetes Resolved Problem 08/20/2017 M[place] mellitus(Confirmed) [facility] Accidental fall Resolved Problem 08/20/2017 [facility] Problem 08/20/2017 Mi siobhan reflux disease [facility] (disorder) [facility] Essential Resolved Problem 08/20/2017 Mischer hypertension Neuro,M H (disorder) [facility] Osteoporosis Resolved Problem 08/20/2017 Mische r (disorder) [facility] FX UNSP PART OF [place] BODY OF MANDIBLE, [place] dical UNSPEC [place] Medications Medication Details Route Status Patient Ordering Order Source Instructions Provider Date remove patch Notes: Remove No Longer [facility] old patch Active 2015 Medical before [place] application of new patch. heparin 5,000 unit = 1 Active 12/03[facility] mL, SUB-Q, Q8H, 2016 Medical 0 Refill(s) [place] Folic Acid 1 MG 1 mg = 1 tab, Active 12/03[facility] Oral Tablet PO, Daily, 0 2015 Medical Refill(s) [place] ferrous sulfate 325 mg = 1 tab, Active 12/03[facility] 325 mg oral PO, TID-Meals, 2016 Medic al enteric coated 0 Refill(s) Cente r tablet atorvastatin 20 20 mg = 1 tab, Active 12/03/ H [place] mg oral tablet PO, Bedtime, 0 2015 [place] d[place] Refill(s) [place] amLODIPine 10 10 mg = 1 tab, Active [place] mg oral tablet PO, Daily, 0 2015 [facility] noelle Refill(s) Center Acetaminophen 1 tab, PO, Q6H, Active [place] 325 MG / PRN Pain Score 2016 Medical Hydrocodone 6-10, 0 Center Bitartrate 5 MG Refill(s) Oral Tablet [[place] 5/325] senna 8.6 mg 17.2 mg = 2 [place] oral tablet tab, PO, 2016 Medical Bedtime, 0 Center Refill(s) Compazine Notes: (Same Inactive [place] as: Compazine) 2016 [facility] Center Simethicone Notes: (Same Inactive [place] as: Mylicon) 2016 [facility] Center Amlodipine Notes: (Same [place] as: Norvasc) 2016 Medical Center Tums Notes: (Same Inactive [place] As: Tums) 2016 [facility] Calcium Center Carbonate 500 mg = 200 mg elemental calcium Dose = mg calcium carbonate ( mg elemental calcium) Hydralazine Notes: (Same Inactive [place] Hydrochloride as: Apresoline) 2016 Me dical 50 MG Oral May interfere Center Tablet w/enteral feedings Take With Food. Tums Notes: (Same Inactive [place] As: Tums) 2016 [facility] Calcium Center Carbonate 500 mg = 200 mg elemental calcium Dose = mg calcium carbonate ( mg elemental calcium) Metoprolol Notes: (Same [place] as: Lopressor) 2016 Medical Push over 2 Center minutes olmesartan 40 mg, 2 tab, [place]er [place] Route: PO, Drug Active 2016 Medical form: TAB, Center Daily, Dosing Weight 88.182, kg, Start date: 12/03/15 9:00:00 CDT, Duration: 30 day, Stop date: 01/01/16 9:00:00 CLIP LOADING MACHINE ADJUSTER ferrous sulfate Notes: Give No Longer [place] with food. "Do Active 2016 Medical Not Crush" Center Acetaminophen Notes: (Same No Longer [place] 325 MG / as: [place] Active 2016 Medical Hydrocodone 325/5) Do not Cente r Bitartrate 5 MG exceed 4gm/day Oral Tablet of [[place] 5/325] acetaminophen. Acetaminophen Notes: Do not Inactive [place] 325 MG / exceed 4gm/day 2016 Medical Hydrocodone of Center Bitartrate 10 acetaminophen. MG Oral Tablet (Same as: [place] [[place] 10/325] 325/10) Tramadol Notes: Not to [place] exceed Active 2015 Medical 400mg/day. Center (Same As: Ultram) Folic Acid Notes: (Same No Longer [place] as: Folvite) Active 2016 Medical Center multivitamin Notes: (Same [place] Longer [place] as:Thera) Active 2015 Medical WASTE: F/P - Center Black; E - Municipal Trash Bin Take with food. ferrous sulfate Notes: Give No Longer [place] with food. "Do Active 2015 Medical Not Crush" Center Insulin Notes: Same as: No Longer [place] Glargine Lantus) Do not Active 2015 Medical hold insulin Center without contacting prescriber WASTE: F/P - Black; E - Municipal Trash Bin Glimeperide 1 Glimeperide 1 No Longer [place] mg tablet mg tablet, 0.5 Active 2015 Medical mg = 0.5 tab, [place] Drug form: MISC, Route: PO, BID, 11/30/15 17:00:00 CDT, Duration: 30 day, Stop date: 12/30/15 9:00:00 CLIP LOADING MACHINE ADJUSTER glimepiride 0.5 mg, Route: Inactive [place] PO, Drug form: 2015 Medical TAB, BID, Center Dosing Weight 88.182, kg, Start date: 11/30/15 17:00:00 CDT, Duration: 30 day, Stop date: 12/30/15 9:00:00 CLIP LOADING MACHINE ADJUSTER Calmoseptine Notes: (Same No Longer [place] as: Active 2015 Medical Calmoseptine) Center Furosemide 40 Notes: (Same Inactive [place] MG Oral Tablet as: Lasix) June 2015 M edical [Lasix] cause GI upset. Center Give with food or milk. sodium chloride 1,000 mL, Rate: No Longer [place] 0.9% 1000 ml 75 ml/hr, Active 2015 Medical INJ 1,000 mL Infuse over: Center 13.3 hr, Route: IV, Dosing Weight 88.182 kg, Total Volume: 1,000, Start date: 11/30/15 8:02:00 CDT, Duration: 30 day, Stop date: 12/30/15 8:01:00 CLIP LOADING MACHINE ADJUSTER Ativan Notes: (Same No Longer [place] as: Ativan) Active 2015 [facility] glimepiride Notes: (Same [place] Longer [place] as: Amaryl) Active 2015 [facility] Center Miralax Notes: Dissolve No Longer [place] in 8 oz of Active 2015 [facility] water or juice. Center (Same as: Miralax) Furosemide 40 40 mg, Route: Inactive [place] MG Oral Tablet PO, Drug form: 2015 Me dical [Lasix] TAB, BID, Center Dosing Weight 88.182, kg, Start date: 11/29/15 17:00:00 CDT, Duration: 30 day, Stop date: 12/29/15 9:00:00 CLIP LOADING MACHINE ADJUSTER Methyldopa 250 Notes: May No Longer [place] MG Oral Tablet interfere Active 2015 Medical w/enteral Center feedings. (Same as:Aldomet) 168 HR Notes: Patch No Longer [place] Clonidine delivers 0.1 Active 2015 [facility] 0.06725 MG/HR mg/24 hours; Cente r Transdermal Patch is Patch applied weekly. "Remove old patch before application of new patch" (Same As: [id number]-1) multivitamin 1 tab, PO, Active [place] Daily 2016 [facility] cranberry oral 1 tab, PO, No Longer [place] tablet Daily Active 2015 [facility] Aspirin 81 MG 81 mg = 1 tab, No Longer H [place] Enteric Coated PO, Daily Active 2015 [facility] amLODIPine 5 mg 5 mg = 1 tab, No Longer [place] oral tablet PO, Daily Active 2015 [facility] Alendronic acid 70 mg = 1 tab, Active H [place] 70 MG Oral PO, Q7D, EVERY 2015 Medica l Tablet MONDAY Center Acetaminophen 1 tab, PO, [place] Longer [place] 325 MG / Bedtime, PRN Active 2015 [facility] Hydrocodone Pain Center Bitartrate 10 MG Oral Tablet [[place] 10/325] 3 ML Insulin 35 units, Active [place] Glargine 100 SUB-Q, QAM 2016 Medical UNT/ML Center Prefilled Syringe [Lantus] Methocarbamol Notes: (Same No Longer [place] as:Robaxin) Active 2015 Medical Center Dulcolax Notes: (Same No Longer [place] Laxative As: Dulcolax, Active 2015 [facility] Bisco-Lax) Center Insulin Notes: Same as: No Longer [place] Glargine Lantus) Do not Active 2015 Medical hold insulin Center without contacting prescriber WASTE: F/P - Black; E - Municipal Trash Bin atorvastatin Notes: (Same No Longer [place] As: Lipitor) Active 2015 Medical Center sennosides, PENITENTIARY Notes: (Same No Longer [place] as: Senokot) Active 2015 Medical [place] 168 HR 1 patch, TOP, Active [place] Clonidine qWeek, EVERY 2016 Medical 0.39692 MG/HR MONDAY, # 4 Cent er Transdermal patch, 0 Patch Refill(s) Acetaminophen 1 tab, PO, [place] Longer [place] 325 MG / Q4-6H, PRN Active 2015 [facility] Hydrocodone [place] Bitartrate 5 MG Oral Tablet [[place] 5/325] heparin Notes: porcine [facility] Active 2015 [facility] Ancef + sodium Notes: (Same No Longer [place] chloride 0.9% As: Ancef, Active 2015 [facility] INJ 100 mL Kefzol) Center Cefazolin FOR IV SET ONLY MEDICATION WASTE Product Size: 1000 mg Product Wasted: 0 mg Cefazolin 2 gm, Route: Inactive [place] IVP, ONCE, 2015 Medical Dosing Weight Center 88.182, kg, Start date: 11/28/15 15:28:00 CDT, Stop date: 11/28/15 15:28:00 CDT Methyldopa 250 Notes: [place] MG Oral Tablet interfere Active 2015 Medical w/enteral Center feedings. (Same as:Aldomet) lansoprazole Notes: Take 1 Inactive [place] hour before or 2016 Medical 2 hours after Center meal; Expires in 14 days. Shake well before use. (Same as:Prevacid) Compounded Product - formulation not commercially available carvedilol Notes: Give [place] Longer [place] with food. Active 2015 Medical (Same As: Center Coreg) Insulin Notes: Same as: No Longer [place] Glargine Lantus) Do not Active 2015 Medical hold insulin Center without contacting prescriber WASTE: F/P - Black; E - Municipal Trash Bin Docusate Notes: (Same No Longer [place] as: Colace) (Do Active 2015 Medical Not Crush) Center Protonix Notes: Tablet [place] Longer [place] should not be Active 2015 Medical chewed or Center crushed. (Same as: Protonix) Acetaminophen Notes: [place] acetaminophen Active 2015 Medical 4000 mg/day (4 Center gm/day). (Same as: Tylenol Extra Strength) Oxycodone Notes: (Same [place] Longer [place] Hydrochloride 5 as: Roxicodone) Active 2015 Medical MG Oral Tablet Center Tramadol Notes: Not to [place]er [place] exceed Active 2015 Medical 400mg/day. Center (Same As: Ultram) Morphine Notes: (Same No Longer [place] as:MORPhine Active 2015 Medical Sulfate) Center Methocarbamol Notes: (Same No Longer [place] as:Robaxin) Active 2015 Medical Center Ondansetron Notes: (Same [place] as: Zofran) Active 2015 Medical MEDICATION Center WASTE Product Size: 4 mg Product Wasted: ___ mg Melatonin Notes: (Same [place] Long[place] as: Melatonin) Active 2015 Medical Center sodium chloride 1,000 mL, Rate: No Longer [place] 0.9% 1000 ml 100 ml/hr, Active 2015 Medical INJ 1,000 mL Infuse over: 10 [address] hr, Route: IV, Dosing Weight 88.182 kg, Total Volume: 1,000, Start date: 11/28/15 6:04:00 CDT, Duration: 30 day, Stop date: 12/28/15 6:03:00 CLIP LOADING MACHINE ADJUSTER Insulin regular 60 units) No Longer [place] WASTE: F/P - Active 2016 Medical Black; E - Center Municipal Trash Bin Stable for 28 days at room temperature Expires in days from D ate Dextrose 50% 12.5 gm, 25 mL, No Longer [facility] Syringe Route: IVP, Active 2015 Medical Drug Form: INJ, Center Dosing Weight 88.182, kg, PRN, PRN Blood Glucose Results, Start date: 11/28/15 6:03:00 CDT, Duration: 30 day, Stop date: 12/28/15 5:02:00 CLIP LOADING MACHINE ADJUSTER Glucagon 1 mg, Route: No Longer [place] IM, Drug form: Active 2015 Medical PDR/INJ, PRN, Center Dosing Weight 88.182, kg, PRN Blood Glucose Results, Start date: 11/28/15 6:03:00 CDT, Duration: 30 day, Stop date: 12/28/15 5:02:00 CLIP LOADING MACHINE ADJUSTER Zofran Notes: (Same Inactive [facility] as: Zofran) 2015 Medical MEDICATION Center WASTE Product Size: 4 mg Product Wasted: ___ mg Morphine Notes: (Same Inactive [facility] as:MORPhine 2015 Medical Sulfate) Center Allergies, Adverse Reactions, Alerts Substance Category Reaction Severity Reaction Status Date Comments S ource type Reported lisinopril Assertion Drug Active Mis jg allergy Neuro Immunizations No Data Provided for This Section Results Order Name Results Value Reference Date Interpretation Comments Bree rce Range HEMATOLOGY Hgb 8.0 12.0 - 12/02 [facility] 16.0 [facility] HEMATOLOGY Hct 23.6 36.0 - 12/02 [facility] 48.0 [facility] HEMATOLOGY Hgb 7.6 12.0 - 12/01 [facility] 16.0 [facility] HEMATOLOGY Hct 22.5 36.0 - 12/01 [facility] 48.0 /2016 [facility] CHEM PANEL eGFR 40 11/30 Comment: The Medical eGFR is Center calculated using the CKD-EPI formula. In most young, healthy individuals the eGFR will be >90 mL/min/1.73m2 . The eGFR declines with age. An eGFR of 60-89 may be normal in some populations, particularly the elderly, for whom the CKD-EPI formula has not been extensively validated. Use of the eGFR is not recommended in the following populations:< br/>
Jana viduals with unstable creatinine concentration s, including patients and those with serious co-morbid conditions.<b r/>
Patie nts with extremes in muscle mass or diet.

The data above are obtained from the National Kidney Disease Education Program (NKDEP) which additionally recommends that when the eGFR is used in patients with extremes of body mass index for purposes of drug dosing, the eGFR should be multiplied by the estimated BMI. CHEM PANEL AGAP 13.8 10.0 - 11/30 20.0 [facility] CHEM PANEL Calcium Lvl 8.0 8.5 - 10.5 11/30 [facility] CHEM PANEL CO2 24 24 - 32 11/30 [facility] CHEM PANEL Chloride Lvl 106 95 - 109 11/30 s [facility] CHEM PANEL Potassium 3.8 3.5 - 5.1 11/30 l [facility] CHEM PANEL Sodium Lvl 140 135 - 145 11/30 [facility] CHEM PANEL Creatinine 1.24 0.50 - 11/30 Lvl 1.40 [facility] CHEM PANEL BUN 30 7 - 22 11/30 [facility] CHEM PANEL Glucose Lvl 141 70 - 99 11/30 [facility] HEMATOLOGY Monocytes # 0.7 0.0 - 0.8 11/30 a s [facility] HEMATOLOGY Eosinophils 0.8 0.0 - 0.5 11/30 [place] # [facility] HEMATOLOGY Monocytes 7.6 2.0 - 12.0 11/30 [facility] HEMATOLOGY Lymphocytes 24.4 20.0 - 11/30 [place] 40.0 [facility] HEMATOLOGY Segs 58.6 45.0 - 11/30 [place] 75.0 [facility] HEMATOLOGY Segs-Bands # 5.1 1.5 - 8.1 11/30 [facility] HEMATOLOGY Lymphocytes 2.1 1.0 - 5.5 11/30 [place] # [facility] HEMATOLOGY Eosinophils 8.9 0.0 - 4.0 11/30 [facility] HEMATOLOGY Basophils 0.5 0.0 - 1.0 11/30 [facility] HEMATOLOGY MPV 9.2 7.4 - 10.4 11/30 [facility] HEMATOLOGY RDW 15.3 11.5 - 11/30 [place] 14.5 [facility] HEMATOLOGY Platelet 146 133 - 450 11/30 [facility] HEMATOLOGY MCHC 33.2 32.0 - 11/30 [place] 36.0 [facility] HEMATOLOGY MCH 30.2 27.0 - 11/30 [place] 31.0 [facility] HEMATOLOGY Hgb 7.4 12.0 - 11/30 [place] 16.0 [facility] HEMATOLOGY Hct 22.2 36.0 - 11/30 [place] 48.0 [facility] HEMATOLOGY WBC 8.6 3.7 - 10.4 11/30 [facility] HEMATOLOGY RBC 2.43 4.20 - 11/30 [place] 5.40 [facility] HEMATOLOGY MCV 91.2 80.0 - 11/30 [place] 98.0 [facility] ELECTROLYTES Chloride Lvl 107 95 - 109 11/29 [place] [facility] ELECTROLYTES Potassium 3.9 3.5 - 5.1 11[facility] ELECTROLYTES Sodium Lvl 141 135 - 145 11/29 [facility] ELECTROLYTES Creatinine 1.77 0.50 - 11/29 [place] Lvl 1.40 [facility] ELECTROLYTES BUN 37 7 - 22 11/29 [facility] ELECTROLYTES Glucose Lvl 161 70 - 99 11/29 a s [facility] ELECTROLYTES eGFR 26 11/29 [facility] Comment: The Medical eGFR is Center calculated using the CKD-EPI formula. In most young, healthy individuals the eGFR will be >90 mL/min/1.73m2 . The eGFR declines with age. An eGFR of 60-89 may be normal in some populations, particularly the elderly, for whom the CKD-EPI formula has not been extensively validated. Use of the eGFR is not recommended in the following populations:< br/>
Jana viduals with unstable creatinine concentration s, including patients and those with serious co-morbid conditions.<b r/>
Patie nts with extremes in muscle mass or diet.

The data above are obtained from the National Kidney Disease Education Program (NKDEP) which additionally recommends that when the eGFR is used in patients with extremes of body mass index for purposes of drug dosing, the eGFR should be multiplied by the estimated BMI. ELECTROLYTES Calcium Lvl 7.9 8.5 - 10.5 11/29 [place] [facility] ELECTROLYTES CO2 26 24 - 32 10 [facility] ELECTROLYTES AGAP 11.9 10.0 - 11/29 [place] 20.0 [facility] HEMATOLOGY MPV 9.0 7.4 - 10.4 11/29 [facility] HEMATOLOGY MCH 30.6 27.0 - 11/29 [place] 31.0 [facility] HEMATOLOGY MCV 90.7 80.0 - 11/29 [place] 98.0 [facility] HEMATOLOGY MCHC 33.7 32.0 - 11/29 [place] 36.0 [facility] HEMATOLOGY RBC 2.78 4.20 - 11/29 [place] 5.40 /2015 [facility] HEMATOLOGY WBC 9.9 3.7 - 10.4 11/29 [facility] HEMATOLOGY Platelet 148 133 - 450 11/29 [facility] HEMATOLOGY RDW 15.2 11.5 - 11/29 [place] 14.5 [facility] HEMATOLOGY Lymphocytes 1.9 1.0 - 5.5 11/29 [place] # /2015 [facility] HEMATOLOGY Segs-Bands # 6.6 1.5 - 8.1 11/29 [place] [facility] HEMATOLOGY Eosinophils 0.6 0.0 - 0.5 11/29 [place] # /2015 [facility] HEMATOLOGY Monocytes # 0.8 0.0 - 0.8 11/29 [place] [facility] HEMATOLOGY Lymphocytes 19.1 20.0 - 11/29 [place] 40.0 [facility] HEMATOLOGY Segs 67.0 45.0 - 11/29 [place] 75.0 [facility] HEMATOLOGY Basophils 0.3 0.0 - 1.0 11/29 [facility] HEMATOLOGY Eosinophils 5.9 0.0 - 4.0 11/29 [facility] HEMATOLOGY Monocytes 7.7 2.0 - 12.0 11/29 [facility] CHEM PANEL eGFR 37 11/28 [facility] Comment: The Medical eGFR is Center calculated using the CKD-EPI formula. In most young, healthy individuals the eGFR will be >90 mL/min/1.73m2 . The eGFR declines with age. An eGFR of 60-89 may be normal in some populations, particularly the elderly, for whom the CKD-EPI formula has not been extensively validated. Use of the eGFR is not recommended in the following populations:< br/>
Jana viduals with unstable creatinine concentration s, including patients and those with serious co-morbid conditions.<b r/>
Patie nts with extremes in muscle mass or diet.

The data above are obtained from the National Kidney Disease Education Program (NKDEP) which additionally recommends that when the eGFR is used in patients with extremes of body mass index for purposes of drug dosing, the eGFR should be multiplied by the estimated BMI. CHEM PANEL CO2 22 24 - 32 11/28 [facility] CHEM PANEL Chloride Lvl 107 95 - 109 11/28 [facility] CHEM PANEL Calcium Lvl 8.9 8.5 - 10.5 11/28 [facility] CHEM PANEL Sodium Lvl 139 135 - 145 11/28 [facility] CHEM PANEL BUN 22 7 - 22 11/28 [facility] CHEM PANEL Potassium 4.3 3.5 - 5.1 11/28 [facility] Lvl [facility] CHEM PANEL Glucose Lvl 260 70 - 99 11/28 [facility] CHEM PANEL Creatinine 1.31 0.50 - 11/28 [facility] Lvl 1.40 [facility] CHEM PANEL AGAP 14.3 10.0 - 11/28 [place] 20.0 [facility] HEMATOLOGY Lymphocytes 1.0 1.0 - 5.5 11/28 [place] # [facility] HEMATOLOGY Monocytes # 0.6 0.0 - 0.8 11/28 [facility] s [facility] HEMATOLOGY Segs-Bands # 11.1 1.5 - 8.1 11/28 [facility] HEMATOLOGY Basophils 0.1 0.0 - 1.0 11/28 [facility] /2015 [facility] HEMATOLOGY Eosinophils 0.1 0.0 - 4.0 11/28 [place] /2015 [facility] HEMATOLOGY Monocytes 4.5 2.0 - 12.0 11/28 /2015 [facility] HEMATOLOGY Lymphocytes 7.8 20.0 - 11/28 [place] 40.0 [facility] HEMATOLOGY Segs 87.5 45.0 - 11/28 [place] 75.0 [facility] HEMATOLOGY Platelet 164 133 - 450 11/28 [facility] HEMATOLOGY MPV 9.1 7.4 - 10.4 11/28 [facility] HEMATOLOGY RBC 3.32 4.20 - 11/28 [place] 5.40 [facility] HEMATOLOGY WBC 12.6 3.7 - 10.4 11/28 [facility] HEMATOLOGY RDW 15.0 11.5 - 11/28 [place] 14. [facility] HEMATOLOGY MCHC 34.0 32.0 - 11/28 [place] 36.0 [facility] HEMATOLOGY MCH 30.8 27.0 - 11/28 [place] 31.0 [facility] HEMATOLOGY MCV 90.8 80.0 - 11/28 [place] 98.0 [facility] BLOOD BANK Antibody Negative 11/27 [facility] RESULTS Scrn (11/28/15 3:13 AM) /2015 [facility] BLOOD BANK ABO/Rh O NEG 11/27 [facility] RESULTS /2015 [facility] HEMATOLOGY Eosinophils 0.1 0.0 - 0.5 11/27 [place] # [facility] HEMATOLOGY PT 12.3 12.0 - 11/27 [place] 14.7 [facility] HEMATOLOGY INR 0.90 0.85 - 11/27 [place] 1. [facility] Pathology Reports No Data Provided for This Section Diagnostic Reports Report Value Date Source Hip 2/3 views uni DX EXAM: XR HIP 1 VIEW AND AP PELVIS 6 [facility] Medical DATE: 11/28/2015 3:[address] INDICATION: Post Op/Hemiarthroplasty COMPARISON: Pelvis series 11/28/2015 at 416. TECHNIQUE: 1 view of the hip and a single AP ra diograph of the pelvis Laterality: Right FINDINGS: Completion of righ t hip hemiarthroplasty, which projects in satisfactory alignment. No perihilar fracture. Right hip soft tissue gas and skin sofia is present. IMPRESSION: Satisfactory appearance of right hi p hemiarthroplasty. Pelvis AP DX EXAM: XR PELVIS 1 VIEW 11/28/2015 [facility] DATE: 11/28/2015 3:[address] INDICATION: Intra-Op Pelvis/Hemiarthroplasty COMPARISON: Right femur series 11/28/2015 at 8:3 7 AM TECHNIQUE: A single AP supine radiograph of the pelvis DISCUSSION: The examinat ion is limited by portable technique and overlying artifact. There has been interval resection of the right femoral head and neck, and placement of a femoral rasp which proje ct in satisfactory alignment on this frontal rad iograph. IMPRESSION: Satisfactory alignment of a right ac etabular cup. Femur series DX EXAM: XR RIGHT FEMUR 2 VIEWS 11/28/2015 [facility] DATE: 11/28/2015 7:[address] INDICATION: Fracture COMPARISON: Pelvis radiograph dated 11/28/2015 a t 3:05 AM TECHNIQUE: AP and lateral radiographs of the ri t femur FINDINGS: There is a fractu re of the right femoral neck with minimal superior displacement of the distal fracture fragment. The distal fracture fragment including the femoral shaft appears to be sample preparation supervisor ally rotated. Overall the fr actures in unchanged alignment from prior radiograph. 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 Atherosclerotic calcifications are n oted in the soft tissues. So ft tissue swelling is seen around the fracture site. No additional fractures identified. IMPRESSION: Unchanged alignment of right femoral neck fractu re. Consultation Notes No Data Provided for This Section Discharge Summaries No Data Provided for This Section History and Physicals No Data Provided for This Section Vital Signs Vital Sign Value Date Comments Source Systolic (mm Hg) 179 12/04/2015 [facility] [place] [facility] dical Center Diastolic (mm Hg) 83 12/04/2015 [facility] Heart Rate 79 12/04/[address] [facility] Heart Rate 70 12/04/[address] [facility] Systolic (mm Hg) 180 12/04/[facility] Diastolic (mm Hg) 78 12/04/2015 [facility] Systolic (mm Hg) 191 12/04/2015 [facility] Diastolic (mm Hg) 78 12/04/2015 [facility] Temperature Oral (F) 98.3 F 12/04/2015 [facility] [facility] Respitory Rate 18 12/04/2015 [facility] Heart Rate 84 12/04/[address] [facility] Temperature Oral (F) 98.5 F 12/04/2015 [facility] Respitory Rate 18 12/04/2015 [facility] Respitory Rate 18 12/04/2015 [facility] Temperature Oral (F) 98 F 12/04/2015 [facility] BMI Calculated 35.56 11/28/2015 [facility] Weight 88.182 11/28/[address] [facility] Height 157.48 cm 11/28/[address] [facility] Encounters Location Location Encounter Encounter Reason Attending ADM DC Stat us Source Details Type Number For Provider Date Date Visit [facility] [id number] Guy 11/27 12/03 [facility]2015 [facility] Spine Phone [id number] 08/16 08/18 [facility] Message /2017 Neuro Procedures Procedure Code Date Perfomer Comments Source Ankle joint [id number] [facility] Appendectomy [id number] [facility] Cholecystectomy [id number] [facility] Hysterectomy [id number] [facility] Tonsillectomy [id number] [facility] Assessment and Plan Assessment and Plan Date Source Extracted from:Title: Clinical Document 12/04/2015 [facility] Author: Magda Jimenez DO Date: 12/04/15 PATIENT [...] post-operative compli cations. Evaluated by PT/OT. Initially p atient wanted to go home but then decided it was safer to go to a SNF for a little while. Patient stable for discharge to SNF. DISCHARGE MEDICATIONS: Please see R FOLLOW-UP APPOINTMENTS: PCP within 2 weeks Ortho - Dr Kenny - please call to schedule follow up appointment in 1 week DISCHARGE INSTRUCTIONS: Take medications as prescribed DIET: diabetic ACTIVITY: weightbearing as tolerated If you experience any pain, nausea, vomi ting, bleeding, swelling, signs of infection, shortness of breath or increase in temperature, you are instructed to contact your physician or return to the emergency department. DISPOSITION: Discharged to [facility] CONDITION ON DISCHARGE: Stable Time spent on discharge: 41 minutes spen t on patient/family education, medication review and discharge paperwork Extracted from:Title: ORS PN Author: Derrek Kwon MD Date: 12/04/15 Orthopaedic Surgery Trauma Progress Note S: Patient doing well, pain controlled. Reports some nausea, feels like she has to vomit, but can't. No appetite. O: Vitals Tmp(F) Tmp(C) Ttype B P MAP Pulse RR SpO2 FIO2 ETCO2 12/03 07:04 97.9 36.61 axil 180/78 --- 70 -- --- --- --- 12/03 06:25 ---- ---- ---- 1 91/78 --- --- -- --- --- --- 12/03 04:46 ---- ---- ---- 1 80/72 --- --- -- --- --- --- 12/03 04:27 98.3 36.83 oral 191/69 --- 84 18 98 --- --- 12/03 01:25 ---- ---- ---- 1 69/75 --- 68 -- --- --- --- 24 Hr Tmax: 99.2F (37.33c) at 12/02 17:2 1 24 Hr Tmin: 97.9F (36.61c) at 12/03 07:04 36 Hr Tmax: 99.2F (37.33c) at 12/02 17:2 1 36 Hr Tmin: 97.9F (36.61c) at 12/03 07:04 Exam: RLE: Inspection: Incision c/d/i, no [...] - Dispo: Will continue to follow while i n the hospital, doing well, ok to d/c from ORS standpoint. - Follow up with Dr. Kenny in 1 week afte r discharge. Please call [phone] for an appointment. Pt will need a total of 3 weeks of DVT PPx from date of final surgery with lovenox. Derrek Kwon, PGY1 Orthopaedic Surgery MSO [id number] Extracted from:Title: Admission H and P Author: Jordan Hubbard MD Date: 11/28/15 [...] diso pt ot after or primary pager [phone] Extracted from:Title: ORS Consulation Author: Nick Martinez MD Date: 11/28/15 ORS Trauma Consult History and Physical Date of Service: 11/28/15 Reason for Consult: right femoral neck fracture Source of Consult: ED Consulting Physician: Pepe Smith [facility]opa[facility] Attending: Efraín CC: my right hip hurts HPI: The pt is a 85 y/o F s/p fall out o f wheelchair sustaining right femoral neck fracture at approximately 5pm. Sustained no other injuries as well. Transferred from OSH. Reports severe Right hip pain in worse with ROM and palpation and imp roved with rest. Denies injury, pain or loss of ROM in other extremities. Denies radiation, N/T, or other paresthesias. PMH: chronic pain, chronic pain from lopez k, minimally ambulatory, previous decub ulcers PSH: exlab for hysterectomy and gall bladder Social History --Tobacco: denies --EtOH: denies --Illicit drugs: denies -takes care of demented at home Family History: none Medications: see apr Allergies: see [facility] Current Hospital Medications Medication List Active Medications Ordered acetaminophen: 1,000 mg, 2 tab, PO, Q6Hnow. atorvastatin: 20 mg, 1 tab, PO, Bedtime. carvedilol: 12.5 mg, 1 tab, PO, BID. Dextrose 50% in Water IV: 12.5 gm, 25 mL, IVP, NH N, PRN: Blood Glucose Results. Dextrose 50% in Water IV: 25 gm, 50 mL, IVP , PRN, PRN: Blood Glucose Results. docusate: 100 mg, 1 cap, PO, BID. glucagon: 1 mg, IM, PRN, PRN: Blood Glucose Resul ts. heparin: 5,000 unit, 1 mL, SUB-Q, Q8H. insulin glargine: 15 unit, 0.15 mL, 0 ml/hr, SUB- Q, Daily. Insulin regular: 1 unit, 0.01 mL, [...] 3 mg, 1 tab, PO, Bedtime, PRN: Insomni a. methocarbamol: 1,000 mg, 2 tab, PO, Q8H, PRN: Mus danna Spasms. methyldopa: 250 mg, 1 tab, PO, TID. morphine Sulfate: 2 mg, 1 mL, IVP, Q4H, PRN: Pain Score 7-10. ondansetron: 4 mg, 2 mL, IVP, Q8H, PRN: Nausea an d Vomiting. oxyCODONE: 5 mg, 1 tab, PO, Q4H, PRN: Pain Score 4-6. oxyCODONE: 10 mg, 2 tab, PO, Q4H, PRN: Pain Score 7-10. pantoprazole: 40 mg, 1 tab, PO, Before Breakfast. senna: 17.2 mg, 2 tab, PO, Bedtime. sodium chloride 0.9% 1000 ml INJ 1,000 mL: 100 ml /hr, IV, Stop: 12/28/15 6:03:00 [employer]. tramadol: 50 mg, 1 tab, PO, Q6Hnow, PRN: Pain Sco re 1-3. Documented atorvastatin: 20 mg, 1 tab. [...] vision change, sore throat, ulcers in mouth, e pistaxis CV: Denies CP, Palpitations Resp: Denies SOB, wheezing, cough GI: Denies Abd pain, N/V/D/Constipation. Denies incontinence . : Denies urinary retention, urgency, burning, discharge. Back/Spine: chronic pain Neuro: Denies numbness, tingling, headaches, weakness in ext remities. Integumentary: Denies open wounds, rashes, crain. Endocrine: Denies recent weight changes, heat/cold insensiti vity. Psych: Denies depression, anxiety, labile mood, suicidal/shannan icidal ideation. Musculoskeletal: Denies all but HPI. All other systems negative except HPI. Vitals Tmp(F) Pulse BP RR SpO2 FIO2 11/27 10: 98.4 --- ----- -- --- --- 11/27 07:12 98.2 79 153/79 -- 98 --- 11/27 06:21 98.1 80 174/99 18 100 2.0L/m 11/27 05:28 97.8 79 181/77 18 100 2.0L/m 11/27 04:43 ---- 79 192/79 20 100 2.0L/m 24 Hr Tmax: 98.4F (36.89c) at 11/27 10:2 6 Vital Signs are the last 5 in [...] tender, no gaps or steps, no ecchymosis, pre v surgical scar RUE: Inspection: No tenderness, no obvious ab normalities, no open wounds. Comparments soft and compressible. Sensation: sensation intact to light touch m/r/u n Motor: intact AIN/PIN/Ulnar in hand; 5/5 Wrist flex/ext; Elbow flex/ext; Shoulder ABd,Flex Vascular: 2+ radial pulse palpated, BCR all fingers <2 sec. LUE: Inspection: No tenderness, no obvious ab normalities, no open wounds. Comparments soft and compressible. Sensation: sensation intact to light touch m/r/u n Motor: intact AIN/PIN/Ulnar in hand; 5/5 Wrist flex/ext; Elbow flex/ext; Shoulder ABd,Flex Vascular: 2+ radial pulse palpated, BCR all fingers <2 sec. RLE: Inspection: tender to hip and with ROM a t hip, shortened extemity, bunion deformity at foot Sensation: SILT DP, SP, Tib, Jorge, Saph Motor: Wiggles all toes, 5/5 EHL/FHL, TA, GS, Quad, Ham, IP Vascular: 2+ DP/PT, all toes BCR <2 sec LLE: Inspection: No tenderness, no obvious ab normalities, no open wounds. Comparments soft and compressible. Sensation: SILT DP, SP, Tib, Jorge, Saph Motor: Wiggles all toes, 5/5 EHL/FHL, TA, GS, Quad, Ham, IP Vascular: 2+ DP/PT, all toes BCR <2 sec Imaging: -right femoral neck fracture, displaced, unstable Procedure: -none A/P:85 yo female minimally ambulatory with right femoral nec k fracture - Weight bearing status: NWB RLE - hospitalist is primary for medical management - Antibiotics: none at this time - Pain controlled - Dressings: none - DVT PPx: TEDS/SCD, per hospitalist - Bowel Regimen: per primary - PT: will consult - Pending ORS surgeries: to OR for right him hemiarthroplast y - Dispo: will continue to follow --consented and witnessed --site marked --will need surgical clearance by primary and anesthesia tea ms --call [facility] with any [phone] (Nick Martinez) with any questions Nick Martinez MD Orthopaedic Surgery Pager [phone] Plan of Care No Data Provided for This Section Social History Social History Date Source Social History TypeResponse 11/29/2015 [facility] Never Smoking Status Never smoker; Exposure to Tobacco Smoke None; Cigarette Smoking Last 365 Days No; Reg Smoking Cessation Counseling No entered on: 11/28/15 Social History TypeResponse 11/29/2015 [facility] Alcohol Never Smoking Status Never smoker; Exposure to Tobacco Smoke None; Cigarette Smoking Last 365 Days No; Reg Smoking Cessation Counseling No Family History No Data Provided for This Section Advance Directives No Data Provided for This Section Functional Status No Data Provided for This Section
--- OUTSIDE RECORDS SUMMARY | 2019-08-30 15:13 | XMS REPORT | Continuity of Care Document ---
:1930 Author Organization [facility] t Address [address] [place] [address] Care Team Providers Name Role Phone Clara Jimenez Attending Clinician Hector Larsen Admitting Clinician Problems Condition Condition Condition Status Onset Resolution Last Treating Co mments Source Name Details Category Date Date Treatment Clinician Date FALL Diagnosis Active 2015-022015-11-28 Mem oria 0-21 02:06:00 l FALL 00:00: [place] 00 Active 11/27/2015 [facility] HIP FX Diagnosis Active 2015-022015-12-10 Mem oria 0-21 22:10:00 l HIP FX 00:00: [place] 00 Active 11/27/2015 [facility] 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 [facility] Arthropath Problem Resolve 2017-08-20 Memoria y d 02:05:56 l (disorder) Jaden n Arthropath y (disorder) Resolved Problem 08/20/2017 [facility] Diabetes Problem Resolve 2017-08-20 Me moria mellitus(C d 02:05:56 l onfirmed) Diabetes Her santana mellitus(C onfirmed) Resolved Problem 08/20/2017 [facility] Accidental Problem Resolve 2017-08-20 Memoria fall d 02:05:56 l (finding) Rigoberto Accidental fall (finding) Resolved Problem 08/20/2017 [facility] Gastroesop Problem Resolve 2017-08-20 Memoria hageal d 02:05:56 l reflux [place] disease Gastroesop (disorder) hageal reflux disease (disorder) Resolved Problem 08/20/2017 [facility] Essential Problem Resolve 2017-08-20 M emoria hypertensi d 02:05:56 l on [place] (disorder) Essential hypertensi on (disorder) Resolved Problem 08/20/2017 [facility] Osteoporos Problem Resolve 2017-08-20 Memoria is d 02:05:56 l (disorder) Jaden n Osteoporos is (disorder) Resolved Problem 08/20/2017 [facility] FX UNSP Diagnosis Active 2015-12-10 Me moria PART OF 22:10:00 l BODY OF FX UNSP Jaden n MANDIBLE, PART OF UNSPEC BODY OF MANDIBLE, UNSPEC Active [facility] Allergies, Adverse Reactions, Alerts Allergy Allergy Status Severity Reaction(s) Onset Inactive Treating Comm ents Source Name Type Date Date Clinician lisinopr lisinopr Active Memori a il il l [place] Social History Social Habit Start Date Stop Date Quantity Comments Source Social History 2015-11-29 2015-11-29 [facility] 01:57:18 01:57:18 Medications Ordered Filled Start Stop Current Ordering Indication Dosage Frequency Signature Comments Components Source Medication Medication Date Date Medication? Clinician (SIG) Name Name remove 2015-02 No Notes: Memoria patch 0-30 Remove old l 21:00: patch [place] 00 before applicatio n of new patch. heparin 2015-02 Yes 5,000 unit Antonio fernando 0-28 = 1 mL, l 19:26: SUB-Q, [place] 00 Q8H, 0 Refill(s) Folic Acid 2015-02 Yes 1 mg = 1 Mem oria 1 MG Oral 0-28 tab, PO, l Tablet 19:26: Daily, 0 [place] 00 Refill(s) ferrous 2015-02 Yes 325 mg = 1 Antonio fernando sulfate 325 0-28 tab, PO, l mg oral 19:26: TID-Meals, Herm kala enteric 00 0 coated Refill(s) tablet atorvastati 2015-02 Yes 20 mg = 1 M emoria n 20 mg 0-28 tab, PO, l oral tablet 19:26: Bedtime, 0 [place] 00 Refill(s) amLODIPine 2016-1 Yes 10 mg = 1 Me moria 10 mg oral 0-28 tab, PO, l tablet 19:26: Daily, 0 Refill(s) Acetaminoph 2015-02 Yes 1 tab, PO, Memoria en 325 MG / 0-28 Q6H, PRN l Hydrocodone 19:26: Pain Score Bitartrate 00 6-10, 0 5 MG Oral Refill(s) Tablet [Wild Rose 5/325] senna 8.6 2015-02 Yes 17.2 mg = Mem oria mg oral 0-28 2 tab, PO, l tablet 19:26: Bedtime, 0 Ritika nn 00 Refill(s) Compazine 2015-02 No Notes: Memori a 0-28 (Same as: l 15:56: Compazine) Simethicone 2015-02 No Notes: Antonio fernando 0-28 (Same as: l 15:56: Mylicon) Amlodipine 2015-02 No Notes: Memor ia 0-28 (Same as: l 14:00: Norvasc) Tums 2015-02 No Notes: Memoria 0-28 (Same As: l 14:00: Tums) Calcium Carbonate 500 mg = 200 mg elemental calcium Dose = mg calcium carbonate ( mg elemental calcium) Hydralazine 2015-02 No Notes: Antonio fernando Hydrochlori 0-28 (Same as: l de 50 MG 09:53: Apresoline Her santana Oral Tablet ) May interfere w/enteral feedings Take With Food. Tums 2015-02 No Notes: Memoria 0-28 (Same As: l 09:50: Tums) Calcium Carbonate 500 mg = 200 mg elemental calcium Dose = mg calcium carbonate ( mg elemental calcium) Metoprolol 2015-02 No Notes: Memor ia 0-28 (Same as: l 05:13: Lopressor) Push over 2 minutes olmesartan 2015-02 No 40 mg, 2 Mem oria 0-27 tab, l 14:00: Route: PO, Drug form: TAB, Daily, Dosing Weight 88.182, kg, Start date: 12/03/15 9:00:00 CDT, Duration: 30 day, Stop date: 01/01/16 9:00:00 EDGE GLUER ferrous 2015-02 No Notes: Memoria sulfate 0-27 Give with l 13:00: food. "Do Not Crush" Acetaminoph 2015-02 No Notes: Antonio fernando en 325 MG / 0-26 (Same as: l Hydrocodone 18:00: Wild Rose Ritika nn Bitartrate 00 325/5) Do 5 MG Oral not exceed Tablet 4gm/day of [Wild Rose acetaminop 5/325] hen. Acetaminoph 2015-02 No Notes: Do M emoria en 325 MG / 0-26 not exceed l Hydrocodone 13:39: 4gm/day of Rigoberto Bitartrate 00 acetaminop 10 MG Oral hen. Tablet (Same as: [Wild Rose Wild Rose 10/325] 325/10) Tramadol 2015-02 No Notes: Not Mem oria 0-26 to exceed l 13:39: 400mg/day. [place] 00 (Same As: Ultram) Folic Acid 2015-02 No Notes: Memor ia 0-25 (Same as: l 14:00: Folvite) [place] 00 multivitami 2015-02 No Notes: Antonio fernando n 0-25 (Same l 14:00: as:Thera) [place] 00 WASTE: F/P - Black; E - Municipal Trash Bin Take with food. ferrous 2015-02 No Notes: Memoria sulfate 0-25 Give with l 14:00: food. "Do Not Crush" Insulin 2015-02 No Notes: Memoria Glargine 0-25 Same as: l 14:00: Lantus) Do not hold insulin without contacting prescriber WASTE: F/P - Black; E - Municipal Trash Bin Glimeperide 2015-02 No Glimeperid Memoria 1 mg tablet 0-24 e 1 mg l 22:00: tablet, 00 0.5 mg = 0.5 tab, Drug form: MISC, Route: PO, BID, 11/30/15 17:00:00 CDT, Duration: 30 day, Stop date: 12/30/15 9:00:00 EDGE GLUER glimepiride 2015-02 No 0.5 mg, Mem oria 0-24 Route: PO, l 22:00: Drug form: [place] 00 TAB, BID, Dosing Weight 88.182, kg, Start date: 11/30/15 17:00:00 CDT, Duration: 30 day, Stop date: 12/30/15 9:00:00 EDGE GLUER Calmoseptin 2015-02 No Notes: Antonio fernando e 0-24 (Same as: l 15:40: Calmosepti Rigoberto 00 ne) Furosemide 2015-02 No Notes: Memor ia 40 MG Oral 0-24 (Same as: l Tablet 14:00: Lasix) Rigoberto [Lasix] 00 May cause GI upset. Give with food or milk. sodium 2015-02 No 1,000 mL, Memori a chloride 0-24 Rate: 75 l 0.9% 1000 13:02: ml/hr, Jaden n ml INJ 00 Infuse 1,000 mL over: 13.3 hr, Route: IV, Dosing Weight 88.182 kg, Total Volume: 1,000, Start date: 11/30/15 8:02:00 CDT, Duration: 30 day, Stop date: 12/30/15 8:01:00 EDGE GLUER Ativan 2015-02 No Notes: Memoria 0-24 (Same as: l 02:00: Ativan) [place] 00 glimepiride 2015-02 No Notes: Antonio fernando 0-23 (Same as: l 22:00: Amaryl) [place] 00 Miralax 2015-02 No Notes: Memoria 0-23 Dissolve l 22:00: in 8 oz of [place] 00 water or juice. (Same as: Miralax) Furosemide 2015-02 No 40 mg, Memor ia 40 MG Oral 0-23 Route: PO, l Tablet 22:00: Drug form: Ritika nn [Lasix] 00 TAB, BID, Dosing Weight 88.182, kg, Start date: 11/29/15 17:00:00 CDT, Duration: 30 day, Stop date: 12/29/15 9:00:00 EDGE GLUER Methyldopa 2015-02 No Notes: June M emoria 250 MG Oral 0-23 interfere l Tablet 21:00: w/enteral Jaden n 00 feedings. (Same as:Aldomet ) 168 HR 2015-02 No Notes: Memoria Clonidine 0-23 Patch l 0.29356 19:00: delivers Jaden n MG/HR 00 0.1 mg/24 Transdermal hours; Patch Patch is applied weekly. "Remove old patch before applicatio n of new patch" (Same As: Nadia-Pauline -) multivitami 2015-02 Yes 1 tab, PO, Memoria n 0-23 Daily l 18:26: [place] 00 cranberry 2015-02 No 1 tab, PO, Me moria oral tablet 0-23 Daily l 18:26: [place] 00 Aspirin 81 2015-02 No 81 mg = 1 Me moria MG Enteric 0-23 tab, PO, l Coated 18:26: Daily [place] Tablet 00 amLODIPine 2015-02 No 5 mg = 1 Mem oria 5 mg oral 0-23 tab, PO, l tablet 18:26: Daily [place] Alendronic 2015-02 Yes 70 mg = 1 Me moria acid 70 MG 0-23 tab, PO, l Oral Tablet 18:26: Q7D, EVERY Monday Acetaminoph 2015-02 No 1 tab, PO, Memoria en 325 MG / 0-23 Bedtime, l Hydrocodone 18:26: PRN Pain He rmann Bitartrate 00 10 MG Oral Tablet [Wild Rose 10/325] 3 ML 2015-02 Yes 35 units, Memoria Insulin 0-23 SUB-Q, QAM l Glargine 18:22: [place] 100 UNT/ML 00 Prefilled Syringe [Lantus] Methocarbam 2015-02 No Notes: Antonio fernando ol 0-23 (Same l 15:17: as:Robaxin ) Dulcolax 2015-02 No Notes: Memoria Laxative 0-23 (Same As: l 15:15: Dulcolax, Bisco-Lax) Insulin 2015-02 No Notes: Memoria Glargine 0-23 Same as: l 14:00: Lantus) Do not hold insulin without contacting prescriber WASTE: F/P - Black; E - [facility] Trash Bin atorvastati 2015-02 No Notes: Antonio fernando n 0-23 (Same As: l 02:00: Lipitor) sennosides, 2015-02 No Notes: Antonio fernando CUSTODIAL 0-23 (Same as: l 02:00: Senokot) [place] 168 HR 2015-02 Yes 1 patch, Memoria Clonidine 0-23 TOP, l 0.93468 01:59: qWeek, [place] MG/HR 00 EVERY Transdermal MONDAY, Patch # 4 patch, 0 Refill(s) Acetaminoph 2015-02 No 1 tab, PO, Memoria en 325 MG / 0-23 Q4-6H, PRN l Hydrocodone 01:46: Jaden n Bitartrate 00 5 MG Oral Tablet [Wild Rose 5/325] heparin 2015-02 No Notes: Memoria 0-22 porcine l 23:00: heparin [place] 00 Ancef + 2015-02 No Notes: Memoria sodium 0-22 (Same As: l chloride 23:00: Ancef, Rigoberto 0.9% INJ 00 Kefzol) 100 mL Cefazolin FOR IV SET ONLY MEDICATION WASTE Product Size: 1000 mg Product Wasted: 0 mg Cefazolin 2015-02 No 2 gm, Memoria 0-22 Route: l 20:28: IVP, ONCE, [place] 00 Dosing Weight 88.182, kg, Start date: 11/28/15 15:28:00 CDT, Stop date: 11/28/15 15:28:00 CDT Methyldopa 2015-02 No Notes: June emoria 250 MG Oral 0-22 interfere l Tablet 14:00: w/enteral Jaden n 00 feedings. (Same as:Aldomet ) lansoprazol 2015-02 No Notes: Antonio fernando e 0-22 Take 1 l 14:00: hour [place] 00 before or 2 hours after meal; Expires in 14 days. Shake well before use. (Same as:Prevaci d) Compound ed Product - formulatio n not commercial ly available* * carvedilol 2015-02 No Notes: Memor ia 0-22 Give with l 14:00: food. [place] 00 (Same As: Coreg) Insulin 2015-02 No Notes: Memoria Glargine 0-22 Same as: l 14:00: Lantus) Do [place] 00 not hold insulin without contacting prescriber WASTE: F/P - Black; E - Municipal Trash Bin Docusate 2015-02 No Notes: Memoria 0-22 (Same as: l 14:00: Colace) [place] 00 (Do Not Crush) Protonix 2015-02 No Notes: Memoria 0-22 Tablet l 14:00: should not [place] 00 be chewed or crushed. (Same as: Protonix) Acetaminoph 2015-02 No Notes: Max Memoria en 0-22 acetaminop l 12:00: hen 4000 [place] 00 mg/day (4 gm/day). (Same as: Tylenol Extra Strength) Oxycodone 2015-02 No Notes: Memori a Hydrochlori 0-22 (Same as: l de 5 MG 11:06: Roxicodone Herm kala Oral Tablet 00 ) Tramadol 2015-02 No Notes: Not Mem oria 0-22 to exceed l 11:06: 400mg/day. [place] 00 (Same As: Ultram) Morphine 2015-02 No Notes: Memoria 0-22 (Same l 11:06: as:MORPhin [place] 00 e Sulfate) Methocarbam 2015-02 No Notes: Antonio fernando ol 0-22 (Same l 11:06: as:Robaxin [place] 00 ) Ondansetron 2015-02 No Notes: Antonio fernando 0-22 (Same as: l 11:06: Zofran) [place] 00 MEDICATION WASTE Product Size: 4 mg Product Wasted: ___ mg Melatonin 2015-02 No Notes: Memori a 0-22 (Same as: l 11:06: Melatonin) [place] 00 sodium 2015-02 No 1,000 mL, Memori a chloride 0-22 Rate: 100 l 0.9% 1000 11:04: ml/hr, Jaden n ml INJ 00 Infuse 1,000 mL over: 10 hr, Route: IV, Dosing Weight 88.182 kg, Total Volume: 1,000, Start date: 11/28/15 6:04:00 CDT, Duration: 30 day, Stop date: 12/28/15 6:03:00 EDGE GLUER Insulin 2015-02 No 60 Memoria regular 0-22 units) l 11:03: WASTE: F/P [place] 00 - Black; E - Municipal Trash Bin Stable for 28 days at room temperatur e Expires in days from ____Date Dextrose 2015-02 No 12.5 gm, Memor ia 50% Syringe 0-22 25 mL, l 11:03: Route: [place] 00 IVP, Drug Form: INJ, Dosing Weight 88.182, kg, PRN, PRN Blood Glucose Results, Start date: 11/28/15 6:03:00 CDT, Duration: 30 day, Stop date: 12/28/15 5:02:00 EDGE GLUER Glucagon 2015- No 1 mg, Memoria Route: IM, l 11:03: Drug form: [place] 00 PDR/INJ, PRN, Dosing Weight 88.182, kg, PRN Blood Glucose Results, Start date: 11/28/15 6:03:00 CDT, Duration: 30 day, Stop date: 12/28/15 5:02:00 EDGE GLUER Zofran 2015- No Notes: Memoria 0- (Same as: l 07:35: Zofran) [place] 00 MEDICATION WASTE Product Size: 4 mg Product Wasted: ___ mg Morphine 2015-02 No Notes: Memoria 0- (Same l 07:35: as:MORPhin [place] 00 e Sulfate) Vital Signs Vital Name Observation Time Observation Value Comments Source Systolic (mm Hg) 2015-12-04 16:30:00 Antonio rial [place] Diastolic (mm Hg) 2015-12-04 16:30:00 Mem orial [place] Heart Rate 2015-12-04 16:30:00 [facility] [place] Heart Rate 2015-12-04 12:04:00 [facility] [place] Systolic (mm Hg) 2015-12-04 12:04:00 Antonio rial [place] Diastolic (mm Hg) 2015-12-04 12:04:00 Mem orial [place] Systolic (mm Hg) 2015-12-04 11:25:00 Antonio rial [place] Diastolic (mm Hg) 2015-12-04 11:25:00 Mem orial [place] Temperature Oral (F) 2015-12-04 09:27:00 98.3 F [facility] [place] Respitory Rate 2015-12-04 09:27:00 Memori al [place] Heart Rate 2015-12-04 09:27:00 [facility] [place] Temperature Oral (F) 2015-12-04 04:30:00 98.5 F [facility] [place] Respitory Rate 2015-12-04 04:30:00 Memori al [place] Respitory Rate 2015-12-04 00:22:00 Memori al [place] Temperature Oral (F) 2015-12-04 00:22:00 98 F [facility] [place] BMI Calculated 2015-11-28 06:28:00 Memorlando al [place] Weight 2015-11-28 06:28:00 [facility] [place] Height 2015-11-28 06:28:00 157.48 cm [facility] [place] Procedures Procedure Date / Time Performed Performing Clinician [facility] e Ankle joint operations [facility] [place] Appendectomy [facility] [place] Cholecystectomy [facility] [place] Hysterectomy [facility] [place] Tonsillectomy [facility] [place]oberto Encounters Start End Encounter Admission Attending Care Care Encounter Source Date/Time Date/Time Type Type Clinicians Facility Department ID 2017-08-16 2017-08-17 Outpatient MISCHER MISCHER [id number] 08:41:00 23:59:59 00 2015-11-28 2015-12-04 Outpatient Tony [facility] [id number] 01:28:00 17:25:00 Magda Elizabeth Results Test Description Test Time Test Comments Results Result Comments Source HEMATOLOGY 2015-12-03 8.0 [facility] Ritika nn 20:00:00 HEMATOLOGY 2015-12-03 23.6 [facility] Ritika nn 20:00:00 HEMATOLOGY 2015-12-02 7.6 [facility] Ritika nn 08:46:00 HEMATOLOGY 2015-12-02 22.5 [facility] Ritika nn 08:46:00 CHEM PANEL 2015-12-01 40 [facility] Ritika nn 08:06:00 CHEM PANEL 2015-12-01 13.8 [facility] Ritika nn 08:06:00 CHEM PANEL 2015-12-01 8.0 [facility] Ritika nn 08:06:00 CHEM PANEL 2015-12-01 24 [facility] Ritika nn 08:06:00 CHEM PANEL 2015-12-01 106 [facility] Ritika nn 08:06:00 CHEM PANEL 2015-12-01 3.8 [facility] Ritika nn 08:06:00 CHEM PANEL 2015-12-01 140 [facility] Ritika nn 08:06:00 CHEM PANEL 2015-12-01 1.24 [facility] Ritika nn 08:06:00 CHEM PANEL 2015-12-01 30 [facility] Ritika nn 08:06:00 CHEM PANEL 2015-12-01 141 [facility] Ritika nn 08:06:00 HEMATOLOGY 2015-12-01 0.7 [facility] Ritika nn 08:06:00 HEMATOLOGY 2015-12-01 0.8 [facility] Ritika nn 08:06:00 HEMATOLOGY 2015-12-01 7.6 [facility] Ritika nn 08:06:00 HEMATOLOGY 2015-12-01 24.4 [facility] Ritika nn 08:06:00 HEMATOLOGY 2015-12-01 58.6 [facility] Ritika nn 08:06:00 HEMATOLOGY 2015-12-01 5.1 [facility] Ritika nn 08:06:00 HEMATOLOGY 2015-12-01 2.1 [facility] Ritika nn 08:06:00 HEMATOLOGY 2015-12-01 8.9 [facility] Ritika nn 08:06:00 HEMATOLOGY 2015-12-01 0.5 [facility] Ritika nn 08:06:00 HEMATOLOGY 2015-12-01 9.2 [facility] Ritika nn 08:06:00 HEMATOLOGY 2015-12-01 15.3 [facility] Ritika nn 08:06:00 HEMATOLOGY 2015-12-01 146 [facility] Ritika nn 08:06:00 HEMATOLOGY 2015-12-01 33.2 [facility] Ritika nn 08:06:00 HEMATOLOGY 2015-12-01 08:06:00 Test Item Value Reference Range Interpretation Comme nts MCH (test code = MCH) 30.2 pg 27.0-31.0 [facility] XmrxzfjQGXVGQDTMA7671-36-81 08:06:007.4[facility] HermannHEMATOLOGY 2015-12-01 08:06:0022.2[facility] GudnzvgNSWPYNDJYL0988-75-51 08:06:008.6[facility] VumrehpOCHBTVPOFF4136-37-76 08:06:002.43[facility] McjszkvNPEKQRNZJM6263-02-53 08:06:0091.2[facility] FgbedvjLOJXNCWLDCIL6560-02-48 09:13:57485Acpkwocv Rigoberto NILBNUSIDJXS1198-95-38 09:13:003.9[facility] QwdlligMNZYTMQUPUWJ4422-28-99 09:13:50649Upozccfe QeprzlqAIVERPLJKCLD8556-64-84 09:13:001.77[facility] [place] IBVXAPHYACKC2622-52-45 09:13:0037[facility] YmsuouvYCVPNNORAZAU9484-37-37 09:13:00 161[facility] VmyjwltQNJFRRERHPTN5739-02-77 09:13:0026[facility] HermannELECTROLYTES 2015-11-30 09:13:007.9[facility] YezptueSCPOJKFVPJQV6576-52-65 09:13:0026[facility] VrbifeiOHACKZOGKMVG7329-87-21 09:13:0011.9[facility] HagfzojKGPCUUKBJP8955-09-72 09:13:009.0[facility] PxbzehjMKRLGFDKIT4779-99-84 09:13:00 Test Item Value Reference Range Interpretation Comments MCH (test code = MCH) 30.6 pg 27.0-31.0 Memorial MzhnkojFTTFNHCBYH6079-19-45 09:13:0090.7[facility] HermannHEMATOLOGY 2015-11-30 09:13:0033.7[facility] JugjzoiATEXICABPI4379-51-57 09:13:002.78[facility] QnooxzdYFOFSEQQMB3637-94-44 09:13:009.9[facility] QdbejejGFIXAVIGNX0470-00-20 09:13:10088Qeleuikr DmocvyaBLGIQSCBJZ0344-07-11 09:13:0015.2[facility] [place] AJFANQLMWU6317-77-04 09:13:001.9[facility] OtwtuyjSEUOADUUYA4288-01-28 09:13:006.6 [facility] SyjqcneHNJTWRQPXZ5125-85-15 09:13:000.6[facility] HermannHEMATOLOGY 2015-11-30 09:13:000.8[facility] WpvmfmhNGXKRUYVMG4744-67-17 09:13:0019.1[facility] VewkacqDUOJGBHJXW6877-91-27 09:13:0067.0[facility] MlxyiffVSHWTYFCSA4596-41-44 09:13:000.3[facility] NtlxndlYQQMDVDWPW3878-51-70 09:13:005.9[facility] [place] NUWNEPWPIN5742-62-40 09:13:007.7[facility] HermannCHEM WEZFC8224-95-56 08:58:0037 [facility] HermannCHEM STLME6863-32-45 08:58:0022[facility] HermannCHEM PANEL 2015-11-29 08:58:19645Hpjlmrfp HermannCHEM TAXHT7547-19-71 08:58:008.9[facility] HermannCHEM WJWAG7122-70-56 08:58:55482Qgosrzlh HermannCHEM SJZIZ9076-38-68 08:58:0022[facility] HermannCHEM HVYCE7690-42-37 08:58:004.3[facility] HermannCHEM ZPUWE1323-57-23 08:58:99886Fpibtrwm HermannCHEM WASAA3056-99-49 08:58:001.31 [facility] HermannCHEM NIJHJ3216-04-42 08:58:0014.3[facility] HermannHEMATOLOGY 2015-11-29 08:58:001.0[facility] OyntghhJQZTUMCVQO8590-88-36 08:58:000.6[facility] JqbaerwELOPBMUNAK0234-93-54 08:58:0011.1[facility] BlrsyywDBFFNQZQYM2835-45-75 08:58:000.1[facility] KwqcnjaAXXHHBGASI0443-49-20 08:58:000.1[facility] [place] SWMLMTMTEP7751-52-05 08:58:004.5[facility] VbnceceXTDUTHUFFA0907-39-84 08:58:007.8 [facility] SblhbefXCBEIOZCNW6698-97-35 08:58:0087.5[facility] HermannHEMATOLOGY 2015-11-29 08:58:59744Bqsaftlr MuxnfsxVZMMIQAZWZ3706-66-87 08:58:009.1[facility] XphagbsGKEIZNFFFF4233-69-55 08:58:003.32[facility] XzyhlazEISHCUEXTX7631-11-07 08:58:0012.6[facility] RsbmvhfYYZXOYWDPZ0567-46-05 08:58:0015.0[facility] [place] CFZNHLKXSH7017-61-94 08:58:0034.0[facility] WtiwrlyLBLVKJCYNC8124-37-81 08:58:00 Test Item Value Reference Range Interpretation Comments MCH (test code = MCH) 30.8 pg 27.0-31.0 [facility] LtudqcuKFMTZQWNMP8686-09-59 08:58:0090.8[facility] HermannBLOOD BANK XKUZWZN7807-60-38 08:13:00Negative (11/28/15 3:13 AM)[facility]annHEMATOLOGY 2015-11-28 08:13:000.1[facility] HwhrfbzTCATRGHQTW7238-48-15 08:13:00 Test Item Value Reference Range Interpretation Comments PT (test code = PT) 12.3 s 12.0-14.7 [facility]bolvkvEVNYYIRZGX1475-86-09 08:13:000.90[facility] [place]
--- NOTE | 2019-08-30 16:09 | RAD REPORT ---
EXAM DESCRIPTION: CT - Head C Spine Cap Wo Con - 08/30/2019 3:46 pm TECHNIQUE: Computed axial tomography of the head and cervical spine was obtained. Coronal and sagitt al reconstruction was performed Computed axial tomography of the chest, abdomen and pelvis was obtained. Contrast was not requested. All CT scans are performed using dose optimization technique as appropriate and may include automated exposure control or mA/KV adjustment according to patient size. CLINICAL HISTORY: Head and neck injury with chest and abdominal pain status post fall COMPARISON: CT abdomen February 2019 FINDINGS: Evaluation of the base of brain is nondiagnostic secondary to difficulty patient positioning and move ment. Moderate low-density areas within periventricular, and subcortical white matter likely ischemic hernandez es secondary to small vessel disease. The ventricles are normal in caliber. An extra-axial fluid inga ection is not noted. . Fluid within the sinuses/mastoids is not seen. Scoliosis and kyphosis is present. A cervical fracture is not seen. No dislocation is noted. The evaluation of mediastinum, tyler, vessels, solid organs and bowel are limited secondary to the lac k of contrast administration. A mediastinal hematoma is not noted. A small to moderate right pleural effusion is present with right basilar atelectasis. A lung contusion is not present. The liver,spleen, pancreas, adrenals,kidneys and bladder do not demonstrate intrahepatic injury Postsurgical changes involve the spine IMPRESSION: 1. No gross acute intracranial abnormality 2. A cervical fracture is not visualized. If the patient continues have symptoms to suggest intracran ial/spinal cord pathology MRI be recommended 3. No acute traumatic abnormality involving the chest/abdomen/pelvis. 4. Small to moderate right pleural effusion with right basilar atelectasis
[2019-08-30] MEDS ORDERED: HYDROCODONE/APAP 5/325 MG TAB ONE (16:45)
--- NOTE | 2019-08-30 16:54 | EDPHYS ---
Physician Documentation [facility] Name: Wendy Marte Age: 88 yrs Sex: Female : 1930 Arrival Date: 08/30/2019 Time: 15:10 Bed 18 Private MD: ED Physician Kelton Pelaez HPI: 08/29 16:16 This 88 yrs old Female presents to ER via EMS with complaints of Fall Injury. snw 16:16 Details of fall: The patient fell from an upright position, while standing. Onset: The snw symptoms/episode began/occurred suddenly, today. Associated injuries: The patient sustained upper back injury, injury to the low back. Severity of symptoms: At their worst the symptoms were moderate. It is unknown whether or not the patient has had similar symptoms in the past. It is unknown whether or not the patient has recently seen a physician. pt states, "I just fell, I don't know why, I just fell". Historical: - Allergies: 15:15 amlodipine; ah 15:15 Lisinopril; ah - PMHx: 15:15 ADD/ADHD; Anemia; Anxiety; Atrial Fib; Diabetes - NIDDM; GERD; High Cholesterol; Hypertension; Osteoporosis; osteoarthritis; - Immunization history:: Adult Immunizations up to date. - Social history:: Smoking status: Patient denies any tobacco usage or history of. ROS: 16:16 Constitutional: Negative for fever, chills, and weight loss, Eyes: Negative for injury, snw pain, redness, and discharge, ENT: Negative for injury, pain, and discharge, Neck: Negative for injury, pain, and swelling, Cardiovascular: Negative for chest pain, palpitations, and edema, Respiratory: Negative for shortness of breath, cough, wheezing, and pleuritic chest pain, Abdomen/GI: Negative for abdominal pain, nausea, vomiting, diarrhea, and constipation, : Negative for injury, bleeding, discharge, and swelling, MS/Extremity: Negative for injury and deformity, Skin: Negative for injury, rash, and discoloration, Neuro: Negative for headache, weakness, numbness, tingling, and seizure, Psych: Negative for depression, anxiety, suicide ideation, homicidal ideation, and hallucinations. 16:16 Back: Positive for pain at rest, pain with movement, of the low back area and mid back area. Exam: 16:15 Constitutional: This is a well developed, well nourished patient who is awake, alert, snw and in no acute distress. Head/Face: Normocephalic, atraumatic. Eyes: Pupils equal round and reactive to light, extra-ocular motions intact. Lids and lashes normal. Conjunctiva and sclera are non-icteric and not injected. Cornea within normal limits. Periorbital areas with no swelling, redness, or edema. ENT: Nares patent. No nasal discharge, no septal abnormalities noted. Tympanic membranes are normal and external auditory canals are clear. Oropharynx with no redness, swelling, or masses, exudates, or evidence of obstruction, uvula midline. Mucous membranes moist. Neck: Trachea midline, no thyromegaly or masses palpated, and no cervical lymphadenopathy. Supple, full range of motion without nuchal rigidity, or vertebral point tenderness. No Meningismus. Chest/axilla: Normal chest wall appearance and motion. Nontender with no deformity. No lesions are appreciated. Cardiovascular: Regular rate and rhythm with a normal S1 and S2. No gallops, murmurs, or rubs. Normal PMI, no JVD. No pulse deficits. Respiratory: Lungs have equal breath sounds bilaterally, clear to auscultation and percussion. No rales, rhonchi or wheezes noted. No increased work of breathing, no retractions or nasal flaring. Abdomen/GI: Soft, non-tender, with normal bowel sounds. No distension or tympany. No guarding or rebound. No evidence of tenderness throughout. Skin: Warm, dry with normal turgor. Normal color with no rashes, no lesions, and no evidence of cellulitis. MS/ Extremity: Pulses equal, no cyanosis. Neurovascular intact. Full, normal range of motion. Neuro: Awake and alert, GCS 15, oriented to person, place, time, and situation. Cranial nerves II-XII grossly intact. Motor strength 5/5 in all extremities. Sensory grossly intact. Cerebellar exam normal. Normal gait. Psych: Awake, alert, with orientation to person, place and time. Behavior, mood, and affect are within normal limits. 16:15 Back: pain, that is moderate, of the low back area and mid back area, ROM is painful, kyphosis, scoliosis that is marked, vertebral tenderness, is not appreciated, muscle spasm, is appreciated in the mid back area. Vital Signs: 15:10 BP 167 / 65; Pulse 79; Resp 20; Temp 97.8; Pulse Ox 98% ; Weight 88.45 kg; Height 5 ft. ah 0 in. (152.40 cm); 15:10 Body Mass Index 38.08 (88.45 kg, 152.40 cm) ah MDM: 15:35 Patient medically screened. snw 16:54 Data reviewed: vital signs, nurses notes. Data interpreted: Pulse oximetry: on room air snw is 98 %. Interpretation: normal. Counseling: I had a detailed discussion with the patient and/or guardian regarding: the historical points, exam findings, and any diagnostic results supporting the discharge/admit diagnosis, radiology results, the need for outpatient follow up, to return to the emergency department if symptoms worsen or persist or if there are any questions or concerns that arise at home. Special discussion: Based on the history and exam findings, there is no indication for further emergent testing or inpatient evaluation. 08/29 15:14 Order name: CT Traumagram (Head C Spine CAP wo con); Complete Time: 16:11 snw Administered Medications: 16:37 Drug: [place] 5 mg-325 mg 1 tabs Route: PO; ah 17:29 Follow up: Response: No adverse reaction; Pain is decreased Disposition: 19:42 Co-signature as Attending Physician, Kelton Pelaez MD I agree with the assessment and kdr plan of care. Disposition: 08/30/19 16:52 Discharged to Home. Impression: Fall from chair, Low back pain. - Condition is Stable. - Discharge Instructions: Back Pain, Adult, Fall Prevention in the Home, Musculoskeletal Pain, Back Injury Prevention, [id number], Heat Therapy. - Prescriptions for orphenadrine citrate 100 mg Oral Tablet Sustained Release - take 1 tablet by ORAL route 2 times per day As needed; 20 tablet. - Medication Reconciliation Form, Thank You Letter, Antibiotic Education, Prescription Opioid Use form. - Follow up: Emergency Department; When: As needed; Reason: Worsening of condition. Follow up: Private Physician; When: 2 - 3 days; Reason: Recheck today's complaints, Continuance of care, Re-evaluation by your physician. Signatures: Dispatcher [employer] Kelton Mcfarland MD MD [facility] Bryanna Cole, FOOD AND DRUG RESEARCH SCIENTIST-C FOOD AND DRUG RESEARCH SCIENTIST-Csnw Richa Cohn, RN RN Lien Jaramillo RN RN Corrections: (The following items were deleted from the chart) 17:56 16:52 08/30/2019 16:52 Discharged to Home. Impression: Fall from chair; Low back pain. hb Condition is Stable. Forms are Medication Reconciliation Form, Thank You Letter, Antibiotic Education, Prescription Opioid Use. Follow up: Emergency Department; When: As needed; Reason: Worsening of condition. Follow up: Private Physician; When: 2 - 3 days; Reason: Recheck today's complaints, Continuance of care, Re-evaluation by your physician. snw
--- NOTE | 2019-08-30 16:54 | ER ---
Nurse's Notes [facility] Name: Wendy Marte Age: 88 yrs Sex: Female : 1930 Arrival Date: 08/30/2019 Time: 15:10 Bed 18 Private MD: Diagnosis: Fall from chair;Low back pain Presentation: 08/29 15:10 Chief complaint: EMS states: Pt had unwitnessed fall, was found sitting on the floor in front of her chair. Pt with c/o back pain. Per EMS, Pt at baseline with orientation. Coronavirus screen: Proceed with normal triage. Ebola Screen: No symptoms or risks identified at this time. Initial Sepsis Screen: Does the patient meet any 2 criteria? No. Patient's initial sepsis screen is negative. Does the patient have a suspected source of infection? No. Patient's initial sepsis screen is negative. Risk Assessment: Do you want to hurt yourself or someone else? Patient reports no desire to harm self or others. Onset of symptoms was August 30, 2019. 15:10 Method Of Arrival: EMS: [facility] 15:10 Acuity: MARY 4 Historical: - Allergies: 15:15 amlodipine; 15:15 Lisinopril; - PMHx: 15:15 ADD/ADHD; Anemia; Anxiety; Atrial Fib; Diabetes - NIDDM; GERD; High Cholesterol; Hypertension; Osteoporosis; osteoarthritis; - Immunization history:: Adult Immunizations up to date. - Social history:: Smoking status: Patient denies any tobacco usage or history of. Screenin:28 Abuse screen: Denies threats or abuse. Nutritional screening: No deficits noted. Tuberculosis screening: No symptoms or risk factors identified. Fall Risk Fall in past 12 months (25 points). Secondary diagnosis (15 points) Alzheimer's, dementia, Mental Status- Overestimates/Forgets Limitations (15 pts.). Total Mcghee Fall Scale indicates High Risk Score (45 or more points). Assessment: 15:20 General: Appears in no apparent distress. Behavior is calm, cooperative, appropriate ah for age, Pleasantly confused. Pain: Complains of pain in back. Neuro: Level of Consciousness is awake, alert, obeys commands, confused, Oriented to none. Cardiovascular: Capillary refill < 3 seconds Patient's skin is warm and dry. Respiratory: Airway is patent Respiratory effort is even, unlabored. Derm: Skin is intact, is healthy with good turgor, Skin is dry. Musculoskeletal: Reports pain in back. 16:30 Reassessment: Patient and/or family updated on plan of care and expected duration. Pain ah level reassessed. Patient is alert, oriented x 3, equal unlabored respirations, skin warm/dry/pink. Pt medicated with Lankin. 17:29 Reassessment: Patient and/or family updated on plan of care and expected duration. Pain ah level reassessed. Patient is alert, oriented x 3, equal unlabored respirations, skin warm/dry/pink. Pt ready for discharge. awaiting transportation. Discharge instructions given to Pt. Vital Signs: 15:10 BP 167 / 65; Pulse 79; Resp 20; Temp 97.8; Pulse Ox 98% ; Weight 88.45 kg; Height 5 ft. ah 0 in. (152.40 cm); 15:10 Body Mass Index 38.08 (88.45 kg, 152.40 cm) ED Course: 15:10 Patient arrived in ED. ah 15:12 Triage completed. ah 15:14 [facility]C [facility]. snw 15:14 Kelton Pelaez MD is Attending Physician. snw 15:46 CT Traumagram (Head C Spine CAP wo con) In Process Unspecified. EDMS 16:33 Lien Jaramillo, RN is Primary Nurse. ah 17:28 Patient has correct armband on for positive identification. Bed in low position. Call light in reach. Side rails up X2. 17:31 Patient notified of wait time. ah 17:31 No provider procedures requiring assistance completed. Patient did not have IV access during this emergency room visit. Administered Medications: 16:37 Drug: Lankin 5 mg-325 mg 1 tabs Route: PO; ah 17:29 Follow up: Response: No adverse reaction; Pain is decreased Outcome: 16:52 Discharge ordered by . snw 17:30 Discharged to [facility], [facility] 17:30 Condition: stable 17:30 Discharge instructions given to patient, Instructed on discharge instructions, follow up and referral plans. medication usage, Demonstrated understanding of instructions, follow-up care, medications, Prescriptions given X 1. 17:56 Patient left the ED. hb Signatures: Dispatcher [employer] EDBryanna Romero, CUT OFF SAW SET UP OPERATOR-C CUT OFF SAW SET UP OPERATOR-Csnw Richa Cohn RN RN Lien Jaramillo RN RN Corrections: (The following items were deleted from the chart) 15:16 15:10 Chief complaint: EMS states: Pt had unwitnessed fall, was found sitting on the floor in front of her chair. Pt with c/o back pain 17:29 17:29 Reassessment: Patient and/or family updated on plan of care and expected duration. Pain level reassessed. Patient is alert, oriented x 3, equal unlabored respirations, skin warm/dry/pink. Pt medicated with Lankin ah
[2019-08-30 18:00] VITALS: BP 167/65; TEMP 97.8; O2SAT 98
== END 2019-08-30 17:56 | disposition home or self-care (01) ==
LOC: ER 15:09
DX: M54.5 Low back pain (principal); W07.XXXA Fall from chair, initial encounter; Y93.9 Activity, unspecified; Y92.9 Unspecified place or not applicable; I10 Essential (primary) hypertension; Z88.8 Allergy status to other drugs, medicaments and biological substances
CPT/HCPCS: 70450; 71250; 72125; 99284

== ENCOUNTER 2019-09-27 03:32 | Emergency (ER) | payer OTHER ==
--- OUTSIDE RECORDS SUMMARY | 2019-09-27 03:35 | XMS REPORT | Continuity of Care Document ---
:1930 Author Organization [facility] Information [employer] Care Team Providers Name Role Phone [facility] [employer] Unavailable Un available Problems Problem Status Onset Classification Date Comments Sourc e Date Reported FALL Active 11/27/[address] HIP FX Active 11/27/[address] Kyphosis deformity Active 02/09/19 Problem 08/20/2017 Data Mischer of spine (disorder) 13 migrated Neuro, from [facility] on 09/30/14. 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 Gastroesophageal Resolved Problem 08/20/2017 Mi siobhan reflux disease [facility] (disorder) [facility] Essential Resolved Problem 08/20/2017 Mischer hypertension Neuro,M H (disorder) [facility] Osteoporosis Resolved Problem 08/20/2017 Mische r (disorder) [facility] FX UNSP PART OF Active [place] BODY OF MANDIBLE, Ri dical UNSPEC [place] Medications Medication Details Route Status Patient Ordering Order Source Instructions Provider Date remove patch Notes: Remove No Longer [facility] old patch Active 2015 Medical before [place] application of new patch. heparin 5,000 unit = 1 Active 12/03[facility] mL, SUB-Q, Q8H, 2016 Medical 0 Refill(s) [place] Folic Acid 1 MG 1 mg = 1 tab, Active 12/03[facility] Oral Tablet PO, Daily, 0 2015 Medical Refill(s) [place] ferrous sulfate 325 mg = 1 tab, Active 12/03[facility] 325 mg oral PO, TID-Meals, 2016 Medic al enteric coated 0 Refill(s) Cente r tablet atorvastatin 20 20 mg = 1 tab, Active 12/03/ H [place] mg oral tablet PO, Bedtime, 0 2015 Ri dical Refill(s) [place] amLODIPine 10 10 mg = 1 tab, Active [place] mg oral tablet PO, Daily, 0 2015 [facility] noelle Refill(s) Center Acetaminophen 1 tab, PO, Q6H, Active [place] 325 MG / PRN Pain Score 2016 Medical Hydrocodone 6-10, 0 Center Bitartrate 5 MG Refill(s) Oral Tablet [[place] 5/325] senna 8.6 mg 17.2 mg = 2 [place] oral tablet tab, PO, 2016 Medical Bedtime, 0 Center Refill(s) Compazine Notes: (Same Inactive [place] as: Compazine) 2016 [facility] Center Simethicone Notes: (Same Inactive [place] as: Mylicon) 2016 [facility] Center Amlodipine Notes: (Same [place] as: Norvasc) 2016 Medical Center Tums Notes: (Same Inactive [place] As: Tums) 2016 [facility] Calcium Center Carbonate 500 mg = 200 mg elemental calcium Dose = mg calcium carbonate ( mg elemental calcium) Hydralazine Notes: (Same Inactive [place] Hydrochloride as: Apresoline) 2016 Me dical 50 MG Oral May interfere Center Tablet w/enteral feedings Take With Food. Tums Notes: (Same Inactive [place] As: Tums) 2016 [facility] Calcium Center Carbonate 500 mg = 200 [...] Duration: 30 day, Stop date: 01/01/16 9:00:00 SHOWER SCREEN INSTALLER ferrous sulfate Notes: Give No Longer [place] with food. "Do Active 2016 Medical Not Crush" Center Acetaminophen Notes: (Same No Longer [place] 325 MG / as: [place] Active 2016 Medical Hydrocodone 325/5) Do not Cente r Bitartrate 5 MG exceed 4gm/day Oral Tablet of [[place] 5/325] acetaminophen. Acetaminophen Notes: Do not Inactive [place] 325 MG / exceed 4gm/day 2016 Medical Hydrocodone of Center Bitartrate 10 acetaminophen. MG Oral Tablet (Same as: [place] [[place] 10/325] 325/10) Tramadol Notes: Not to No [...] Active 2015 Medical mg = 0.5 tab, [place] Drug form: MISC, Route: PO, BID, 11/30/15 17:00:00 CDT, Duration: 30 day, Stop date: 12/30/15 9:00:00 SHOWER SCREEN INSTALLER glimepiride 0.5 mg, Route: Inactive [place] PO, Drug form: 2015 Medical TAB, BID, Center Dosing Weight 88.182, kg, Start date: 11/30/15 17:00:00 CDT, Duration: 30 day, Stop date: 12/30/15 9:00:00 SHOWER SCREEN INSTALLER Calmoseptine Notes: (Same No Longer [place] [...] Duration: 30 day, Stop date: 12/30/15 8:01:00 SHOWER SCREEN INSTALLER Ativan Notes: (Same No Longer [place] as: Ativan) Active 2015 [facility] glimepiride Notes: (Same [place] Long[place] as: Amaryl) Active 2015 [facility] Center Miralax Notes: Dissolve No Longer [place] in 8 oz of Active 2015 [facility] water or juice. Center (Same as: Miralax) Furosemide 40 40 mg, Route: Inactive [place] MG Oral Tablet PO, Drug form: 2015 Me dical [Lasix] TAB, BID, Center Dosing Weight 88.182, kg, Start date: 11/29/15 17:00:00 CDT, Duration: 30 day, Stop date: 12/29/15 9:00:00 SHOWER SCREEN INSTALLER Methyldopa 250 Notes: May No Longer [place] MG Oral Tablet interfere Active 2015 Medical w/enteral Center feedings. (Same as:Aldomet) 168 HR Notes: Patch No Longer [place] Clonidine delivers 0.1 Active 2015 [facility] 0.00413 MG/HR mg/24 hours; Cente r Transdermal Patch is Patch applied weekly. "Remove old patch before application of new patch" (Same As: Ndygdova-DRP-9) multivitamin 1 tab, PO, Active [place] Daily 2016 [facility] cranberry oral 1 tab, PO, No Longer [place] tablet Daily Active 2015 [facility] Aspirin 81 MG 81 mg = 1 tab, No Longer H [place] Enteric Coated PO, Daily Active 2015 [facility] amLODIPine 5 mg 5 mg = 1 tab, No Longer [place] oral tablet PO, Daily Active 2015 [facility] Alendronic acid 70 mg = 1 tab, Active H [place] 70 MG Oral PO, Q7D, EVERY 2015 Medica l Tablet MONDAY Center Acetaminophen 1 tab, PO, [place] Longer [place] 325 MG / Bedtime, PRN Active 2015 [facility] Hydrocodone Pain Center Bitartrate 10 MG Oral Tablet [[place] 10/325] 3 ML Insulin 35 units, Active [place] Glargine 100 SUB-Q, QAM 2016 Medical UNT/ML Center Prefilled Syringe [Lantus] Methocarbamol Notes: (Same No Longer [place] as:Robaxin) Active 2015 Medical Center Dulcolax Notes: (Same No Longer [place] Laxative As: Dulcolax, Active 2015 [facility] Bisco-Lax) Center Insulin Notes: Same as: No Longer [place] as Glargine Lantus) Do not Active 2015 Medical hold insulin Center without contacting prescriber WASTE: F/P - Black; E - Municipal Trash Bin atorvastatin Notes: (Same No Longer [place] As: Lipitor) Active 2015 Medical Center sennosides, INTERMEDIATE Notes: (Same No Longer [place] as: Senokot) Active 2015 Medical [place] 168 HR 1 patch, TOP, Active [place] Clonidine qWeek, EVERY 2016 Medical 0.79577 MG/HR MONDAY, # 4 Cent er Transdermal patch, 0 Patch Refill(s) Acetaminophen 1 tab, PO, [place] Longer [place] 325 MG / Q4-6H, PRN Active 2015 [facility] Hydrocodone [place] Bitartrate 5 MG Oral Tablet [[place] 5/325] heparin Notes: porcine [facility] Long[facility] 2015 [facility] Ancef + sodium Notes: (Same No Longer [place] chloride 0.9% As: Ancef, Active 2015 [facility] INJ 100 mL Kefzol) Center Cefazolin FOR [...] Duration: 30 day, Stop date: 12/28/15 6:03:00 SHOWER SCREEN INSTALLER Insulin regular 60 units) No Longer [place] WASTE: F/P - Active 2016 Medical Black; E - Center Municipal Trash Bin Stable for 28 days at room temperature Expires in days from D ate Dextrose 50% 12.5 gm, 25 mL, No Longer [facility] Syringe Route: IVP, Active 2015 Medical Drug Form: INJ, Center Dosing Weight 88.182, kg, PRN, PRN Blood Glucose Results, Start date: 11/28/15 6:03:00 CDT, Duration: 30 day, Stop date: 12/28/15 5:02:00 SHOWER SCREEN INSTALLER Glucagon 1 mg, Route: No Longer [place] IM, Drug form: Active 2015 Medical PDR/INJ, PRN, Center Dosing Weight 88.182, kg, PRN Blood Glucose Results, Start date: 11/28/15 6:03:00 CDT, Duration: 30 day, Stop date: 12/28/15 5:02:00 SHOWER SCREEN INSTALLER Zofran Notes: (Same Inactive [facility] as: Zofran) 2015 Medical MEDICATION Center WASTE Product Size: 4 mg Product Wasted: ___ mg Morphine Notes: (Same Inactive [facility] as:MORPhine 2015 Medical Sulfate) Center Allergies, Adverse Reactions, Alerts Substance Category Reaction Severity Reaction Status Date Comments S ource type Reported lisinopril Assertion Drug Active Mis jg allergy Neuro Immunizations No Data Provided for This Section Results Order Name Results Value Reference Date Interpretation Comments Bree rce Range HEMATOLOGY Hgb 8.0 12.0 - 12/02 [facility] 16.0 [facility] HEMATOLOGY Hct 23.6 36.0 - 12/02 [facility] 48.0 [facility] HEMATOLOGY Hgb 7.6 12.0 - 12/01 [facility] 16.0 [facility] HEMATOLOGY Hct 22.5 36.0 - 12/01 [facility] 48.0 /2016 [facility] CHEM PANEL eGFR 40 11/30 Comment: The [...] PANEL AGAP 13.8 10.0 - 11/30 20.0 [facility] CHEM PANEL Calcium Lvl 8.0 8.5 - 10.5 11/30 [facility] CHEM PANEL CO2 24 24 - 32 11/30 [facility] CHEM PANEL Chloride Lvl 106 95 - 109 11/30 s [facility] CHEM PANEL Potassium 3.8 3.5 - 5.1 11/30 l [facility] CHEM PANEL Sodium Lvl 140 135 - 145 11/30 [facility] CHEM PANEL Creatinine 1.24 0.50 - 11/30 Lvl 1.40 [facility] CHEM PANEL BUN 30 7 - 22 11/30 [facility] CHEM PANEL Glucose Lvl 141 70 - 99 11/30 [facility] HEMATOLOGY Monocytes # 0.7 0.0 - 0.8 11/30 a s [facility] HEMATOLOGY Eosinophils 0.8 0.0 - 0.5 11/30 [place] # [facility] HEMATOLOGY Monocytes 7.6 2.0 - 12.0 11/30 [facility] HEMATOLOGY Lymphocytes 24.4 20.0 - 11/30 [place] 40.0 [facility] HEMATOLOGY Segs 58.6 45.0 - 11/30 [place] 75.0 [facility] HEMATOLOGY Segs-Bands # 5.1 1.5 - 8.1 11/30 [facility] HEMATOLOGY Lymphocytes 2.1 1.0 - 5.5 11/30 [place] # [facility] HEMATOLOGY Eosinophils 8.9 0.0 - 4.0 11/30 [facility] HEMATOLOGY Basophils 0.5 0.0 - 1.0 11/30 [facility] HEMATOLOGY MPV 9.2 7.4 - 10.4 11/30 [facility] HEMATOLOGY RDW 15.3 11.5 - 11/30 [place] 14.5 [facility] HEMATOLOGY Platelet 146 133 - 450 11/30 [facility] HEMATOLOGY MCHC 33.2 32.0 - 11/30 [place] 36.0 [facility] HEMATOLOGY MCH 30.2 27.0 - 11/30 [place] 31.0 [facility] HEMATOLOGY Hgb 7.4 12.0 - 11/30 [place] 16.0 [facility] HEMATOLOGY Hct 22.2 36.0 - 11/30 [place] 48.0 [facility] HEMATOLOGY WBC 8.6 3.7 - 10.4 11/30 [facility] HEMATOLOGY RBC 2.43 4.20 - 11/30 [place] 5.40 [facility] HEMATOLOGY MCV 91.2 80.0 - 11/30 [place] 98.0 [facility] ELECTROLYTES Chloride Lvl 107 95 - 109 11/29 [place] [facility] ELECTROLYTES Potassium 3.9 3.5 - 5.1 11/29 [facility] Lvl [facility] ELECTROLYTES Sodium Lvl 141 135 - 145 11/29 [facility] ELECTROLYTES Creatinine 1.77 0.50 - 11/29 [place] Lvl 1.40 [facility] ELECTROLYTES BUN 37 7 - 22 11/29 [facility] ELECTROLYTES Glucose Lvl 161 70 - 99 11/29 a s [facility] ELECTROLYTES eGFR 26 11/29 [facility] Comment: The Medical eGFR is Center calculated [...] 7.9 8.5 - 10.5 11/29 [place] [facility] ELECTROLYTES CO2 26 24 - 32 10 [facility] ELECTROLYTES AGAP 11.9 10.0 - 11/29 [place] 20.0 [facility] HEMATOLOGY MPV 9.0 7.4 - 10.4 11/29 [facility] HEMATOLOGY MCH 30.6 27.0 - 11/29 [place] 31.0 [facility] HEMATOLOGY MCV 90.7 80.0 - 11/29 [place] 98.0 [facility] HEMATOLOGY MCHC 33.7 32.0 - 11/29 [place] 36.0 [facility] HEMATOLOGY RBC 2.78 4.20 - 11/29 [place] 5.40 /2015 [facility] HEMATOLOGY WBC 9.9 3.7 - 10.4 11/29 [facility] HEMATOLOGY Platelet 148 133 - 450 11/29 [facility] HEMATOLOGY RDW 15.2 11.5 - 11/29 [place] 14.5 [facility] HEMATOLOGY Lymphocytes 1.9 1.0 - 5.5 11/29 [place] # /2015 [facility] HEMATOLOGY Segs-Bands # 6.6 1.5 - 8.1 11/29 [place] as [facility] HEMATOLOGY Eosinophils 0.6 0.0 - 0.5 11/29 [place] # /2015 [facility] HEMATOLOGY Monocytes # 0.8 0.0 - 0.8 11/29 [place] [facility] HEMATOLOGY Lymphocytes 19.1 20.0 - 11/29 [place] 40.0 [facility] HEMATOLOGY Segs 67.0 45.0 - 11/29 [place] 75.0 [facility] HEMATOLOGY Basophils 0.3 0.0 - 1.0 11/29 [facility] HEMATOLOGY Eosinophils 5.9 0.0 - 4.0 11/29 [facility] HEMATOLOGY Monocytes 7.7 2.0 - 12.0 11/29 [facility] CHEM PANEL eGFR 37 11/28 [facility] Comment: The Medical eGFR is Center calculated [...] PANEL CO2 22 24 - 32 11/28 [facility] CHEM PANEL Chloride Lvl 107 95 - 109 11/28 [facility] CHEM PANEL Calcium Lvl 8.9 8.5 - 10.5 11/28 [facility] CHEM PANEL Sodium Lvl 139 135 - 145 11/28 [facility] CHEM PANEL BUN 22 7 - 22 11/28 [facility] CHEM PANEL Potassium 4.3 3.5 - 5.1 11/28 [facility] Lvl [facility] CHEM PANEL Glucose Lvl 260 70 - 99 11/28 [facility] CHEM PANEL Creatinine 1.31 0.50 - 11/28 [facility] Lvl 1.40 [facility] CHEM PANEL AGAP 14.3 10.0 - 11/28 [place] 20.0 [facility] HEMATOLOGY Lymphocytes 1.0 1.0 - 5.5 11/28 [place] # [facility] HEMATOLOGY Monocytes # 0.6 0.0 - 0.8 11/28 [facility] [address] s [facility] HEMATOLOGY Segs-Bands # 11.1 1.5 - 8.1 11/28 [facility] HEMATOLOGY Basophils 0.1 0.0 - 1.0 11/28 [facility] /2015 [facility] HEMATOLOGY Eosinophils 0.1 0.0 - 4.0 11/28 [place] /2015 [facility] HEMATOLOGY Monocytes 4.5 2.0 - 12.0 11/28 /2015 [facility] HEMATOLOGY Lymphocytes 7.8 20.0 - 11/28 [place] 40.0 [facility] HEMATOLOGY Segs 87.5 45.0 - 11/28 [place] 75.0 [facility] HEMATOLOGY Platelet 164 133 - 450 11/28 [facility] HEMATOLOGY MPV 9.1 7.4 - 10.4 11/28 [facility] HEMATOLOGY RBC 3.32 4.20 - 11/28 [place] 5.40 [facility] HEMATOLOGY WBC 12.6 3.7 - 10.4 11/28 [facility] HEMATOLOGY RDW 15.0 11.5 - 11/28 [place] 14. [facility] HEMATOLOGY MCHC 34.0 32.0 - 11/28 [place] 36.0 [facility] HEMATOLOGY MCH 30.8 27.0 - 11/28 [place] 31.0 [facility] HEMATOLOGY MCV 90.8 80.0 - 11/28 [place] 98.0 [facility] BLOOD BANK Antibody Negative 11/27 [facility] RESULTS Scrn (11/28/15 3:13 AM) /2015 [facility] BLOOD BANK ABO/Rh O NEG 11/27 [facility] RESULTS /2015 [facility] HEMATOLOGY Eosinophils 0.1 0.0 - 0.5 11/27 [place] # [facility] HEMATOLOGY PT 12.3 12.0 - 11/27 [place] 14.7 [facility] HEMATOLOGY INR 0.90 0.85 - 11/27 [place] 1. [facility] Pathology Reports No Data Provided for This Section Diagnostic Reports Report Value Date Source Hip 2/3 views uni DX EXAM: XR HIP 1 VIEW AND AP PELVIS 6 [facility] Medical DATE: 11/28/2015 3:24 PM CDT Jorge [...] DX EXAM: XR PELVIS 1 VIEW 11/28/2015 [facility] DATE: 11/28/2015 3:[address] [...] EXAM: XR RIGHT FEMUR 2 VIEWS 11/28/2015 [facility] DATE: 11/28/2015 7:[address] INDICATION: Fracture COMPARISON: Pelvis radiograph dated 11/28/2015 a t 3:05 AM TECHNIQUE: AP and lateral radiographs of the ri t femur FINDINGS: There is a fractu re of the right femoral neck with minimal superior displacement of the distal fracture fragment. The distal fracture fragment including the femoral shaft appears to be leasing assistant ally rotated. Overall the fr actures in [...] Comments Source Systolic (mm Hg) 179 12/04/2015 [facility] Diastolic (mm Hg) 83 12/04/2015 [facility] Heart Rate 79 12/04/2015 [facility] Heart Rate 70 12/04/2015 [facility] Systolic (mm Hg) 180 12/04/[facility] Diastolic (mm Hg) 78 12/04/2015 [facility] Systolic (mm Hg) 191 12/04/2015 [facility] Diastolic (mm Hg) 78 12/04/2015 [facility] Temperature Oral (F) 98.3 F 12/04/2015 [facility] [place] [facility] Respitory Rate 18 12/04/2015 [facility] Heart Rate 84 12/04/2015 [facility] Temperature Oral (F) 98.5 F 12/04/2015 [facility] Respitory Rate 18 12/04/2015 [facility] Respitory Rate 18 12/04/2015 [facility] Temperature Oral (F) 98 F 12/04/2015 [facility] BMI Calculated 35.56 11/28/2015 [facility] Weight 88.182 11/28/2015 [facility] Height 157.48 cm 11/28/2015 [facility] Encounters Location Location Encounter Encounter Reason Attending ADM DC Stat us Source Details Type Number For Provider Date Date Visit [facility] [id number] [place] 11/27 12/03 [facility] /2015 [facility]NA Spine Phone [id number] 08/16 08/18 [facility] Message /2017 Neuro Procedures Procedure Code Date Perfomer Comments Source Ankle joint [id number] [facility] Appendectomy [id number] [facility] Cholecystectomy [id number] [facility] Hysterectomy [id number] [facility] Tonsillectomy [id number] [facility] Assessment and Plan Assessment and Plan Date Source Extracted from:Title: Clinical Document 12/04/2015 [facility] [place] [facility] Author: Magda Jimenez DO Date: 12/04/15 [...] the emergency department. DISPOSITION: Discharged to [facility] CONDITION ON DISCHARGE: Stable Time spent on [...] 1 week afte r discharge. Please call [phone] for an appointment. Pt will need a total of 3 weeks of DVT PPx from date of final surgery with lovenox. Derrek Kwon, PGY1 Orthopaedic Surgery MSO [id number] Extracted from:Title: Admission H and P Author: [...] diso pt ot after or primary pager [phone] Extracted from:Title: ORS Consulation Author: Nick Martinez [...] History: none Medications: see apr Allergies: see [facility] Current Hospital Medications Medication List Active Medications Ordered acetaminophen: 1,000 mg, 2 tab, PO, Q6Hnow. atorvastatin: 20 mg, 1 tab, PO, Bedtime. carvedilol: 12.5 mg, 1 tab, PO, BID. Dextrose 50% in Water IV: 12.5 gm, 25 mL, IVP, ID N, PRN: Blood Glucose Results. Dextrose 50% [...] 100 ml /hr, IV, Stop: 12/28/15 6:03:00 SHOWER SCREEN INSTALLER. tramadol: 50 mg, 1 tab, PO, Q6Hnow, [...] 4bone with any emergencies or pag [phone] (Nick Martinez) with any questions Nick Martinez MD Orthopaedic Surgery Pager [phone] Plan of Care No Data Provided for This Section Social History Social History Date Source Social History TypeResponse 11/29/2015 [facility] Never Smoking Status Never smoker; Exposure to Tobacco Smoke None; Cigarette Smoking Last 365 Days No; Reg Smoking Cessation Counseling No entered on: 11/28/15 Social History TypeResponse 11/29/2015 [facility] Alcohol Never Smoking Status Never smoker; Exposure to Tobacco Smoke None; Cigarette Smoking Last 365 Days No; Reg Smoking Cessation Counseling No Family History No Data Provided for This Section Advance Directives No Data Provided for This Section Functional Status No Data Provided for This Section
--- OUTSIDE RECORDS SUMMARY | 2019-09-27 03:36 | XMS REPORT | Continuity of Care Document ---
:1930 Author Organization [facility] t Address [address] [place] [address] Care Team Providers Name Role Phone Clara Jimenez Attending Clinician Hector Larsen Admitting Clinician Problems Condition Condition Condition Status Onset Resolution Last Treating Co mments Source Name Details Category Date Date Treatment Clinician Date FALL Diagnosis Active 2015-022015-11-28 Mem oria 0-21 02:06:00 l FALL 00:00: [place] 00 Active 11/27/2015 [facility] HIP FX Diagnosis Active 2015-022015-12-10 Mem oria 0-21 22:10:00 l HIP FX 00:00: [place] 00 Active 11/27/2015 [facility] Kyphosis Problem Active 2017-08-20 Mem oria deformity 1-04 02:05:56 l of spine Kyphosis 00:00: Herm kala (disorder) deformity 00 of spine (disorder) Active 02/10/2012 Problem 08/20/2017 Data migrated from [facility] on 09/30/14. [facility] Arthropath Problem Resolve 2017-08-20 Memoria y d 02:05:56 l (disorder) Jaden n Arthropath y (disorder) Resolved Problem 08/20/2017 [facility] Diabetes Problem Resolve 2017-08-20 Me moria mellitus(C d 02:05:56 l onfirmed) Diabetes Her santana mellitus(C onfirmed) Resolved Problem 08/20/2017 [facility] Accidental Problem Resolve 2017-08-20 Memoria fall d 02:05:56 l (finding) Rigoberto Accidental fall (finding) Resolved Problem 08/20/2017 [facility] Gastroesop Problem Resolve 2017-08-20 Memoria hageal d 02:05:56 l reflux [place] disease Gastroesop (disorder) hageal reflux disease (disorder) Resolved Problem 08/20/2017 [facility] Essential Problem Resolve 2017-08-20 M emoria hypertensi d 02:05:56 l on [place] (disorder) Essential hypertensi on (disorder) Resolved Problem 08/20/2017 [facility] Osteoporos Problem Resolve 2017-08-20 Memoria is d 02:05:56 l (disorder) Jaden n Osteoporos is (disorder) Resolved Problem 08/20/2017 [facility] FX UNSP Diagnosis Active 2015-12-10 Me moria PART OF 22:10:00 l BODY OF FX UNSP Jaden n MANDIBLE, PART OF UNSPEC BODY OF MANDIBLE, UNSPEC Active [facility] Allergies, Adverse Reactions, Alerts Allergy Allergy Status Severity Reaction(s) Onset Inactive Treating Comm ents Source Name Type Date Date Clinician lisinopr lisinopr Active Memori a il il l Rigoberto Social History Social Habit Start Date Stop Date Quantity Comments Source Social History 2015-11-29 2015-11-29 [facility] 01:57:18 01:57:18 Medications Ordered Filled Start Stop Current Ordering Indication Dosage Frequency Signature Comments Components Source Medication Medication Date Date Medication? Clinician (SIG) Name Name remove 2015-02 No Notes: Memoria patch 0-30 Remove old l 21:00: patch Rigoberto 00 before applicatio n of new patch. heparin 2015-02 Yes 5,000 unit Antonio fernando 0-28 = 1 mL, l 19:26: SUB-Q, [place] 00 Q8H, 0 Refill(s) Folic Acid 2015-02 Yes 1 mg = 1 Mem oria 1 MG Oral 0-28 tab, PO, l Tablet 19:26: Daily, 0 Rigoberto 00 Refill(s) ferrous 2015-02 Yes 325 mg [...] 6-10, 0 5 MG Oral Refill(s) Tablet [[place] 5/325] senna 8.6 2015-02 Yes 17.2 mg [...] Duration: 30 day, Stop date: 01/01/16 9:00:00 REVENUE LIAISON ferrous 2015-02 No Notes: Memoria sulfate 0-27 Give with l 13:00: food. "Do Not Crush" Acetaminoph 2015-02 No Notes: Antonio fernando en 325 MG / 0-26 (Same as: l Hydrocodone 18:00: [place] Ritika nn Bitartrate 00 325/5) Do 5 MG Oral not exceed Tablet 4gm/day of [[place] acetaminop 5/325] hen. Acetaminoph 2015-02 No Notes: Do M emoria en 325 MG / 0-26 not exceed l Hydrocodone 13:39: 4gm/day of [place] Bitartrate 00 acetaminop 10 MG Oral hen. Tablet (Same as: [[place] 10/325] 325/10) Tramadol 2015-02 No Notes: Not Mem oria 0-26 to exceed l 13:39: 400mg/day. [place] 00 (Same As: Ultram) Folic Acid 2015-02 [...] Duration: 30 day, Stop date: 12/30/15 9:00:00 REVENUE LIAISON glimepiride 2015-02 No 0.5 mg, Mem oria 0-24 Route: PO, l 22:00: Drug form: [place] 00 TAB, BID, Dosing Weight 88.182, kg, Start date: 11/30/15 17:00:00 CDT, Duration: 30 day, Stop date: 12/30/15 9:00:00 RE[place]UE LIAISON Calmoseptin 2015-02 No Notes: Antonio fernando e [...] Duration: 30 day, Stop date: 12/30/15 8:01:00 REVENUE LIAISON Ativan 2015-02 No Notes: Memoria 0-24 (Same as: l 02:00: Ativan) [place] 00 glimepiride 2015-02 No Notes: Antonio fernando [...] Duration: 30 day, Stop date: 12/29/15 9:00:00 REVENUE LIAISON Methyldopa 2015-02 No Notes: June M emoria 250 MG Oral 0-23 interfere l Tablet 21:00: w/enteral Jaden n 00 feedings. (Same as:Aldomet ) 168 HR 2015-02 No Notes: Memoria Clonidine 0-23 Patch l 0.05525 19:00: delivers Jaden n MG/HR 00 0.1 mg/24 Transdermal hours; Patch Patch is applied weekly. "Remove old patch before applicatio n of new patch" (Same As: Nadia-Pauline -) multivitami 2015-02 Yes 1 tab, PO, Memoria n 0-23 Daily l 18:26: [place] 00 cranberry 2015-02 No 1 tab, PO, Me moria oral tablet 0-23 Daily l 18:26: Rigoberto 00 Aspirin 81 2015-02 No 81 mg = 1 Me moria MG Enteric 0-23 tab, PO, l Coated 18:26: Daily Rigoberto Tablet 00 amLODIPine 2015-02 No 5 mg = 1 Mem oria 5 mg oral 0-23 tab, PO, l tablet 18:26: Daily Rigoberto Alendronic 2015-02 Yes 70 mg = 1 Me moria acid 70 MG 0-23 tab, PO, l Oral Tablet 18:26: Q7D, EVERY Monday Acetaminoph 2015-02 No 1 tab, PO, Memoria en 325 MG / 0-23 Bedtime, l Hydrocodone 18:26: PRN Pain He rmann Bitartrate 00 10 MG Oral Tablet [[place] 10/325] 3 ML 2015-02 Yes 35 units, Memoria Insulin 0-23 SUB-Q, QAM l Glargine 18:22: Rigoberto 100 UNT/ML 00 Prefilled Syringe [Lantus] Methocarbam 2015-02 No Notes: Antonio fernando ol 0-23 (Same l 15:17: as:Robaxin ) Dulcolax 2015-02 No Notes: Memoria Laxative 0-23 (Same As: l 15:15: Dulcolax, Bisco-Lax) Insulin 2015-02 No Notes: Memoria Glargine 0-23 Same as: l 14:00: Lantus) Do not hold insulin without contacting prescriber WASTE: F/P - Black; E - [facility] Trash Bin atorvastati 2015-02 No Notes: Antonio fernando n 0-23 (Same As: l 02:00: Lipitor) sennosides, 2015-02 No Notes: Antonio fernando CORRECTION 0-23 (Same as: l 02:00: Senokot) [place] 168 HR 2015-02 Yes 1 patch, Memoria Clonidine 0-23 TOP, l 0.96022 01:59: qWeek, Rigoberto MG/HR 00 EVERY Transdermal MONDAY, Patch # 4 patch, 0 Refill(s) Acetaminoph 2015-02 No 1 tab, PO, Memoria en 325 MG / 0-23 Q4-6H, PRN l Hydrocodone 01:46: Jaden n Bitartrate 00 5 MG Oral Tablet [[place] 5/325] heparin 2015-02 No Notes: Memoria 0-22 porcine l 23:00: heparin Rigoberto 00 Ancef + 2015-02 No Notes: Memoria sodium 0-22 (Same As: l chloride 23:00: Ancef, Rigoberto 0.9% INJ 00 Kefzol) 100 mL Cefazolin FOR IV SET ONLY MEDICATION WASTE Product Size: 1000 mg Product Wasted: 0 mg Cefazolin 2015-02 No 2 gm, Memoria 0-22 Route: l 20:28: IVP, ONCE, [place] 00 Dosing Weight 88.182, kg, Start date: 11/28/15 15:28:00 CDT, Stop date: 11/28/15 15:28:00 CDT Methyldopa 2015-02 No Notes: June emoria 250 MG Oral 0-22 interfere l Tablet 14:00: w/enteral Jaden n 00 feedings. (Same as:Aldomet ) lansoprazol 2015-02 No Notes: Antonio fernando e 0-22 Take 1 l 14:00: hour [place]vere 00 before or 2 hours after meal; Expires in 14 days. Shake well before use. (Same as:Prevaci d) Compound ed Product - formulatio n not commercial ly available* * carvedilol 2015-02 No Notes: Memor ia 0-22 Give with l 14:00: food. [place] 00 (Same As: Coreg) Insulin 2015-02 No Notes: Memoria Glargine 0-22 Same as: l 14:00: Lantus) Do Rigoberto 00 not hold insulin without contacting prescriber WASTE: F/P - Black; E - Municipal Trash Bin Docusate 2015-02 No Notes: Memoria 0-22 (Same as: l 14:00: Colace) [place] 00 (Do Not Crush) Protonix 2015-02 No Notes: Memoria 0-22 Tablet l 14:00: should not Rigoberto 00 be chewed or crushed. (Same as: Protonix) Acetaminoph 2015-02 No Notes: Max Memoria en 0-22 acetaminop l 12:00: hen 4000 Rigoberto 00 mg/day (4 gm/day). (Same as: Tylenol Extra Strength) Oxycodone 2015-02 No Notes: Memori a Hydrochlori 0-22 (Same as: l de 5 MG 11:06: Roxicodone Herm kala Oral Tablet 00 ) Tramadol 2015-02 No Notes: Not Mem oria 0-22 to exceed l 11:06: 400mg/day. Revere 00 (Same As: Ultram) Morphine 2015-02 No Notes: Memoria 0-22 (Same l 11:06: as:MORPhin Rigoberto 00 e Sulfate) Methocarbam 2015-02 No Notes: Antonio fernando ol 0-22 (Same l 11:06: as:Robaxin [place] 00 ) Ondansetron 2015-02 No Notes: Antonio fernando 0-22 (Same as: l 11:06: Zofran) Rigoberto 00 MEDICATION WASTE Product Size: 4 mg Product Wasted: ___ mg Melatonin 2015-02 No Notes: Memori a 0-22 (Same as: l 11:06: Melatonin) Rigoberto 00 sodium 2015-02 No 1,000 mL, Memori a chloride 0-22 Rate: 100 l 0.9% 1000 11:04: ml/hr, Jaden n ml INJ 00 Infuse 1,000 mL over: 10 hr, Route: IV, Dosing Weight 88.182 kg, Total Volume: 1,000, Start date: 11/28/15 6:04:00 CDT, Duration: 30 day, Stop date: 12/28/15 6:03:00 REVENUE LIAISON Insulin 2015-02 No 60 Memoria regular 0-22 units) l 11:03: WASTE: F/P [place] 00 - Black; E - Municipal Trash Bin Stable for 28 days at room temperatur e Expires in days from ____Date Dextrose 2015-02 No 12.5 gm, Memor ia 50% Syringe 0-22 25 mL, l 11:03: Route: Rigoberto 00 IVP, Drug Form: INJ, Dosing Weight 88.182, kg, PRN, PRN Blood Glucose Results, Start date: 11/28/15 6:03:00 CDT, Duration: 30 day, Stop date: 12/28/15 5:02:00 REVENUE LIAISON Glucagon 2015- No 1 mg, Memoria Route: IM, l 11:03: Drug form: Rigoberto 00 PDR/INJ, PRN, Dosing Weight 88.182, kg, PRN Blood Glucose Results, Start date: 11/28/15 6:03:00 CDT, Duration: 30 day, Stop date: 12/28/15 5:02:00 REVENUE LIAISON Zofran 2015- No Notes: Memoria 0- (Same as: l 07:35: Zofran) Rigoberto 00 MEDICATION WASTE Product Size: 4 mg Product Wasted: ___ mg Morphine 2015-02 No Notes: Memoria 0- (Same l 07:35: as:MORPhin [place] 00 e Sulfate) Vital Signs Vital Name Observation Time Observation Value Comments Source Systolic (mm Hg) 2015-12-04 16:30:00 Antonio rial Rigoberto Diastolic (mm Hg) 2015-12-04 16:30:00 Mem orial [place] Heart Rate 2015-12-04 16:30:00 [facility] [place] Heart Rate 2015-12-04 12:04:00 [facility] [place] Systolic (mm Hg) 2015-12-04 12:04:00 Antonio rial [place] Diastolic (mm Hg) 2015-12-04 12:04:00 Mem orial [place]oberto Systolic (mm Hg) 2015-12-04 11:25:00 Antonio rial Rigoberto Diastolic (mm Hg) 2015-12-04 11:25:00 Mem orial [place] Temperature Oral (F) 2015-12-04 09:27:00 98.3 F [facility] Rigoberto Respitory Rate 2015-12-04 09:27:00 Memori al [place] Heart Rate 2015-12-04 09:27:00 [facility] [place] Temperature Oral (F) 2015-12-04 04:30:00 98.5 F [facility] [place] Respitory Rate 2015-12-04 04:30:00 Memori al [place] Respitory Rate 2015-12-04 00:22:00 Memori al [place] Temperature Oral (F) 2015-12-04 00:22:00 98 F [facility] BMI Calculated 2015-11-28 06:28:00 Memorlando al [place] Weight 2015-11-28 06:28:00 [facility] Height 2015-11-28 06:28:00 157.48 cm [facility] [place] Procedures Procedure Date / Time Performed Performing Clinician [facility] e Ankle joint operations [facility] Appendectomy [facility] Cholecystectomy [facility] Hysterectomy [facility] Tonsillectomy [facility] Encounters Start End Encounter Admission Attending Care Care Encounter Source Date/Time Date/Time Type Type Clinicians Facility Department ID 2017-08-16 2017-08-17 Outpatient MISCHER MISCHER [id number] 08:41:00 23:59:59 00 2015-11-28 2015-12-04 Outpatient Tony [facility] [id number] 01:28:00 17:25:00 Magda Elizabeth Results Test Description [...] code = MCH) 30.2 pg 27.0-31.0 [facility] KuvkixkTDUBANCLZK3976-28-48 08:06:007.4[facility]ann[facility]OLOG[facility] 2015-12-01 08:06:0022.2[facility] AaduxxsXGBDBPABRT0950-54-79 08:06:008.6[facility] MxuydyiBFVUFKIXRC9490-15-40 08:06:002.43[facility] KgjuifuYMJUWHDVAP9603-64-30 08:06:0091.2[facility] WuvedjfVOOPIXAJAUCO6030-88-00 09:13:76396Qfulsjva [place] KLCBERNNPLXT4956-51-30 09:13:003.9[facility] IscnvrbSAQVXKGALSAO6089-73-57 09:13:76379Iybhohfr TicjkwoBJHTJPQGYWAQ3798-50-51 09:13:001.77[facility] [place] QUSOBWEORBOD0826-93-29 09:13:0037[facility] GnfuexwUYKVOMICRNVP1228-94-89 09:13:00 161[facility] VqbxzhsTNEUHOABWLWI4491-03-14 09:13:0026[facility] HermannELECTROLYTES 2015-11-30 09:13:007.9[facility] WsgfuyeWWDRXQGCRASK1823-99-51 09:13:0026[facility] JszkqpiYZPQMVKZHYYA1061-62-57 09:13:0011.9[facility] MyblrwlVOWFFHMFKP3233-90-17 09:13:009.0[facility] DpqifkyNPPGYQCTFZ8028-68-02 09:13:00 Test Item Value Reference Range Interpretation Comments MCH (test code = MCH) 30.6 pg 27.0-31.0 [facility] LkgeeudTWHKVUWCNI9308-57-22 09:13:0090.7[facility] HermannHEMATOLOGY 2015-11-30 09:13:0033.7[facility] JlkkrtiYLNSZWNSMD1245-80-71 09:13:002.78[facility] KcyomncOBPJEWSICD2192-92-17 09:13:009.9[facility] LybhrbsUGNSPCBJHB3190-84-63 09:13:07605Ejwtyjrp BqykezfBPIMKMZRNV5093-32-48 09:13:0015.2[facility] [place] FIBYGZKGJO0296-81-03 09:13:001.9[facility] VeptsqnKQGXDWSQUD4057-28-35 09:13:006.6 [facility] IqrmdpvHYNNNWAROQ4497-14-75 09:13:000.6[facility]annHEMATOLOGY 2015-11-30 09:13:000.8[facility] EbkyyhpRBYRCWGCYY9673-07-08 09:13:0019.1[facility] VjkchazZXZUHJKVDC0709-64-64 09:13:0067.0[facility] XuhemnzJFRTSCRKMR0255-53-55 09:13:000.3[facility] KqwhaiqLMUPAMLVYO2644-98-13 09:13:005.9[facility] KKPBQCZKSO2624-62-96 09:13:007.7[facility] HermannCHEM SFZGR4667-42-95 08:58:0037 [facility] HermannCHEM RYNYF5171-84-84 08:58:0022[facility] HermannCHEM PANEL 2015-11-29 08:58:63154Cnjutbkf HermannCHEM QQBYY4737-71-29 08:58:008.9[facility] HermannCHEM UULOM8078-75-61 08:58:14023Fdftnpxa HermannCHEM PAQCP6797-55-90 08:58:0022[facility] HermannCHEM UHZZZ6904-93-23 08:58:004.3[facility] HermannCHEM NSSLO1562-90-57 08:58:22734Qpajaudh HermannCHEM EEENH1523-37-30 08:58:001.31 [facility] HermannCHEM KTIAB5726-19-70 08:58:0014.3[facility] HermannHEMATOLOGY 2015-11-29 08:58:001.0[facility] QphmolkTBGCPKWAAC9366-75-51 08:58:000.6[facility] TxprboeEDLCNKDPJT1226-02-44 08:58:0011.1[facility] XjvqfumTMLSCYBFUB1178-17-97 08:58:000.1[facility] IpyndgnZGHNTWSJPD0861-99-62 08:58:000.1[facility] [place] EMIKBWVLET8602-28-91 08:58:004.5[facility] QiameifWCRHOQGCXG9983-82-85 08:58:007.8 [facility] QaqbjzmDWYCPYSSTF7651-26-01 08:58:0087.5[facility] HermannHEMATOLOGY 2015-11-29 08:58:49240Sbmvmxvv MvvrjypPFHPRAKDNF9211-93-07 08:58:009.1[facility] ZreudquEKIDVPXXPN4350-74-48 08:58:003.32[facility] HemaghvDTJUDPFKQQ7190-29-71 08:58:0012.6[facility] TdbyhpzHNDDNZGULK1567-85-03 08:58:0015.0[facility] SCPLHSQEOU9749-91-77 08:58:0034.0[facility] LyiqypnEAKYTMKHAK4779-08-71 08:58:00 Test Item Value Reference Range Interpretation Comments MCH (test code = MCH) 30.8 pg 27.0-31.0 [facility] AbvrbnsQYWFYYEIJJ0575-59-56 08:58:0090.8[facility] HermannBLOOD BANK XLMWQUD8552-25-48 08:13:00Negative (11/28/15 3:13 AM)[facility]annHEMATOLOGY 2015-11-28 08:13:000.1[facility] ObgudhdOOOBGFOBVB9819-60-67 08:13:00 Test Item Value Reference Range Interpretation Comments PT (test code = PT) 12.3 s 12.0-14.7 [facility]qwhe[facility]GUYWDKXODU5398-99-23 08:13:000.90[facility]to
[2019-09-27] MEDS ORDERED: ACETAMINOPHEN 500 MG TAB ONE (04:41)
--- NOTE | 2019-09-27 05:42 | EDPHYS ---
Physician Documentation [facility] Name: Wendy Marte Age: 88 yrs Sex: Female : 1930 Arrival Date: 09/27/2019 Time: 03:41 Bed 4 Private MD: ED Physician Ortiz Archuleta HPI: 09/26 04:27 This 88 yrs old Female presents to ER via EMS with complaints of Fall Injury. mh7 04:27 Details of fall: The patient fell from seated position, out of a chair. Onset: The mh7 symptoms/episode began/occurred today. Associated injuries: The patient sustained neck injury, pain, right shoulder, painful injury. Severity of symptoms: At their worst the symptoms were mild, earlier today, in the emergency department the symptoms have improved, moderately. The patient has experienced similar episodes in the past, several times. Historical: - Allergies: 03:45 Lisinopril; lp1 - Home Meds: 04:24 amlodipine 5 mg tab 1 tab once daily [Active]; atorvastatin 20 mg Oral tab 1 tab daily lp1 [Active]; Calcium-Vit D3 1 tab BID 600mg- 800mg twice a day [Active]; clonidine 0.1 mg/24 hr transdermal ptwk 1 patch once wkly [Active]; docusate sodium 100 mg Oral cap 2 caps once daily [Active]; Eliquis 2.5 mg Oral tab 1 tab 2 times per day [Active]; famotidine 20 mg Oral tab 1 tab 2 times per day [Active]; furosemide 40 mg Oral tab 1 tab once daily [Active]; - PMHx: 03:45 ADD/ADHD; Anemia; Anxiety; Atrial Fib; Diabetes - NIDDM; GERD; High Cholesterol; lp1 Hypertension; osteoarthritis; Osteoporosis; - PSHx: 03:45 Unable to obtain; lp1 - Immunization history:: Adult Immunizations up to date. - Immunization history: Last tetanus immunization: unknown. - Social history:: Smoking status: Patient denies any tobacco usage or history of. ROS: 04:27 Constitutional: Negative for fever, chills, and weight loss, Eyes: Negative for injury, mh7 pain, redness, and discharge, ENT: Negative for injury, pain, and discharge, Cardiovascular: Negative for chest pain, palpitations, and edema, Respiratory: Negative for shortness of breath, cough, wheezing, and pleuritic chest pain, Abdomen/GI: Negative for abdominal pain, nausea, vomiting, diarrhea, and constipation, Back: Negative for injury and pain, : Negative for injury, bleeding, discharge, and swelling, Skin: Negative for injury, rash, and discoloration, Neuro: Negative for headache, weakness, numbness, tingling, and seizure, Psych: Negative for depression, anxiety, suicide ideation, homicidal ideation, and hallucinations, Allergy/Immunology: Negative for hives, rash, and allergies, Endocrine: Negative for neck swelling, polydipsia, polyuria, polyphagia, and marked weight changes, Hematologic/Lymphatic: Negative for swollen nodes, abnormal bleeding, and unusual bruising. Exam: 04:27 Constitutional: This is a well developed, well nourished patient who is awake, alert, mh7 and in no acute distress. Head/Face: Normocephalic, atraumatic. Eyes: Pupils equal round and reactive to light, extra-ocular motions intact. Lids and lashes normal. Conjunctiva and sclera are non-icteric and not injected. Cornea within normal limits. Periorbital areas with no swelling, redness, or edema. ENT: Nares patent. No nasal discharge, no septal abnormalities noted. Tympanic membranes are normal and external auditory canals are clear. Oropharynx with no redness, swelling, or masses, exudates, or evidence of obstruction, uvula midline. Mucous membranes moist. 04:27 Chest/axilla: Normal chest wall appearance and motion. Nontender with no deformity. No lesions are appreciated. Cardiovascular: Regular rate and rhythm with a normal S1 and S2. No gallops, murmurs, or rubs. Normal PMI, no JVD. No pulse deficits. Respiratory: Lungs have equal breath sounds bilaterally, clear to auscultation and percussion. No rales, rhonchi or wheezes noted. No increased work of breathing, no retractions or nasal flaring. Abdomen/GI: Soft, non-tender, with normal bowel sounds. No distension or tympany. No guarding or rebound. No evidence of tenderness throughout. Back: No spinal tenderness. No costovertebral tenderness. Full range of motion. Skin: Warm, dry with normal turgor. Normal color with no rashes, no lesions, and no evidence of cellulitis. 04:27 Neuro: Awake and alert, GCS 15, oriented to person, place, time, and situation. Cranial nerves II-XII grossly intact. Motor strength 5/5 in all extremities. Sensory grossly intact. Cerebellar exam normal. Normal gait. Psych: Awake, alert, with orientation to person, place and time. Behavior, mood, and affect are within normal limits. 04:27 Neck: External neck: tenderness, that is mild, of the cervical spine, C-spine: Thyroid: appears normal, Trachea: is midline with no obvious abnormalities, ROM/movement: is normal, Lymph nodes: no appreciated lymphadenopathy. 04:27 Musculoskeletal/extremity: Extremities: noted in the right shoulder: pain, tenderness, ROM: limited active range of motion due to pain, in the right shoulder, limited passive range of motion due to pain, in the right shoulder, Circulation is intact in all extremities. Pulses: are normal with no appreciated deficits, Sensation intact. Compartment Syndrome exam of affected extremity: is normal. no numbness, no tingling, no sensation deficit, no palor, no weak pulses, Joints: the right shoulder displays painful range of motion, tenderness, Tendon exam: specific tendon testing normal through active and passive range of motion Vital Signs: 03:43 BP 148 / 58; Pulse 90; Resp 18; Temp 97.6(O); Pulse Ox 97% on R/A; Weight 81.65 kg (R); lp1 05:00 BP 159 / 58; Pulse 90; Resp 18; Pulse Ox 100% on R/A; lp1 06:30 BP 161 / 61; Pulse 87; Resp 18; Pulse Ox 99% on R/A; lp1 07:50 BP 169 / 60; Pulse 83; Resp 18; Pulse Ox 100% on R/A; ph Meng Coma Score: 03:44 Eye Response: spontaneous(4). Verbal Response: oriented(5). Motor Response: obeys lp1 commands(6). Total: 15. 05:00 Eye Response: spontaneous(4). Verbal Response: oriented(5). Motor Response: obeys lp1 commands(6). Total: 15. 07:50 Eye Response: spontaneous(4). Verbal Response: oriented(5). Motor Response: obeys ph commands(6). Total: 15. Trauma Score (Adult): 03:44 Eye Response: spontaneous(1); Verbal Response: oriented(1); Motor Response: obeys lp1 commands(2); Systolic BP: > 89 mm Hg(4); Respiratory Rate: 10 to 29 per min(4); Meng Score: 15; Trauma Score: 12 07:50 Eye Response: spontaneous(1); Verbal Response: oriented(1); Motor Response: obeys ph commands(2); Systolic BP: > 89 mm Hg(4); Respiratory Rate: 10 to 29 per min(4); Meng Score: 15; Trauma Score: 12 MDM: 03:42 Patient medically screened. [facility] 05:38 Differential diagnosis: abrasion, closed head injury, contusion, fracture. Data [facility] reviewed: vital signs, nurses notes, EMS record, old medical records, radiologic studies, CT scan, plain films. Data interpreted: Pulse oximetry: on room air is 100 %. Interpretation: normal. Counseling: I had a detailed discussion with the patient and/or guardian regarding: the historical points, exam findings, and any diagnostic results supporting the discharge/admit diagnosis, the presence of at least one elevated blood pressure reading (>120/80) during this emergency department visit, radiology results, the need for outpatient follow up, to return to the emergency department if symptoms worsen or persist or if there are any questions or concerns that arise at home. Response to treatment: the patient's symptoms have resolved after treatment, the patient's blood pressure is in an acceptable range, mental status has returned to baseline, the patient no longer shows bradycardia, the patient is not short of breath, the patient is not tachycardic, the patient's pain is gone, the patient's temperature has normalized. 09/26 03:47 Order name: Shoulder Right (2 View) XRAY; Complete Time: 19:39 [facility] 09/26 03:47 Order name: CT Head C Spine [facility] 09/26 07:44 Order name: Diet Regular; Complete Time: 07:45 ph Administered Medications: 04:33 Drug: Tylenol 1000 mg Route: PO; lp1 Disposition: 19:39 Co-signature as Attending Physician, Ortiz Archuleta MD. [facility] Disposition: 09/27/19 05:41 Discharged to Home. Impression: Fall, Right Shoulder Contusion. - Condition is Stable. - Discharge Instructions: Contusion, [id number], Fall Prevention in the Home, [id number]. - Medication Reconciliation Form, Thank You Letter, Antibiotic Education, Prescription Opioid Use form. - Follow up: Private Physician; When: 1 - 2 days; Reason: Worsening of condition, Recheck today's complaints, Continuance of care, Re-evaluation by your physician. Follow up: Dereje Mendoza MD; When: 2 - 3 days; Reason: Worsening of condition, Recheck today's complaints. - Problem is new. - Symptoms have improved. Signatures: Dispatcher [employer] EDMS Gabriella Paredes RN RN ss Arpita Tubbs RN RN lp1 Ortiz Archuleta MD MD mh7 Corrections: (The following items were deleted from the chart) 10:29 05:41 09/27/2019 05:41 Discharged to Home. Impression: Fall; Right Shoulder Contusion. ss Condition is Stable. Forms are Medication Reconciliation Form, Thank You Letter, Antibiotic Education, Prescription Opioid Use. Follow up: Private Physician; When: 1 - 2 days; Reason: Worsening of condition, Recheck today's complaints, Continuance of care, Re-evaluation by your physician. Follow up: Dr. Dereje Mendoza; When: 2 - 3 days; Reason: Worsening of condition, Recheck today's complaints. Problem is new. Symptoms have improved. mh7
--- NOTE | 2019-09-27 05:42 | ER ---
Nurse's Notes [facility] Name: Wendy Marte Age: 88 yrs Sex: Female : 1930 Arrival Date: 09/27/2019 Time: 03:41 Bed 4 Private MD: Diagnosis: Fall;Right Shoulder Contusion Presentation: 09/26 03:42 Chief complaint: EMS states: Called for patient who fell out of recliner, unwitnessed; lp1 Patient denies hitting head; complaint of pain to right shoulder. neck, back;. Care prior to arrival: None. Mechanism of Injury: Fall from standing position. Trauma event details: Injury occurred in the [facility], Injury occurred: at home. Injury occurred: September 27, 2019 Injury occurred at: 02:00. 03:42 Acuity: MARY 2 lp1 03:42 Method Of Arrival: EMS: [facility] lp1 03:43 Coronavirus screen: Client denies travel out of the [place] in the last 14 days. At this lp1 time, the client does not indicate any symptoms associated with coronavirus-19. Ebola Screen: No symptoms or risks identified at this time. Initial Sepsis Screen: Does the patient meet any 2 criteria? No. Patient's initial sepsis screen is negative. Does the patient have a suspected source of infection? No. Patient's initial sepsis screen is negative. Risk Assessment: Do you want to hurt yourself or someone else? Patient reports no desire to harm self or others. Onset of symptoms was September 27, 2019. Trauma Activation: Alert Physician: ED Physician; Name: Dr. Archuleta; Notified At: 03:35; Arrived At: 03:35 Physician: General Surgeon; Name: N/A; Notified At: 03:35; Arrived At: Physician: Radiology; Name: Norma; Notified At: 03:35; Arrived At: 03:37 Physician: Respiratory; Name: N/A; Notified At: 03:35; Arrived At: Physician: Lab; Name: N/A; Notified At: 03:35; Arrived At: Historical: - Allergies: 03:45 Lisinopril; lp1 - Home Meds: 04:24 amlodipine 5 mg tab 1 tab once daily [Active]; atorvastatin 20 mg Oral tab 1 tab daily lp1 [Active]; Calcium-Vit D3 1 tab BID 600mg- 800mg twice a day [Active]; clonidine 0.1 mg/24 hr transdermal ptwk 1 patch once wkly [Active]; docusate sodium 100 mg Oral cap 2 caps once daily [Active]; Eliquis 2.5 mg Oral tab 1 tab 2 times per day [Active]; famotidine 20 mg Oral tab 1 tab 2 times per day [Active]; furosemide 40 mg Oral tab 1 tab once daily [Active]; - PMHx: 03:45 ADD/ADHD; Anemia; Anxiety; Atrial Fib; Diabetes - NIDDM; GERD; High Cholesterol; lp1 Hypertension; osteoarthritis; Osteoporosis; - PSHx: 03:45 Unable to obtain; lp1 - Immunization history:: Adult Immunizations up to date. - Immunization history: Last tetanus immunization: unknown. - Social history:: Smoking status: Patient denies any tobacco usage or history of. Screenin:43 Abuse screen: Denies threats or abuse. Denies injuries from another. Nutritional lp1 screening: No deficits noted. Tuberculosis screening: No symptoms or risk factors identified. 05:20 Fall Risk Total Mcghee Fall Scale indicates High Risk Score (45 or more points). Fall lp1 prevention measures have been instituted. Side Rails Up X 2 As available patient and family educated on Fall Prevention Program and Strategies. Primary Survey: 03:44 NO uncontrolled hemorrhage observed. A: The patient is alert. Airway: patent, No lp1 supplemental oxygen in use on arrival. Breathing/Chest: Respiratory pattern: regular, Respiratory effort: spontaneous, unlabored, Chest inspection: symmetrical rise and fall of the chest. Circulation: Skin color: pink, Skin temperature: warm, dry. Disability Alert. Exposure/Environment: All clothing and personal items were removed. 04:45 Reassessment Breathing/Chest Respiratory pattern Regular Respiratory effort Spontaneous lp1 Unlabored Disability Alert. Assessment: 03:45 General: Appears in no apparent distress. Behavior is calm, cooperative, appropriate lp1 for age. Pain: Complains of pain in anterior aspect of right shoulder and posterior aspect of right shoulder. Neuro: Level of Consciousness is awake, alert, obeys commands, Oriented to person, place. EENT: No deficits noted. Cardiovascular: Patient's skin is warm and dry. Respiratory: Respiratory effort is even, unlabored. GI: No signs and/or symptoms were reported involving the gastrointestinal system. : No signs and/or symptoms were reported regarding the genitourinary system. Derm: Skin is pink, warm \T\ dry. Musculoskeletal: Range of motion: limited in right shoulder. 04:29 Reassessment: Patient returned from CT at this time; no distress noted. lp1 05:00 Reassessment: Patient appears in no apparent distress at this time. Assisted patient lp1 with bedpain to void. 05:55 Reassessment: Spoke with Pam at [facility] about patient's discharge transportation; lp1 will call back for transport arrangements back to facility. 06:15 Reassessment: Pam from [facility] states no transportation available, ER will need to lp1 arrange transportation back to facility. 06:30 Reassessment: Patient resting, eyes closed, respirations unlabored; aware of waiting lp1 for transportation back to [facility]. 07:00 Reassessment: Spoke with Pam at [facility], states she will call back with ETA for lp1 transport for patient back to facility; states party bus driver usually arrives about [phone]. 07:49 Reassessment: Patient appears in no apparent distress at this time. Patient and/or ph family updated on plan of care and expected duration. Pain level reassessed. Pt awake and alert, oriented to person and place, awaiting transportation back to [facility]. 09:26 Reassessment: Olya with [employer] in states that the transportation for the patient ss is headed this way now. Vital Signs: 03:43 BP 148 / 58; Pulse 90; Resp 18; Temp 97.6(O); Pulse Ox 97% on R/A; Weight 81.65 kg (R); lp1 05:00 BP 159 / 58; Pulse 90; Resp 18; Pulse Ox 100% on R/A; lp1 06:30 BP 161 / 61; Pulse 87; Resp 18; Pulse Ox 99% on R/A; lp1 07:50 BP 169 / 60; Pulse 83; Resp 18; Pulse Ox 100% on R/A; ph Henderson Coma Score: 03:44 Eye Response: spontaneous(4). Verbal Response: oriented(5). Motor Response: obeys lp1 commands(6). Total: 15. 05:00 Eye Response: spontaneous(4). Verbal Response: oriented(5). Motor Response: obeys lp1 commands(6). Total: 15. 07:50 Eye Response: spontaneous(4). Verbal Response: oriented(5). Motor Response: obeys ph commands(6). Total: 15. Trauma Score (Adult): 03:44 Eye Response: spontaneous(1); Verbal Response: oriented(1); Motor Response: obeys lp1 commands(2); Systolic BP: > 89 mm Hg(4); Respiratory Rate: 10 to 29 per min(4); Meng Score: 15; Trauma Score: 12 07:50 Eye Response: spontaneous(1); Verbal Response: oriented(1); Motor Response: obeys ph commands(2); Systolic BP: > 89 mm Hg(4); Respiratory Rate: 10 to 29 per min(4); Meng Score: 15; Trauma Score: 12 ED Course: 03:41 Patient arrived in ED. lp1 03:42 Ortiz Archuleta MD is Attending Physician. [facility] 03:43 Triage completed. lp1 03:43 Arm band placed on left wrist. lp1 03:44 Patient maintains SpO2 saturation greater than 95% on room air. Thermoregulation: warm lp1 blanket given to patient. 03:45 Patient has correct armband on for positive identification. Bed in low position. Side lp1 rails up X2. Pulse ox on. NIBP on. 04:18 Arpita Tubbs, RN is Primary Nurse. lp1 04:24 CT Head C Spine In Process Unspecified. EDMS 04:51 Shoulder Right (2 View) XRAY In Process Unspecified. EDMS 05:20 No provider procedures requiring assistance completed. Patient did not have IV access lp1 during this emergency room visit. 05:40 Dereje Mendoza MD is Referral Physician. 7 Administered Medications: 04:33 Drug: Tylenol 1000 mg Route: PO; lp1 Output: 05:00 Urine: 250ml (Voided); Total: 250ml. lp1 Outcome: 05:[address] . [facility] 05:56 Condition: stable lp1 05:56 Instructed on discharge instructions. 10:29 Discharged to [facility]. ss 10:29 Patient left the ED. ss Signatures: Dispatcher [employer] EDMS Smirch, Gabriella, RN RN Arpita Tubbs RN RN lp1 Lyly Butt RN RN ph Holmes, Maurice, MD MD mh7 Corrections: (The following items were deleted from the chart) 04:24 03:43 BP 148 / 58; Pulse 90bpm; Resp 18bpm; Pulse Ox 97% RA; Temp 97.6F Oral; 45.36 kg lp1 Reported; lp1 07:03 07:02 Urine 250, (Voided), Output Total 250. lp1 lp1
--- NOTE | 2019-09-27 08:35 | RAD REPORT ---
EXAM DESCRIPTION: RAD - Shoulder Right 2 View - 09/27/2019 4:51 am CLINICAL HISTORY: trauma Fall, pain COMPARISON: No comparisons FINDINGS: Significant degenerative changes present involving the glenohumeral joint and the AC joint . No acute fracture or dislocation evident. The bones are osteopenic.
--- NOTE | 2019-09-27 10:19 | RAD REPORT ---
EXAM DESCRIPTION: Head C Spine Mpr Wo Con CLINICAL HISTORY: Trauma COMPARISON: None available TECHNIQUE: Axial CT of the head obtained from the skull apex to the skull base without contrast. Axi al CT images of the cervical spine obtained from the skull base through the thoracic inlet. Sagittal and coronal reformatted images available. FINDINGS: CT head: No acute intracranial hemorrhage identified. No mass, mass effect, shift of the midline, abnormal ext ra-axial fluid collection or CT evidence of acute ischemic change identified. No enlargement of ventr icular system and sulcal spaces compatible with cerebral atrophy. Confluent areas of hypodensity th roughout the supratentorial white matter are nonspecific and may represent sequela of chronic small v essel ischemic change. The visualized paranasal sinuses and the mastoids are clear. No skull fracture identified. Visual ized orbits and globes are unremarkable. Cervical CT: Alignment of the cervical spine is maintained without evidence of subluxation. The atlantoaxial, at lantodental, and occipitoatlantal intervals are preserved. No acute fracture. Prevertebral soft t issues are unremarkable. Moderate multilevel loss of intervertebral disc height with endplate spondylosis and facet arthropath y. Degenerative spurring of the atlantodental articulation. Visualized skull base is intact. No fracture of the visualized facial bones. Visualized mastoid air c ells and paranasal sinuses are well aerated. Visualized thyroid is unremarkable. No cervical lymphadenopathy. No pneumothorax in the visualized lung apices. Carotid and aortic atherosclerosis. Right pleural effusion. IMPRESSION: 1. No acute intracranial abnormality. 2. No acute fracture or subluxation of the cervical spine. This exam was performed according to our departmental dose-optimization program, which includes autom ated exposure control, adjustment of the mA and/or kV according to patient size and/or use of iterati ve reconstruction technique. Electronically signed by: Chris Cross 09/27/2019 4:42 AM CDT Due to temporary technical issues with the PACS/Fluency reporting system, reports are being signed by the in house radiologist without review as a courtesy to ensure prompt reporting. The interpreting r adiologist is fully responsible for the content of the report.
[2019-09-27 10:39] VITALS: TEMP 97.6
[2019-09-27 10:43] VITALS: BP 169/60; O2SAT 100
== END 2019-09-27 10:29 | disposition home or self-care (01) ==
LOC: ER 03:32 → SUPCPDRO 03:32 → ER 10:29
DX: S40.011A Contusion of right shoulder, initial encounter (principal); W07.XXXA Fall from chair, initial encounter; Y93.9 Activity, unspecified; Y92.9 Unspecified place or not applicable; I10 Essential (primary) hypertension; E11.9 Type 2 diabetes mellitus without complications; F41.9 Anxiety disorder, unspecified; E78.00 Pure hypercholesterolemia, unspecified; Z88.8 Allergy status to other drugs, medicaments and biological substances
CPT/HCPCS: 70450; 72125; 99284; G0390